=== PATIENT | female | born 1955 | race Caucasian/White ===

== ENCOUNTER → 2024-08-23 | Outpatient (CLI) | payer MEDICARE, MEDICAID, SELFPAY ==
[2024-08-23 09:43] LABS: Alanine Aminotransferase 9 U/L (10-49); Albumin, Serum 4.6 gm/dL (3.4-4.8); Albumin/Globulin Ratio 1.7 (1.2-2.2); Alkaline Phosphatase 114 U/L (46-116); Anion Gap 5 (7-16); Aspartate Amino Transferase < 10 U/L (0-34); BUN/Creatinine Ratio 15 Ratio (12-20); Bilirubin,Total 0.3 mg/dL (0.3-1.2); Blood Urea Nitrogen 12 mg/dL (9-23); Calcium 9.7 mg/dL (8.3-10.6); Calcium (Corrected) 9.7 mg/dL (8.5-10.1); Carbon Dioxide 32.6 mMol/L (20.0-31.0); Chloride 100 mMol/L (98-107); Creatinine (Component) 0.8 mg/dL (0.6-1.3); Globulin 2.7 gm/dL (2.3-3.5); Glucose 100 mg/dL (74-106); Osmolality,Calculated 275 (275-295); Phosphorous 2.8 mg/dL (2.4-5.1); Potassium 4.3 mMol/L (3.4-5.1); Sodium 138 mMol/L (136-145); Thyroid Stimulating Hormone 0.08 uIU/mL (0.55-4.78); Total Protein 7.3 gm/dL (5.7-8.2); eGFR > 60 See Note
[2024-09-08 09:10] LABS: Direct LDL* 38 mg/dL (<100); T3,Total* 102 ng/dL (76-181)
== END | disposition home or self-care (01) ==
LOC: COPL 08:13
PROVIDERS: PCP Internal Medicine; Referring Provider Internal Medicine; Visit Provider Internal Medicine
DX: E03.9 Hypothyroidism, unspecified (principal); E87.1 Hypo-osmolality and hyponatremia
CPT/HCPCS: 36415; 80053; 83721; 84100; 84443; 84480

== ENCOUNTER 2025-05-11 11:30 | Inpatient (IN) | payer MEDICARE, MEDICAID, SELFPAY ==
[2025-05-11] VITALS (79 sets, daily range): BP systolic 71–164; BP diastolic 37–94; PULSE 88–129; RESP 12–35; TEMP 36.1–37.2; O2SAT 52–100; BMI 17.6
--- NOTE | 2025-05-11 11:44 | XR_ITS ---
Examination: CTA carotids with intravenous contrast CTA brain, head with intravenous contrast. 2-D sagittal, coronal reconstructions. 3-D reconstructions. Exam date and time: May 11, 2025 12:11 PM INDICATIONS: Stroke alert, found down unconscious today CTDI: vol (mGy) 23.3 DLP: (mGycm) 417 Technique: Multiple CTA axial brain, head carotid images post intravenous contrast injection 75 cc, [id number]. 2-D sagittal, coronal reconstructions. 3-D reconstructions, 3-D post processing including vascular maximum intensity projection images. Low dose protocols were performed. One or more of the following dose reduction techniques were used; automated exposure control, adjustment of the mA and/or KV according to patient size, use of iterative reconstruction technique. Findings: No significant common carotid carotid bifurcation or internal carotid artery stenoses Mildly dominant right vertebral artery in the neck with no critical stenoses. Basilar artery posterior cerebral branches fill with no occlusions Petrous juxtasellar portions internal carotid arteries intact No large vessel occlusions involving middle cerebral or anterior cerebral arteries IMPRESSION: No significant neck arterial stenoses No cerebral large vessel arterial occlusions or thrombus
--- NOTE | 2025-05-11 11:44 | XR_ITS ---
Examination: CT brain head without contrast. 2-D sagittal coronal reconstructions Date and time of exam:May 11, 2025 1157 hours, comparison April 19 2 views INDICATIONS: Stroke alert, onset focal neurologic deficit today, patient found down unconscious CTDI: vol (mGy):49.2 DLP: (mGycm):1029 Technique: Multiple CT axial sections of the brain have been obtained, 5 mm slice thickness. Contrast has not been administered. 2-D sagittal, coronal reconstructions have been obtained Low dose protocols were performed. One or more of the following dose reduction techniques were used; automated exposure control, adjustment of the mA and/or KV according to patient size, use of iterative reconstruction technique. Findings: No significant ventricular enlargement. 3 mm old appearing infarct left brainstem Intra-axial or extra-axial hemorrhage density is not seen. No mass effect or midline shift Basal cisterns are not remarkable. Fourth ventricle is midline. Cranial vault intact. Impression: Negative for acute hemorrhage, mass effect or midline shift
--- NOTE | 2025-05-11 11:44 | EKG_ITS ---
[facility] Test Date: 2025-05-11 Pat Name: DOMINIC FORTE Department: Room: - Gender: Female Nurse Care Manager: : [id number] Requested By: Marita Catherine Order Number: [id number] Reading MD: Marita Catherine Measurements Intervals [place] Rate: 93 P: 64 OH: 179 QRS: -14 QRSD: 104 T: 78 QT: 366 QTc: 457 Interpretive Statements SINUS RHYTHM NONSPECIFIC ST & T-WAVE ABNORMALITY No previous ECG available for comparison /store/S0/[id number]/[id number].pdf
--- NOTE | 2025-05-11 11:44 | XR_ITS ---
Examination: AP chest single view Technique one AP portable semiupright chest single view Date and time: May 11, 2025 1319 hours INDICATIONS: Stroke alert, focal neurologic deficit today. FINDINGS: Mild prominence of ventricle No aspiration pneumonia. Old left-sided rib fractures IMPRESSION: Negative for aspiration pneumonia
--- NOTE | 2025-05-11 11:52 | PD.EDFALL ---
ED Fall Injury RME/HPI General Chief Complaint: Fall Stated Complaint: LOW BP Time Seen by Provider: 05/11/25 11:41 Arrival date/time: 05/11/25 11:30 RME / HPI RME / HPI Narrative: 69-year-old female patient with significant history of hypertension, bipolar disorder, COPD, was brought in by EMS for evaluation regarding strokelike symptoms. Apparently patient went to the bathroom last night, around 9 PM, and fell and tried to go back to her bed crawling according to the family. This morning around 10:00 in the morning, she called her mom and patient verbalized that she probably had a stroke, her daughter went to the house, and patient was noted to be confused and unable to ambulate. Called EMS. Patient is not taking any blood thinner. On my initial evaluation patient is having slurring with speech, GCS 14, with weakness to the right side of the body. Patient sustained laceration to the forehead no active bleeding noted will coaptated. Patient lives alone. Related Data Home Medications ?Medication ?Instructions ?Recorded ?Confirmed carvedilol 3.125 mg tablet (Coreg) 3.125 mg PO BID #0 tabs 09/03/16 04/30/22 albuterol sulfate 90 mcg/actuation 2 puff inhalation QID PRN 07/10/18 04/30/22 aerosol inhaler (Ventolin HFA) Shortness Of Breath Or Wheezing aripiprazole 30 mg tablet (Abilify) 30 mg PO QDAY 07/10/18 04/30/22 levothyroxine 50 mcg tablet 75 mcg PO QDAY 07/10/18 04/30/22 (Synthroid) venlafaxine 150 mg 300 mg PO QDAY 07/10/18 04/30/22 capsule,extended release 24 hr (Effexor XR) diazepam 10 mg tablet (Valium) 10 mg PO BID 03/26/19 04/30/22 Held on 04/30/22. Instructions: Resume on 05/01/22. HOLD TODAY'S DOSE. MAY RESUME TOMORROW 05/01/22 lisinopril 20 mg tablet 10 mg PO HS #0 tabs 03/26/19 04/30/22 cholecalciferol (vitamin D3) 125 50,000 unit PO QDAY 08/25/19 04/30/22 mcg (5,000 unit) tablet (Vitamin D3) ferrous sulfate 325 mg (65 mg 325 mg PO QDAY 08/25/19 04/30/22 iron) tablet omeprazole 40 mg capsule,delayed 40 mg PO QDAY 08/25/19 04/30/22 release risperidone 3 mg tablet 3 mg QDAY 08/25/19 04/30/22 gemfibrozil 600 mg tablet 1 tab PO BID 04/30/22 04/30/22 Previous Rx's ?Medication ?Instructions ?Recorded sucralfate 1 gram tablet (Carafate) 1 g PO BID #180 tabs 04/30/22 Allergies Allergy/AdvReac Type Severity Reaction Status Date / Time adhesive tape Allergy Severe SURGICAL Verified 04/30/22 09:58 TAPE /BLISTERS Sulfa (Sulfonamide Allergy Severe SWEELING / Verified 04/30/22 09:58 Antibiotics) CLOSE THROAT / RASH clindamycin Allergy Unknown Anaphylaxis Verified 04/30/22 09:58 Penicillins Allergy Unknown Anaphylaxis Verified 04/30/22 09:58 Review of Systems Review of Systems Narrative Review of Systems: Review of system reviewed and within normal limits except mentioned in HPI ED Exam Narrative Physical exam: VITAL SIGNS: Reviewed. GENERAL APPEARANCE: Alert and good eye contact, follows commands, no acute distress, expressive aphasia, GCS 14 HEAD AND FACE: 5 cm nongaping laceration to the forehead no active bleeding ENT: PERRL, pink conjunctivitis, eyelid no trauma, Mucous membrane moist. NECK: Supple, nontender, no nuchal rigidity. CHEST: No tenderness, no crepitus, no paradoxical movement, no retractions. LUNGS: Clear, well ventilated, symmetric, no rales, no wheezing, no ronchi, no stridor, good breath sounds bilaterally. HEART: Regular rate, regular rhythm, no murmur, no gallops. ABDOMEN: Soft, positive bowel sounds, nondistended, no guarding, nontender, no rebound, no masses, RECTAL: Deferred. GENITAL: Deferred. NEUROLOGICAL: Gross motor function intact sensory function intact, Appropriate for age. MUSCULOSKELETAL: low back nontender, full range of motion. EXTREMITIES:+ Right upper extremity drifting, nontender, full range of motion. SKIN: Color pink, dry, no rash, no lacerations, no abrasions, no contusions. LYMPHATICS: Deferred. Course Quality Measures none Orders Category Date Time Status Bedside Blood Glucose NOW Care 05/11/25 11:44 Active COVID-19 Screening Questionnaire NOW Care 05/11/25 14:11 Active Blow Down Operator NOW Care 05/11/25 11:44 Active Continuous Pulse Oximetry NOW Care 05/11/25 11:44 Completed Decision to Admit X1 Care 05/11/25 14:10 Completed EKG (ED ONLY) *Do not use* NOW Care 05/11/25 11:44 Completed Head of Bed Elevation NOW Care 05/11/25 14:57 Active In and Out Catheter NEEDED Care 05/11/25 11:44 Active Insert IV NOW Care 05/11/25 11:44 Active MRI Screening NOW Care 05/11/25 14:59 Active NIH Stroke Scale now Care 05/11/25 11:44 Active NPO NOW Care 05/11/25 11:44 Active Nurse Swallow Screen x1 Care 05/11/25 11:44 Active Consult to Gastroenterology Stat Cons 05/11/25 14:57 Ordered Consult to Neurology / Tele-Neurology Routine Cons 05/11/25 11:44 Active Consult to Neurology / Tele-Neurology Stat Cons 05/11/25 15:37 Active Referral Physical Therapy Routine Cons 05/11/25 15:00 Active Referral Speech Therapy Routine Cons 05/11/25 15:[address] angio stroke protocol Stat Exams 05/11/25 11:[address] chest abdomen pelvis wo Stat Exams 05/11/25 14:[address] stroke protocol Stat Exams 05/11/25 11:44 Completed CXR [XR chest 1V] Stat Exams 05/11/25 14:55 Completed EKG (ED Only) Stat Exams 05/11/25 11:44 Draft MR stroke protocol brain wo con with MRA head and neck Exams 05/11/25 Ordered Stat XR chest 1V portable Stat Exams 05/11/25 11:44 Completed XR pelvis 1-2V Stat Exams 05/11/25 12:21 Completed CBC Stat Lab 05/11/25 11:50 Completed CBC Stat Lab 05/11/25 15:29 Completed Comprehensive Metabolic Panel Stat Lab 05/11/25 11:50 Completed Creatine Kinase Stat Lab 05/11/25 11:50 Completed Drug Screen,Urine Stat Lab 05/11/25 12:57 Completed HCG Titer if Positive Stat Lab 05/11/25 11:50 Completed Lactate (Lactic Acid) Stat Lab 05/11/25 15:29 Results Magnesium Stat Lab 05/11/25 11:50 Completed Partial Thromboplastin Time Stat Lab 05/11/25 11:50 Completed Prothrombin Time with INR Stat Lab 05/11/25 11:50 Completed Troponin I Q8H Lab 05/11/25 17:00 Ordered Troponin I Q8H Lab 05/12/25 01:00 Ordered Troponin I Stat Lab 05/11/25 11:50 Completed Type and Screen Stat Lab 05/11/25 15:29 Results Urinalysis, C/S if Indicated Stat Lab 05/11/25 12:57 Completed Aspirin [Ecotrin] Med 05/11/25 12:12 Discontinued 81 mg PO X1 ONE Cefepime Inj [Maxipime Inj] 1 gm Med 05/11/25 15:36 Active SODIUM CHLORIDE 0.9% (Popper) [Ns 0.9% (P)] 50 ml IV QDAY Labetalol IV [Trandate IV] Med 05/11/25 11:44 Active 10 mg IVP Q15M PRN Norepinephrine/NS 16mg/250ml [Levophed in NS 16mg/250ml Med 05/11/25 12:57 Active ] 16 mg in 250 ml IV 0.05 mcg/kg/min Ondansetron Inj [Zofran Inj] Med 05/11/25 11:44 Active 4 mg IVP Q4HR PRN Ringers Lactated 1000 ml [Lactated Ringers] 1,000 ml Med 05/11/25 14:59 Active IV 100 mls/hr Sodium Chloride 0.9% 1000 ml [Ns] 1,000 ml Med 05/11/25 12:22 Discontinued IV 999 mls/hr Sodium Chloride 0.9% 1000 ml [Ns] 1,000 ml Med 05/11/25 12:22 Discontinued IV 999 mls/hr TET,DIP/PERT AC (Adult)-Tdap [Boostrix Adult (Tdap) Med 05/11/25 12:12 Discontinued Vacc] 0.5 ml IMI .ONCE ONE Vancomycin Pharmacy to Dose Med 05/11/25 15:00 Active 1 each IV QDAY PRN Vancomycin/Ns 1 gm Ivpb 200 ml Med 05/11/25 15:15 Active IV X1 cefTRIAXone/D5w 1gm IV premix [Rocephin/D5w 1gm IV Med 05/11/25 13:08 Discontinued premix] 1 gm in 50 ml IV X1 Oxygen Delivery NOW RT 05/11/25 11:44 Active Vital Signs Vital signs: Vital Signs Temperature 98.9 F 05/11/25 11:35 Pulse Rate 108 H 05/11/25 11:35 Respiratory Rate 18 05/11/25 11:35 Blood Pressure 86/55 L 05/11/25 11:35 Pulse Oximetry (%) 89 L 05/11/25 11:35 Oxygen Delivery Method Oxy Mask 05/11/25 11:35 Fall MDM Narrative MDM Narrative:: 69-year-old female patient with significant history of hypertension, bipolar disorder, COPD, was brought in by EMS for evaluation regarding strokelike symptoms. Apparently patient went to the bathroom last night, around 9 PM, and fell and tried to go back to her bed crawling according to the family. This morning around 10:00 in the morning, she called her mom and patient verbalized that she probably had a stroke, her daughter went to the house, and patient was noted to be confused and unable to ambulate. Called EMS. Patient is not taking any blood thinner. On my initial evaluation patient is having slurring with speech, GCS 14, with weakness to the right side of the body. Patient sustained laceration to the forehead no active bleeding noted will coaptated. Patient lives alone. Stroke alert was initiated at 11:50 AM I spoke with teleneurologist, who recommends aspirin p.o. x 1. CT scan of the head and CT angiogram of the head and neck all came back unremarkable EKG showed sinus rhythm, ventricular to 72 bpm, no ST segment elevation depression noted. Sepsis alert was initiated at 3:30 PM for leukocytosis tachycardia. And hypotension Levophed was started for persistent hypotension. Patient will be admitted to ICU While in the ED the, patient vomited coffee-ground vomitus. I consulted Dr. Vasquez. Patient was also given IV Protonix. Patient received total of 3 L IV fluids, and ceftriaxone IV Patient data External records reviewed:: None Clinical information provided by:: none Social determinants that could affect healthcare access:: none Patient has the following chronic illnesses:: Hypertension How is presenting disease/condition affected by chronic disease/condition?: exacerbated by Evaluation data The following diagnostics were reviewed and interpreted by me:: lab results, radiology exam(s) and EKG tracing(s) Lab and/or radiology exams considered but not ordered:: None Interpretation Summary: See results MDM Medications / Prescriptions Medications or Prescriptions considered but not ordered:: None Medication administrations:: Medication Administration History Acetaminophen (Acetaminophen 325 Mg Tablet) 650 mg PO Q6HR PRN PRN Reason: FEVER >101 Stop: 06/10/25 15:39 Acetaminophen (Acetaminophen 325 Mg Tablet) 650 mg PO Q6HR PRN PRN Reason: HEADACHE Stop: 06/10/25 15:44 Atorvastatin Calcium (Atorvastatin Calcium 20 Mg Tablet) 80 mg PO HS DUSTIN Stop: 06/10/25 20:59 Heparin Sodium (Porcine) (Heparin Sod Inj 5000 Unit/Ml Vial) 5,000 unit SC Q12HR DUSTIN Stop: 05/25/25 20:59 Norepinephrine Bitartrate (Levophed In Ns 16mg/250ml) 16 mg in 250 mls @ 2.126 mls/hr IV .Q24H PRN; Protocol PRN Reason: PER protocol Stop: 06/10/25 12:56 Last Admin: 05/11/25 15:55 Dose: 0.05 mcg/kg/min, 2.126 mls/hr Documented By: OLI Vancomycin/Sodium Chloride (Vancomycin/Ns 1 Gm Ivpb) 200 mls @ 120 mls/hr IV X1 ONE Stop: 05/11/25 16:54 Last Admin: 05/11/25 15:35 Dose: 120 mls/hr Documented By: OLI Lactated Ringer's (Lactated Ringers) 1,000 mls @ 100 mls/hr IV .Q10H DUSTIN Stop: 06/10/25 14:58 Last Admin: 05/11/25 15:35 Dose: 100 mls/hr Documented By: OLI Cefepime HCl 1 gm/ Sodium (Chloride) 50 mls @ 100 mls/hr IV QDAY DUSTIN; Protocol Stop: 05/18/25 15:35 Last Admin: 05/11/25 15:55 Dose: 100 mls/hr Documented By: OLI Labetalol HCl (Labetalol Inj 5 Mg/Ml Vial 20 Ml) 10 mg IVP Q15M PRN PRN Reason: HYPER Ondansetron HCl (Ondansetron Inj 2 Mg/Ml Inj 2 Ml) 4 mg IVP Q4HR PRN PRN Reason: NAUSEA OR VOMITING Stop: 06/10/25 11:43 Last Admin: 05/11/25 14:16 Dose: 4 mg Documented By: OLI Pharmacy Consult (Vancomycin Pharmacy To Dose 1 Each Each) 1 each IV QDAY PRN PRN Reason: CONSULT Stop: 06/10/25 14:59 Discontinued Medications Aspirin (Aspirin Ec 81 Mg Tabec) 81 mg PO X1 ONE Stop: 05/11/25 12:13 Last Admin: 05/11/25 12:31 Dose: 81 mg Documented By: OLI Diphtheria/Tetanus/Acell Pertussis (Diphth,Pertuss(Acell),Tet Vac 0.5 Ml Syr- Adult) 0.5 ml IMi .ONCE ONE Stop: 05/11/25 12:13 Last Admin: 05/11/25 12:31 Dose: 0.5 ml Documented By: OLI Sodium Chloride (Ns) 1,000 mls @ 999 mls/hr IV .Q1H1M ONE Stop: 05/11/25 13:22 Last Infusion: 05/11/25 14:25 Dose: Infused Documented By: Admin: 05/11/25 12:27 Dose: 999 mls/hr Documented By: Infusion: 05/11/25 12:27 Dose: Infused Documented By: Admin: 05/11/25 12:25 Dose: 999 mls/hr Documented By: OLI Sodium Chloride (Ns) 1,000 mls @ 999 mls/hr IV .Q1H1M ONE Stop: 05/11/25 13:22 Last Infusion: 05/11/25 14:25 Dose: Infused Documented By: Admin: 05/11/25 12:33 Dose: 999 mls/hr Documented By: OLI Ceftriaxone Sodium/Dextrose (Rocephin/D5w 1gm Iv Premix) 1 gm in 50 mls @ 100 mls/hr IV X1 ONE Stop: 05/11/25 13:37 Last Infusion: 05/11/25 14:24 Dose: Infused Documented By: Admin: 05/11/25 13:31 Dose: 100 mls/hr Documented By: OLI See MDM Consultations Consultation(s) initiated? (list below): Yes Consultation #1 (Physician, Specialty, Details): Dr. Vasquez, GI specialist on-call thank you Dr. Vasquez Consultation #2 (Physician, Specialty, Details): Teleneurologist, discussed the case, who recommends aspirin and admit for stroke workup Diagnosis Fall Differential Diagnosis: syncope and other (Rhabdomyolysis, sepsis, stroke, upper GI bleed) Most likely diagnosis given after review of the tests above:: Upper GI bleed, rhabdomyolysis, sepsis, strokelike symptoms Admission Indicated Admission indicated?: indicated Admission Request Was there a request for admission?: Yes Admission Attestation Admission request attestation: Discussed case with [Dr. Don] from Hospitalist service regarding admission. Discussed patients ED course, exam findings, labs, and radiology results. The Hospitalist [agrees,] to accept the patient for admission. Disposition Plan Disposition Plan: Admit Critical Care Time Critical Care Time Critical Care Time: Yes Total Critical Care Time (min.): 45 Attestation: Critical Care Time The very real possibility of a deterioration of this patient's condition required the highest level of my preparedness for sudden, emergent intervention for the following systems: Cardiac and Metabolic. I provided critical care services, which included medication orders, frequent re-evaluations of the patient's condition and response to treatment, ordering and reviewing test results, and discussing the case with various consultants including: nursing staff, hospitalist, and more. The critical care time associated with the care of this patient was 45 minutes. Discharge Plan Plan Patient Disposition: Admit Acute Care w/in Hospital Discharge Disposition comment: Critical Problem List Clinical Impression: Sepsis, Stroke-like symptom, Acute upper GI bleed
[2025-05-11 12:01] LABS: Basophils # (Auto) 0.2 Thou/mm3 (0.0-0.2); Basophils % (Auto) 1 % (0-2.5); Eosinophils # (Auto) 0.0 Thou/mm3 (0.0-0.5); Eosinophils % (Auto) 0 % (0-10); Hematocrit 44.7 % (36.0-46.0); Hemoglobin 16.5 g/dL (12.0-16.0); Immature Granulocytes Auto 0.30 Thou/mm3 (0.00-0.00); Lymphocytes # (Auto) 1.7 Thou/mm3 (1.0-4.8); Lymphocytes % (Auto) 6 % (10-50); Mean Corpuscular HGB Conc 36.9 g/dl (31.0-37.0); Mean Corpuscular Hemoglobin 32.4 pg (25.0-35.0); Mean Corpuscular Volume 88 fL (80-100); Monocytes # (Auto) 1.1 Thou/mm3 (0.0-0.8); Monocytes % (Auto) 4 % (0-12); Neutrophils # (Auto) 24.9 Thou/mm3 (1.8-7.7); Neutrophils % (Auto) 89 % (37-80); Nucleated Red Blood Cell # 0.00 Thou/mm3 (0.00-0.00); Nucleated Red Blood Cell % 0 /100 WBC (0); Platelet Count 393 Thou/mm3 (140-440); RDW Standard Deviation 43.5 fL (36.4-46.3); Red Blood Count 5.09 Miln/mm3 (4.00-5.20); White Blood Count 28.1 Thou/mm3 (3.6-11.0)
[2025-05-11 12:19] LABS: INR 1.1 (0.9-1.3); Partial Thromboplastin Time 27.5 Seconds (22.0-36.0); Prothrombin Time 12.2 Seconds (9.0-12.2)
--- NOTE | 2025-05-11 12:21 | XR_ITS ---
Examination: AP pelvis single view TECHNIQUE: AP portable supine pelvis single view Date and time: May 11, 2025 1325 hours INDICATIONS: Patient fell 2 days ago with injury to the pelvis, pelvic pain. FINDINGS: Severe osteopenia No definite hip or pelvic fracture IMPRESSION: No definite hip or pelvic fracture. Given the severe osteopenia recommend 1-2 day follow-up AP film of the pelvis as clinically warranted.
[2025-05-11] MEDS: SODIUM CHLORIDE 0.9% 1000 ML 1,000 ML 999 ML IV ×4 (12:25→16:56)
[2025-05-11 12:28] LABS: HCG Titer if Positive Negative
[2025-05-11] MEDS: DIPHTH,PERTUSS(ACELL),TET VAC 0.5 ML SYR- ADULT IMi (12:31)
[2025-05-11] MEDS: ASPIRIN EC 81 MG TABEC PO (12:31)
[2025-05-11 12:37] LABS: Alanine Aminotransferase 144 U/L (10-49); Albumin, Serum 4.5 gm/dL (3.4-4.8); Albumin/Globulin Ratio 1.4 (1.2-2.2); Alkaline Phosphatase 105 U/L (46-116); Anion Gap 16 (7-16); Aspartate Amino Transferase 141 U/L (0-34); BUN/Creatinine Ratio 8 Ratio (12-20); Bilirubin,Total 0.3 mg/dL (0.3-1.2); Blood Urea Nitrogen 25 mg/dL (9-23); Calcium 10.2 mg/dL (8.3-10.6); Calcium (Corrected) 10.2 mg/dL (8.5-10.1); Carbon Dioxide 26.3 mMol/L (20.0-31.0); Chloride 80 mMol/L (98-107); Creatinine (Component) 3.0 mg/dL (0.6-1.3); Globulin 3.3 gm/dL (2.3-3.5); Glucose 176 mg/dL (74-106); Magnesium 1.7 mg/dL (1.6-2.6); Osmolality,Calculated 254 (275-295); Potassium 5.4 mMol/L (3.4-5.1); Sodium 122 mMol/L (136-145); Total Protein 7.8 gm/dL (5.7-8.2); eGFR 16 See Note
[2025-05-11 12:39] LABS: Troponin I 1.011 ng/mL (0.0-0.045)
--- NOTE | 2025-05-11 12:44 | PD.TNEURO ---
Tele Neuro Consultation Consultation Date 05/11/25 Most Recent Vital Signs Last Vital Signs Temp 98.9 F 05/11/25 11:35 Pulse 108 H 05/11/25 11:44 Resp 18 05/11/25 11:35 BP 86/55 L 05/11/25 11:35 Pulse Ox 89 L 05/11/25 11:44 O2 Del Method Oxy Mask 05/11/25 11:35 O2 Flow Rate 2 05/11/25 11:44 Laboratory-Coagulation Panel PT 12.2 Seconds (9.0-12.2) 05/11/25 11:50 INR 1.1 (0.9-1.3) 05/11/25 11:50 APTT 27.5 Seconds (22.0-36.0) 05/11/25 11:50 Consultation Narrative [facility] Tele[facility] Patient Name:???Doris Adame Date of :???1955 Identification Number:??? Date of Service:???05/11/2025 11:45:25 Diagnosis:?I63.00 - Cerebrovascular accident (CVA) due to thrombosis of precerebral artery (HCCC) Impression: ?69 year old woman with history of hypothyroidism, hypertension, hyperlipidemia who presents for an evaluation following a fall. On exam she has marked right sided deficits, no antigravity movement of right leg, drift of right arm, sensory changes and dysarthria. Concern for a left hemispheric stroke. She is very hypotensive cannot rule out watershed infarcts. Will need IVF and permissive hypertension. She is outside therapeutic window for IV thrombolytic, recommend admission for full stroke workup: MRI brain imaging, antiplatelet therapy, statin, 2d echo, telemetry monitoring, PT/OT/speech eval and follow up with inpatient neurology. Our recommendations are outlined below. Recommendations: ? Stroke/Telemetry Floor ? Neuro Checks (Q4) ? Bedside Swallow Eval ? DVT Prophylaxis ? IV Fluids, Normal Saline ? Head of Bed 30 Degrees ? Euglycemia and Avoid Hyperthermia (PRN Acetaminophen) ? Initiate or continue Aspirin 81 MG daily ? Antihypertensives PRN if Blood pressure is greater than 220/120 or there is a concern for End organ damage/contraindications for permissive HTN. If blood pressure is greater than 220/120 give labetalol PO or IV or Vasotec IV with a goal of 15% reduction in BP during the first 24 hours. ?MRI brain imaging ?IVF and permissive hypertension ?2d echo ?telemetry monitoring ?aspirin 81mg, CT if unable to swallow ?NPO until swallow eval performed ?PT/OT/speech eval ?Lipitor 80mg ?check fasting lipid panel and HGA1C ?fu with neurology Sign Out: ? Discussed with Emergency Department Provider Advanced Imaging: CTA Head and Neck Completed. LVO:No Patient is not a candidate for COLETTE Metrics: Last Known Well: 05/10/2025 21:23:00 Dispatch Time: 05/11/2025 11:45:25 Arrival Time: 05/11/2025 11:35:00 Initial Response Time: 05/11/2025 11:48:51Symptoms: confusion, weakness. Initial patient interaction: 05/11/2025 12:01:00 NIHSS Assessment Completed: 05/11/2025 12:07:55Patient is not a candidate for Thrombolytic. Thrombolytic Medical Decision: 05/11/2025 12:07:59Patient was not deemed candidate for Thrombolytic because of following reasons: LKW outside 4.[address] Head: I personally reviewed all the CT images that were available to me and it showed: no acute hemorrhage Primary Provider Notified of Diagnostic Impression and Management Plan on: 05/11/2025 12:09:58 History of Present Illness:Patient is a 69 year old Female. Patient was brought by EMS for symptoms of confusion, weakness. 69 year old woman with history of hypothyroidism, hypertension, hyperlipidemia who presents for an evaluation following a fall. She was well until approximately 9pm yesterday and sustained a fall with head injury. Unclear if had LOC or why she fell. Patient unable to elaborate. She spoke to the daughter was fine yesterday and this morning when she woke up she told her daughter she was having a stroke. She appeared confused, unable to walk and is normally independent. Daughter stated she was on blood thinners but was unable to locate it in the house. Past Medical History: ?Hypertension ?Hyperlipidemia ?There is no history of Diabetes Mellitus Medications: Anticoagulant use:??Unknown Antiplatelet use:?Unknown Reviewed EMR for current medications Allergies:? Reviewed Social History: Smoking: No Alcohol Use: No Drug Use: No Family History: There is no family history of premature cerebrovascular disease pertinent to this consultation ROS : 14 Points Review of Systems was performed and was negative except mentioned in HPI. Past Surgical History: There Is No Surgical History Contributory To Today?s Visit Examination: BP(86/55),?Pulse(85), 1A: Level of Consciousness - Alert; keenly responsive?+ 0 1B: Ask Month and Age - Both Questions Right?+ 0 1C: Blink Eyes & Squeeze Hands - Performs Both Tasks?+ 0 2: Test Horizontal Extraocular Movements - Normal?+ 0 3: Test Visual Castro - No Visual Loss?+ 0 4: Test Facial Palsy (Use Grimace if Obtunded) - Normal symmetry?+ 0 5A: Test Left Arm Motor Drift - No Drift for 10 Seconds?+ 0 5B: Test Right Arm Motor Drift - Drift, but doesn't hit bed?+ 1 6A: Test Left Leg Motor Drift - Some Effort Against [place]?+ 2 6B: Test Right Leg Motor Drift - No Effort Against [place]?+ 3 7: Test Limb Ataxia (FNF/Heel-Coley) - No Ataxia?+ 0 8: Test Sensation - Mild-Moderate Loss: Less Sharp/More Dull?+ 1 9: Test Language/Aphasia - Normal; No aphasia?+ 0 10: Test Dysarthria - Severe Dysarthria: Unintelligble Slurring or Out of Proportion to Aphasia?+ 2 11: Test Extinction/Inattention - No abnormality?+ 0 NIHSS Score:?9 NIHSS Free Text :?ecchymosis across her face ?diminished sensation on the right Pre-Morbid Modified Annie Scale: 0 Points = No symptoms at all Spoke with :?hortencia burr This consult was conducted in real time using interactive audio and video technology. Patient was informed of the technology being used for this visit and agreed to proceed. Patient located in hospital and provider located at home/office setting. Patient is being evaluated for possible acute neurologic impairment and high probability of imminent or life-threatening deterioration. I spent total of 45 minutes providing care to this patient, including time for face to face visit via telemedicine, review of medical records, imaging studies and discussion of findings with providers, the patient and/or family. Dr Azalia Wolf [facility] For Inpatient follow-up with [facility] physician please call [facility] at . As we are not an outpatient service for any post hospital discharge needs please contact the hospital for assistance. If you have any questions for the [facility] physicians or need to reconsult for clinical or diagnostic changes please contact us via [facility] at . Signature :Maksim Wolf
[2025-05-11 12:58] LABS: Collection Type, Urine Catheter
[2025-05-11 13:15] LABS: Bilirubin,Urine Negative (Negative); Blood,Urine Negative (Negative); Clarity,Urine Clear (Clear/Hazy); Color,Urine Lt-Yellow (Lt Yel-Yel); Culture Indicated,Urine Not Indicated; Glucose, Urine Negative (Negative); Ketones,Urine Negative (Negative); Leukocyte Esterase,Urine Negative (Negative); Nitrite,Urine Negative (Negative); PH,Urine 6.5 (5.0-7.0); Protein,Urine Negative (Neg - Trace); RBC,Urine < 1 /hpf (0-3); Specific Gravity,Urine 1.007 (1.001-1.035); Squamous Epithelial Cell,Urine < 1 /hpf (0-5); Urobilinogen,Urine Negative mg/dL (0.0-1.0); WBC,Urine < 1 /hpf (0-5)
[2025-05-11 13:18] LABS: Creatine Kinase 2125 U/L (34-171)
[2025-05-11 13:29] LABS: Amphetamine/Methamp Scrn,U Negative (Negative); Barbiturate Screen,Urine Negative (Negative); Benzodiazepines Screen,Urine Positive (Negative); Benzoylecgonine Screen, Ur Negative (Negative); Fentanyl Screen,Urine Negative (Negative); Opiate Screen,Urine Negative (Negative); THC Screen,Urine Negative (Negative)
[2025-05-11] MEDS: cefTRIAXone/D5w 1gm IV premix 1 GM/50 ML BAG IV (13:31)
[2025-05-11] MEDS: ONDANSETRON INJ 2 MG/ML INJ 2 ML 4 MG IVP (14:16)
--- NOTE | 2025-05-11 14:55 | XR_ITS ---
Examination: AP chest single view Technique one AP portable semiupright chest single view Date and time: May 11, 2025, 1529 hours, comparison 05/11/2025 INDICATIONS: Choking coughing today. FINDINGS: Mild opacity left base Blunting of left lateral costophrenic angle. Mild prominence left ventricle Prominent osteopenia IMPRESSION: Suspicious for mild left base aspiration pneumonia
--- NOTE | 2025-05-11 14:56 | XR_ITS ---
Examination: CT chest, without intravenous contrast. CT abdomen, without intravenous contrast. CT pelvis, without intravenous contrast. 2-D sagittal and coronal reconstructions. 3-D reconstructions. Date and time of exam:May 11, 2025, 1514 hrs. Indications: Sepsis alert, unknown source of infection today, fever CTDI vol (mgy) 7.48 DLP (MGycm)555. Technique: Multiple CT images, 3.0 mm slice thickness, obtained chest, abdomen, pelvis, with the high-resolution 64 slice scanner.. Sagittal and coronal 2-D reconstructions are obtained. 3-D reconstructions Low dose protocols were performed. One or more of the following dose reduction techniques were used; automated exposure control, adjustment of the mA and/or KV according to patient size, use of iterative reconstruction technique. Findings: Mild aneurysmal dilatation thoracic aorta AP dimension 4.0 cm No pulmonary artery enlargement. No paratracheal tracheobronchial or bronchopulmonary adenopathy Abnormal fluid distended esophagus Minimal 2 mm pericardial effusion. No pneumonia or pulmonary edema or pleural disease Liver is mildly irregular contour, no focal liver or splenic lesions Absent gallbladder Spleen not enlarged Lower wall of the esophagus is thickened axial image 119 Small pancreatic calcification. Moderate renal parenchymal scar formation. Perinephric stranding. No hydronephrosis or ureteral calculi Aorta normal size The entire colon shows wall thickening and mild inflammatory change especially the rectosigmoid Absent uterus Contracted urinary bladder There is an air-fluid structure which is anterior to the bladder, axial image 307, which may be part of the urinary bladder Moderate osteopenia Impression: Mild aneurysmal dilatation thoracic aorta. No pneumonia, pulmonary edema or pleural disease Abnormal fluid distention of the esophagus with thickening of the lower wall of the esophagus, differential would include reflux esophagitis, lower esophageal tumor, recommend endoscopy follow-up Primary hepatocellular disease. Perinephric stranding, consider urinary tract infection. Moderately severe diffuse nonspecific colitis entire colon, differential would include ulcerative colitis, Crohn's disease This patient should return at this time for repeat bladder images with a distended urinary bladder to exclude abscess at the anterior margin of the urinary bladder, also recommend pelvic sonography follow-up
[2025-05-11 15:34] LABS: Lactate (Lactic Acid) 3.2 mMol/L (0.4-2.0)
[2025-05-11] MEDS: RINGERS LACTATED 1000 ML 1,000 ML 100 ML IV ×2 (15:35→20:46)
[2025-05-11] MEDS: VANCOMYCIN/NS 1 GM IVPB 200 ML IV (15:35)
[2025-05-11 15:39] LABS: Basophils # (Auto) 0.1 Thou/mm3 (0.0-0.2); Basophils % (Auto) 0 % (0-2.5); Eosinophils # (Auto) 0.2 Thou/mm3 (0.0-0.5); Eosinophils % (Auto) 1 % (0-10); Hematocrit 39.6 % (36.0-46.0); Hemoglobin 14.4 g/dL (12.0-16.0); Immature Granulocytes Auto 0.12 Thou/mm3 (0.00-0.00); Lymphocytes # (Auto) 1.0 Thou/mm3 (1.0-4.8); Lymphocytes % (Auto) 5 % (10-50); Mean Corpuscular HGB Conc 36.4 g/dl (31.0-37.0); Mean Corpuscular Hemoglobin 31.8 pg (25.0-35.0); Mean Corpuscular Volume 87 fL (80-100); Monocytes # (Auto) 1.1 Thou/mm3 (0.0-0.8); Monocytes % (Auto) 6 % (0-12); Neutrophils # (Auto) 15.9 Thou/mm3 (1.8-7.7); Neutrophils % (Auto) 87 % (37-80); Nucleated Red Blood Cell # 0.00 Thou/mm3 (0.00-0.00); Nucleated Red Blood Cell % 0 /100 WBC (0); Platelet Count 92 Thou/mm3 (140-440); RDW Standard Deviation 43.2 fL (36.4-46.3); Red Blood Count 4.53 Miln/mm3 (4.00-5.20); White Blood Count 18.3 Thou/mm3 (3.6-11.0)
--- NOTE | 2025-05-11 15:42 | ESHP_ITS ---
<Statement entered by Ana Paula De Leon MD - 05/12/25 07:32> Patient is a 69-year-old woman with history of dyspepsia and GERD, hypothyroidism, restless leg syndrome, hyperlipidemia, hypertension, bipolar, COPD not on home oxygen who presented to the ED after ground-level fall. Per patient's daughter, patient was seen with a 5 cm laceration to her forehead as well as found soiled with her feces and urine. Feces looked black in color with no delroy red blood. Patient also noted to have active hematemesis in the ER x 2 when evaluating her. In addition, patient noted to have a slurred speech, which is not uncommon to patient. Patient however was able to understand all questions and follow most commands. Patient is alert and oriented x 3. In the ER, patient was given about 2.5 L bolus, however her blood pressure started dropping and as a result consulted ICU for further vasopressor support. Will also consult GI for further management of her possible GI bleed. Of note, teleneuro saw patient, recommended patient to be on aspirin for stroke prophylaxis, and received first dose this afternoon however will hold for now to rule out GI bleed and will place patient on SCDs for DVT prophylaxis. I discussed with and supervised the graphics intern physician who took care of this patient. I personally saw and examined the patient and discussed the assessment and plan with the entire medicine team, including my attending Dr. Forman, I agree with most of the assessment and plan as documented below Ana Paula De Leon M.D. PGY-3 Disclaimer: Despite multiple revisions, due to the dictation software being used, the document bellow may not be free of grammatical errors including phonetic/typographic errors. However, this does not deter from our commitment to providing health care in the patient's best interest in mind. Documentation for date of: 05/11/25 HPI History of Present Illness Chief complaint: c/f stroke and c/f GI bleed History of present illness: Ms. Adame is a 69-year-old woman with history of dyspepsia and GERD followed by Dr. Vasquez hypothyroidism restless leg hyperlipidemia hypertension bipolar and COPD not on home oxygen. She presents today because she fell at around 10 PM last night with head strike and she was unable to stand up her daughter came to see her this morning around 9 AM who found her soiled with vomit and stool soiling the patient. Daughter notes that the stool was dark in color no bright red blood. Emesis noted to be coffee ground. Daughter states her mother is more difficult to understand given slurred speech. She reported increased confusion and inability to ambulate due to right sided weakness. ROS she endorses subjective fevers, shortness of breath, headache, R sided weakness, nausea, emesis, diarrhea, melena she denies chills Surgical hx tonsillectomy, cholecystectomy, section, hysterectomy, bilateral knee replacement Patient lives alone. She endorses smoking ~5 cigarettes/day ED course Patient presented to the ED around 11:30 AM this morning she was tachycardic to 108 afebrile respiratory rate 18, blood pressure 86/55, satting 89 on oxy mask, BP remained soft despite fluid boluses. She became febrile Dx * Labs significant for white count of 28 hemoglobin of 16.5 platelet 92 coag studies within normal limits, Na 122, potassium 5.4 chloride 80 creatinine 3.0 (baseline 0.8), eGFR 16 lactic acid 3.2 elevated LFTs 140s, Cr Kinase 2125 t roponin elevated 1.011, UA bland, Utox positive for benzos, Hcg negative, type and screen pending * chest x-ray with no evidence of aspiration, CT head Negative for acute hemorrhage, mass effect or midline shift, CTA head and neck: No significant neck arterial stenoses No cerebral large vessel arterial occlusions or thrombus Tx * 3L NS per sepsis protocol * 1L LR * ASA 81 * CTX 1 gm IV * Vanc renally dosed * Cefepime 1gm medicine team saw patient, while in the ED, consulted ICU for upgrade. pt will be admitted to ICU for septic shock of unknown source, GI bleed and stroke rule out Review of Systems Review of Systems Narrative Review of Systems: as per hpi Past Medical History Surgical History OTHER SURGICAL HX: as per hpi Exam Vital Signs Temp Pulse Resp BP Pulse Ox O2 Del Method O2 Flow Rate 98.3 F 111 H 23 H 91/72 100 Nasal Cannula 2 05/11/25 14:38 05/11/25 15:02 05/11/25 15:02 05/11/25 14:55 05/11/25 14:40 05/11/25 14:38 05/11/25 11:44 Narrative Exam GENERAL: general discomfort, AAO x3, sitting upright laying in bed HEENT: forhead with 5cm crescent shaped laceration with crusted blood, no active bleeding. small laceration of her R cheek 2 cm, Mucous membranes dry. PERRL. NECK: Supple, midline anterior neck with red circular ?bruise (chronic per daughter) CARDIOVASCULAR: RRR. Normal S1/S2, No m/r/g. No pitting edema of bilateral LEs. RESPIRATORY: prolonged expiratory phase and wheezing. GASTROINTESTINAL: Abdomen soft, mildly tender to deep palpation of RUQ, Bowel sounds present, no rebound or guarding, negative murphys sign : zaman cath in place MUSCULOSKELETAL:? No cyanosis or edema, no visible joint swelling, BL feet are cold to touch, calfs are warmer to touch , NEUROLOGICAL: CN II-XII grossly intact. No focal deficits. Sensation intact, symmetric. grp strength 4/5, able to move LE antigravity, PSYCHIATRIC: Awake and alert, not agitated, normal mood and affect. SKIN: No obvious rashes, no jaundice, normal turgor BL knees with surgical incisions well healed. Results: Labs 05/12/25 08:18 05/12/25 04:39 Labs: Short CBC 05/11/25 Range/Units 11:50 WBC 28.1 H (3.6-11.0) Thou/mm3 Hgb 16.5 H (12.0-16.0) g/dL Hct 44.7 (36.0-46.0) % Plt Count 393 (140-440) Thou/mm3 BMP 05/11/25 11:50 Sodium 122 L Potassium 5.4 H Chloride 80 L Carbon Dioxide 26.3 BUN 25 H Creatinine 3.0 H Glucose 176 H Calcium 10.2 Cardiac Enzymes 05/11/25 Range/Units 11:50 Total Creatine Kinase 2125 H (34-171) U/L Troponin I 1.011 H* (0.0-0.045) ng/mL Liver Function 05/11/25 Range/Units 11:50 Total Bilirubin 0.3 (0.3-1.2) mg/dL AST 141 H (0-34) U/L ALT 144 H (10-49) U/L Alkaline Phosphatase 105 (46-116) U/L Albumin 4.5 (3.4-4.8) gm/dL Urine 05/11/25 Range/Units 12:57 Urine Color Lt-Yellow (Lt Yel-Yel) Urine Clarity Clear (Clear/Hazy) Urine pH 6.5 (5.0-7.0) Ur Specific Ch[place] 1.007 (1.001-1.035) Urine Protein Negative (Neg - Trace) Urine Glucose (UA) Negative (Negative) Quality Measures Quality Measures VTE prophylaxis and sepsis Current suspected stage: septic shock (LA >4 and/or hypotension) Sepsis reassessment completed at (date): 05/11/25 Sepsis reassessment completed at (time): 16:51 Possible source: GI tract/intra- abdominal Blood cultures ordered: yes Antibiotic ordered: Yes Advance care planning discussed with:: patient and child Medications Home Medications and Allergies Home Medications ?Medication ?Instructions ?Recorded ?Confirmed ?Type carvedilol 3.125 mg tablet (Coreg) 3.125 mg PO BID #0 tabs 09/03/16 04/30/22 History albuterol sulfate 90 mcg/actuation 2 puff inhalation Q ID PRN 07/10/18 04/30/22 History aerosol inhaler (Ventolin HFA) Shortness Of Breath Or Wheezing aripiprazole 30 mg tablet (Abilify) 30 mg PO QDAY 11/2204/30/22 History levothyroxine 50 mcg tablet 75 mcg PO QDAY 07/10/18 History (Synthroid) venlafaxine 150 mg 300 mg PO QDAY 07/10/1804/08 History capsule,extended release 24 hr (Effexor XR) diazepam 10 mg tablet (Valium) 10 mg PO BID 03/26/19 0 04/30/22 History Held on 04/30/22. Instructions: Resume on 05/01/22. HOLD TODAY'S DOSE. MAY RESUME TOMORROW 05/01/22 lisinopril 20 mg tablet 10 mg PO HS #0 tabs 03/26/19 04/30/22 History cholecalciferol (vitamin D3) 125 50,000 unit PO QDAY 1 10/26/18 04/30/22 History mcg (5,000 unit) tablet (Vitamin D3) ferrous sulfate 325 mg (65 mg 325 mg PO QDAY 08/25/19 04/30/22 History iron) tablet omeprazole 40 mg capsule,delayed 40 mg PO QDAY 9 04/30/22 History release risperidone 3 mg tablet 3 mg QDAY 08/25/19 04/30/22 History gemfibrozil 600 mg tablet 1 tab PO BID 04/30/22 History Allergies Allergy/AdvReac Type Severity Reaction Status Date / Time adhesive tape Allergy Severe SURGICAL Verified 04/30/22 09:58 TAPE /BLISTERS Sulfa (Sulfonamide Allergy Severe SWEELING / Verified 04/30/22 09:58 Antibiotics) CLOSE THROAT / RASH clindamycin Allergy Unknown Anaphylaxis Verified 04/30/22 09:58 Penicillins Allergy Unknown Anaphylaxis Verified 04/30/22 09:58 Visit Medications Acetaminophen (Acetaminophen 325 Mg Tablet) 650 mg PO Q6HR PRN PRN Reason: FEVER >101 Stop: 06/10/25 15:39 Heparin Sodium (Porcine) (Heparin Sod Inj 5000 Unit/Ml Vial) 5,000 unit SC Q12HR DUSTIN Stop: 05/25/25 20:59 Norepinephrine Bitartrate (Levophed In Ns 16mg/250ml) 16 mg in 250 mls @ 2.126 mls/hr IV .Q24H PRN; Protocol PRN Reason: PER protocol Stop: 06/10/25 12:56 Vancomycin/Sodium Chloride (Vancomycin/Ns 1 Gm Ivpb) 200 mls @ 120 mls/hr IV X1 ONE Stop: 05/11/25 16:54 Last Admin: 05/11/25 15:35 Dose: 120 mls/hr Lactated Ringer's (Lactated Ringers) 1,000 mls @ 100 mls/hr IV .Q10H DUSTIN Stop: 06/10/25 14:58 Last Admin: 05/11/25 15:35 Dose: 100 mls/hr Cefepime HCl 2 gm/ Sodium (Chloride) 50 mls @ 100 mls/hr IV Q8HR DUSTIN Stop: 05/18/25 15:35 Labetalol HCl (Labetalol Inj 5 Mg/Ml Vial 20 Ml) 10 mg IVP Q15M PRN PRN Reason: HYPER Ondansetron HCl (Ondansetron Inj 2 Mg/Ml Inj 2 Ml) 4 mg IVP Q4HR PRN PRN Reason: NAUSEA OR VOMITING Stop: 06/10/25 11:43 Last Admin: 05/11/25 14:16 Dose: 4 mg Pharmacy Consult (Vancomycin Pharmacy To Dose 1 Each Each) 1 each IV QDAY PRN PRN Reason: CONSULT Stop: 06/10/25 14:59 Discontinued Medications Aspirin (Aspirin Ec 81 Mg Tabec) 81 mg PO X1 ONE Stop: 05/11/25 12:13 Last Admin: 05/11/25 12:31 Dose: 81 mg Diphtheria/Tetanus/Acell Pertussis (Diphth,Pertuss(Acell),Tet Vac 0.5 Ml Syr- Adult) 0.5 ml IMi .ONCE ONE Stop: 05/11/25 12:13 Last Admin: 05/11/25 12:31 Dose: 0.5 ml Sodium Chloride (Ns) 1,000 mls @ 999 mls/hr IV .Q1H1M ONE Stop: 05/11/25 13:22 Last Infusion: 05/11/25 14:25 Dose: Infused Sodium Chloride (Ns) 1,000 mls @ 999 mls/hr IV .Q1H1M ONE Stop: 05/11/25 13:22 Last Infusion: 05/11/25 14:25 Dose: Infused Ceftriaxone Sodium/Dextrose (Rocephin/D5w 1gm Iv Premix) 1 gm in 50 mls @ 100 mls/hr IV X1 ONE Stop: 05/11/25 13:37 Last Infusion: 05/11/25 14:24 Dose: Infused Assessment & Plan Plan Ms. Adame is a 69-year-old woman with history of dyspepsia and GERD followed by Dr. Vasquez hypothyroidism restless leg hyperlipidemia hypertension bipolar and COPD not on home oxygen admitted to ICU for management of undifferentiated septic shock and c/f gi bleed, and stroke r/o Septic shock undifferentiated with end organ damage MARÍA ELENA 2/2 sepsis Transaminitis 2/2 sepsis troponinemia 2/2 sepsis WBC 28, tachypnic to 26 on 2L, tachycardic to 108, Lactic acid 3.2, CK elevated on exam she has mild RUQ tenderness, no rebound or guarding Dx CXR with no evidence of aspiration CT chest AP, pending Bcx pending trend lfts, troponin, renal function, and lactate Plan - IVF per sepsis resusitation - given vanc, cefepime, and ctx - ICU to manage Upper GI bleed vs Lower GI bleed (Hgb 16--> 14 after 3L fluid bolus) pt with melena and coffee ground emesis. has hx of dyspepsia and gerd who previously followed with Dr. Vasquez - hold anticoage iso suspected bleed - GI consulted, appreciate recs - CBC daily - transfuse if symptomatic or hgb <7 Acute Ischemic Stroke- rule out Patient was not deemed a candidate for tPA because last known well was greater than 4.5 hours NIHSS score of 9 Dx * NCHCT negative * CTA head neck negative * Brain MRI wo contrast pending * Echo pending * A1c pending * TSH pending * Lipid panel wnl * Every 2 hours neuro checks * Telemetry neurology consulted recommends; admission * In-house neurologist consulted: Dr. De Leon, appreciate recs * Consult physical therapy * Consult speech Tx * ASA 81 mg (holding in setting of gi bleed) * Atorvastatin 80 mg at bedtime * APAP 650 mg every 6hrs as needed * labetalol 10 mg every as needed for SBP greater than 220 * Keep euglycemic * Head a bed 30 degrees * Permissive hypertension in the first 48 hours continue to hold home antihypertensives acute hypoxic respiratory failure COPD (not on home O2) uses inhalers at home on 2L NC in the ED -consider duonebs hyperchloremic, hypochloremic metabolic acidosis Lactic Acid 3.2 - trend lactic - give fluids Electrolyte abnormaliteis hyperkalemia hyponatremia (On admission Na 122) hypochloridemia hypercalcemia - received 4 L IVF Thrombocytopenia GERD Dyspepsia follows with Dr. Vasquez Dispo: upgrade to icu Diet: npo in setting of stroke r/o, NG tube Bowel Reg: as indicated VTE ppx: SCD, holding heparin in setting of suspected GI bleed GI ppx: protonix qd Code status: FULL Plan discussed with Dr. Adkins, Dr De Leon, and Dr. Dasia Soto MD PGY1 Attending Provider Attestation/Addendum I have examined the patient, reviewed labs and imaging findings, discussed the case with the resident(s), and reviewed entered orders. I agree with the plan of care as outlined in this note, with these additional summaries/recommendations: After examination of the patient and review of the clinical data, I feel that this patient needs admission to the hospital for further treatment and evaluation. Patient is a 69-year-old female with a medical history of primary hypertension, bipolar disorder, COPD, dyslipidemia, iron deficiency anemia, GERD, and hypothyroidism who presents to [facility] emergency department on 05/11/2025 for confusion and strokelike symptoms. Patient seen at bedside. She will be admitted for CVA rule out. CT head negative for acute hemorrhage, mass effect or midline shift. CTA did not reveal LVO or dissection. Patient was seen by teleneurology. Deemed not a tPA candidate as she was outside of therapeutic window. Order MRI brain, echocardiogram with bubble, speech therapy referral, and physical therapy consultation. Start aspirin 81 mg daily with Lipitor 80 mg daily. Allow permissive hypertension. Vascular risk factor screening with lipid panel, A1c, and TSH. Consult in-house neurology, recommendations appreciated. Patient noted to have hematemesis in the emergency room. Continue IV fluids. Avoid chemical anticoagulation. Consult gastroenterology, recommendations appreciated. Patient also noted to be hypoxic although no evidence of pneumonia on imaging. Pending COVID test. Patient does have COPD although not no wheezing noted at this time. Hyponatremia present likely secondary to poor oral intake/extrarenal losses. Patient is volume down/hypovolemic and continue IV fluids. Avoid overcorrection. While examining patient at bedside her mean arterial pressure dropped to 60-62 despite fluid resuscitation. Case discussed with ICU team and patient will be upgraded to the intensive care unit for pressor support. Please see residents note for additional details and management. Dr. Dasia MD
--- NOTE | 2025-05-11 15:46 | ECHO_ITS ---
Transthoracic Echo Report Ht (in): 62 Wt (lb): 188 Exam Location: Echo Lab Status: Inpatient Lead Printer: Zenaida Read Indications: Procedure Performed: BP: 131 / 64 HR: 86 MEASUREMENTS (Male / Female) Normal Values 2D ECHO LV Diastolic Diameter PLAX 5.2 cm 4.2 - 5.9 / 3.9 - 5.3 cm LV Systolic Diameter PLAX 3.2 cm IVS Diastolic Thickness 0.7 cm 0.6 - 1.0 / 0.6 - 0.9 cm LVPW Diastolic Thickness 1.3 cm 0.6 - 1.0 / 0.6 - 0.9 cm LV Relative Wall Thickness 0.4 LVOT Diameter 1.9 cm Ascending Aorta Diameter 3.6 cm DOPPLER AV Peak Velocity 172.0 cm/s AV Peak Gradient 11.8 mmHg AV Mean Gradient 5.0 mmHg AV Velocity Time Integral 33.8 cm LVOT Peak Velocity 127.0 cm/s LVOT Peak Gradient 6.5 mmHg LVOT Velocity Time Integral 27.6 cm LVOT Cardiac Index 3417.1 cm?/min?m? AV Area Cont Eq vti 2.3 cm? AV Area Cont Eq pk 2.1 cm? MV Area PHT 2.6 cm? Mitral E Point Velocity 78.6 cm/s Mitral A Point Velocity 116.0 cm/s Mitral E to A Ratio 0.7 LV E' Lateral Velocity 8.2 cm/s Mitral E to LV E' Lateral Ratio 9.6 LV E' Septal Velocity 7.2 cm/s Mitral E to LV E' Septal Ratio 10.9 TR Peak Velocity 223.0 cm/s TR Peak Gradient 19.9 mmHg PV Peak Velocity 106.0 cm/s PV Peak Gradient 4.5 mmHg FINDINGS Left Ventricle Normal left ventricular size, wall thickness, systolic function with no obvious regional wall motion abnormalities. Abnormal left ventricular diastolic filling pattern due to E/A reversal. The ejection fraction is visually estimated at 60%. Right Ventricle The right ventricle is normal in size and systolic function. The estimated right ventricular systolic pressure,23mmHg. Left Atrium The left atrium is normal by two-dimensional, color flow and Doppler imaging with no structural abnormalities, no thrombus formation present. Right Atrium The right atrium is normal by two-dimensional imaging, color flow and Doppler imaging with no structural abnormalities, no thrombus formation present. RAP 3 Atrial Septum The interatrial septum appears normal with no evidence of a shunt. Aorta The aorta is normal by two-dimensional, color flow and Doppler interrogation. Mitral Valve The mitral valve is normal by two-dimensional, color flow and Doppler interrogation.mild mitral annular calcification. Trace mitral regurgitation. Aortic Valve The aortic valve is trileaflet and normal by two-dimensional, color flow and Doppler interrogation. Trace to mild aortic valve regurgitation. Tricuspid Valve The tricuspid valve is normal by two-dimensional, color flow and Doppler interrogation. There is mild tricuspid valve regurgitation. Pulmonic Valve The pulmonic valve is not well visualized. There is no significant pulmonic valve regurgitation. Vessels The pulmonary artery appears normal. The inferior vena cava pulmonary and hepatic veins appear normal. Pericardium The pericardium is normal by two-dimensional imaging. There is no significant pericardial effusion. CONCLUSIONS Indication: Stroke. Normal left ventricular size and function. Estimated ejection fraction is 55 to 60%. Mild LVH grade I diastolic dysfunction. Normal Right ventricular size and function. Normal RVSP Mild aortic valve sclerosis without stenosis. Mild MAC and trace MR Mild TR. no pericardial effusion No bubble study done. Consider [place] if high index of clinical suspicion Leonel Clayton (Electronically Signed) Final Date: 17 May 2025 03:46
[2025-05-11] MEDS: Norepinephrine/NS 16mg/250ml 16 MG/250 ML BAG 2.126 MG IV (15:55)
[2025-05-11] MEDS: CEFEPIME INJ 1 GM in SODIUM CHLORIDE 0.9% (Popper) 50 ML IV (15:55)
--- NOTE | 2025-05-11 16:11 | PD.RESCONSUL ---
HPI Data of Consult Primary Care Provider: Physician No Primary/Family Consult Narrative History of present illness: HPI is limited at this time as patient is currently intubated Doris Adame is a 69-year-old F with a PMH of GERD, hypertension, hyperlipidemia, bipolar I disorder, and COPD who comes in for an evaluation weakness and mechanical fall. Patient is poor historian at this time, however patient's daughter had said that patient had a fall as she lives alone at home. She also had an episode of 1 dark stool. She denies any history of alcohol use. While in the ED, stroke alert was initially called, however patient then had an episode of coffee-ground emesis about 800 cc in which patient began to deteriorate from a hemodynamic standpoint. Upon review of patient's medicines, it was found that patient does take NSAID. Patient's care had then resolved around shock and GI was consulted. ICU had been consulted for patient who then intubated the patient for worsening respiratory status and acidosis in addition to multiple line placements. cc:: cc: Review of Systems Review of Systems Narrative Review of Systems: 12 point ROS limited as this time as patient is intubated Exam Vital Signs Temp Pulse Resp BP Pulse Ox O2 Del Method O2 Flow Rate 98.5 F 111 H 35 H 85/62 L 89 L Nasal Cannula 2 05/11/25 15:00 05/11/25 15:55 05/11/25 15:05 05/11/25 16:05 05/11/25 16:05 05/11/25 15:00 05/11/25 11:44 Narrative Exam General: Intubated, obese female HEENT: Frontal scab from previous fall, no active blood draining from wound, conjunctiva clear, EOMI, PERRLA, Cardiovascular: S1, S2, radial pulses +2 and bilat, RRR Pulmonary: Intubated, Mechanical breath sounds GI: No tenderness to light or deep palpitation, no guarding, rigidity, rebound tenderness or distension Extremities: No presence of trace or pitting edema in lower extremities bilaterally, dorsalis pedis pulses +2 bilaterally Neuro: Unable to assess as pt is intubated Results Labs 05/12/25 19:04 05/12/25 22:32 Labs: Short CBC 05/11/25 05/11/25 Range/Units 11:50 15:29 WBC 28.1 H 18.3 H D (3.6-11.0) Thou/mm3 Hgb 16.5 H 14.4 D (12.0-16.0) g/dL Hct 44.7 39.6 (36.0-46.0) % Plt Count 393 92 L D (140-440) Thou/mm3 BMP 05/11/25 11:50 Sodium 122 L Potassium 5.4 H Chloride 80 L Carbon Dioxide 26.3 BUN 25 H Creatinine 3.0 H Glucose 176 H Calcium 10.2 Cardiac Enzymes 05/11/25 Range/Units 11:50 Total Creatine Kinase 2125 H (34-171) U/L Troponin I 1.011 H* (0.0-0.045) ng/mL Liver Function 05/11/25 Range/Units 11:50 Total Bilirubin 0.3 (0.3-1.2) mg/dL AST 141 H (0-34) U/L ALT 144 H (10-49) U/L Alkaline Phosphatase 105 (46-116) U/L Albumin 4.5 (3.4-4.8) gm/dL Urine 05/11/25 Range/Units 12:57 Urine Color Lt-Yellow (Lt Yel-Yel) Urine Clarity Clear (Clear/Hazy) Urine pH 6.5 (5.0-7.0) Ur Specific [place] 1.007 (1.001-1.035) Urine Protein Negative (Neg - Trace) Urine Glucose (UA) Negative (Negative) Quality Measures Quality Measures none Advance care planning discussed with:: patient Medications Home Medications and Allergies Home Medications ?Medication ?Instructions ?Recorded ?Confirmed ?Type carvedilol 3.125 mg tablet (Coreg) 3.125 mg PO BID #0 tabs 09/03/16 04/30/22 History albuterol sulfate 90 mcg/actuation 2 puff inhalation QID PRN 07/10/18 04/30/22 History aerosol inhaler (Ventolin HFA) Shortness Of Breath Or Wheezing aripiprazole 30 mg tablet (Abilify) 30 mg PO QDAY 07/10/18 04/30/22 History levothyroxine 50 mcg tablet 75 mcg PO QDAY 07/10/18 04/30/22 History (Synthroid) venlafaxine 150 mg 300 mg PO QDAY 07/10/18 04/30/22 History capsule,extended release 24 hr (Effexor XR) diazepam 10 mg tablet (Valium) 10 mg PO BID 03/26/19 04/30/22 History Held on 04/30/22. Instructions: Resume on 05/01/22. HOLD TODAY'S DOSE. MAY RESUME TOMORROW 05/01/22 lisinopril 20 mg tablet 10 mg PO HS #0 tabs 03/26/19 04/30/22 History cholecalciferol (vitamin D3) 125 50,000 unit PO QDAY 08/25/19 04/30/22 History mcg (5,000 unit) tablet (Vitamin D3) ferrous sulfate 325 mg (65 mg 325 mg PO QDAY 08/25/19 04/30/22 History iron) tablet omeprazole 40 mg capsule,delayed 40 mg PO QDAY 08/25/19 04/30/22 History release risperidone 3 mg tablet 3 mg QDAY 08/25/19 04/30/22 History gemfibrozil 600 mg tablet 1 tab PO BID 04/30/22 04/30/22 History Allergies Allergy/AdvReac Type Severity Reaction Status Date / Time adhesive tape Allergy Severe SURGICAL Verified 04/30/22 09:58 TAPE /BLISTERS Sulfa (Sulfonamide Allergy Severe SWEELING / Verified 04/30/22 09:58 Antibiotics) CLOSE THROAT / RASH clindamycin Allergy Unknown Anaphylaxis Verified 04/30/22 09:58 Penicillins Allergy Unknown Anaphylaxis Verified 04/30/22 09:58 Visit Medications Acetaminophen (Acetaminophen 325 Mg Tablet) 650 mg PO Q6HR PRN PRN Reason: FEVER >101 Stop: 06/10/25 15:39 Acetaminophen (Acetaminophen 325 Mg Tablet) 650 mg PO Q6HR PRN PRN Reason: HEADACHE Stop: 06/10/25 15:44 Atorvastatin Calcium (Atorvastatin Calcium 20 Mg Tablet) 80 mg PO HS DUSTIN Stop: 06/10/25 20:59 Heparin Sodium (Porcine) (Heparin Sod Inj 5000 Unit/Ml Vial) 5,000 unit SC Q12HR DUSTIN Stop: 05/25/25 20:59 Norepinephrine Bitartrate (Levophed In Ns 16mg/250ml) 16 mg in 250 mls @ 2.126 mls/hr IV .Q24H PRN; Protocol PRN Reason: PER protocol Stop: 06/10/25 12:56 Last Admin: 05/11/25 15:55 Dose: 0.05 mcg/kg/min, 2.126 mls/hr Vancomycin/Sodium Chloride (Vancomycin/Ns 1 Gm Ivpb) 200 mls @ 120 mls/hr IV X1 ONE Stop: 05/11/25 16:54 Last Admin: 05/11/25 15:35 Dose: 120 mls/hr Lactated Ringer's (Lactated Ringers) 1,000 mls @ 100 mls/hr IV .Q10H DUSTIN Stop: 06/10/25 14:58 Last Admin: 05/11/25 15:35 Dose: 100 mls/hr Cefepime HCl 1 gm/ Sodium (Chloride) 50 mls @ 100 mls/hr IV QDAY DUSTIN; Protocol Stop: 05/18/25 15:35 Last Admin: 05/11/25 15:55 Dose: 100 mls/hr Labetalol HCl (Labetalol Inj 5 Mg/Ml Vial 20 Ml) 10 mg IVP Q15M PRN PRN Reason: HYPER Ondansetron HCl (Ondansetron Inj 2 Mg/Ml Inj 2 Ml) 4 mg IVP Q4HR PRN PRN Reason: NAUSEA OR VOMITING Stop: 06/10/25 11:43 Last Admin: 05/11/25 14:16 Dose: 4 mg Pharmacy Consult (Vancomycin Pharmacy To Dose 1 Each Each) 1 each IV QDAY PRN PRN Reason: CONSULT Stop: 06/10/25 14:59 Discontinued Medications Aspirin (Aspirin Ec 81 Mg Tabec) 81 mg PO X1 ONE Stop: 05/11/25 12:13 Last Admin: 05/11/25 12:31 Dose: 81 mg Diphtheria/Tetanus/Acell Pertussis (Diphth,Pertuss(Acell),Tet Vac 0.5 Ml Syr- Adult) 0.5 ml IMi .ONCE ONE Stop: 05/11/25 12:13 Last Admin: 05/11/25 12:31 Dose: 0.5 ml Sodium Chloride (Ns) 1,000 mls @ 999 mls/hr IV .Q1H1M ONE Stop: 05/11/25 13:22 Last Infusion: 05/11/25 14:25 Dose: Infused Sodium Chloride (Ns) 1,000 mls @ 999 mls/hr IV .Q1H1M ONE Stop: 05/11/25 13:22 Last Infusion: 05/11/25 14:25 Dose: Infused Ceftriaxone Sodium/Dextrose (Rocephin/D5w 1gm Iv Premix) 1 gm in 50 mls @ 100 mls/hr IV X1 ONE Stop: 05/11/25 13:37 Last Infusion: 05/11/25 14:24 Dose: Infused Assessment & Plan Plan Assessment Doris Adame is a 69-year-old F with a PMH of GERD, hypertension, hyperlipidemia, bipolar I disorder, and COPD who is currently admitted for shock and GI bleed. #Acute CVA rule out At this time, patient's symptoms likely related to shock Head CT was negative Head neck CTA negative as well We will further assess and workup patient once patient's GI bleed and shock improves Plan: ? Pending clinical improvement ? Cardiac stratification #Hypovolemic shock #NSTEMI #Hypertension #Acute hypoxic hypercapnic respiratory failure 2/2 pneumonia #COPD #Respiratory acidosis #History of smoking #Acute blood loss anemia #Transaminitis #MARÍA ELENA vs. ATN, prerenal vs. renal #Hyperkalemia #Hypoosmolar hyponatremia #Hypochloremia #Thrombocytopenia #Leukocytosis #Hypothyroidism #Left-base pneumonia #Rhabdomyolysis Above handled by primary team Patient seen and care discussed with my attending physician, Dr. Haley Serna, PGY-2 Attending Provider Attestation/Addendum I personally have seen and examined the patient at the bedside and I agreed with the resident's findings, assessment and plan of care. Impression: strokelike symptoms Sudden onset of hypovolemic shock following GI bleeding Pneumonia Thrombocytopenia Plan/recommendations follow-up with MRI brain when stable Continue to evaluate GI bleeding because and administer blood transfusion as she requires
[2025-05-11 16:16] LABS: Cardiac Risk Estimate 3.5 RATIO (3.7-5.6); Cholesterol 139 mg/dL (132-200); HDL Cholesterol 40 mg/dL (40-60); LDL Cholesterol,Calculated 73 mg/dL (0-130); Triglycerides 130 mg/dL (30-150)
[2025-05-11] MEDS: RINGERS LACTATED 1000 ML 1,000 ML 999 ML IV (16:22)
--- NOTE | 2025-05-11 16:30 | XR_ITS ---
Examination: AP chest single view Technique: AP portable supine chest single view Date and time: May 11, 2025, 1902 hrs., Comparison 05/11/2025 1529 hrs. Indications: Hypoxic respiratory failure, postintubation, post C2 placement Findings: Partial visualization of the right internal jugular line with the tip in the very proximal position Mild enlargement left ventricle Pneumonia at the left base. Endotracheal tube tip approximately 21 mm above nasir. Orogastric tube is in the stomach satisfactory position Impression: Proximal positioning right internal jugular line Endotracheal tube 21 mm above nasir. Orogastric tube in satisfactory position. Significant left base pneumonia
--- NOTE | 2025-05-11 16:46 | ESCONSULT_ITS ---
HPI Data of Consult Requesting Physician: German Forman MD Admitting Provider: German Forman MD Attending Provider: Michael Vasquez MD Primary Care Provider: Physician No Primary/Family Consult Narrative Reason for consult: Coffee ground emesis, concern for upper vs lower GI bleed History of present illness: 69-year-old female with history of HTN, COPD, bipolar disorder, presenting with stroke-like symptoms and head strike after fall, now with recurrent coffee- ground emesis and concern for GI bleed. Patient presented after fall at home last night (9 PM) with head strike and difficulty ambulating. This morning called daughter, stating she ?probably had a stroke.? ED noted expressive aphasia, slurred speech, GCS 14, and right-sided weakness; stroke alert initiated. CT head negative for acute bleed. On arrival, patient had coffee ground emesis on face, mouth, and chest. Since ED arrival, she has had two additional episodes of coffee-ground emesis. Daughter reports prior diagnosis of gastric ulcers in the past but no prior hospitalizations for GI bleed. Patient denies anticoagulant or NSAID/aspirin use. Denies dysphagia, odynophagia, or weight loss. Reports minimal abdominal pain, some distension. No history of varices, cirrhosis, or liver disease. No alcohol use; positive smoking history. Patient previously underwent colonoscopy (04/2022) showing diverticulosis, hemorrhoids, and melanosis coli. EGD (04/2022) revealed GERD with esophagitis, bile gastritis, and acute gastritis; pathology was negative for H. pylori, intestinal metaplasia, microscopic colitis, or dysplasia. Pertinent Past Medical History: * Hypertension * COPD * Bipolar disorder * No known anticoagulation use Pertinent Medications: Pending full reconciliation. Pertinent Surgical/Procedural History: * Colonoscopy & EGD in 2021 as above. cc:: cc: German Forman MD Exam Vital Signs Temp Pulse Resp BP Pulse Ox O2 Del Method O2 Flow Rate 98.5 F 111 H 35 H 85/62 L 89 L Nasal Cannula 2 05/11/25 15:00 05/11/25 15:55 05/11/25 15:05 05/11/25 16:05 05/11/25 16:05 05/11/25 15:00 05/11/25 11:44 Narrative Exam General: Alert, expressive aphasia, follows commands, no acute distress euro: Right upper extremity weakness/drift Head: Forehead laceration, no active bleeding Lungs/Heart: Clear, regular rate and rhythm Abdomen: Soft, mildly distended, nontender, bowel sounds present Rectal: Deferred Skin: No stigmata of chronic liver disease observed Results Labs 05/11/25 15:29 05/11/25 11:50 Labs: Short CBC 05/11/25 05/11/25 Range/Units 11:50 15:29 WBC 28.1 H 18.3 H D (3.6-11.0) Thou/mm3 Hgb 16.5 H 14.4 D (12.0-16.0) g/dL Hct 44.7 39.6 (36.0-46.0) % Plt Count 393 92 L D (140-440) Thou/mm3 BMP 05/11/25 11:50 Sodium 122 L Potassium 5.4 H Chloride 80 L Carbon Dioxide 26.3 BUN 25 H Creatinine 3.0 H Glucose 176 H Calcium 10.2 Cardiac Enzymes 05/11/25 Range/Units 11:50 Total Creatine Kinase 2125 H (34-171) U/L Troponin I 1.011 H* (0.0-0.045) ng/mL Liver Function 05/11/25 Range/Units 11:50 Total Bilirubin 0.3 (0.3-1.2) mg/dL AST 141 H (0-34) U/L ALT 144 H (10-49) U/L Alkaline Phosphatase 105 (46-116) U/L Albumin 4.5 (3.4-4.8) gm/dL Urine 05/11/25 Range/Units 12:57 Urine Color Lt-Yellow (Lt Yel-Yel) Urine Clarity Clear (Clear/Hazy) Urine pH 6.5 (5.0-7.0) Ur Specific [place] 1.007 (1.001-1.035) Urine Protein Negative (Neg - Trace) Urine Glucose (UA) Negative (Negative) Quality Measures Quality Measures VTE prophylaxis and sepsis Current suspected stage: sepsis Possible source: other Blood cultures ordered: completed in ED Antibiotic ordered: Yes Advance care planning discussed with:: patient and child Medications Home Medications and Allergies Home Medications ?Medication ?Instructions ?Recorded ?Confirmed ?Type carvedilol 3.125 mg tablet (Coreg) 3.125 mg PO BID #0 tabs 09/03/16 04/30/22 History albuterol sulfate 90 mcg/actuation 2 puff inhalation Q ID PRN 07/10/18 04/30/22 History aerosol inhaler (Ventolin HFA) Shortness Of Breath Or Wheezing aripiprazole 30 mg tablet (Abilify) 30 mg PO QDAY 11/2204/30/22 History levothyroxine 50 mcg tablet 75 mcg PO QDAY 07/10/18 History (Synthroid) venlafaxine 150 mg 300 mg PO QDAY 07/10/1804/08 History capsule,extended release 24 hr (Effexor XR) diazepam 10 mg tablet (Valium) 10 mg PO BID 03/26/19 0 04/30/22 History Held on 04/30/22. Instructions: Resume on 05/01/22. HOLD TODAY'S DOSE. MAY RESUME TOMORROW 05/01/22 lisinopril 20 mg tablet 10 mg PO HS #0 tabs 03/26/19 04/30/22 History cholecalciferol (vitamin D3) 125 50,000 unit PO QDAY 1 10/26/18 04/30/22 History mcg (5,000 unit) tablet (Vitamin D3) ferrous sulfate 325 mg (65 mg 325 mg PO QDAY 08/25/19 04/30/22 History iron) tablet omeprazole 40 mg capsule,delayed 40 mg PO QDAY 9 04/30/22 History release risperidone 3 mg tablet 3 mg QDAY 08/25/19 04/30/22 History gemfibrozil 600 mg tablet 1 tab PO BID 04/30/22 History Allergies Allergy/AdvReac Type Severity Reaction Status Date / Time adhesive tape Allergy Severe SURGICAL Verified 04/30/22 09:58 TAPE /BLISTERS Sulfa (Sulfonamide Allergy Severe SWEELING / Verified 04/30/22 09:58 Antibiotics) CLOSE THROAT / RASH clindamycin Allergy Unknown Anaphylaxis Verified 04/30/22 09:58 Penicillins Allergy Unknown Anaphylaxis Verified 04/30/22 09:58 Visit Medications Acetaminophen (Acetaminophen 325 Mg Tablet) 650 mg PO Q6HR PRN PRN Reason: FEVER >101 Stop: 06/10/25 15:39 Acetaminophen (Acetaminophen 325 Mg Tablet) 650 mg PO Q6HR PRN PRN Reason: HEADACHE Stop: 06/10/25 15:44 Atorvastatin Calcium (Atorvastatin Calcium 20 Mg Tablet) 80 mg PO HS DUSTIN Stop: 06/10/25 20:59 Heparin Sodium (Porcine) (Heparin Sod Inj 5000 Unit/Ml Vial) 5,000 unit SC Q12HR DUSTIN Stop: 05/25/25 20:59 Norepinephrine Bitartrate (Levophed In Ns 16mg/250ml) 16 mg in 250 mls @ 2.126 mls/hr IV .Q24H PRN; Protocol PRN Reason: PER protocol Stop: 06/10/25 12:56 Last Admin: 05/11/25 15:55 Dose: 0.05 mcg/kg/min, 2.126 mls/hr Vancomycin/Sodium Chloride (Vancomycin/Ns 1 Gm Ivpb) 200 mls @ 120 mls/hr IV X1 ONE Stop: 05/11/25 16:54 Last Admin: 05/11/25 15:35 Dose: 120 mls/hr Lactated Ringer's (Lactated Ringers) 1,000 mls @ 100 mls/hr IV .Q10H DUSTIN Stop: 06/10/25 14:58 Last Admin: 05/11/25 15:35 Dose: 100 mls/hr Cefepime HCl 1 gm/ Sodium (Chloride) 50 mls @ 100 mls/hr IV QDAY DUSTIN; Protocol Stop: 05/18/25 15:35 Last Admin: 05/11/25 15:55 Dose: 100 mls/hr Labetalol HCl (Labetalol Inj 5 Mg/Ml Vial 20 Ml) 10 mg IVP Q15M PRN PRN Reason: HYPER Ondansetron HCl (Ondansetron Inj 2 Mg/Ml Inj 2 Ml) 4 mg IVP Q4HR PRN PRN Reason: NAUSEA OR VOMITING Stop: 06/10/25 11:43 Last Admin: 05/11/25 14:16 Dose: 4 mg Pharmacy Consult (Vancomycin Pharmacy To Dose 1 Each Each) 1 each IV QDAY PRN PRN Reason: CONSULT Stop: 06/10/25 14:59 Discontinued Medications Aspirin (Aspirin Ec 81 Mg Tabec) 81 mg PO X1 ONE Stop: 05/11/25 12:13 Last Admin: 05/11/25 12:31 Dose: 81 mg Diphtheria/Tetanus/Acell Pertussis (Diphth,Pertuss(Acell),Tet Vac 0.5 Ml Syr- Adult) 0.5 ml IMi .ONCE ONE Stop: 05/11/25 12:13 Last Admin: 05/11/25 12:31 Dose: 0.5 ml Sodium Chloride (Ns) 1,000 mls @ 999 mls/hr IV .Q1H1M ONE Stop: 05/11/25 13:22 Last Infusion: 05/11/25 14:25 Dose: Infused Sodium Chloride (Ns) 1,000 mls @ 999 mls/hr IV .Q1H1M ONE Stop: 05/11/25 13:22 Last Infusion: 05/11/25 14:25 Dose: Infused Ceftriaxone Sodium/Dextrose (Rocephin/D5w 1gm Iv Premix) 1 gm in 50 mls @ 100 mls/hr IV X1 ONE Stop: 05/11/25 13:37 Last Infusion: 05/11/25 14:24 Dose: Infused Assessment & Plan Plan Doris Adame, 69-year-old female with history of HTN, COPD, bipolar disorder, presenting with stroke-like symptoms and head strike after fall, now with recurrent coffee-ground emesis and concern for GI bleed. #Upper GI bleed Recurrent coffee-ground emesis (3+ episodes), history of ulcers?, prior EGD with esophagitis/gastritis. Most likely upper source. Plan: * Stabilize patient today, then consider EGD tomorrow if stable * IV pantoprazole infusion * NPO * Type & screen, monitor Hb/Hct trend * Monitor hemodynamics closely; transfuse if Hb <7 (or <8 if cardiac ischemia suspected) * Avoid NSAIDs/anticoagulants Other problems: #Stroke-like presentation #Hyponatremia / MARÍA ELENA #Leukocytosis / sepsis alert #Transaminitis / rhabdomyolysis / troponin elevation ----- Plan discussed with attending physician Dr. Pedro Moreno MD PGY-1 Internal Medicine Attending Provider Attestation/Addendum Patient evaluated along with the resident physician Dr. Moreno laboratory data reviewed Imaging studies reviewed patient was seen in the bed 3 in the emergency room Multiple medical issues including hematemesis Patient is being stabilized by the network operations specialist Patient has been tentatively put on schedule for fiberoptic esophagogastroduodenoscopy with possible therapeutic intervention under intravenous moderate sedation IV Protonix Serial CBC Blood transfusion as necessary
[2025-05-11 17:23] LABS: Base Excess -4 (-3-3); HCO3 24 mEq/L (20-26); Inspired O2, VO2 Liters 15 L/min; O2 Saturation 99 % (91-98); PCO2 56 mmHg (32.0-48.0); PO2 136 mmHg (83-108); pH, Arterial 7.24 (7.35-7.45)
[2025-05-11 17:24] LABS: Allen Test Performed/OK; Puncture Site Right Radial
[2025-05-11] MEDS: ALBUTEROL/IPRATROPIUM (Duoneb) RT SOL 3 ML NEBU INH (17:25)
[2025-05-11] MEDS: PANTOPRAZOLE/NS 80MG IV PREMIX 80 MG/100 ML BAG 10 MG IV (17:37)
[2025-05-11] MEDS: LIDOCAINE 5% 1 PATCH TOP (17:41)
[2025-05-11 17:58] LABS: OBG Card Expiration Date 12/12/26; OBG Card Lot # 201521; OBG Developer Expiration Date 06/06/26; OBG Developer Lot # 75027G; OBG Performed By BOTED; OBG QC OK? Yes
[2025-05-11 17:58] LABS: Troponin I 1.316 ng/mL (0.0-0.045)
--- NOTE | 2025-05-11 17:59 | ESCONSULT_ITS ---
<Statement entered by Harrison Lemon MD - 05/11/25 21:56> I supervised PGY 1 resident, Dr. Fernandez with management of patient. I agree with the documentation with the exceptions listed below. Doris Adame is a 69-year-old F with a PMH of GERD, hypertension, hyperlipidemia, bipolar I disorder, and COPD who was BIBA for evaluation of stroke-like symptoms. Patient's daughter also reported that she found her mother covered in dark-colored stools and patient also had 1 episode of coffee- ground emesis in the ED. ED course: BP 86/55, pulse 108, RR 18, SpO2 89% on 2L via oxy mask, temp 98.9. Labs showed WBC 28.1, Hb 16.5, PLT 393, NA 122, K5.4, CL 80, BUN 25, CR 3, OSM 254, lactic acid 3.2, AST 141, ALT 144, CK2 95, troponin 1.011. ABG showed pH 7.24, pCO2 56, PaO2 126. Head CTA head and neck CTA were negative for any acute hemorrhage, mass effect or midline shift. No significant signs of arterial stenosis in 20. Chest abdomen pelvis CT showed mild aneurysmal dilation of thoracic aorta 4 cm, minimal pericardial effusion, chronic lower esophagus, perinephric Stranding and severe diffuse nonspecific colitis of the entire colon. Chest x-ray showed left base consolidation. 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 Thrombocytopenia MSK Likely rib fracture Patient is currently on volume control mechanical ventilation. Acute hypercarbic respiratory failure. Patient received 4L normal saline IVF bolus and 1L lactated Ringer's IVF bolus. Norepinephrine was also noted as well as cefepime to cover for possible aspiration pneumonia. Pantoprazole infusion was started for upper GI bleed and blood glucide. Type and cross. 2 units PRBC and 1 unit platelets were ordered and started by. Subsequently patient became tachypneic and developed respiratory distress along with a respiratory acidosis on ABG. Decision was made to intubate patient, etomidate 14 mg and rocuronium 45 mg were given for rapid sequence intubation. Right femoral central line was placed for venous access along with right internal jugular pulmonary shift in anticipation of rapid transfusion. With regards to patient's shock, currently 5L IVF bolus was transfused and Levophed infusion titrate as necessary. Etiology likely hypovolemic secondary to acute blood loss anemia from likely upper GI bleed. Patient has history of GERD and diclofenac use, high risk of gastric ulcers. For patient's likely acute GI bleed, GI bleed, Dr. Vasquez discontinued 20. He recommended to stabilize the patient and possible endoscopy within the next 24 hours. NG tube was placed to decompress the stomach, approximately 1 L coffee- ground liquid was suctioned. Pantoprazole and octreotide infusion ongoing. 2 units PRBC and 1 unit platelets were ordered to have on hold. CT brain and CTA were negative for any acute hemorrhage, mass effect and no signs of significant left arterial stenosis. Neurology was consulted for stroke rule out. On exam patient is A&O x 3 but extremely lethargic. The patient was NSTEMI, etiology is likely type II in setting of hypovolemic shock. Will discontinue trending troponin. Lactic acidosis was also uncertain Antibiotics now resolved with LA downtrending from 3.6-1.6. Acute kidney injury was likely multifactorial secondary to rhabdomyolysis as well as hypovolemic bulimic shock. Patient's CK was initially elevated at 2200. Prerenal injury from hypovolemia along with possible ATN from rhabdomyolysis contributing to. MARÍA ELENA. Plan of care discussed with Attending Dr. Ranjana Lemon MD PGY 2 Disclaimer: This note was dictated by speech recognition. Minor errors in enterostomal nurse may be present due to voice recognition software. HPI Data of Consult Requesting Physician: German Forman MD Admitting Provider: German Forman MD Attending Provider: German Forman MD Primary Care Provider: Physician No Primary/Family Consult Narrative History of present illness: Doris Adame is a 69-year-old F with a PMH of GERD, reported peptic ulcers, hypertension, hyperlipidemia, COPD not on home oxygen, recent head strike after fall, bipolar I disorder, and hypothyroidism who was BIBA for evaluation of stroke-like symptoms. Per chart review, patient apparently fell sometime last night around 9 PM before trying to crawl back to bed according to family. Patient (who lives alone) eventually called her daughter for help sometime on the morning of 05/11/25 and daughter went to the house to find the patient confused and unable to ambulate. At that time, daughter noted that patient seemed to be soiled with vomit and dark stool without delroy, red blood. EMS was called at this point and patient presented to the ED with slurring of speech, right-sided weakness, and a GCS of 14. She was also noted to have sustained a laceration to the forehead scabbed over with dry blood and no active bleeding. In the ED, vitals showed: BP 86/55 HR 108 RR 18 Temp 98.9 SpO2 89% on Oxygen Mask ED Course: CBC showed WBC 28.1, hemoglobin 16.5, and platelet count drop to 92 from 393. Coagulation panel was WNL. ABG showed acidotic pH 7.24, pCO2 56, pO2 136, and HCO3 24. CMP showed sodium 122, potassium 5.4, chloride 80, carbon dioxide 26.3, anion gap 16, BUN 25, creatinine 3.0, eGFR 16, glucose 176, calculated osmolality 254, lactic acid 3.2, corrected calcium 10.2, AST 141, ALT 144, total CK 2125, and troponin I 1.011 (later elevated to 1.316). UA was WNL. Gastric occult blood was positive. UDS was positive for benzodiazepines (patient takes prescribed diazepam at home) but otherwise negative. Imaging: Chest x-ray was negative for aspiration pneumonia Repeat chest x-ray post intubation showed the endotracheal tube situated 21 mm above the nasir, proximal positioning of the right internal jugular line, satisfactory positioning of the orogastric tube, and significant left base pneumonia Head CT was negative for acute hemorrhage, mass effect, or midline shift Head/neck CTA showed no significant neck arterial stenoses or cerebral large vessel arterial occlusions or thrombus Pelvis x-ray showed severe osteopenia but no definite hip or pelvic fracture EKG showed normal sinus rhythm with nonspecific ST and T wave abnormality and QTc 457 Chest x-ray was suspicious for mild left base aspiration pneumonia CT CAP showed: 1. Mild aneurysmal dilatation of the thoracic aorta 2. No pneumonia, pulmonary edema, or pleural disease 3. Abnormal fluid distention of the esophagus with thickening of the lower wall of the esophagus (differential would include reflux esophagitis, lower esophageal tumor, recommend endoscopy follow-up) 4. Primary hepatocellular disease 5. Perinephric stranding (consider urinary tract infection) 6. Moderately severe diffuse nonspecific colitis of the entire colon, (differential would include ulcerative colitis and Crohn's disease) In the ED, patient began having hypotension and tachycardia in the setting of leukocytosis and eventually was started on Levophed. She was also noted to have 2 episodes of coffee-ground vomitus for which GI (Dr. Vasquez) was consulted and patient was given IV Protonix along with 3 L IV fluids and IV ceftriaxone. Of note, per GI, patient previously underwent colonoscopy (04/2022) showing diverticulosis, hemorrhoids, and melanosis coli. EGD (04/2022) revealed GERD with esophagitis, bile gastritis, and acute gastritis; pathology was negative for H. pylori, intestinal metaplasia, microscopic colitis, or dysplasia. Due to her rapidly deteriorating clinical picture (persistent hypotension, hypoxemia and respiratory acidosis despite oxygen supplementation, altered mentation, severe electrolyte derangements, concern for acute infarcts in the setting of recent head trauma and blood loss, etc.) the decision was made to place a right femoral central line and right IJ sheath for peripheral venous access and predicted need for rapid volume resuscitation, respectively. Additionally, patient was intubated for her acute respiratory failure to protect her airway and provide ventilatory support and admitted to the ICU for further management. cc:: cc: German Forman MD Review of Systems Review of Systems ROS Unobtainable: unobtainable due to mental status and due to endotracheal tube Exam Vital Signs Temp Pulse Resp BP Pulse Ox O2 Del Method O2 Flow Rate 98.5 F 105 H 28 H 96/79 100 Nasal Cannula 15 05/11/25 15:00 05/11/25 17:48 05/11/25 17:48 05/11/25 17:40 05/11/25 17:48 05/11/25 15:00 05/11/25 17:48 Narrative Exam Physical Exam: General: Acute distress. Increasingly somnolent. Difficult to assess A&O's due to dysarthria. Head: Large red laceration across forehead and anterior scalp with dried blood and no active bleeding. Eye: Normal conjunctiva, PERRL. Throat: Oral mucosa dry. Cardiovascular: Tachycardic rate. Normal rhythm, no murmur. Cold extremities with weak dorsalis pedis and posterior tibial pulses. Respiratory: Tachypneic. Labored breathing with use of accessory respiratory muscles. Diffuse rhonchi and crackles bilaterally. Gastrointestinal: Distended. Generalized tenderness to palpation of all quadrants. Bowel sounds appreciated. Psychiatric: Altered, unable to adequately assess due to difficulty understanding patient. Seems to understand commands and will comply. Neuro: Mental status: Increasingly somnolent. Difficult to assess A&O's due to dysarthria. Seems to understand commands and will comply. Speech/Language: Language comprehension intact but pronounced dysarthria noted. Memory: Cannot assess. Cranial Nerves: II: No visual deficits and visual devi full to confrontation. Pupils 3-5 mm size BL round. III, IV, : EOMI, no nystagmus, no ptosis, no APD, smooth pursuit without saccadic intrusion, conjugate horizontal gaze intact. V: Gross sensation intact in V1, V2 and V3 distribution to crude touch. Jaw strength normal. VII: No facial asymmetry, able to smile symmetrically and BL good eye closure. VIII: Hearing intact in both ears per finger rubbing. IX, X: Symmetrical palate elevation, uvula in midline. IX, XII: Midline tongue protrusion. No fasciculations or atrophy noted. Sensory examination Crude touch in bilateral upper and lower extremity grossly intact. Results Labs 05/12/25 15:38 05/12/25 15:38 Labs: Short CBC 05/11/25 05/11/25 Range/Units 11:50 15:29 WBC 28.1 H 18.3 H D (3.6-11.0) Thou/mm3 Hgb 16.5 H 14.4 D (12.0-16.0) g/dL Hct 44.7 39.6 (36.0-46.0) % Plt Count 393 92 L D (140-440) Thou/mm3 BMP 05/11/25 11:50 Sodium 122 L Potassium 5.4 H Chloride 80 L Carbon Dioxide 26.3 BUN 25 H Creatinine 3.0 H Glucose 176 H Calcium 10.2 Cardiac Enzymes 05/11/25 05/11/25 Range/Units 11:50 17:19 Total Creatine Kinase 2125 H (34-171) U/L Troponin I 1.011 H* 1.316 H* D (0.0-0.045) ng/mL Liver Function 05/11/25 Range/Units 11:50 Total Bilirubin 0.3 (0.3-1.2) mg/dL AST 141 H (0-34) U/L ALT 144 H (10-49) U/L Alkaline Phosphatase 105 (46-116) U/L Albumin 4.5 (3.4-4.8) gm/dL Urine 05/11/25 Range/Units 12:57 Urine Color Lt-Yellow (Lt Yel-Yel) Urine Clarity Clear (Clear/Hazy) Urine pH 6.5 (5.0-7.0) Ur Specific [place] 1.007 (1.001-1.035) Urine Protein Negative (Neg - Trace) Urine Glucose (UA) Negative (Negative) ABG Interpretation ABG results: 05/11/25 17:19 ABG pH 7.24 L ABG pCO2 56 H ABG pO2 136 H ABG HCO3 24 ABG O2 Saturation 99 H ABG Base Excess -4 L Quality Measures Quality Measures VTE prophylaxis and sepsis Current suspected stage: sepsis Possible source: other Blood cultures ordered: completed in ED Antibiotic ordered: Yes Advance care planning discussed with:: patient Medications Home Medications and Allergies Home Medications ?Medication ?Instructions ?Recorded ?Confirmed ?Type carvedilol 3.125 mg tablet (Coreg) 3.125 mg PO BID #0 tabs 09/03/16 04/30/22 History albuterol sulfate 90 mcg/actuation 2 puff inhalation Q ID PRN 07/10/18 04/30/22 History aerosol inhaler (Ventolin HFA) Shortness Of Breath Or Wheezing aripiprazole 30 mg tablet (Abilify) 30 mg PO QDAY 11/2204/30/22 History levothyroxine 50 mcg tablet 75 mcg PO QDAY 07/10/18 History (Synthroid) venlafaxine 150 mg 300 mg PO QDAY 07/10/1804/08 History capsule,extended release 24 hr (Effexor XR) diazepam 10 mg tablet (Valium) 10 mg PO BID 03/26/19 0 04/30/22 History Held on 04/30/22. Instructions: Resume on 05/01/22. HOLD TODAY'S DOSE. MAY RESUME TOMORROW 05/01/22 lisinopril 20 mg tablet 10 mg PO HS #0 tabs 03/26/19 04/30/22 History cholecalciferol (vitamin D3) 125 50,000 unit PO QDAY 1 10/26/18 04/30/22 History mcg (5,000 unit) tablet (Vitamin D3) ferrous sulfate 325 mg (65 mg 325 mg PO QDAY 08/25/19 04/30/22 History iron) tablet omeprazole 40 mg capsule,delayed 40 mg PO QDAY 9 04/30/22 History release risperidone 3 mg tablet 3 mg QDAY 08/25/19 04/30/22 History gemfibrozil 600 mg tablet 1 tab PO BID 04/30/22 History Allergies Allergy/AdvReac Type Severity Reaction Status Date / Time adhesive tape Allergy Severe SURGICAL Verified 04/30/22 09:58 TAPE /BLISTERS Sulfa (Sulfonamide Allergy Severe SWEELING / Verified 04/30/22 09:58 Antibiotics) CLOSE THROAT / RASH clindamycin Allergy Unknown Anaphylaxis Verified 04/30/22 09:58 Penicillins Allergy Unknown Anaphylaxis Verified 04/30/22 09:58 Visit Medications Acetaminophen (Acetaminophen 325 Mg Tablet) 650 mg PO Q6HR PRN PRN Reason: FEVER >101 Stop: 06/10/25 15:39 Acetaminophen (Acetaminophen 325 Mg Tablet) 650 mg PO Q6HR PRN PRN Reason: HEADACHE Stop: 06/10/25 15:44 Albuterol/Ipratropium (Albuterol/Ipratropium (Duoneb) Rt Ninoska 3 Ml Nebu) 3 ml INH Q2HR PRN PRN Reason: SHORTNESS OF BREATH OR WHEEZE Stop: 06/10/25 17:13 Last Admin: 05/11/25 17:25 Dose: 3 ml Atorvastatin Calcium (Atorvastatin Calcium 20 Mg Tablet) 80 mg PO HS DUSTIN Stop: 06/10/25 20:59 Norepinephrine Bitartrate (Levophed In Ns 16mg/250ml) 16 mg in 250 mls @ 2.126 mls/hr IV .Q24H PRN; Protocol PRN Reason: PER protocol Stop: 06/10/25 12:56 Last Titration: 05/11/25 16:00 Dose: 0.07 mcg/kg/min, 2.977 mls/hr Lactated Ringer's (Lactated Ringers) 1,000 mls @ 100 mls/hr IV .Q10H [facility] Stop: 06/10/25 14:58 Last Admin: 05/11/25 15:35 Dose: 100 mls/hr Cefepime HCl 1 gm/ Sodium (Chloride) 50 mls @ 100 mls/hr IV QDAY DUSTIN; Protocol Stop: 05/18/25 15:35 Last Admin: 05/11/25 15:55 Dose: 100 mls/hr Pantoprazole Sodium (Protonix/Ns 80mg Iv Premix) 80 mg in 100 mls @ 10 mls/hr IV Q10H [facility] Stop: 05/14/25 15:16 Last Admin: 05/11/25 17:37 Dose: 10 mls/hr Labetalol HCl (Labetalol Inj 5 Mg/Ml Vial 20 Ml) 10 mg IVP Q15M PRN PRN Reason: HYPER Ondansetron HCl (Ondansetron Inj 2 Mg/Ml Inj 2 Ml) 4 mg IVP Q4HR PRN PRN Reason: NAUSEA OR VOMITING Stop: 06/10/25 11:43 Last Admin: 05/11/25 14:16 Dose: 4 mg Pharmacy Consult (Vancomycin Pharmacy To Dose 1 Each Each) 1 each IV QDAY PRN PRN Reason: CONSULT Stop: 06/10/25 14:59 Discontinued Medications Aspirin (Aspirin Ec 81 Mg Tabec) 81 mg PO X1 ONE Stop: 05/11/25 12:13 Last Admin: 05/11/25 12:31 Dose: 81 mg Diphtheria/Tetanus/Acell Pertussis (Diphth,Pertuss(Acell),Tet Vac 0.5 Ml Syr- Adult) 0.5 ml IMi .ONCE ONE Stop: 05/11/25 12:13 Last Admin: 05/11/25 12:31 Dose: 0.5 ml Heparin Sodium (Porcine) (Heparin Sod Inj 5000 Unit/Ml Vial) 5,000 unit SC Q12HR [facility] Stop: 05/25/25 20:59 Sodium Chloride (Ns) 1,000 mls @ 999 mls/hr IV .Q1H1M ONE Stop: 05/11/25 13:22 Last Infusion: 05/11/25 14:25 Dose: Infused Sodium Chloride (Ns) 1,000 mls @ 999 mls/hr IV .Q1H1M ONE Stop: 05/11/25 13:22 Last Infusion: 05/11/25 14:25 Dose: Infused Ceftriaxone Sodium/Dextrose (Rocephin/D5w 1gm Iv Premix) 1 gm in 50 mls @ 100 mls/hr IV X1 ONE Stop: 05/11/25 13:37 Last Infusion: 05/11/25 14:24 Dose: Infused Vancomycin/Sodium Chloride (Vancomycin/Ns 1 Gm Ivpb) 200 mls @ 120 mls/hr IV X1 ONE Stop: 05/11/25 16:54 Last Infusion: 05/11/25 17:45 Dose: Infused Sodium Chloride (Ns) 1,000 mls @ 999 mls/hr IV .Q1H1M ONE Stop: 05/11/25 17:56 Last Admin: 05/11/25 16:56 Dose: 999 mls/hr Lactated Ringer's (Lactated Ringers) 1,000 mls @ 999 mls/hr IV .Q1H1M ONE Stop: 05/11/25 17:39 Lidocaine (Lidocaine 5% 1 Patch) 1 patch TOP X1 ONE Stop: 05/11/25 17:12 Last Admin: 05/11/25 17:41 Dose: 1 patch Assessment & Plan Plan Doris Adame is a 69-year-old F with a PMH of GERD, reported peptic ulcers, hypertension, hyperlipidemia, COPD not on home oxygen, recent head strike after fall, bipolar I disorder, and hypothyroidism who was BIBA for evaluation of stroke-like symptoms. In the ED, patient began having hypotension and tachycardia in the setting of leukocytosis and eventually was started on Levophed. She was also noted to have 2 episodes of coffee-ground vomitus for which GI (Dr. Vasquez) was consulted and patient was given IV Protonix along with 3 L IV fluids and IV ceftriaxone. Of note, per GI, patient previously underwent colonoscopy (04/2022) showing diverticulosis, hemorrhoids, and melanosis coli. EGD (04/2022) revealed GERD with esophagitis, bile gastritis, and acute gastritis; pathology was negative for H. pylori, intestinal metaplasia, microscopic colitis, or dysplasia. Due to her rapidly deteriorating clinical picture (persistent hypotension, hypoxemia and respiratory acidosis despite oxygen supplementation, altered mentation, severe electrolyte derangements, concern for acute infarcts in the setting of recent head trauma and blood loss, etc.) the decision was made to place a right femoral central line and right IJ sheath for peripheral venous access and predicted need for rapid volume resuscitation, respectively. Additionally, patient was intubated for her acute respiratory failure to protect her airway and provide ventilatory support and admitted to the ICU for further management. NEURO #Stroke r/o Per teleneurology consult, patient initially presented with marked right-sided deficits, no antigravity movement of right leg, drift of right arm, sensory changes, and dysarthria There is concern for left hemispheric stroke and, due to her persistent and pronounced hypotension, watershed infarcts cannot be ruled out Patient is outside therapeutic window for IV thrombolytics (last known well time exceeds 4.5+ hours) DDx: hypotension syncope 2/2 hemorrhagic shock, fall-related head trauma initially 2/2 adverse medication effect or vasovagal/orthostatic syncope Dx: -Head CT was negative for acute hemorrhage, mass effect, or midline shift -Head/neck CTA showed no significant neck arterial stenoses or cerebral large vessel arterial occlusions or thrombus Rx: -Brain MRI to r/o ischemic stroke -Avoiding anticoagulation due to concern for hemorrhagic shock 2/2 suspected acute upper GI bleed -Permissive hypertension (correct blood pressure only if greater than 220/120 or if there is a concern for end organ damage, use IV/PO labetalol or IV hydralazine w/ goal of 15% reduction in BP during the first 24 hours) -IV fluids -Neuro checks (q4HR) -Bedside swallow evaluation and aspiration precautions -Head of bed elevation: 30 degrees RRx: -Follow up on brain MRI to r/o ischemic stroke -Monitor blood pressure and signs of new focal neurologic deficits #History of bipolar I disorder Will restart patient's home medication regimen once she is stabilized CARDIO #Hypovolemic shock Most likely 2/2 GI bleed In ED, patient received 5 L of fluids, which did not help to improve BP, started on Levophed and vasopressin MAP goal>65 -Titrate Levophed to maintain a MAP>65 -Titrate vasopressors as tolerated -Fluid resuscitation (already received 4 L NS and 1 L LR) #NSTEMI Troponin elevated at 1.316 on admission DDx: likely type II NSTEMI from demand ischemia in the setting of hypovolemic shock Dx: -EKG unremarkable Rx: -Trend troponins RRx: -Monitor signs and symptoms #Hypertension Patient is currently in shock Rx: -Holding antihypertensive medications in the setting -Wean off vasopressors as tolerated RRx: -Monitor blood pressure PULM #Acute hypoxic hypercapnic respiratory failure 2/2 pneumonia #COPD #Respiratory acidosis #History of smoking Dx: -Chest x-ray was suspicious for mild left base aspiration pneumonia -Repeat chest x-ray post intubation showed the endotracheal tube situated 21 mm above the nasir, proximal positioning of the right internal jugular line, satisfactory positioning of the orogastric tube, and significant left base pneumonia Rx: -Intubated, ventilator support -Duonebs prn -Continue antibiotics -De-escalate based on cultures RRx: -Monitor ABG and oxygenation status GI #Acute blood loss anemia Of note, per GI, patient previously underwent colonoscopy (04/2022) showing diverticulosis, hemorrhoids, and melanosis coli. EGD (04/2022) revealed GERD with esophagitis, bile gastritis, and acute gastritis; pathology was negative for H. pylori, intestinal metaplasia, microscopic colitis, or dysplasia Hgb has been dropping (16.5 -> 14.4 -> 12.8 @ 11:50, 15:29, 20:26 respectively on 05/11) DDx: PUD, esophageal variceal bleeding, upper GI bleed vs. GI bleed Dx: -No current endoscopic studies yet Rx: -Transfuse pRBCs if Hgb<7 -GI consulted, awaiting recommendations -IV Protonix -Continue octreotide -Plan for endoscopy when patient is stabilized RRx: -Repeat H&H (follow up every 4 hours) #Transaminitis CT CAP showed primary hepatocellular disease Continue to monitor NEPHRO #MARÍA ELENA vs. ATN, prerenal vs. renal #Hyperkalemia Likely 2/2 both hypovolemia and rhabdomyolysis Patient received fluid resuscitation (5 L) Plan: -Monitor CPK -Monitor urine output -Follow up with renal panel daily -Avoid nephrotoxins #Hypoosmolar hyponatremia #Hypochloremia DDx: venlafaxine, medication effect (or other antipsychotic), delroy loss from excessive vomiting -Fluid resuscitation Dx: -CMP showed sodium 122, potassium 5.4, chloride 80, carbon dioxide 26.3, anion gap 16, BUN 25, creatinine 3.0, eGFR 16, glucose 176, calculated osmolality 254, lactic acid 3.2, corrected calcium 10.2, AST 141, ALT 144, total CK 2125, and troponin I 1.011 (later elevated to 1.316). Rx: -Hold antipsychotic medications (especially venlafaxine which is known for SIADH) RRx: -Monitor electrolytes and symptoms URO No active problems HEME #Thrombocytopenia -Monitor -Transfuse platelets #Leukocytosis DDx: hemoconcentration vs. reactive vs. infection Dx: -WBC 28.1 Rx: -Continue antibiotics for possible infection ENDO #Hypothyroidism Will order TSH when patient is stabilized ID #Left-base pneumonia Dx: -Chest x-ray was suspicious for mild left base aspiration pneumonia -Repeat chest x-ray post intubation showed the endotracheal tube situated 21 mm above the nasir, proximal positioning of the right internal jugular line, satisfactory positioning of the orogastric tube, and significant left base pneumonia -WBC 28.1 Rx: -IV cefepime -IV ceftriaxone -IV vancomycin MSK #Rhabdomyolysis Likely 2/2 trauma and recent immobilization s/p recent fall -Fluid resuscitation Disposition: requiring intubation and pressors DVT prophylaxis: none (bleeding risk) GI prophylaxis: IV Protonix Diet: NPO Reese: Present Lines: Peripheral IV, Central IV Antibiotics: Vancomycin + Ceftriaxone + Cefepime CODE STATUS: FULL Patient plan of care was discussed with the attending reed maker, Dr. Chilel. Giovanni Fernandez, PGY-1 Attending Provider Attestation/Addendum Patient seen and examined with above resident, Giovanni Fernandez DO. I agree with the findings, assessment, and plan of care as document except for any differences below. Patient with large volume coffee-ground emesis and status post NG tube placement had 1 L removed by low intermittent wall suction. Patient decompressed though I had significant tachycardia and abdominal distention. Aggressive volume resuscitation after central access obtained. Large bore central IV in case of need for massive transfusion also placed in the right IJ appropriately. Patient however with worsening respiratory status due to underlying inability to tolerate lactic acidosis adequately given her advanced lung disease. Patient urgently intubated once hemodynamics stabilized. Patient placed on mechanical ventilation with need for adjustments made appropriately. Despite large volume resuscitation hemoglobin did slowly decline. Urine output started to improve as well despite probable ATN. Patient also with some component of rhabdomyolysis as she was found down for prolonged period of time of unknown duration. Patient's daughter was at bedside and updated throughout course of ED intervention. Patient to be admitted to ICU for close monitoring and care when available there. Patient remains on low-dose vasopressor support. Continue maintain MAP greater than 65. GI was also consulted within the emergency department and we did start octreotide and PPI at the direction. Patient with history of NSAID use. Possible peptic ulcer disease is most likely culprit. She does not have any history of significant liver disease. Patient with altered mentation upon arrival in the ED though this was likely a reflection of metabolic encephalopathy secondary to shock. Difficult to discern any focal deficits due to the patient's inability participate appropriately teleneurology was involved in CT/CTA was done without evidence of significant embolic or infarction. No evidence of bleeding. Patient with about significant coagulation abnormalities otherwise though platelets are on the low side. Will plan for EGD tomorrow once the patient is more stable. Will await renal function before determining need for nephrology consultation and possible hemodialysis. Total critical care time: I personally spent 50 minutes for review of physiologic parameters, directing plan of care throughout the day, coordination of care with other subspecialties, and extensive counseling patient's family. This is exclusive of time spent teaching of staff or performing any separate billable procedures. Patient remains at significant risk for further morbidity and mortality warranting close monitoring and care only available in the ICU. Critical care services for hypovolemic/hemorrhagic shock, upper GI bleed secondary to peptic ulcer disease, acute hypoxic respiratory failure with hypercapnia, acute renal failure secondary to ATN, acute blood loss anemia, thrombocytopenia.
--- NOTE | 2025-05-11 18:09 | ESOP_ITS ---
PROCEDURES: Procedure Date / Time 05/11/25 1720 Procedure Narrative Procedure Narrative: Attending Attestation: Patient tolerated procedure well with no immediate complications. Unable to lay the patient flat due to ongoing large-volume coffee-ground emesis. Minimal blood loss. No follow-up imaging required. Central Line Placement Right Femoral: Indication(s): shock and poor, or inadequate peripheral venous access Informed consent obtained: procedure done urgently Time out done, and the following verified: correct patient, side and site, procedure, patient position and implants and/or equipment Patient placed on monitor/pulse ox: Yes Hand Hygiene: scrub, soap & water and alcohol-based hand rub Max Sterile Barrier Techniques used: cap, mask, sterile gown, sterile gloves and sterile full body drape Central line prep: Povidone-Iodine 1% Local anesthesia used: lidocaine 1% Amount of anesthesia used (mL): 5 Ultrasound used for placement: No Sterile Technique if Ultrasound used, including sterile gel: n/a Central line lumen inserted: triple Post procedure: sutured in place, good blood return, all ports aspirated, flushed, capped and sterile dressing applied Patient tolerated procedure: well and no complications EBL(ml): 3 Complications: none Procedure comment: Procedure performed under supervision of Dr. Chilel. Arian Moeller MD, PGY 3. Disclaimer: This note was dictated by speech recognition. Minor errors in economic analysis director may be present due to voice recognition software.
--- NOTE | 2025-05-11 18:18 | PC.NURSE ---
ICU team at bedside to intubate pt
[2025-05-11] MEDS: ROCURONIUM INJ 10 MG/ML VIAL 10 ML 45 MG IV (18:23)
[2025-05-11] MEDS: ETOMIDATE INJ 2 MG/ML VIAL 10 ML 14 MG IV (18:23)
--- NOTE | 2025-05-11 18:30 | PD.RESPROC ---
PROCEDURES: Procedure Date / Time 05/11/252028 Procedure Narrative Procedure Narrative: Attending Attestation: I was present for entire procedure. Patient tolerated procedure well. Hematoma around vessel with initial attempts. Required 3 attempts before successful placement. Patient without excessive bleeding externally. Catheter in adequate position based on follow-up chest x-ray with no postprocedural pneumothorax. Central Line Placement Right IJ: Procedure comment: PROCEDURE: Right IJ large bore sheath INDICATION: Rapid volume resuscitation PROCEDURE INDUSTRIAL WORKERS : Dr Lemon ATTENDING PHYSICIAN : Dr Chilel CONSENT : Informed consent was obtained from family, with discussion regarding the procedure, or treatment. I explained the following to the designee: a. Nature of the procedure or treatment and who will perform the procedure or treatment b. Necessity for procedure and the possible benefits. c. Risks and complications (most common and serious) d. Alternative treatments and the risks, benefits and side effects of each (including no treatment). e. Likelihood of the patient achieving his/her goals without this procedure and surgery treatment f. Problems that might occur during the recuperation g. Conflicts of interest, if any PROCEDURE SUMMARY: The Central Line Venous Catheter Insertion Practices form was completed. Starting with the first handwash prior to starting sterile technique. A time out was performed . My hands were washed immediately prior to the procedure. I wore a surgical cap, mask with protective eyewear, full gown and sterile gloves throughout the procedure. The patient was placed in Trendelenburg position. RIGHT chest region was prepped using chlorhexidine scrub and draped in sterile fashion using a full drape and sterile probe cover and sterile gel employed. The medial and lateral heads of the sternocliedomastoid muscle were identified as was the carotid pulse. The Right Internal Jugular vein was identified using the ultrasound. Anesthesia was achieved over the vein using 1% lidocaine. Using real-time out of plane guidance, the introducer needle was inserted into the Right Internal Jugular Vein by ultrasound. A small incision was made at the skin surface with a scalpel and the introducer needle was exchanged for a pulmonary sheath with dilator. The catheter was left in place and introducer removed. A sterile sobraview shield was placed over the catheter at the insertion site. The patient tolerated the procedure without any hemodynamic compromise. At time of procedure completion, all ports aspirated and flushed properly. Estimated blood loss is ~ 10 ml. Post-procedure chest x-ray confirmed appropriate placement Under the supervision of my attending Dr Ranjana Lemon MD (PGY2)
[2025-05-11 18:32] LABS: Occult Blood, Gastric Positive (Negative)
[2025-05-11 18:32] LABS: Reflex Lactate? Y
[2025-05-11] MEDS: fentaNYL 2,500 MCG/250 ML BAG 2,500 MCG/250 ML BAG IV (18:46)
--- NOTE | 2025-05-11 18:50 | PD.INTPROC ---
PROCEDURES: Procedure Date / Time 05/11/25 8610 Procedure Narrative Procedure Narrative: Attending Attestation: I was present for entire procedure. No immediate complications. Airway occluded with significant mucus and vomit. Single attempt with RSI. Patient tolerat well with hemodynamics and both saturation of 86%. Follow-up chest x-ray showed tube at thoracic inlet, tube was advanced appropriately to be adequate position on follow-up imaging. Intubation Indication(s): acute Resp Failure Informed consent obtained: procedure done urgently Time out done, and the following verified: correct patient, side and site, procedure, patient position and implants and/or equipment Sedative: etomidate Mg given: 14 Paralytic: rocuronium Mg given: 45 Laryngoscope: fiber optic video scope Assist device used: fiber optic device ET tube size: 7 ET tube uncuffed: No Tube secured depth (cm): 24 Tube secured location: teeth Tube placement confirmation: visualized tube passing through cords, equal breath sounds bilaterally, no breath sounds over epigastrium and confirmation by capnometry Patient tolerated procedure: well Intubation complications: none
[2025-05-11 19:30] LABS: Lactic Acid, 3 HR 1.3 mMol/L (0.4-2.0)
[2025-05-11 19:56] LABS: Alanine Aminotransferase 135 U/L (10-49); Albumin, Serum 3.3 gm/dL (3.4-4.8); Albumin/Globulin Ratio 1.6 (1.2-2.2); Alkaline Phosphatase 79 U/L (46-116); Anion Gap 12 (7-16); Aspartate Amino Transferase 150 U/L (0-34); BUN/Creatinine Ratio 10 Ratio (12-20); Bilirubin,Total 0.3 mg/dL (0.3-1.2); Blood Urea Nitrogen 25 mg/dL (9-23); Calcium 8.1 mg/dL (8.3-10.6); Calcium (Corrected) 8.7 mg/dL (8.5-10.1); Carbon Dioxide 24.6 mMol/L (20.0-31.0); Chloride 93 mMol/L (98-107); Creatinine (Component) 2.4 mg/dL (0.6-1.3); Estimated Creatinine Clearance 15.6 mL/min (>60); Globulin 2.1 gm/dL (2.3-3.5); Glucose 145 mg/dL (74-106); Osmolality,Calculated 268 (275-295); Potassium 3.8 mMol/L (3.4-5.1); Sodium 130 mMol/L (136-145); Total Protein 5.4 gm/dL (5.7-8.2); eGFR 21 See Note
[2025-05-11 20:37] LABS: Base Excess -6 (-3-3); HCO3 24 mEq/L (20-26); Inspired Oxygen, FIO2 21 %; O2 Saturation 75 % (91-98); PCO2 64 mmHg (32.0-48.0)
[2025-05-11 20:39] LABS: Allen Test Performed/OK; PO2 51 mmHg (83-108); Puncture Site Right Radial; pH, Arterial 7.18 (7.35-7.45)
[2025-05-11 21:01] LABS: Basophils # (Auto) 0.1 Thou/mm3 (0.0-0.2); Basophils % (Auto) 0 % (0-2.5); Eosinophils # (Auto) 0.0 Thou/mm3 (0.0-0.5); Eosinophils % (Auto) 0 % (0-10); Hematocrit 35.2 % (36.0-46.0); Hemoglobin 12.8 g/dL (12.0-16.0); Immature Granulocytes Auto 0.09 Thou/mm3 (0.00-0.00); Lymphocytes # (Auto) 1.0 Thou/mm3 (1.0-4.8); Lymphocytes % (Auto) 5 % (10-50); Mean Corpuscular HGB Conc 36.4 g/dl (31.0-37.0); Mean Corpuscular Hemoglobin 32.0 pg (25.0-35.0); Mean Corpuscular Volume 88 fL (80-100); Monocytes # (Auto) 0.8 Thou/mm3 (0.0-0.8); Monocytes % (Auto) 4 % (0-12); Neutrophils # (Auto) 17.3 Thou/mm3 (1.8-7.7); Neutrophils % (Auto) 90 % (37-80); Nucleated Red Blood Cell # 0.00 Thou/mm3 (0.00-0.00); Nucleated Red Blood Cell % 0 /100 WBC (0); Platelet Count 276 Thou/mm3 (140-440); RDW Standard Deviation 44.7 fL (36.4-46.3); Red Blood Count 4.00 Miln/mm3 (4.00-5.20); White Blood Count 19.3 Thou/mm3 (3.6-11.0)
[2025-05-11] MEDS: VASOPRESSIN IN NS IVPB 20 UNIT/100 ML BAG 9 UNIT IV (21:30)
[2025-05-11] MEDS: OCTREOTIDE ACET INJ 1,000 MCG in SODIUM CHLORIDE 0.9% 100 ML 5.1 MCG IV (21:43)
[2025-05-11] MEDS: MIDAZOLAM INJ 1 MG/ML VIAL 2 ML 2 MG IVP (22:36)
[2025-05-11 22:46] LABS: Base Excess -4 (-3-3); HCO3 26 mEq/L (20-26); Inspired Oxygen, FIO2 21 %; O2 Saturation 43 % (91-98); PCO2 71 mmHg (32.0-48.0)
[2025-05-11 22:52] LABS: Allen Test Performed/OK; Puncture Site Right Radial
[2025-05-11 22:54] LABS: PO2 30 mmHg (83-108); pH, Arterial 7.18 (7.35-7.45)
[2025-05-11 23:10] LABS: Alanine Aminotransferase 137 U/L (10-49); Albumin, Serum 3.3 gm/dL (3.4-4.8); Albumin/Globulin Ratio 1.4 (1.2-2.2); Alkaline Phosphatase 77 U/L (46-116); Anion Gap 14 (7-16); Aspartate Amino Transferase 137 U/L (0-34); BUN/Creatinine Ratio 10 Ratio (12-20); Bilirubin,Total 0.3 mg/dL (0.3-1.2); Blood Urea Nitrogen 26 mg/dL (9-23); Calcium 8.0 mg/dL (8.3-10.6); Calcium (Corrected) 8.6 mg/dL (8.5-10.1); Carbon Dioxide 25.4 mMol/L (20.0-31.0); Chloride 90 mMol/L (98-107); Creatinine (Component) 2.5 mg/dL (0.6-1.3); Estimated Creatinine Clearance 15.0 mL/min (>60); Free T4 (Free Thyroxine) 0.74 ng/dL (0.89-1.76); Globulin 2.3 gm/dL (2.3-3.5); Glucose 154 mg/dL (74-106); Osmolality,Calculated 266 (275-295); Potassium 4.2 mMol/L (3.4-5.1); Sodium 129 mMol/L (136-145); Total Protein 5.6 gm/dL (5.7-8.2); eGFR 20 See Note
[2025-05-11 23:11] LABS: INR 1.2 (0.9-1.3); Partial Thromboplastin Time 31.3 Seconds (22.0-36.0); Prothrombin Time 12.7 Seconds (9.0-12.2)
[2025-05-11 23:15] LABS: Troponin I 1.414 ng/mL (0.0-0.045)
[2025-05-11 23:35] LABS: Base Excess -2 (-3-3); HCO3 25 mEq/L (20-26); Inspired Oxygen, FIO2 100 %; O2 Saturation 93 % (91-98); PCO2 49 mmHg (32.0-48.0); PO2 70 mmHg (83-108); pH, Arterial 7.30 (7.35-7.45)
[2025-05-11 23:36] LABS: Allen Test Performed/OK; Puncture Site Right Radial
[2025-05-12] VITALS (122 sets, daily range): BP systolic 61–190; BP diastolic 39–109; PULSE 62–104; RESP 16–24; TEMP 36–37.2; O2SAT 89–96; BMI 30.9
[2025-05-12 00:11] LABS: Hematocrit 34.4 % (36.0-46.0); Hemoglobin 12.2 g/dL (12.0-16.0)
--- NOTE | 2025-05-12 00:53 | PC.NURSE ---
SPOKE WITH LONNIE, DAUGHTER VIA PHONE. UPDATE GIVEN ON PLAN OF CARE. DAUGHTER AWARE TO BRING HOME MED LIST. STATES SHE WILL BRING LIST IN THE MORNING IF POSSIBLE.
[2025-05-12] MEDS: SODIUM CHLORIDE 0.45 % 1,000 ML 60 ML IV ×2 (02:01→17:41)
[2025-05-12] MEDS: PANTOPRAZOLE/NS 80MG IV PREMIX 80 MG/100 ML BAG 10 MG IV ×3 (02:02→22:07)
[2025-05-12] MEDS: MIDAZOLAM INJ 1 MG/ML VIAL 2 ML 2 MG IVP (02:12)
[2025-05-12] MEDS: RINGERS LACTATED 1000 ML 250 ML 999 ML IV (02:52)
[2025-05-12 04:57] LABS: Base Excess -1 (-3-3); HCO3 25 mEq/L (20-26); Inspired Oxygen, FIO2 21 %; O2 Saturation 91 % (91-98); PCO2 50 mmHg (32.0-48.0); PO2 64 mmHg (83-108); pH, Arterial 7.31 (7.35-7.45)
[2025-05-12 04:58] LABS: Allen Test Performed/OK; Puncture Site Right Radial
[2025-05-12 05:04] LABS: Basophils # (Auto) 0.0 Thou/mm3 (0.0-0.2); Basophils % (Auto) 0 % (0-2.5); Eosinophils # (Auto) 0.1 Thou/mm3 (0.0-0.5); Eosinophils % (Auto) 1 % (0-10); Hematocrit 31.8 % (36.0-46.0); Hemoglobin 11.4 g/dL (12.0-16.0); Immature Granulocytes Auto 0.06 Thou/mm3 (0.00-0.00); Lymphocytes # (Auto) 0.6 Thou/mm3 (1.0-4.8); Lymphocytes % (Auto) 14 % (10-50); Mean Corpuscular HGB Conc 35.8 g/dl (31.0-37.0); Mean Corpuscular Hemoglobin 32.4 pg (25.0-35.0); Mean Corpuscular Volume 90 fL (80-100); Monocytes # (Auto) 0.5 Thou/mm3 (0.0-0.8); Monocytes % (Auto) 12 % (0-12); Neutrophils # (Auto) 3.1 Thou/mm3 (1.8-7.7); Neutrophils % (Auto) 72 % (37-80); Nucleated Red Blood Cell # 0.00 Thou/mm3 (0.00-0.00); Nucleated Red Blood Cell % 0 /100 WBC (0); Platelet Count 207 Thou/mm3 (140-440); RDW Standard Deviation 46.4 fL (36.4-46.3); Red Blood Count 3.52 Miln/mm3 (4.00-5.20); White Blood Count 4.4 Thou/mm3 (3.6-11.0)
[2025-05-12 05:24] LABS: Glucose Estimated Average 123 mg/dL (80-131); Hemoglobin A1C 5.9 % Hgb (4.8-6.0)
[2025-05-12 05:26] LABS: Alanine Aminotransferase 129 U/L (10-49); Albumin, Serum 3.0 gm/dL (3.4-4.8); Albumin/Globulin Ratio 1.5 (1.2-2.2); Alkaline Phosphatase 70 U/L (46-116); Anion Gap 12 (7-16); Aspartate Amino Transferase 109 U/L (0-34); BUN/Creatinine Ratio 10 Ratio (12-20); Bilirubin,Total 0.2 mg/dL (0.3-1.2); Blood Urea Nitrogen 22 mg/dL (9-23); Calcium 7.7 mg/dL (8.3-10.6); Calcium (Corrected) 8.5 mg/dL (8.5-10.1); Carbon Dioxide 25.1 mMol/L (20.0-31.0); Chloride 94 mMol/L (98-107); Creatine Kinase 1109 U/L (34-171); Creatinine (Component) 2.2 mg/dL (0.6-1.3); Estimated Creatinine Clearance 23.7 mL/min (>60); Globulin 2.0 gm/dL (2.3-3.5); Glucose 163 mg/dL (74-106); Magnesium 1.3 mg/dL (1.6-2.6); Osmolality,Calculated 269 (275-295); Phosphorous 3.9 mg/dL (2.4-5.1); Potassium 3.8 mMol/L (3.4-5.1); Sodium 131 mMol/L (136-145); Total Protein 5.0 gm/dL (5.7-8.2); eGFR 24 See Note
[2025-05-12 05:28] LABS: Troponin I 0.799 ng/mL (0.0-0.045)
[2025-05-12] MEDS: VASOPRESSIN IN NS IVPB 20 UNIT/100 ML BAG 9 UNIT IV ×2 (06:05→17:31)
[2025-05-12] MEDS: RINGERS LACTATED 1000 ML 1,000 ML 999 ML IV (06:30)
--- NOTE | 2025-05-12 06:37 | XR_ITS ---
Examination: Duplex scan of the upper extremity, unilateral left Date and time of exam: May 12, 2025 0845 hours INDICATIONS: Onset left arm swelling beginning today Technique: Duplex scan of the extremity veins using B-mode/grayscale imaging and Doppler spectral analysis and color flow Attention is directed to internal echogenicity, compression and augmentation involving these veins, color flow assessment, spectral analysis Findings: Major deep venous structures in the extremity demonstrate normal course and caliber. There is no evidence of deep vein thrombosis. Normal color flow and spectral analysis Impression: Negative for DVT..
[2025-05-12] MEDS: Magnesium Sulfate 2 GM Ivpb 2 GM/50 ML BAG IV ×2 (06:57→12:05)
[2025-05-12 07:05] LABS: Vancomycin,Random 10.7 mcg/mL
[2025-05-12] MEDS: fentaNYL 2,500 MCG/250 ML BAG 2,500 MCG/250 ML BAG 27.5 MCG IV ×2 (07:30→17:25)
[2025-05-12 08:25] LABS: Lactate (Lactic Acid) 1.8 mMol/L (0.4-2.0)
[2025-05-12] MEDS: CEFEPIME INJ 2 GM in SODIUM CHLORIDE 0.9% (Popper) 50 ML IV (08:36)
[2025-05-12] MEDS: Magnesium Sulfate 4 GM Ivpb 4 GM/50 ML BAG IV (08:38)
[2025-05-12 08:39] LABS: Hematocrit 32.4 % (36.0-46.0); Hemoglobin 11.6 g/dL (12.0-16.0)
--- NOTE | 2025-05-12 08:52 | PC.PT ---
Cancel PT evaluation secondary patient is on mechanical ventilator.
[2025-05-12 10:19] LABS: Thyroid Stimulating Hormone 4.27 uIU/mL (0.55-4.78)
--- NOTE | 2025-05-12 10:28 | ESPR_ITS ---
<Statement entered by Harrison Lemon MD - 05/12/25 13:24> I supervised PGY 1 resident, Dr. Fernandez with management of patient. I agree with the documentation with the exceptions listed below. Doris Adame is a 69-year-old F with a PMH of GERD, hypertension, hyperlipidemia, bipolar I disorder, and COPD who was BIBA for evaluation of stroke-like symptoms. Patient's daughter also reported that she found her mother covered in dark-colored stools and patient also had 1 episode of coffee- ground emesis in the ED. 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 patient remains intubated and mechanically ventilated on ACMV on fentanyl infusion with a RASS of -2. Scheduled DuoNebs every 4 hourly today and will continue cefepime for likely aspiration pneumonia. ABG this a.m. showed pH 7.31 and pCO2 50. No attempt for SAT or SBT today as patient peak pressures are still high. With regards to patient's hypovolemic shock, she was adequately fluid resuscitated with 6L IV fluids in the past 24 hours and also receiving 1 unit PRBC as well. MAPs will still less than 65 even with adequate fluid resuscitation and norepinephrine and vasopressin continue to be titrated. For patient's likely upper GI bleed, she is currently on pantoprazole and octreotide infusion as per GI recommendations. Also GI, Dr. Vasquez will take patient for EGD today to identify possible source of bleeding. Patient's hyponatremia of 122 yesterday was overcorrected to 131 today. Will start 0.45% normal saline at 60 cc/h to prevent further overcorrection. Goal sodium of 132 by tomorrow. Plan of care discussed with Attending Dr. Ranjana Lemon MD PGY 2 Disclaimer: This note was dictated by speech recognition. Minor errors in payment processor may be present due to voice recognition software. Documentation for date of: 05/12/25 Subjective Subjective Interval history: Doris Adame is a 69-year-old F with a PMH of GERD, reported peptic ulcers, hypertension, hyperlipidemia, COPD not on home oxygen, recent head strike after fall, bipolar I disorder, and hypothyroidism who was BIBA for evaluation of stroke-like symptoms. Per chart review, patient apparently fell sometime last night around 9 PM before trying to crawl back to bed according to family. Patient (who lives alone) eventually called her daughter for help sometime on the morning of 05/11/25 and daughter went to the house to find the patient confused and unable to ambulate. At that time, daughter noted that patient seemed to be soiled with vomit and dark stool without delroy, red blood. EMS was called at this point and patient presented to the ED with slurring of speech, right-sided weakness, and a GCS of 14. She was also noted to have sustained a laceration to the forehead scabbed over with dry blood and no active bleeding. In the ED, vitals showed: BP 86/55 HR 108 RR 18 Temp 98.9 SpO2 89% on Oxygen Mask ED Course: CBC showed WBC 28.1, hemoglobin 16.5, and platelet count drop to 92 from 393. Coagulation panel was WNL. ABG showed acidotic pH 7.24, pCO2 56, pO2 136, and HCO3 24. CMP showed sodium 122, potassium 5.4, chloride 80, carbon dioxide 26.3, anion gap 16, BUN 25, creatinine 3.0, eGFR 16, glucose 176, calculated osmolality 254, lactic acid 3.2, corrected calcium 10.2, AST 141, ALT 144, total CK 2125, and troponin I 1.011 (later elevated to 1.316). UA was WNL. Gastric occult blood was positive. UDS was positive for benzodiazepines (patient takes prescribed diazepam at home) but otherwise negative. Imaging: Chest x-ray was negative for aspiration pneumonia Repeat chest x-ray post intubation showed the endotracheal tube situated 21 mm above the nasir, proximal positioning of the right internal jugular line, satisfactory positioning of the orogastric tube, and significant left base pneumonia Head CT was negative for acute hemorrhage, mass effect, or midline shift Head/neck CTA showed no significant neck arterial stenoses or cerebral large vessel arterial occlusions or thrombus Pelvis x-ray showed severe osteopenia but no definite hip or pelvic fracture EKG showed normal sinus rhythm with nonspecific ST and T wave abnormality and QTc 457 Chest x-ray was suspicious for mild left base aspiration pneumonia CT CAP showed: 1. Mild aneurysmal dilatation of the thoracic aorta 2. No pneumonia, pulmonary edema, or pleural disease 3. Abnormal fluid distention of the esophagus with thickening of the lower wall of the esophagus (differential would include reflux esophagitis, lower esophageal tumor, recommend endoscopy follow-up) 4. Primary hepatocellular disease 5. Perinephric stranding (consider urinary tract infection) 6. Moderately severe diffuse nonspecific colitis of the entire colon, (differential would include ulcerative colitis and Crohn's disease) In the ED, patient began having hypotension and tachycardia in the setting of leukocytosis and eventually was started on Levophed. She was also noted to have 2 episodes of coffee-ground vomitus for which GI (Dr. Vasquez) was consulted and patient was given IV Protonix along with 3 L IV fluids and IV ceftriaxone. Of note, per GI, patient previously underwent colonoscopy (04/2022) showing diverticulosis, hemorrhoids, and melanosis coli. EGD (04/2022) revealed GERD with esophagitis, bile gastritis, and acute gastritis; pathology was negative for H. pylori, intestinal metaplasia, microscopic colitis, or dysplasia. Due to her rapidly deteriorating clinical picture (persistent hypotension, hypoxemia and respiratory acidosis despite oxygen supplementation, altered mentation, severe electrolyte derangements, concern for acute infarcts in the setting of recent head trauma and blood loss, etc.) the decision was made to place a right femoral central line and right IJ sheath for peripheral venous access and predicted need for rapid volume resuscitation, respectively. Additionally, patient was intubated for her acute respiratory failure to protect her airway and provide ventilatory support and admitted to the ICU for further management. Interval History 05/12/25: No overnight events. Patient was examined at bedside; she remains intubated and mechanically ventilated on ACMV on fentanyl infusion with a RASS of -2. Patient's ABG this morning remains concerning with pH 7.31 and pCO2 50. Duonebs has been switched from as needed to scheduled q4HR and patient will continue IV cefepime 2 gm qD (started 05/12/25 @ 9:00). Additionally, due to peak pressures remaining high, Spontaneous Awakening Trials and Spontaneous Breathing Trials are deferred for the time being. Currently, the etiology behind patient's continued soft BPs with MAP<65 despite 6 L IV fluid resuscitation, pressor support via Levophed and vasopressin, and 1 U pRBC transfusion, is now thought to be less likely due to hemorrhagic shock and more likely due to some picture or combination of distributive shock vs. cardiogenic shock. Procalcitonin and echo have been ordered to further elucidate the nature of patient's current refractory hypotension. For patient's likely upper GI bleed, endoscopy was done today which only showed lots of coffee-ground material in the proximal body of the stomach and was unable to reveal a site of active bleeding. Biopsies (2 pieces) were taken from antrum cardia distal esophagus and proximal esophagus for further histological evaluation. No esophageal varices seen. Per GI recommendations, we will start trickle feeding the patient via the NG tube and continue her pantoprazole and octreotide infusions. Patient's hyponatremia of 122 yesterday was overcorrected to 131 today (goal range had been Na 126-128 by around 24 hours). Will start 0.45% normal saline at 60 cc/hr to prevent further overcorrection with a goal of Na 132 by tomorrow. Exam Vital Signs Temp Pulse Resp BP Pulse Ox O2 Del Method O2 Flow Rate 96.9 F 72 22 H 116/71 95 Mechanical Ventilation 15 05/12/25 08:22 05/12/25 10:14 05/12/25 08:22 05/12/25 10:14 05/12/25 10:14 05/12/25 08:15 05/11/25 17:48 FiO2 70 05/12/25 10:14 Narrative Exam General: Intubated and sedated. RASS (-2). Head: Large red laceration across forehead and anterior scalp with dried blood and no active bleeding. Eye: Closed. Previously observed to have normal conjunctiva, PERRL. Throat: Oral mucosa dry. Cardiovascular: Tachycardic rate. Normal rhythm, no murmur. Cold extremities with weak dorsalis pedis and posterior tibial pulses. Respiratory: Tachypneic. Labored breathing with use of accessory respiratory muscles. Diffuse rhonchi and crackles bilaterally. Gastrointestinal: Distended. Bowel sounds appreciated. Psychiatric: Cannot assess. Objective Labs 05/14/25 05:13 05/14/25 05:13 Labs: Laboratory Results - last 24 hr 09/12/3005/11/25 05/11/25 11:50 12:57 15:29 WBC 28.1 H 18.3 H D RBC 5.09 4.53 Hgb 16.5 H 14.4 D Hct 44.7 39.6 MCV 88 87 MCH 32.4 31.8 MCHC 36.9 36.4 RDW Std Deviation 43.5 43.2 Plt Count 393 92 L D Neut % (Auto) 89 H 87 H Lymph % (Auto) 6 L 5 L [place] % (Auto) 4 6 Eos % (Auto) 0 1 Baso % (Auto) 1 0 Neut # (Auto) 24.9 H 15.9 H Lymph # (Auto) 1.7 1.0 [place] # (Auto) 1.1 H 1.1 H Eos # (Auto) 0.0 0.2 Baso # (Auto) 0.2 0.1 Immature Gran # (Auto) 0.30 H 0.12 H Absolute Nucleated RBC 0.00 0.00 Immature Gran % 1 H 1 H Nucleated RBC % 0 0 PT 12.2 INR 1.1 APTT 27.5 Puncture Site ABG pH ABG pCO2 ABG pO2 ABG HCO3 ABG O2 Saturation ABG Base Excess Oxygen Liter Flow FiO2 Sodium 122 L Potassium 5.4 H Chloride 80 L Carbon Dioxide 26.3 Anion Gap 16 BUN 25 H Creatinine 3.0 H Estim Creat Clear Calc Not Performed. eGFR 16 L BUN/Creatinine Ratio 8 L Glucose [address] Glu mg/dL Hemoglobin A1c Calculated Osmolality 254 L Lactic Acid 3.2 H Calcium 10.2 Corrected Calcium 10.2 H Phosphorus Magnesium 1.7 Total Bilirubin 0.3 AST 141 H ALT 144 H Alkaline Phosphatase 105 Total Creatine Kinase 2125 H Troponin I 1.011 H* Total Protein 7.8 Albumin 4.5 Globulin 3.3 Albumin/Globulin Ratio 1.4 Triglycerides 130 Cholesterol 139 LDL Cholesterol, Calc 73 HDL Cholesterol 40 Cholesterol/HDL Ratio 3.5 L TSH Free T4 Ur Collection Type Catheter Urine Color Lt-Yellow Urine Clarity Clear Urine pH 6.5 Ur Specific [place] 1.007 Urine Protein Negative Urine Glucose (UA) Negative Urine Ketones Negative Urine Blood Negative Urine Nitrite Negative Urine Bilirubin Negative Urine Urobilinogen (Auto) Negative Ur Leukocyte Esterase Negative Urine RBC < 1 Urine WBC < 1 Ur Squamous Epith Cells < 1 Urine Bacteria None Ur Culture Indicated? Not Indicated Gastric Occult Blood Random Vancomycin Urine Opiates Screen Negative Urine Fentanyl Screen Negative Ur Barbiturates Screen Negative U Amphetamin/Meth Scrn Negative U Benzodiazepines Scrn Positive A U Cocaine Metab Screen Negative U Marijuana (THC) Screen Negative HCG (Qual) Negative Blood Type B Positive Antibody Screen NEGATIVE Crossmatch See Detail Blood Bank Wristband ID Yes Blood Bank Comment PLATP Ready 05/11/25 05/11/25 05/11/25 17:00 17:19 19:13 WBC RBC Hgb Hct MCV MCH MCHC RDW Std Deviation Plt Count Neut % (Auto) Lymph % (Auto) [place] % (Auto) Eos % (Auto) Baso % (Auto) Neut # (Auto) Lymph # (Auto) [place] # (Auto) Eos # (Auto) Baso # (Auto) Immature Gran # (Auto) Absolute Nucleated RBC Immature Gran % Nucleated RBC % PT INR APTT Puncture Site Right Radial ABG pH 7.24 L ABG pCO2 56 H ABG pO2 136 H ABG HCO3 24 ABG O2 Saturation 99 H ABG Base Excess -4 L Oxygen Liter Flow 15 FiO2 Sodium 130 L Potassium 3.8 D Chloride 93 L Carbon Dioxide 24.6 Anion Gap 12 BUN 25 H Creatinine 2.4 H D Estim Creat Clear Calc 15.6 L eGFR 21 L BUN/Creatinine Ratio 10 L Glucose [address] Glu mg/dL Hemoglobin A1c Calculated Osmolality 268 L Lactic Acid 1.3 Calcium 8.1 L D Corrected Calcium 8.7 D Phosphorus Magnesium Total Bilirubin 0.3 AST 150 H ALT 135 H Alkaline Phosphatase 79 D Total Creatine Kinase Troponin I 1.316 H* D Total Protein 5.4 L Albumin 3.3 L D Globulin 2.1 L Albumin/Globulin Ratio 1.6 Triglycerides Cholesterol LDL Cholesterol, Calc HDL Cholesterol Cholesterol/HDL Ratio TSH Free T4 Ur Collection Type Urine Color Urine Clarity Urine pH Ur Specific [place] Urine Protein Urine Glucose (UA) Urine Ketones Urine Blood Urine Nitrite Urine Bilirubin Urine Urobilinogen (Auto) Ur Leukocyte Esterase Urine RBC Urine WBC Ur Squamous Epith Cells Urine Bacteria Ur Culture Indicated? Gastric Occult Blood Positive A Random Vancomycin Urine Opiates Screen Urine Fentanyl Screen Ur Barbiturates Screen U Amphetamin/Meth Scrn U Benzodiazepines Scrn U Cocaine Metab Screen U Marijuana (THC) Screen HCG (Qual) Blood Type Antibody Screen Crossmatch Blood Bank Wristband ID Blood Bank Comment 09/04/25 09/04/25 09/04/25 20:26 20:27 21:45 WBC 19.3 H RBC 4.00 Hgb 12.8 Hct 35.2 L MCV 88 MCH 32.0 MCHC 36.4 RDW Std Deviation 44.7 Plt Count 276 D Neut % (Auto) 90 H Lymph % (Auto) 5 L [place] % (Auto) 4 Eos % (Auto) 0 Baso % (Auto) 0 Neut # (Auto) 17.3 H Lymph # (Auto) 1.0 [place] # (Auto) 0.8 Eos # (Auto) 0.0 Baso # (Auto) 0.1 Immature Gran # (Auto) 0.09 H Absolute Nucleated RBC 0.00 Immature Gran % 1 H Nucleated RBC % 0 PT 12.7 H INR 1.2 APTT 31.3 Puncture Site Right Radial ABG pH 7.18 L* ABG pCO2 64 H ABG pO2 51 L* D ABG HCO3 24 ABG O2 Saturation 75 L ABG Base Excess -6 L Oxygen Liter Flow FiO2 21 Sodium 129 L Potassium 4.2 Chloride 90 L Carbon Dioxide 25.4 Anion Gap 14 BUN 26 H Creatinine 2.5 H Estim Creat Clear Calc 15.0 L eGFR 20 L BUN/Creatinine Ratio 10 L Glucose [address] Glu mg/dL Hemoglobin A1c Calculated Osmolality 266 L Lactic Acid Calcium 8.0 L Corrected Calcium 8.6 Phosphorus Magnesium Total Bilirubin 0.3 AST 137 H ALT 137 H Alkaline Phosphatase 77 Total Creatine Kinase Troponin I 1.414 H* Total Protein 5.6 L Albumin 3.3 L Globulin 2.3 Albumin/Globulin Ratio 1.4 Triglycerides Cholesterol LDL Cholesterol, Calc HDL Cholesterol Cholesterol/HDL Ratio TSH Free T4 0.74 L Ur Collection Type Urine Color Urine Clarity Urine pH Ur Specific [place] Urine Protein Urine Glucose (UA) Urine Ketones Urine Blood Urine Nitrite Urine Bilirubin Urine Urobilinogen (Auto) Ur Leukocyte Esterase Urine RBC Urine WBC Ur Squamous Epith Cells Urine Bacteria Ur Culture Indicated? Gastric Occult Blood Random Vancomycin Urine Opiates Screen Urine Fentanyl Screen Ur Barbiturates Screen U Amphetamin/Meth Scrn U Benzodiazepines Scrn U Cocaine Metab Screen U Marijuana (THC) Screen HCG (Qual) Blood Type Antibody Screen Crossmatch Blood Bank Wristband ID Blood Bank Comment 05/11/25 05/11/25 05/11/25 22:35 22:56 23:34 WBC RBC Hgb 12.2 Hct 34.4 L MCV MCH MCHC RDW Std Deviation Plt Count Neut % (Auto) Lymph % (Auto) [place] % (Auto) Eos % (Auto) Baso % (Auto) Neut # (Auto) Lymph # (Auto) [place] # (Auto) Eos # (Auto) Baso # (Auto) Immature Gran # (Auto) Absolute Nucleated RBC Immature Gran % Nucleated RBC % PT INR APTT Puncture Site Right Radial Right Radial ABG pH 7.18 L* 7.30 L D ABG pCO2 71 H* 49 H D ABG pO2 30 L* D 70 L D ABG HCO3 26 25 ABG O2 Saturation 43 L 93 ABG Base Excess -4 L -2 Oxygen Liter Flow FiO2 21 100 Sodium Potassium Chloride Carbon Dioxide Anion Gap BUN Creatinine Estim Creat Clear Calc eGFR BUN/Creatinine Ratio Glucose Estimated Ave Glu mg/dL Hemoglobin A1c Calculated Osmolality Lactic Acid Calcium Corrected Calcium Phosphorus Magnesium Total Bilirubin AST ALT Alkaline Phosphatase Total Creatine Kinase Troponin I Total Protein Albumin Globulin Albumin/Globulin Ratio Triglycerides Cholesterol LDL Cholesterol, Calc HDL Cholesterol Cholesterol/HDL Ratio TSH Free T4 Ur Collection Type Urine Color Urine Clarity Urine pH Ur Specific [place] Urine Protein Urine Glucose (UA) Urine Ketones Urine Blood Urine Nitrite Urine Bilirubin Urine Urobilinogen (Auto) Ur Leukocyte Esterase Urine RBC Urine WBC Ur Squamous Epith Cells Urine Bacteria Ur Culture Indicated? Gastric Occult Blood Random Vancomycin Urine Opiates Screen Urine Fentanyl Screen Ur Barbiturates Screen U Amphetamin/Meth Scrn U Benzodiazepines Scrn U Cocaine Metab Screen U Marijuana (THC) Screen HCG (Qual) Blood Type Antibody Screen Crossmatch Blood Bank Wristband ID Blood Bank Comment 05/12/25 05/12/25 05/12/25 04:39 04:50 08:18 WBC 4.4 D RBC 3.52 L Hgb 11.4 L 11.6 L Hct 31.8 L 32.4 L MCV 90 MCH 32.4 MCHC 35.8 RDW Std Deviation 46.4 H Plt Count 207 D Neut % (Auto) 72 Lymph % (Auto) 14 [place] % (Auto) 12 Eos % (Auto) 1 Baso % (Auto) 0 Neut # (Auto) 3.1 Lymph # (Auto) 0.6 L [place] # (Auto) 0.5 Eos # (Auto) 0.1 Baso # (Auto) 0.0 Immature Gran # (Auto) 0.06 H Absolute Nucleated RBC 0.00 Immature Gran % 1 H Nucleated RBC % 0 PT INR APTT Puncture Site Right Radial ABG pH 7.31 L ABG pCO2 50 H ABG pO2 64 L ABG HCO3 25 ABG O2 Saturation 91 ABG Base Excess -1 Oxygen Liter Flow FiO2 21 Sodium 131 L Potassium 3.8 Chloride 94 L Carbon Dioxide 25.1 Anion Gap 12 BUN 22 Creatinine 2.2 H Estim Creat Clear Calc 23.7 L eGFR 24 L BUN/Creatinine Ratio 10 L Glucose [address] Glu mg/dL 123 Hemoglobin A1c 5.9 Calculated Osmolality 269 L Lactic Acid 1.8 Calcium 7.7 L Corrected Calcium 8.5 Phosphorus 3.9 Magnesium 1.3 L Total Bilirubin 0.2 L AST 109 H ALT 129 H Alkaline Phosphatase 70 Total Creatine Kinase 1109 H D Troponin I 0.799 H* D Total Protein 5.0 L Albumin 3.0 L Globulin 2.0 L Albumin/Globulin Ratio 1.5 Triglycerides Cholesterol LDL Cholesterol, Calc HDL Cholesterol Cholesterol/HDL Ratio TSH 4.27 Free T4 Ur Collection Type Urine Color Urine Clarity Urine pH Ur Specific [place] Urine Protein Urine Glucose (UA) Urine Ketones Urine Blood Urine Nitrite Urine Bilirubin Urine Urobilinogen (Auto) Ur Leukocyte Esterase Urine RBC Urine WBC Ur Squamous Epith Cells Urine Bacteria Ur Culture Indicated? Gastric Occult Blood Random Vancomycin 10.7 Urine Opiates Screen Urine Fentanyl Screen Ur Barbiturates Screen U Amphetamin/Meth Scrn U Benzodiazepines Scrn U Cocaine Metab Screen U Marijuana (THC) Screen HCG (Qual) Blood Type Antibody Screen Crossmatch Blood Bank Wristband ID Blood Bank Comment ABG Interpretation ABG results: 05/11/25 05/11/25 05/11/25 17:19 20:27 22:35 ABG pH 7.24 L 7.18 L* 7.18 L* ABG pCO2 56 H 64 H 71 H* ABG pO2 136 H 51 L* D 30 L* D ABG HCO3 24 24 26 ABG O2 Saturation 99 H 75 L 43 L ABG Base Excess -4 L -6 L -4 L 05/11/25 05/12/25 22:56 04:50 ABG pH 7.30 L D 7.31 L ABG pCO2 49 H D 50 H ABG pO2 70 L D 64 L ABG HCO3 25 25 ABG O2 Saturation 93 91 ABG Base Excess -2 -1 Quality Measures Quality Measures none Advance care planning discussed with:: patient Assessment & Plan Assessment Current Active Medications: Generic Name Dose Route Start Last Admin Trade Name Freq PRN Reason Stop Dose Admin Acetaminophen 650 mg 05/11/25 15:40 Acetaminophen 325 Mg Tablet PO 06/10/25 15:39 Q6HR PRN FEVER >101 Acetaminophen 650 mg 05/11/25 15:45 Acetaminophen 325 Mg Tablet PO 06/10/25 15:44 Q6HR PRN HEADACHE Albuterol/Ipratropium 3 ml 05/11/25 17:14 05/11/25 17:25 Albuterol/Ipratropium (Duoneb) Rt [place] 3 Ml Nebu INH 06/10/25 17:13 3 ml Q2HR PRN Administration SHORTNESS OF BREATH OR WHEEZE Atorvastatin Calcium 80 mg 05/11/25 21:00 05/11/25 20:50 Atorvastatin Calcium 20 Mg Tablet PO 06/10/25 20:59 Not Given HS DUSTIN Norepinephrine Bitartrate 16 mg in 250 mls @ 2.126 mls/hr 05/11/25 12:57 05/12/25 07:05 Levophed In Ns 16mg/250ml IV 06/10/25 12:56 0.17 mcg/kg/min .Q24H PRN 7.229 mls/hr PER protocol Titration Protocol 0.05 MCG/KG/MIN Pantoprazole Sodium 80 mg in 100 mls @ 10 mls/hr 05/11/25 17:17 05/12/25 02:02 Protonix/Ns 80mg Iv Premix IV 05/14/25 15:16 10 mls/hr Q10H DUSTIN Administration Fentanyl Citrate 2,500 mcg in 250 mls @ 2.5 mls/hr 05/11/25 18:12 05/12/25 07:30 Sublimaze Inj 2,500 Mcg/250 Ml Bag IV 05/16/25 18:11 275 mcg/hr .Q24H PRN 27.5 mls/hr PER PROTOCOL Administration Protocol 25 MCG/HR Vasopressin/Sodium Chloride 20 unit in 100 mls @ 9 mls/hr 05/11/25 21:12 05/12/25 06:05 Vasostrict/Ns Ivpb IV 06/10/25 21:11 0.03 unit/min .Q11H7M PRN 9 mls/hr PER PROTOCOL Administration Protocol 0.03 UNIT/MIN Octreotide Acetate 1,000 mcg/ 102 mls @ 5.1 mls/hr 05/11/25 21:30 05/11/25 21:43 Sodium Chloride IV 05/16/25 21:30 50 mcg/hr .Q20H DUSTIN 5.1 mls/hr Protocol Administration 50 MCG/HR Sodium Chloride 1,000 mls @ 60 mls/hr 05/12/25 01:45 05/12/25 06:33 Ns 0.45% IV 06/11/25 01:44 0 mls/hr .[id number] DUSTIN Infusion Vancomycin/Sodium Chloride 200 mls @ 120 mls/hr 05/12/25 10:00 Vancomycin/Ns 1 Gm Ivpb IV 05/12/25 11:39 X1 ONE Cefepime HCl 2 gm/ Sodium 50 mls @ 100 mls/hr 05/12/25 09:00 05/12/25 08:36 Chloride IV 05/19/25 08:59 100 mls/hr QDAY DUSTIN Administration Magnesium Sulfate 4 gm in 50 mls @ 12.5 mls/hr 05/12/25 08:00 05/12/25 08:38 Magnesium Sulfate Ivpb IV 05/12/25 11:59 12.5 mls/hr X1 ONE Administration Magnesium Sulfate 2 gm in 50 mls @ 25 mls/hr 05/12/25 12:00 Magnesium Sulfate Ivpb IV 05/12/25 13:59 X1 ONE Protocol Ondansetron HCl 4 mg 05/11/25 11:44 05/11/25 14:16 Ondansetron Inj 2 Mg/Ml Inj 2 Ml IVP 06/10/25 11:43 4 mg Q4HR PRN Administration NAUSEA OR VOMITING Pharmacy Consult 1 each 05/11/25 15:00 Vancomycin Pharmacy To Dose 1 Each Each IV 06/10/25 14:59 QDAY PRN CONSULT Plan Doris Adame is a 69-year-old F with a PMH of GERD, reported peptic ulcers, hypertension, hyperlipidemia, COPD not on home oxygen, recent head strike after fall, bipolar I disorder, and hypothyroidism who was BIBA for evaluation of stroke-like symptoms. In the ED, patient began having hypotension and tachycardia in the setting of leukocytosis and eventually was started on Levophed. She was also noted to have 2 episodes of coffee-ground vomitus for which GI (Dr. Vasquez) was consulted and patient was given IV Protonix along with 3 L IV fluids and IV ceftriaxone. Due to her rapidly deteriorating clinical picture (persistent hypotension, hypoxemia and respiratory acidosis despite oxygen supplementation, altered mentation, severe electrolyte derangements, concern for acute infarcts in the setting of recent head trauma and blood loss, etc.) the decision was made to place a right femoral central line and right IJ sheath for peripheral venous access and predicted need for rapid volume resuscitation, respectively. Additionally, patient was intubated for her acute respiratory failure to protect her airway and provide ventilatory support and admitted to the ICU for further management. Today, she remains intubated and mechanically ventilated on ACMV on fentanyl infusion with a RASS of -2. Patient's ABG this morning remains concerning with pH 7.31 and pCO2 50. Duonebs has been switched from as needed to scheduled q4HR and patient will continue IV cefepime 2 gm qD (started 05/12/25 @ 9:00). Additionally, due to peak pressures remaining high, Spontaneous Awakening Trials and Spontaneous Breathing Trials are deferred for the time being. Currently, the etiology behind patient's continued soft BPs with MAP<65 despite 6 L IV fluid resuscitation, pressor support via Levophed and vasopressin, and 1 U pRBC transfusion, is now thought to be less likely due to hemorrhagic shock and more likely due to some picture or combination of distributive shock vs. cardiogenic shock. Procalcitonin and echo have been ordered to further elucidate the nature of patient's current refractory hypotension. For patient's likely upper GI bleed, endoscopy was done today which only showed lots of coffee-ground material in the proximal body of the stomach and was unable to reveal a site of active bleeding. Biopsies (2 pieces) were taken from antrum cardia distal esophagus and proximal esophagus for further histological evaluation. No esophageal varices seen. Per GI recommendations, we will start trickle feeding the patient via the NG tube and continue her pantoprazole and octreotide infusions. Patient's hyponatremia of 122 yesterday was overcorrected to 131 today (goal range had been Na 126-128 by around 24 hours). Will start 0.45% normal saline at 60 cc/hr to prevent further overcorrection with a goal of Na 132 by tomorrow. NEURO #Stroke r/o Per teleneurology consult, patient initially presented with marked right-sided deficits, no antigravity movement of right leg, drift of right arm, sensory changes, and dysarthria There is concern for left hemispheric stroke and, due to her persistent and pronounced hypotension, watershed infarcts cannot be ruled out Patient is outside therapeutic window for IV thrombolytics (last known well time exceeds 4.5+ hours) However, on this typewriter aligner's 05/11 physical exam, she did not seem to be displaying any persistent focal neurological deficits except for dysarthria DDx: hypotension syncope 2/2 hemorrhagic shock, fall-related head trauma initially 2/2 adverse medication effect or vasovagal/orthostatic syncope Dx: -Head CT was negative for acute hemorrhage, mass effect, or midline shift -Head/neck CTA showed no significant neck arterial stenoses or cerebral large vessel arterial occlusions or thrombus -05/12 Venous doppler ultrasound was negative for DVT Rx: -Brain MRI to r/o ischemic stroke -Avoiding anticoagulation due to concern for hemorrhagic shock 2/2 suspected acute upper GI bleed -Permissive hypertension (correct blood pressure only if greater than 220/120 or if there is a concern for end organ damage, use IV/PO labetalol or IV hydralazine w/ goal of 15% reduction in BP during the first 24 hours) -IV fluids -Neuro checks (q4HR) -Bedside swallow evaluation and aspiration precautions -Head of bed elevation: 30 degrees RRx: -Follow up on brain MRI to r/o ischemic stroke -Monitor blood pressure and signs of new focal neurologic deficits #History of bipolar I disorder Will restart patient's home medication regimen once she is stabilized CARDIO #Undifferentiated shock Initially, patient's persistent hypotension in the setting of coffee-ground emesis, melena with (+) FOBT, excessive vomiting, recent head strike with dried blood, decreasing Hgb, and labs suggestive of hemoconcentration was suspected to be 2/2 intravascular depletion 2/2 acute GI bleed However, patient has been resuscitated with a total of 6 L IV fluids, given 1 U pRBCs, and started on Levophed and vasopressin but still remains hypotensive, making hypovolemic shock unlikely to be the main contributor to patient's current soft BPs -Procalcitonin to assess for distributive shock 2/2 sepsis or bacteremia -Echo to assess for cardiogenic shock -Titrate Levophed to maintain a MAP>65 -Titrate vasopressors as tolerated -Fluid resuscitation (has received 6 L IV so far) #NSTEMI Troponin elevated at 1.316 on admission DDx: likely type II NSTEMI from demand ischemia in the setting of hypovolemic shock Dx: -EKG unremarkable Rx: -Trend troponins RRx: -Monitor signs and symptoms #History of primary hypertension Patient is currently in shock Rx: -Holding antihypertensive medications in the setting -Wean off vasopressors as tolerated RRx: -Monitor blood pressure PULM #Acute hypoxic hypercapnic respiratory failure likely 2/2 pneumonia #COPD #Respiratory acidosis #History of smoking Dx: -Chest x-ray was suspicious for mild left base aspiration pneumonia -Repeat chest x-ray post intubation showed the endotracheal tube situated 21 mm above the nasir, proximal positioning of the right internal jugular line, satisfactory positioning of the orogastric tube, and significant left base pneumonia -05/11 repeat ABG remains concerning with pH 7.31 and pCO2 50 Rx: -Intubated, ventilator support with fentanyl infusion -Duonebs q4HR -Continue IV cefepime 2 gm qD (started 05/12/25 @ 9:00) -De-escalate based on cultures -Continuously assess for the utility of Spontaneous Awakening Trials and Spontaneous Breathing Trials to decrease negative effects of continued sedation and ventilation in accordance with patient's current condition (currently not favorable) RRx: -Monitor ABG and oxygenation status GI #Acute blood loss anemia Of note, per GI, patient previously underwent colonoscopy (04/2022) showing diverticulosis, hemorrhoids, and melanosis coli. EGD (04/2022) revealed GERD with esophagitis, bile gastritis, and acute gastritis; pathology was negative for H. pylori, intestinal metaplasia, microscopic colitis, or dysplasia Hgb has been dropping steadily despite pRBC transfusion DDx: PUD, esophageal variceal bleeding, upper GI bleed vs. GI bleed Dx: -05/12 upper endoscopy revealed lots of coffee-ground material in the proximal body of the stomach but did not show any active sites of bleeding or esophageal varices Rx: -Per GI recommendations, we will start trickle feeding the patient via the NG tube -Transfuse pRBCs if Hgb<7 -Continue IV Protonix 80 mg q10HR (started on 05/11 @ 17:17) -Continue IV octreotide 50 mcg/hr (started on 05/11 @ 21:30) -Follow up on possible lower endoscopy by GI RRx: -Repeat H&H (follow up every 4 hours) #Transaminitis CT CAP showed primary hepatocellular disease Continue to monitor NEPHRO #MARÍA ELENA vs. ATN, prerenal vs. renal (improving) #Hyperkalemia Likely 2/2 both hypovolemia and rhabdomyolysis Patient received fluid resuscitation (6 L) Creatinine has been improving (2.2 today from 3.0 on admission) Plan: -Monitor CPK -Monitor urine output -Follow up with renal panel daily -Avoid nephrotoxins #Hypoosmolar hyponatremia #Hypochloremia Patient's hyponatremia of 122 yesterday was overcorrected to 131 today DDx: venlafaxine, medication effect (or other antipsychotic), delroy loss from excessive vomiting -Fluid resuscitation Dx: -CMP showed sodium 122, potassium 5.4, chloride 80, carbon dioxide 26.3, anion gap 16, BUN 25, creatinine 3.0, eGFR 16, glucose 176, calculated osmolality 254, lactic acid 3.2, corrected calcium 10.2, AST 141, ALT 144, total CK 2125, and troponin I 1.011 (later elevated to 1.316). Rx: -Start 0.45% NS @ 60 cc/hr to prevent overcorrection (goal sodium of 132 by tomorrow) -Hold antipsychotic medications (especially venlafaxine which is known for SIADH) RRx: -Monitor electrolytes and symptoms URO No active problems HEME #Thrombocytopenia -Monitor -Transfuse platelets #Leukocytosis DDx: hemoconcentration vs. reactive vs. infection Dx: -WBC 28.1 Rx: -Continue antibiotics for possible infection ENDO #Hypothyroidism Will order TSH when patient is stabilized ID #Left-base pneumonia Dx: -Chest x-ray was suspicious for mild left base aspiration pneumonia -Repeat chest x-ray post intubation showed the endotracheal tube situated 21 mm above the nasir, proximal positioning of the right internal jugular line, satisfactory positioning of the orogastric tube, and significant left base pneumonia -WBC 28.1 Rx: -Continue IV cefepime 2 gm qD (started 05/12/25 @ 9:00) MSK #Rhabdomyolysis (resolving) Likely 2/2 trauma and recent immobilization s/p recent fall CK is downtrending Rx: -Fluid resuscitation Disposition: requiring intubation and pressors DVT prophylaxis: none (bleeding risk) GI prophylaxis: IV Protonix Diet: NPO Reese: Present Lines: Peripheral IV, Central IV Antibiotics: Cefepime CODE STATUS: FULL Patient plan of care was discussed with the attending cooling pipe inspector, Dr. Chilel. Giovanni Fernandez, PGY-1 Attending Provider Attestation/Addendum Patient seen and examined with above resident, Giovanni Fernandez DO. I agree with the findings, assessment, and plan of care as document except for any differences below. Patient continues to show significant improvement with reduction in vasopressor requirements and return of renal function gradually. High urine output with significant component of hypovolemia likely potentiating renal dysfunction due to underperfusion. Volume resuscitation ongoing with blood products as needed to hold hemoglobin remains at her baseline now after appropriate resuscitation suggesting slow bleed. EGD to be done this afternoon. Patient will remain on antibiotics which are appropriate for left lower lobe pneumonia as well as potential urinary source with perinephric stranding on CT. Will de-escalate antibiotics as appropriate based on culture data. Patient will be weaned from mechanical likely tomorrow but in the interim we will maintain on higher PEEP for adequate recruitment. Her wheezing has significantly improved and there may have been irritation of the airways secondary to blood. Patient without any significant output from NG tube suggesting adequate control and based on findings we will determine need for continued octreotide and PPI based on GI recommendations. Continue to hold patient's home psych medications which can be resumed after successful weaning. There is concern also for stroke but MRI will need to wait until the patient is stable. Imaging will likely not change outcome as secondary prevention will need to be cleared by gastroenterology as GI bleeding would be a contraindication to use of antiplatelet therapy. Current rhabdomyolysis also makes initiation of statin not ideal at this point. Patient's daughter updated at bedside on plan of care. Total critical care time: I personally spent 45 minutes for review of physiologic parameters, directing plan of care throughout today, coordination of care with other subspecialties, and counseling patient's family at bedside. This is exclusive of time spent teaching of staff and performance of billable procedures. Patient remains at significant risk for further morbidity and mortality warranting close monitoring and care only available in the ICU. Critical care services required for septic/hypovolemic shock, acute blood loss anemia, upper GI bleed, acute hypoxic respiratory failure, and acute renal failure.
--- NOTE | 2025-05-12 11:54 | PCS.ST ---
Pt is intubated at this time. CX swallow evaluation ordered. Please re-order when appropriate.
--- NOTE | 2025-05-12 12:00 | ESPR_ITS ---
Documentation for date of: 05/12/25 Subjective Subjective Interval history: Patient examined at bedside today. Patient is currently on 2 pressors and mechanical ventilation at this time. Currently on Protonix and octreotide drip. GI on consult for evaluation of bleed. 2000 cc for urine output. Hemoglobin at 11.6, platelets 207. Exam Vital Signs Temp Pulse Resp BP Pulse Ox O2 Del Method O2 Flow Rate 96.8 F 73 22 H 102/64 92 L Mechanical Ventilation 15 05/12/25 08:30 05/12/25 11:30 05/12/25 08:22 05/12/25 11:30 05/12/25 11:30 05/12/25 08:15 05/11/25 17:48 FiO2 70 05/12/25 10:14 Narrative Exam General: Intubated, obese female HEENT: Frontal scab from previous fall, no active blood draining from wound, conjunctiva clear, EOMI, PERRLA, Cardiovascular: S1, S2, radial pulses +2 and bilat, RRR Pulmonary: Intubated, Mechanical breath sounds GI: No tenderness to light or deep palpitation, no guarding, rigidity, rebound tenderness or distension Extremities: No presence of trace or pitting edema in lower extremities bilaterally, dorsalis pedis pulses +2 bilaterally Neuro: Unable to assess as pt is intubated Objective Labs 05/14/25 05:13 05/14/25 05:13 Labs: Laboratory Results - last 24 hr 05/11/25 05/11/25 05/11/25 11:50 12:57 15:29 WBC 28.1 H 18.3 H D RBC 5.09 4.53 Hgb 16.5 H 14.4 D Hct 44.7 39.6 MCV 88 87 MCH 32.4 31.8 MCHC 36.9 36.4 RDW Std Deviation 43.5 43.2 Plt Count 393 92 L D Neut % (Auto) 89 H 87 H Lymph % (Auto) 6 L 5 L [place] % (Auto) 4 6 Eos % (Auto) 0 1 Baso % (Auto) 1 0 Neut # (Auto) 24.9 H 15.9 H Lymph # (Auto) 1.7 1.0 [place] # (Auto) 1.1 H 1.1 H Eos # (Auto) 0.0 0.2 Baso # (Auto) 0.2 0.1 Immature Gran # (Auto) 0.30 H 0.12 H Absolute Nucleated RBC 0.00 0.00 Immature Gran % 1 H 1 H Nucleated RBC % 0 0 PT 12.2 INR 1.1 APTT 27.5 Puncture Site ABG pH ABG pCO2 ABG pO2 ABG HCO3 ABG O2 Saturation ABG Base Excess Oxygen Liter Flow FiO2 Sodium 122 L Potassium 5.4 H Chloride 80 L Carbon Dioxide 26.3 Anion Gap 16 BUN 25 H Creatinine 3.0 H Estim Creat Clear Calc Not Performed. eGFR 16 L BUN/Creatinine Ratio 8 L Glucose [address] Glu mg/dL Hemoglobin A1c Calculated Osmolality 254 L Lactic Acid 3.2 H Calcium 10.2 Corrected Calcium 10.2 H Phosphorus Magnesium 1.7 Total Bilirubin 0.3 AST 141 H ALT 144 H Alkaline Phosphatase 105 Total Creatine Kinase 2125 H Troponin I 1.011 H* Total Protein 7.8 Albumin 4.5 Globulin 3.3 Albumin/Globulin Ratio 1.4 Triglycerides 130 Cholesterol 139 LDL Cholesterol, Calc 73 HDL Cholesterol 40 Cholesterol/HDL Ratio 3.5 L TSH Free T4 Ur Collection Type Catheter Urine Color Lt-Yellow Urine Clarity Clear Urine pH 6.5 Ur Specific [place] 1.007 Urine Protein Negative Urine Glucose (UA) Negative Urine Ketones Negative Urine Blood Negative Urine Nitrite Negative Urine Bilirubin Negative Urine Urobilinogen (Auto) Negative Ur Leukocyte Esterase Negative Urine RBC < 1 Urine WBC < 1 Ur Squamous Epith Cells < 1 Urine Bacteria None Ur Culture Indicated? Not Indicated Gastric Occult Blood Random Vancomycin Urine Opiates Screen Negative Urine Fentanyl Screen Negative Ur Barbiturates Screen Negative U Amphetamin/Meth Scrn Negative U Benzodiazepines Scrn Positive A U Cocaine Metab Screen Negative U Marijuana (THC) Screen Negative HCG (Qual) Negative Blood Type B Positive Antibody Screen NEGATIVE Crossmatch See Detail Blood Bank Wristband ID Yes Blood Bank Comment PLATP Ready 05/11/25 05/11/25 05/11/25 17:00 17:19 19:13 WBC RBC Hgb Hct MCV MCH MCHC RDW Std Deviation Plt Count Neut % (Auto) Lymph % (Auto) [place] % (Auto) Eos % (Auto) Baso % (Auto) Neut # (Auto) Lymph # (Auto) [place] # (Auto) Eos # (Auto) Baso # (Auto) Immature Gran # (Auto) Absolute Nucleated RBC Immature Gran % Nucleated RBC % PT INR APTT Puncture Site Right Radial ABG pH 7.24 L ABG pCO2 56 H ABG pO2 136 H ABG HCO3 24 ABG O2 Saturation 99 H ABG Base Excess -4 L Oxygen Liter Flow 15 FiO2 Sodium 130 L Potassium 3.8 D Chloride 93 L Carbon Dioxide 24.6 Anion Gap 12 BUN 25 H Creatinine 2.4 H D Estim Creat Clear Calc 15.6 L eGFR 21 L BUN/Creatinine Ratio 10 L Glucose [address] Glu mg/dL Hemoglobin A1c Calculated Osmolality 268 L Lactic Acid 1.3 Calcium 8.1 L D Corrected Calcium 8.7 D Phosphorus Magnesium Total Bilirubin 0.3 AST 150 H ALT 135 H Alkaline Phosphatase 79 D Total Creatine Kinase Troponin I 1.316 H* D Total Protein 5.4 L Albumin 3.3 L D Globulin 2.1 L Albumin/Globulin Ratio 1.6 Triglycerides Cholesterol LDL Cholesterol, Calc HDL Cholesterol Cholesterol/HDL Ratio TSH Free T4 Ur Collection Type Urine Color Urine Clarity Urine pH Ur Specific [place] Urine Protein Urine Glucose (UA) Urine Ketones Urine Blood Urine Nitrite Urine Bilirubin Urine Urobilinogen (Auto) Ur Leukocyte Esterase Urine RBC Urine WBC Ur Squamous Epith Cells Urine Bacteria Ur Culture Indicated? Gastric Occult Blood Positive A Random Vancomycin Urine Opiates Screen Urine Fentanyl Screen Ur Barbiturates Screen U Amphetamin/Meth Scrn U Benzodiazepines Scrn U Cocaine Metab Screen U Marijuana (THC) Screen HCG (Qual) Blood Type Antibody Screen Crossmatch Blood Bank Wristband ID Blood Bank Comment 05/11/25 05/11/25 05/11/25 20:26 20:27 21:45 WBC 19.3 H RBC 4.00 Hgb 12.8 Hct 35.2 L MCV 88 MCH 32.0 MCHC 36.4 RDW Std Deviation 44.7 Plt Count 276 D Neut % (Auto) 90 H Lymph % (Auto) 5 L [place] % (Auto) 4 Eos % (Auto) 0 Baso % (Auto) 0 Neut # (Auto) 17.3 H Lymph # (Auto) 1.0 [place] # (Auto) 0.8 Eos # (Auto) 0.0 Baso # (Auto) 0.1 Immature Gran # (Auto) 0.09 H Absolute Nucleated RBC 0.00 Immature Gran % 1 H Nucleated RBC % 0 PT 12.7 H INR 1.2 APTT 31.3 Puncture Site Right Radial ABG pH 7.18 L* ABG pCO2 64 H ABG pO2 51 L* D ABG HCO3 24 ABG O2 Saturation 75 L ABG Base Excess -6 L Oxygen Liter Flow FiO2 21 Sodium 129 L Potassium 4.2 Chloride 90 L Carbon Dioxide 25.4 Anion Gap 14 BUN 26 H Creatinine 2.5 H Estim Creat Clear Calc 15.0 L eGFR 20 L BUN/Creatinine Ratio 10 L Glucose [address] Glu mg/dL Hemoglobin A1c Calculated Osmolality 266 L Lactic Acid Calcium 8.0 L Corrected Calcium 8.6 Phosphorus Magnesium Total Bilirubin 0.3 AST 137 H ALT 137 H Alkaline Phosphatase 77 Total Creatine Kinase Troponin I 1.414 H* Total Protein 5.6 L Albumin 3.3 L Globulin 2.3 Albumin/Globulin Ratio 1.4 Triglycerides Cholesterol LDL Cholesterol, Calc HDL Cholesterol Cholesterol/HDL Ratio TSH Free T4 0.74 L Ur Collection Type Urine Color Urine Clarity Urine pH Ur Specific [place] Urine Protein Urine Glucose (UA) Urine Ketones Urine Blood Urine Nitrite Urine Bilirubin Urine Urobilinogen (Auto) Ur Leukocyte Esterase Urine RBC Urine WBC Ur Squamous Epith Cells Urine Bacteria Ur Culture Indicated? Gastric Occult Blood Random Vancomycin Urine Opiates Screen Urine Fentanyl Screen Ur Barbiturates Screen U Amphetamin/Meth Scrn U Benzodiazepines Scrn U Cocaine Metab Screen U Marijuana (THC) Screen HCG (Qual) Blood Type Antibody Screen Crossmatch Blood Bank Wristband ID Blood Bank Comment 05/11/25 05/11/25 05/11/25 22:35 22:56 23:34 WBC RBC Hgb 12.2 Hct 34.4 L MCV MCH MCHC RDW Std Deviation Plt Count Neut % (Auto) Lymph % (Auto) [place] % (Auto) Eos % (Auto) Baso % (Auto) Neut # (Auto) Lymph # (Auto) [place] # (Auto) Eos # (Auto) Baso # (Auto) Immature Gran # (Auto) Absolute Nucleated RBC Immature Gran % Nucleated RBC % PT INR APTT Puncture Site Right Radial Right Radial ABG pH 7.18 L* 7.30 L D ABG pCO2 71 H* 49 H D ABG pO2 30 L* D 70 L D ABG HCO3 26 25 ABG O2 Saturation 43 L 93 ABG Base Excess -4 L -2 Oxygen Liter Flow FiO2 21 100 Sodium Potassium Chloride Carbon Dioxide Anion Gap BUN Creatinine Estim Creat Clear Calc eGFR BUN/Creatinine Ratio Glucose Estimated Ave Glu mg/dL Hemoglobin A1c Calculated Osmolality Lactic Acid Calcium Corrected Calcium Phosphorus Magnesium Total Bilirubin AST ALT Alkaline Phosphatase Total Creatine Kinase Troponin I Total Protein Albumin Globulin Albumin/Globulin Ratio Triglycerides Cholesterol LDL Cholesterol, Calc HDL Cholesterol Cholesterol/HDL Ratio TSH Free T4 Ur Collection Type Urine Color Urine Clarity Urine pH Ur Specific [place] Urine Protein Urine Glucose (UA) Urine Ketones Urine Blood Urine Nitrite Urine Bilirubin Urine Urobilinogen (Auto) Ur Leukocyte Esterase Urine RBC Urine WBC Ur Squamous Epith Cells Urine Bacteria Ur Culture Indicated? Gastric Occult Blood Random Vancomycin Urine Opiates Screen Urine Fentanyl Screen Ur Barbiturates Screen U Amphetamin/Meth Scrn U Benzodiazepines Scrn U Cocaine Metab Screen U Marijuana (THC) Screen HCG (Qual) Blood Type Antibody Screen Crossmatch Blood Bank Wristband ID Blood Bank Comment 05/12/25 05/12/25 05/12/25 04:39 04:50 08:18 WBC 4.4 D RBC 3.52 L Hgb 11.4 L 11.6 L Hct 31.8 L 32.4 L MCV 90 MCH 32.4 MCHC 35.8 RDW Std Deviation 46.4 H Plt Count 207 D Neut % (Auto) 72 Lymph % (Auto) 14 [place] % (Auto) 12 Eos % (Auto) 1 Baso % (Auto) 0 Neut # (Auto) 3.1 Lymph # (Auto) 0.6 L [place] # (Auto) 0.5 Eos # (Auto) 0.1 Baso # (Auto) 0.0 Immature Gran # (Auto) 0.06 H Absolute Nucleated RBC 0.00 Immature Gran % 1 H Nucleated RBC % 0 PT INR APTT Puncture Site Right Radial ABG pH 7.31 L ABG pCO2 50 H ABG pO2 64 L ABG HCO3 25 ABG O2 Saturation 91 ABG Base Excess -1 Oxygen Liter Flow FiO2 21 Sodium 131 L Potassium 3.8 Chloride 94 L Carbon Dioxide 25.1 Anion Gap 12 BUN 22 Creatinine 2.2 H Estim Creat Clear Calc 23.7 L eGFR 24 L BUN/Creatinine Ratio 10 L Glucose [address] Glu mg/dL 123 Hemoglobin A1c 5.9 Calculated Osmolality 269 L Lactic Acid 1.8 Calcium 7.7 L Corrected Calcium 8.5 Phosphorus 3.9 Magnesium 1.3 L Total Bilirubin 0.2 L AST 109 H ALT 129 H Alkaline Phosphatase 70 Total Creatine Kinase 1109 H D Troponin I 0.799 H* D Total Protein 5.0 L Albumin 3.0 L Globulin 2.0 L Albumin/Globulin Ratio 1.5 Triglycerides Cholesterol LDL Cholesterol, Calc HDL Cholesterol Cholesterol/HDL Ratio TSH 4.27 Free T4 Ur Collection Type Urine Color Urine Clarity Urine pH Ur Specific [place] Urine Protein Urine Glucose (UA) Urine Ketones Urine Blood Urine Nitrite Urine Bilirubin Urine Urobilinogen (Auto) Ur Leukocyte Esterase Urine RBC Urine WBC Ur Squamous Epith Cells Urine Bacteria Ur Culture Indicated? Gastric Occult Blood Random Vancomycin 10.7 Urine Opiates Screen Urine Fentanyl Screen Ur Barbiturates Screen U Amphetamin/Meth Scrn U Benzodiazepines Scrn U Cocaine Metab Screen U Marijuana (THC) Screen HCG (Qual) Blood Type Antibody Screen Crossmatch Blood Bank Wristband ID Blood Bank Comment ABG Interpretation ABG results: 05/11/25 05/11/25 05/11/25 17:19 20:27 22:35 ABG pH 7.24 L 7.18 L* 7.18 L* ABG pCO2 56 H 64 H 71 H* ABG pO2 136 H 51 L* D 30 L* D ABG HCO3 24 24 26 ABG O2 Saturation 99 H 75 L 43 L ABG Base Excess -4 L -6 L -4 L 05/11/25 05/12/25 22:56 04:50 ABG pH 7.30 L D 7.31 L ABG pCO2 49 H D 50 H ABG pO2 70 L D 64 L ABG HCO3 25 25 ABG O2 Saturation 93 91 ABG Base Excess -2 -1 Quality Measures Quality Measures none Advance care planning discussed with:: patient Assessment & Plan Assessment Current Active Medications: Generic Name Dose Route Start Last Admin Trade Name Freq PRN Reason Stop Dose Admin Acetaminophen 650 mg 05/11/25 15:40 Acetaminophen 325 Mg Tablet PO 06/10/25 15:39 Q6HR PRN FEVER >101 Acetaminophen 650 mg 05/11/25 15:45 Acetaminophen 325 Mg Tablet PO 06/10/25 15:44 Q6HR PRN HEADACHE Albuterol/Ipratropium 3 ml 05/12/25 15:00 Albuterol/Ipratropium (Duoneb) Rt Ninos[place] 3 Ml Nebu INH 06/11/25 14:59 Q4HRRT DUSTIN Atorvastatin Calcium 80 mg 05/11/25 21:00 05/11/25 20:50 Atorvastatin Calcium 20 Mg Tablet PO 06/10/25 20:59 Not Given HS DUSTIN Norepinephrine Bitartrate 16 mg in 250 mls @ 2.126 mls/hr 05/11/25 12:57 05/12/25 07:05 Levophed In Ns 16mg/250ml IV 06/10/25 12:56 0.17 mcg/kg/min .Q24H PRN 7.229 mls/hr PER protocol Titration Protocol 0.05 MCG/KG/MIN Pantoprazole Sodium 80 mg in 100 mls @ 10 mls/hr 05/11/25 17:17 05/12/25 11:00 Protonix/Ns 80mg Iv Premix IV 05/14/25 15:16 10 mls/hr Q10H DUSTIN Infusion Fentanyl Citrate 2,500 mcg in 250 mls @ 2.5 mls/hr 05/11/25 18:12 05/12/25 11:00 Sublimaze Inj 2,500 Mcg/250 Ml Bag IV 05/16/25 18:11 275 mcg/hr .Q24H PRN 27.5 mls/hr PER PROTOCOL Titration Protocol 25 MCG/HR Vasopressin/Sodium Chloride 20 unit in 100 mls @ 9 mls/hr 05/11/25 21:12 05/12/25 11:00 Vasostrict/Ns Ivpb IV 06/10/25 21:11 0.03 unit/min .Q11H7M PRN 9 mls/hr PER PROTOCOL Titration Protocol 0.03 UNIT/MIN Octreotide Acetate 1,000 mcg/ 102 mls @ 5.1 mls/hr 05/11/25 21:30 05/12/25 11:33 Sodium Chloride IV 05/16/25 21:30 50 mcg/hr .Q20H DUSTIN 5.1 mls/hr Protocol Infusion 50 MCG/HR Sodium Chloride 1,000 mls @ 60 mls/hr 05/12/25 01:45 05/12/25 11:00 Ns 0.45% IV 06/11/25 01:44 60 mls/hr .[id number] DUSTIN Infusion Cefepime HCl 2 gm/ Sodium 50 mls @ 100 mls/hr 05/12/25 09:00 05/12/25 08:36 Chloride IV 05/19/25 08:59 100 mls/hr QDAY DUSTIN Administration Magnesium Sulfate 2 gm in 50 mls @ 25 mls/hr 05/12/25 12:00 Magnesium Sulfate Ivpb IV 05/12/25 13:59 X1 ONE Protocol Ondansetron HCl 4 mg 05/11/25 11:44 05/11/25 14:16 Ondansetron Inj 2 Mg/Ml Inj 2 Ml IVP 06/10/25 11:43 4 mg Q4HR PRN Administration NAUSEA OR VOMITING Pharmacy Consult 1 each 05/11/25 15:00 Vancomycin Pharmacy To Dose 1 Each Each IV 06/10/25 14:59 QDAY PRN CONSULT Plan Assessment Doris Adame is a 69-year-old F with a PMH of GERD, hypertension, hyperlipidemia, bipolar I disorder, and COPD who is currently admitted for shock and GI bleed. #Acute CVA rule out At this time, patient's symptoms likely related to shock Head CT was negative Head neck CTA negative as well We will further assess and workup patient once patient's GI bleed and shock improves Plan: ? Pending clinical improvement ? Cardiac stratification ? Holding all antiplatelet agents at this time #Hypovolemic shock #NSTEMI #Hypertension #Acute hypoxic hypercapnic respiratory failure 2/2 pneumonia #COPD #Respiratory acidosis #History of smoking #Acute blood loss anemia #Transaminitis #MARÍA ELENA vs. ATN, prerenal vs. renal #Hyperkalemia #Hypoosmolar hyponatremia #Hypochloremia #Thrombocytopenia #Leukocytosis #Hypothyroidism #Left-base pneumonia #Rhabdomyolysis Above handled by primary team Patient seen and care discussed with my attending physician, Dr. Haley Serna, PGY-2 Attending Provider Attestation/Addendum I personally have seen and examined the patient at the bedside and I agreed with resident's findings, assessment and plan of care. IMP: Acute CVA rule out Her presenting symptoms are most likely related to shock from global hypoperfusion. Continue with current intense mgt to stabilize her pressure and respiratory status will hold off on antiplatelet agent for now and consider workup when she is stabilized. Neurology will continue to follow the patient along with the ICU team.
[2025-05-12 12:21] LABS: Hematocrit 32.9 % (36.0-46.0); Hemoglobin 11.8 g/dL (12.0-16.0)
[2025-05-12 12:43] LABS: Procalcitonin 16.14 ng/ml (0.0-0.49); Sodium 131 mMol/L (136-145)
[2025-05-12] MEDS: VANCOMYCIN/NS 1 GM IVPB 200 ML IV (14:12)
[2025-05-12] MEDS: ALBUTEROL/IPRATROPIUM (Duoneb) RT SOL 3 ML NEBU INH ×3 (14:25→22:44)
--- NOTE | 2025-05-12 15:09 | PC.DIETICIAN ---
Nutrition prescription If EN is indicated, consider: Vital 1.2 at 20 ml/hr via NG tube by pump. Advance 10 ml every 8 hrs to goal rate of 50 ml/hr x 24 hrs. If no IV fluids, water flushes of 25 ml/hr (or per MD).
[2025-05-12 15:53] LABS: Hematocrit 31.8 % (36.0-46.0); Hemoglobin 11.3 g/dL (12.0-16.0)
[2025-05-12 15:59] LABS: Sodium 130 mMol/L (136-145)
--- NOTE | 2025-05-12 16:14 | PC.SS ---
MANAGER BACKGROUND conducted phone contact with the patient?s daughter, Crys Do to conduct initial assessment. ?Patient currently admitted to ICU and is intubated/sedated.? Patient resides at home alone.? Patient does not utilize DME to assist with ambulation.? Patient utilizes a walker to assist with ambulation.? Patient does not utilize oxygen at home.? Patient is able to complete ADL?s independently. ?Patient possesses ability to drive vehicle for appointments and to complete errands.? Patient?s medical surrogate decision maker is daughter, Crys Do.? Daughter reports being POA medical on behalf of the patient.? MANAGER BACKGROUND requested that daughter bring POA in order to obtain copy for chart placement.? Patient?s PCP is Dr. Arzate. Patient does not possess specialty providers.? Patient possesses a psychiatrist.? Daughter could not recall name of psychiatrist.? printing services coordinator will discuss discharge needs at an appropriate future time.? No further intervention required at this time, social service manager will be available to address any further concerns.? Next of Kin: Crys Do D/C Plan: Pending
[2025-05-12] MEDS: OCTREOTIDE ACET INJ 1,000 MCG in SODIUM CHLORIDE 0.9% 100 ML 5.1 MCG IV (17:32)
[2025-05-12 19:18] LABS: Hematocrit 30.7 % (36.0-46.0); Hemoglobin 10.7 g/dL (12.0-16.0)
[2025-05-12 19:35] LABS: Sodium 133 mMol/L (136-145)
[2025-05-12] MEDS: ATORVASTATIN CALCIUM 20 MG TABLET 80 MG PO (21:33)
[2025-05-12 22:50] LABS: Sodium 131 mMol/L (136-145)
[2025-05-13] VITALS (92 sets, daily range): BP systolic 73–128; BP diastolic 34–77; PULSE 62–98; RESP 6–25; TEMP 36.1–37.2; O2SAT 87–99; BMI 31.1
[2025-05-13] MEDS: ALBUTEROL/IPRATROPIUM (Duoneb) RT SOL 3 ML NEBU INH ×4 (02:13→18:53)
[2025-05-13] MEDS: fentaNYL 2,500 MCG/250 ML BAG 2,500 MCG/250 ML BAG 22.5 MCG IV (03:36)
[2025-05-13] MEDS: VASOPRESSIN IN NS IVPB 20 UNIT/100 ML BAG 9 UNIT IV (03:38)
[2025-05-13 05:53] LABS: Basophils # (Auto) 0.0 Thou/mm3 (0.0-0.2); Basophils % (Auto) 1 % (0-2.5); Eosinophils # (Auto) 0.1 Thou/mm3 (0.0-0.5); Eosinophils % (Auto) 3 % (0-10); Hematocrit 29.7 % (36.0-46.0); Hemoglobin 10.4 g/dL (12.0-16.0); Immature Granulocytes Auto 0.06 Thou/mm3 (0.00-0.00); Lymphocytes # (Auto) 0.5 Thou/mm3 (1.0-4.8); Lymphocytes % (Auto) 14 % (10-50); Mean Corpuscular HGB Conc 35.0 g/dl (31.0-37.0); Mean Corpuscular Hemoglobin 31.8 pg (25.0-35.0); Mean Corpuscular Volume 91 fL (80-100); Monocytes # (Auto) 0.4 Thou/mm3 (0.0-0.8); Monocytes % (Auto) 10 % (0-12); Neutrophils # (Auto) 2.6 Thou/mm3 (1.8-7.7); Neutrophils % (Auto) 70 % (37-80); Nucleated Red Blood Cell # 0.00 Thou/mm3 (0.00-0.00); Nucleated Red Blood Cell % 0 /100 WBC (0); Platelet Count 191 Thou/mm3 (140-440); RDW Standard Deviation 47.1 fL (36.4-46.3); Red Blood Count 3.27 Miln/mm3 (4.00-5.20); White Blood Count 3.7 Thou/mm3 (3.6-11.0)
[2025-05-13 06:03] LABS: Base Excess 1 (-3-3); HCO3 27 mEq/L (20-26); Inspired Oxygen, FIO2 21 %; O2 Saturation 97 % (91-98); PCO2 48 mmHg (32.0-48.0); PO2 81 mmHg (83-108); pH, Arterial 7.35 (7.35-7.45)
[2025-05-13 06:04] LABS: Allen Test Performed/OK; Puncture Site Right Radial
[2025-05-13 06:16] LABS: Alanine Aminotransferase 113 U/L (10-49); Albumin, Serum 3.0 gm/dL (3.4-4.8); Albumin/Globulin Ratio 1.4 (1.2-2.2); Alkaline Phosphatase 66 U/L (46-116); Anion Gap 10 (7-16); Aspartate Amino Transferase 68 U/L (0-34); BUN/Creatinine Ratio 12 Ratio (12-20); Bilirubin,Total 0.3 mg/dL (0.3-1.2); Blood Urea Nitrogen 16 mg/dL (9-23); Calcium 7.4 mg/dL (8.3-10.6); Calcium (Corrected) 8.2 mg/dL (8.5-10.1); Carbon Dioxide 25.8 mMol/L (20.0-31.0); Chloride 96 mMol/L (98-107); Creatinine (Component) 1.3 mg/dL (0.6-1.3); Estimated Creatinine Clearance 39.2 mL/min (>60); Globulin 2.1 gm/dL (2.3-3.5); Glucose 152 mg/dL (74-106); Magnesium 2.5 mg/dL (1.6-2.6); Osmolality,Calculated 268 (275-295); Phosphorous 2.9 mg/dL (2.4-5.1); Potassium 3.3 mMol/L (3.4-5.1); Sodium 132 mMol/L (136-145); Total Protein 5.1 gm/dL (5.7-8.2); Vancomycin,Random 12.0 mcg/mL; eGFR 44 See Note
--- NOTE | 2025-05-13 08:17 | XR_ITS ---
Examination: AP chest single view Technique: AP portable supine chest single view Date and time: May 13, 2025, 0924 hrs., Comparison 05/11/2025 Indications: Hypoxic respiratory failure, clinical diagnosis aspiration Findings: Endotracheal tube tip poorly visualized Bibasilar pneumonia. Moderate enlargement cardiac contour. The internal jugular line is unchanged in position. Orogastric tube in the stomach. Impression: Bibasilar pneumonia Moderate enlargement left ventricle
[2025-05-13] MEDS: POTASSIUM CHL 20 mEq IVPB 100 ML 100 MEQ IV ×2 (08:38→09:28)
[2025-05-13] MEDS: PANTOPRAZOLE/NS 80MG IV PREMIX 80 MG/100 ML BAG 10 MG IV (08:39)
[2025-05-13] MEDS: CEFEPIME INJ 2 GM in SODIUM CHLORIDE 0.9% (Popper) 50 ML IV (08:41)
[2025-05-13] MEDS: RINGERS LACTATED 1000 ML 1,000 ML 999 ML IV (09:31)
[2025-05-13] MEDS: VANCOMYCIN/NS 1 GM IVPB 200 ML IV (09:36)
[2025-05-13] MEDS: SODIUM CHLORIDE 0.45 % 1,000 ML 60 ML IV (09:41)
--- NOTE | 2025-05-13 15:21 | ESPR_ITS ---
Documentation for date of: 05/13/25 Subjective Subjective Interval history: Doris Adame is a 69-year-old F with a PMH of GERD, reported peptic ulcers, hypertension, hyperlipidemia, COPD not on home oxygen, recent head strike after fall, bipolar I disorder, and hypothyroidism who was BIBA for evaluation of stroke-like symptoms. Per chart review, patient apparently fell sometime last night around 9 PM before trying to crawl back to bed according to family. Patient (who lives alone) eventually called her daughter for help sometime on the morning of 05/11/25 and daughter went to the house to find the patient confused and unable to ambulate. At that time, daughter noted that patient seemed to be soiled with vomit and dark stool without delroy, red blood. EMS was called at this point and patient presented to the ED with slurring of speech, right-sided weakness, and a GCS of 14. She was also noted to have sustained a laceration to the forehead scabbed over with dry blood and no active bleeding. In the ED, vitals showed: BP 86/55 HR 108 RR 18 Temp 98.9 SpO2 89% on Oxygen Mask ED Course: CBC showed WBC 28.1, hemoglobin 16.5, and platelet count drop to 92 from 393. Coagulation panel was WNL. ABG showed acidotic pH 7.24, pCO2 56, pO2 136, and HCO3 24. CMP showed sodium 122, potassium 5.4, chloride 80, carbon dioxide 26.3, anion gap 16, BUN 25, creatinine 3.0, eGFR 16, glucose 176, calculated osmolality 254, lactic acid 3.2, corrected calcium 10.2, AST 141, ALT 144, total CK 2125, and troponin I 1.011 (later elevated to 1.316). UA was WNL. Gastric occult blood was positive. UDS was positive for benzodiazepines (patient takes prescribed diazepam at home) but otherwise negative. Imaging: Chest x-ray was negative for aspiration pneumonia Repeat chest x-ray post intubation showed the endotracheal tube situated 21 mm above the nasir, proximal positioning of the right internal jugular line, satisfactory positioning of the orogastric tube, and significant left base pneumonia Head CT was negative for acute hemorrhage, mass effect, or midline shift Head/neck CTA showed no significant neck arterial stenoses or cerebral large vessel arterial occlusions or thrombus Pelvis x-ray showed severe osteopenia but no definite hip or pelvic fracture EKG showed normal sinus rhythm with nonspecific ST and T wave abnormality and QTc 457 Chest x-ray was suspicious for mild left base aspiration pneumonia CT CAP showed: 1. Mild aneurysmal dilatation of the thoracic aorta 2. No pneumonia, pulmonary edema, or pleural disease 3. Abnormal fluid distention of the esophagus with thickening of the lower wall of the esophagus (differential would include reflux esophagitis, lower esophageal tumor, recommend endoscopy follow-up) 4. Primary hepatocellular disease 5. Perinephric stranding (consider urinary tract infection) 6. Moderately severe diffuse nonspecific colitis of the entire colon, (differential would include ulcerative colitis and Crohn's disease) In the ED, patient began having hypotension and tachycardia in the setting of leukocytosis and eventually was started on Levophed. She was also noted to have 2 episodes of coffee-ground vomitus for which GI (Dr. Vasquez) was consulted and patient was given IV Protonix along with 3 L IV fluids and IV ceftriaxone. Of note, per GI, patient previously underwent colonoscopy (04/2022) showing diverticulosis, hemorrhoids, and melanosis coli. EGD (04/2022) revealed GERD with esophagitis, bile gastritis, and acute gastritis; pathology was negative for H. pylori, intestinal metaplasia, microscopic colitis, or dysplasia. Due to her rapidly deteriorating clinical picture (persistent hypotension, hypoxemia and respiratory acidosis despite oxygen supplementation, altered mentation, severe electrolyte derangements, concern for acute infarcts in the setting of recent head trauma and blood loss, etc.) the decision was made to place a right femoral central line and right IJ sheath for peripheral venous access and predicted need for rapid volume resuscitation, respectively. Additionally, patient was intubated for her acute respiratory failure to protect her airway and provide ventilatory support and admitted to the ICU for further management. Interval History 05/12/25: No overnight events. Patient was examined at bedside; she remains intubated and mechanically ventilated on ACMV on fentanyl infusion with a RASS of -2. Patient's ABG this morning remains concerning with pH 7.31 and pCO2 50. Duonebs has been switched from as needed to scheduled q4HR and patient will continue IV cefepime 2 gm qD (started 05/12/25 @ 9:00). Additionally, due to peak pressures remaining high, Spontaneous Awakening Trials and Spontaneous Breathing Trials are deferred for the time being. Currently, the etiology behind patient's continued soft BPs with MAP<65 despite 6 L IV fluid resuscitation, pressor support via Levophed and vasopressin, and 1 U pRBC transfusion, is now thought to be less likely due to hemorrhagic shock and more likely due to some picture or combination of distributive shock vs. cardiogenic shock. Procalcitonin and echo have been ordered to further elucidate the nature of patient's current refractory hypotension. For patient's likely upper GI bleed, endoscopy was done today which only showed lots of coffee-ground material in the proximal body of the stomach and was unable to reveal a site of active bleeding. Biopsies (2 pieces) were taken from antrum cardia distal esophagus and proximal esophagus for further histological evaluation. No esophageal varices seen. Per GI recommendations, we will start trickle feeding the patient via the NG tube and continue her pantoprazole and octreotide infusions. Patient's hyponatremia of 122 yesterday was overcorrected to 131 today (goal range had been Na 126-128 by around 24 hours). Will start 0.45% normal saline at 60 cc/hr to prevent further overcorrection with a goal of Na 132 by tomorrow. 05/13/25: No overnight events. Patient was examined at bedside; she has been extubated and appears clinically improved with ABG this morning showing pH 7.35, pCO2 48, pO2 81, and HCO3 27. Current plan is to continue hi-flow and pressors (will wean as appropriate) and see if she will tolerate oral feeding tomorrow. Additionally, octreotide was stopped due to lack of esophageal varices seen on endoscopy yesterday and patient will be restarted on her home medications for bipolar I disorder (Abilify and Risperdal). Exam Vital Signs Temp Pulse Resp BP Pulse Ox O2 Del Method O2 Flow Rate 97.7 F 89 17 104/52 L 92 L Mechanical Ventilation 22 05/13/25 08:00 05/13/25 14:15 05/13/25 14:15 05/13/25 11:30 05/13/25 14:15 05/13/25 08:00 05/13/25 14:15 FiO2 50 05/13/25 14:15 Narrative Exam General: No longer intubated. Head: Large red laceration across forehead and anterior scalp with dried blood and no active bleeding. Now bandaged. Eye: EOMI, normal conjunctiva, PERRL. Cardiovascular: Slightly tachycardic rate. Normal rhythm, no murmur. Cold extremities with weak dorsalis pedis and posterior tibial pulses. Respiratory: Labored breathing. Diffuse rhonchi and crackles bilaterally. Gastrointestinal: Distended. Bowel sounds appreciated. Psychiatric: Appropriate, cooperative affect. Objective Labs 05/14/25 05:13 05/14/25 05:13 Labs: Laboratory Results - last 24 hr 05/11/25 05/12/25 05/12/25 15:29 15:38 19:04 WBC RBC Hgb 11.3 L 10.7 L Hct 31.8 L 30.7 L MCV MCH MCHC RDW Std Deviation Plt Count Neut % (Auto) Lymph % (Auto) [place] % (Auto) Eos % (Auto) Baso % (Auto) Neut # (Auto) Lymph # (Auto) [place] # (Auto) Eos # (Auto) Baso # (Auto) Immature Gran # (Auto) Absolute Nucleated RBC Immature Gran % Nucleated RBC % Puncture Site ABG pH ABG pCO2 ABG pO2 ABG HCO3 ABG O2 Saturation ABG Base Excess FiO2 Sodium 130 L 133 L Potassium Chloride Carbon Dioxide Anion Gap BUN Creatinine Estim Creat Clear Calc eGFR BUN/Creatinine Ratio Glucose Calculated Osmolality Calcium Corrected Calcium Phosphorus Magnesium Total Bilirubin AST ALT Alkaline Phosphatase Total Protein Albumin Globulin Albumin/Globulin Ratio Random Vancomycin Blood Bank Comment FFP Ready 05/12/25 05/13/25 05/13/25 22:32 04:58 05:55 WBC 3.7 RBC 3.27 L Hgb 10.4 L Hct 29.7 L MCV 91 MCH 31.8 MCHC 35.0 RDW Std Deviation 47.1 H Plt Count 191 Neut % (Auto) 70 Lymph % (Auto) 14 [place] % (Auto) 10 Eos % (Auto) 3 Baso % (Auto) 1 Neut # (Auto) 2.6 Lymph # (Auto) 0.5 L [place] # (Auto) 0.4 Eos # (Auto) 0.1 Baso # (Auto) 0.0 Immature Gran # (Auto) 0.06 H Absolute Nucleated RBC 0.00 Immature Gran % 2 H Nucleated RBC % 0 Puncture Site Right Radial ABG pH 7.35 ABG pCO2 48 ABG pO2 81 L ABG HCO3 27 H ABG O2 Saturation 97 ABG Base Excess 1 FiO2 21 Sodium 131 L 132 L Potassium 3.3 L D Chloride 96 L Carbon Dioxide 25.8 Anion Gap 10 BUN 16 Creatinine 1.3 D Estim Creat Clear Calc 39.2 L eGFR 44 L BUN/Creatinine Ratio 12 Glucose 152 H Calculated Osmolality 268 L Calcium 7.4 L Corrected Calcium 8.2 L Phosphorus 2.9 Magnesium 2.5 Total Bilirubin 0.3 AST 68 H ALT 113 H Alkaline Phosphatase 66 Total Protein 5.1 L Albumin 3.0 L Globulin 2.1 L Albumin/Globulin Ratio 1.4 Random Vancomycin 12.0 Blood Bank Comment ABG Interpretation ABG results: 05/11/25 05/11/25 05/11/25 17:19 20:27 22:35 ABG pH 7.24 L 7.18 L* 7.18 L* ABG pCO2 56 H 64 H 71 H* ABG pO2 136 H 51 L* D 30 L* D ABG HCO3 24 24 26 ABG O2 Saturation 99 H 75 L 43 L ABG Base Excess -4 L -6 L -4 L 05/11/25 05/12/25 05/13/25 22:56 04:50 05:55 ABG pH 7.30 L D 7.31 L 7.35 ABG pCO2 49 H D 50 H 48 ABG pO2 70 L D 64 L 81 L ABG HCO3 25 25 27 H ABG O2 Saturation 93 91 97 ABG Base Excess -2 -1 1 Quality Measures Quality Measures none Advance care planning discussed with:: patient Assessment & Plan Assessment Current Active Medications: Generic Name Dose Route Start Last Admin Trade Name Freq PRN Reason Stop Dose Admin Acetaminophen 650 mg 05/11/25 15:40 Acetaminophen 325 Mg Tablet PO 06/10/25 15:39 Q6HR PRN FEVER >101 Acetaminophen 650 mg 05/11/25 15:45 Acetaminophen 325 Mg Tablet PO 06/10/25 15:44 Q6HR PRN HEADACHE Albuterol/Ipratropium 3 ml 05/13/25 14:16 Albuterol/Ipratropium (Duoneb) Rt Ninoska 3 Ml Nebu INH 06/11/25 14:59 Q4HRRT PRN WHEEZING Aripiprazole 30 mg 05/13/25 13:00 05/13/25 13:03 Aripiprazole 5 Mg Tablet PO 06/12/25 12:59 30 mg QDAY DUSTIN Administration Atorvastatin Calcium 80 mg 05/11/25 21:00 05/12/25 21:33 Atorvastatin Calcium 20 Mg Tablet PO 06/10/25 20:59 80 mg HS DUSTIN Administration Norepinephrine Bitartrate 16 mg in 250 mls @ 2.126 mls/hr 05/11/25 12:57 05/13/25 11:58 Levophed In Ns 16mg/250ml IV 06/10/25 12:56 0.01 mcg/kg/min .Q24H PRN 0.425 mls/hr PER protocol Titration Protocol 0.05 MCG/KG/MIN Fentanyl Citrate 2,500 mcg in 250 mls @ 2.5 mls/hr 05/11/25 18:12 05/13/25 11:00 Sublimaze Inj 2,500 Mcg/250 Ml Bag IV 05/16/25 18:11 0 mcg/hr .Q24H PRN 0 mls/hr PER PROTOCOL Titration Protocol 25 MCG/HR Vasopressin/Sodium Chloride 20 unit in 100 mls @ 9 mls/hr 05/11/25 21:12 05/13/25 03:38 Vasostrict/Ns Ivpb IV 06/10/25 21:11 0.03 unit/min .Q11H7M PRN 9 mls/hr PER PROTOCOL Administration Protocol 0.03 UNIT/MIN Sodium Chloride 1,000 mls @ 60 mls/hr 05/12/25 01:45 05/13/25 09:41 Ns 0.45% IV 06/11/25 01:44 60 mls/hr .[id number] DUSTIN Administration Cefepime HCl 2 gm/ Sodium 50 mls @ 100 mls/hr 05/12/25 09:00 05/13/25 09:41 Chloride IV 05/19/25 08:59 Infused QDAY DUSTIN Infusion Ondansetron HCl 4 mg 05/11/25 11:44 05/11/25 14:16 Ondansetron Inj 2 Mg/Ml Inj 2 Ml IVP 06/10/25 11:43 4 mg Q4HR PRN Administration NAUSEA OR VOMITING Pantoprazole Sodium 40 mg 05/13/25 21:00 Pantoprazole Inj 40 Mg Vial IVP 06/12/25 20:59 BID DUSTIN Risperidone 3 mg 05/13/25 21:00 Risperidone 1 Mg Tablet PO 06/12/25 20:59 HS DUSTIN Negar Adame is a 69-year-old F with a PMH of GERD, reported peptic ulcers, hypertension, hyperlipidemia, COPD not on home oxygen, recent head strike after fall, bipolar I disorder, and hypothyroidism who was BIBA for evaluation of stroke-like symptoms. In the ED, patient began having hypotension and tachycardia in the setting of leukocytosis and eventually was started on Levophed. She was also noted to have 2 episodes of coffee-ground vomitus for which GI (Dr. Vasquez) was consulted and patient was given IV Protonix along with 3 L IV fluids and IV ceftriaxone. Due to her rapidly deteriorating clinical picture (persistent hypotension, hypoxemia and respiratory acidosis despite oxygen supplementation, altered mentation, severe electrolyte derangements, concern for acute infarcts in the setting of recent head trauma and blood loss, etc.) the decision was made to place a right femoral central line and right IJ sheath for peripheral venous access and predicted need for rapid volume resuscitation, respectively. Additionally, patient was intubated for her acute respiratory failure to protect her airway and provide ventilatory support and admitted to the ICU for further management. No overnight events. Patient was examined at bedside; she has been extubated and appears clinically improved with ABG this morning showing pH 7.35, pCO2 48, pO2 81, and HCO3 27. Current plan is to continue hi-flow and pressors (will wean as appropriate) and see if she will tolerate oral feeding tomorrow. Additionally, octreotide was stopped due to lack of esophageal varices seen on endoscopy yesterday and patient will be restarted on her home medications for bipolar I disorder (Abilify and Risperdal). 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 physical exam, she did not seem to be displaying any persistent focal neurological deficits except for dysarthria Currently, there is relatively low suspicion for a true acute infarct DDx: hypotension syncope 2/2 hemorrhagic shock, fall-related head trauma initially 2/2 adverse medication effect or vasovagal/orthostatic syncope Dx: -Head CT was negative for acute hemorrhage, mass effect, or midline shift -Head/neck CTA showed no significant neck arterial stenoses or cerebral large vessel arterial occlusions or thrombus -05/12 Venous doppler ultrasound was negative for DVT Rx: -Brain MRI to r/o ischemic stroke -Avoiding anticoagulation due to concern for hemorrhagic shock 2/2 suspected acute upper GI bleed -Permissive hypertension (correct blood pressure only if greater than 220/120 or if there is a concern for end organ damage, use IV/PO labetalol or IV hydralazine w/ goal of 15% reduction in BP during the first 24 hours) -IV fluids -Neuro checks (q4HR) -Bedside swallow evaluation and aspiration precautions -Head of bed elevation: 30 degrees RRx: -Follow up on brain MRI to r/o ischemic stroke -Monitor blood pressure and signs of new focal neurologic deficits #History of bipolar I disorder Reported by daughter and chart review Well-controlled per daughter Rx: -Restarted patient's PO Abilify 30 mg qD (started on 05/13/25 @ 13:00) -Restarted patient's PO Risperdal 3 mg HS (started on 05/13/25 21:00) CARDIO #Undifferentiated shock Initially, patient's persistent hypotension in the setting of coffee-ground emesis, melena with (+) FOBT, excessive vomiting, recent head strike with dried blood, decreasing Hgb, and labs suggestive of hemoconcentration was suspected to be 2/2 intravascular depletion 2/2 acute GI bleed However, patient was resuscitated with a total of 6 L IV fluids, given 1 U pRBCs, and started on Levophed and vasopressin but still remains hypotensive, making hypovolemic shock unlikely to be the main contributor to patient's current soft BPs Currently believe that patient's continued hypotension is due to ongoing inflammatory and vasodilatory processes 2/2 septic shock response to patient's pneumonia Dx: -05/12 procalcitonin elevated at 16.14 -Echocardiogram pending Rx: -Follow up on echo to assess for features of cardiogenic shock -Titrate Levophed to maintain a MAP>65 -Titrate vasopressors as tolerated -Fluid resuscitation (has received 6 L IV so far) -Continue treating patient's pneumonia with IV cefepime 2 gm qD (started 05/12/25 @ 9:00) #NSTEMI Troponin elevated at 1.316 on admission, downtrended to 0.799 by 4:00 on 05/12 DDx: likely type II NSTEMI from demand ischemia in the setting of hypovolemic shock Dx: -EKG unremarkable #History of primary hypertension Patient is currently in shock Rx: -Holding antihypertensive medications in the setting -Wean off vasopressors as tolerated RRx: -Monitor blood pressure PULM #Acute hypoxic hypercapnic respiratory failure likely 2/2 pneumonia #COPD #Respiratory acidosis #History of smoking Patient initially presented with acute hypoxic hypercapnic respiratory failure Currently suspect the above was 2/2 pneumonia in the setting of impaired lung function from COPD and chronic history of smoking DDx: COPD exacerbation (less likely due to lack of sputum change) Dx: -Chest x-ray was suspicious for mild left base aspiration pneumonia -Repeat chest x-ray post intubation showed the endotracheal tube situated 21 mm above the nasir, proximal positioning of the right internal jugular line, satisfactory positioning of the orogastric tube, and significant left base pneumonia -05/11 MRSA screen (-) -05/13 CXR today shows bibasilar pneumonia and moderate enlargement of the left ventricle Rx: -Extubated today due to no longer requiring intubation or ventilatory support -Duonebs q4HR -Continue IV cefepime 2 gm qD (started 05/12/25 @ 9:00) RRx: -Monitor ABG and oxygenation status GI #Acute blood loss anemia Of note, per GI, patient previously underwent colonoscopy (04/2022) showing diverticulosis, hemorrhoids, and melanosis coli. EGD (04/2022) revealed GERD with esophagitis, bile gastritis, and acute gastritis; pathology was negative for H. pylori, intestinal metaplasia, microscopic colitis, or dysplasia Hgb has been dropping steadily despite pRBC transfusion (now stable as of 05/12) Currently believe blood loss that had occurred is from an episode of bleeding after the patient fell which has since resolved DDx: PUD, upper GI bleed vs. GI bleed Dx: -05/12 upper endoscopy revealed lots of coffee-ground material in the proximal body of the stomach but did not show any active sites of bleeding or esophageal varices Rx: -Plan to see if patient tolerates oral feeding beginning tomorrow -Transfuse pRBCs if Hgb<7 -Continue IV Protonix 80 mg q10HR (started on 05/11 @ 17:17) -Discontinued IV octreotide 50 mcg/hr (started on 05/11 @ 21:30) due to lack of esophageal varices seen on endoscopy RRx: -Repeat H&H (follow up every 4 hours) #Transaminitis CT CAP showed primary hepatocellular disease AST dropped to 68 from 109 yesterday, ALT dropped to 129 from 113 Rx: -Continue to monitor LFTs NEPHRO #MARÍA ELENA vs. ATN, prerenal vs. renal (improving) #Hyperkalemia Likely 2/2 both hypovolemia and rhabdomyolysis Patient received fluid resuscitation (6 L) Creatinine has been improving (1.3 today from 3.0 on admission) Rx: -Monitor urine output, replacing fluid volume as appropriate -Follow up with renal panel daily -Avoid nephrotoxins #Hypoosmolar hyponatremia (resolving) #Hypochloremia (resolving) Patient's hyponatremia of 122 yesterday was overcorrected to 131 on 05/12 Today, sodium was 132, which was the goal sodium DDx: venlafaxine, medication effect (or other antipsychotic), delroy loss from excessive vomiting Dx: -CMP showed sodium 122, potassium 5.4, chloride 80, carbon dioxide 26.3, anion gap 16, BUN 25, creatinine 3.0, eGFR 16, glucose 176, calculated osmolality 254, lactic acid 3.2, corrected calcium 10.2, AST 141, ALT 144, total CK 2125, and troponin I 1.011 (later elevated to 1.316). Rx: -Correct sodium as appropriate RRx: -Monitor electrolytes and symptoms URO No active problems HEME #Thrombocytopenia (resolved) -Monitor -Transfuse platelets when appropriate #Leukocytosis (resolved) Patient originally presented w/ WBC 28.1 without fever Today (05/13), WBC is 3.7 DDx: hemoconcentration vs. reactive vs. infection Dx: -05/11 admission WBC 28.1 Rx: -Continue antibiotics for possible infection ENDO #Hypothyroidism (currently controlled) 05/12 TSH 4.27 (WNL) ID #Left-base pneumonia Dx: -Chest x-ray was suspicious for mild left base aspiration pneumonia -Repeat chest x-ray post intubation showed the endotracheal tube situated 21 mm above the nasir, proximal positioning of the right internal jugular line, satisfactory positioning of the orogastric tube, and significant left base pneumonia -WBC 28.1 Rx: -Continue IV cefepime 2 gm qD (started 05/12/25 @ 9:00) MSK #Rhabdomyolysis (resolved) Likely 2/2 trauma and recent immobilization s/p recent fall CK downtrended Rx: -Fluid resuscitation Disposition: requiring pressors, will see if patient tolerates oral feed tomorrow DVT prophylaxis: none (bleeding risk) GI prophylaxis: IV Protonix Diet: NPO Reese: Present Lines: Peripheral IV, Central IV Antibiotics: Cefepime CODE STATUS: FULL Patient plan of care was discussed with the attending director business development, Dr. Chilel. Giovanni Fernandez, PGY-1 Attending Provider Attestation/Addendum Patient seen and examined with above resident, Giovanni Fernandez DO. I agree with the findings, assessment, and plan of care as document except for any differences below. Patient continues to show significant improvement with ability to wean vasopressors support. Mentation improving with sedation holiday successfully showing patient following commands with no focal deficit grossly. Patient underwent spontaneous breathing trial and with aggressive weaning of PEEP able to extubate to high flow nasal cannula. Patient can be placed on BiPAP overnight in case she does have decline in function. Would maintain n.p.o. until able to evaluate formally by speech/swallow. Patient did receive her home Abilify and risperidone as available overnight in case she requires this. Patient still has not had MRI with per concern for upper GI bleed, this would not filter changer in the immediate phase. This still needs to be done prior to the patient's discharge to determine role of antiplatelet therapy for secondary prevention. Patient will need to be on statin should there be a confirmed infarct. Patient and her family updated at bedside on plan of care. Will continue on empiric antibiotics with discontinuation of vancomycin at this point with negative MRSA testing. Patient's renal function continues to improve and will try to maintain net even as she will have likely component of diuresis secondary to removal of positive pressure ventilation as well as renal recovery and a possible polyuric phase of ATN. Total critical care time: I personally spent 50 minutes for review of physiologic parameters, directing plan of care throughout the day, cable television access coordinator and counseling patient and her family extensively at bedside. This is exclusive of time spent teaching of staff performing separate billable procedures. Patient continues with significant risk for further morbidity and mortality warranting close monitoring and care only available in the ICU. Critical care services required for acute metabolic encephalopathy, acute hypoxic on chronic hypercapnic respiratory failure, COPD without acute exacerbation, acute renal failure, left lower lobe pneumonia.
--- NOTE | 2025-05-13 18:23 | PD.IMPROG ---
Documentation for date of: 05/13/25 Subjective Subjective Interval history: Patient evaluated you upper endoscopy showed distal esophageal erosions lots of coffee-ground material in the body of the stomach Exam Vital Signs Temp Pulse Resp BP Pulse Ox O2 Del Method O2 Flow Rate 99.0 F 95 17 89/56 L 94 L High Flow Nasal Cannula 22 05/13/25 16:00 05/13/25 18:00 05/13/25 18:00 05/13/25 18:00 05/13/25 18:00 05/13/25 16:00 05/13/25 16:00 FiO2 50 05/13/25 16:00 Objective Labs 05/13/25 04:58 05/13/25 04:58 Labs: Laboratory Results - last 24 hr 05/11/25 05/12/25 05/12/25 15:29 19:04 22:32 WBC RBC Hgb 10.7 L Hct 30.7 L MCV MCH MCHC RDW Std Deviation Plt Count Neut % (Auto) Lymph % (Auto) [place] % (Auto) Eos % (Auto) Baso % (Auto) Neut # (Auto) Lymph # (Auto) [place] # (Auto) Eos # (Auto) Baso # (Auto) Immature Gran # (Auto) Absolute Nucleated RBC Immature Gran % Nucleated RBC % Puncture Site ABG pH ABG pCO2 ABG pO2 ABG HCO3 ABG O2 Saturation ABG Base Excess FiO2 Sodium 133 L 131 L Potassium Chloride Carbon Dioxide Anion Gap BUN Creatinine Estim Creat Clear Calc eGFR BUN/Creatinine Ratio Glucose Calculated Osmolality Calcium Corrected Calcium Phosphorus Magnesium Total Bilirubin AST ALT Alkaline Phosphatase Total Protein Albumin Globulin Albumin/Globulin Ratio Random Vancomycin Blood Bank Comment FFP Ready 05/13/25 05/13/25 04:58 05:55 WBC 3.7 RBC 3.27 L Hgb 10.4 L Hct 29.7 L MCV 91 MCH 31.8 MCHC 35.0 RDW Std Deviation 47.1 H Plt Count 191 Neut % (Auto) 70 Lymph % (Auto) 14 [place] % (Auto) 10 Eos % (Auto) 3 Baso % (Auto) 1 Neut # (Auto) 2.6 Lymph # (Auto) 0.5 L [place] # (Auto) 0.4 Eos # (Auto) 0.1 Baso # (Auto) 0.0 Immature Gran # (Auto) 0.06 H Absolute Nucleated RBC 0.00 Immature Gran % 2 H Nucleated RBC % 0 Puncture Site Right Radial ABG pH 7.35 ABG pCO2 48 ABG pO2 81 L ABG HCO3 27 H ABG O2 Saturation 97 ABG Base Excess 1 FiO2 21 Sodium 132 L Potassium 3.3 L D Chloride 96 L Carbon Dioxide 25.8 Anion Gap 10 BUN 16 Creatinine 1.3 D Estim Creat Clear Calc 39.2 L eGFR 44 L BUN/Creatinine Ratio 12 Glucose 152 H Calculated Osmolality 268 L Calcium 7.4 L Corrected Calcium 8.2 L Phosphorus 2.9 Magnesium 2.5 Total Bilirubin 0.3 AST 68 H ALT 113 H Alkaline Phosphatase 66 Total Protein 5.1 L Albumin 3.0 L Globulin 2.1 L Albumin/Globulin Ratio 1.4 Random Vancomycin 12.0 Blood Bank Comment Impressions Impression: Distal esophageal erosions lots of coffee, tear in the body of the stomach aspirated Nonbleeding ulcer seen in the body of the stomach continue to monitor CBC Present ABG Interpretation ABG results: 05/11/25 05/11/25 05/11/25 17:19 20:27 22:35 ABG pH 7.24 L 7.18 L* 7.18 L* ABG pCO2 56 H 64 H 71 H* ABG pO2 136 H 51 L* D 30 L* D ABG HCO3 24 24 26 ABG O2 Saturation 99 H 75 L 43 L ABG Base Excess -4 L -6 L -4 L 05/11/25 05/12/25 05/13/25 22:56 04:50 05:55 ABG pH 7.30 L D 7.31 L 7.35 ABG pCO2 49 H D 50 H 48 ABG pO2 70 L D 64 L 81 L ABG HCO3 25 25 27 H ABG O2 Saturation 93 91 97 ABG Base Excess -2 -1 1 Assessment & Plan Time Spent With Patient Time: Total time spent is greater than 50% in coordination of care (as documented) at patient's floor/unit and/or counseling patient:
[2025-05-13 20:20] LABS: Base Excess 1 (-3-3); HCO3 29 mEq/L (20-26); Inspired Oxygen, FIO2 21 %; O2 Saturation 92 % (91-98); PCO2 68 mmHg (32.0-48.0); PO2 69 mmHg (83-108); pH, Arterial 7.24 (7.35-7.45)
[2025-05-13 20:21] LABS: Allen Test Performed/OK; Puncture Site Right Radial
--- NOTE | 2025-05-13 22:43 | PC.RT ---
pt placed on bipap per dr jordon [email or web address] from abg results.
[2025-05-13 22:53] LABS: Base Excess 2 (-3-3); HCO3 29 mEq/L (20-26); Inspired Oxygen, FIO2 21 %; O2 Saturation 90 % (91-98); PCO2 60 mmHg (32.0-48.0); pH, Arterial 7.30 (7.35-7.45)
[2025-05-13 22:55] LABS: Allen Test Performed/OK; Puncture Site Right Radial
[2025-05-13 22:56] LABS: PO2 59 mmHg (83-108)
--- NOTE | 2025-05-13 23:50 | ESPR_ITS ---
Documentation for date of: 05/13/25 Subjective Subjective Interval history: Patient was seen in ICU today at the bedside, when RT's were trying to place BiPAP on her for hypercarbia leading to somnolence. Exam - Neurology Vital Signs Temp Pulse Resp BP Pulse Ox O2 Del Method O2 Flow Rate 97.2 F 89 21 H 100/61 91 L BiPAP 22 05/13/25 20:00 05/13/25 23:00 05/13/25 23:00 05/13/25 23:00 05/13/25 23:00 05/13/25 23:00 05/13/25 20:00 FiO2 30 05/13/25 22:00 Narrative Exam GENERAL APPEARANCE: Well hydrated, well-nourished in mild respiratory distress. HEENT: Normocephalic, atraumatic, extraocular movements intact. Pupils: Equal reacting to light NECK: Supple, no JVD or bruits. CARDIOVASULAR: Heart: S1, S2 heard, regular without S3-S4 or murmur no rubs or gallops. LUNGS/CHEST: Clear to auscultation bilaterally. No rails, rhonchi, or wheezing. Normal inspection. ABDOMEN: Soft, nontender, with normal bowel sounds. No pulsatile masses. No rebound, rigidity, or guarding. Normal inspection and palpation. EXTREMITIES: Normal inspection and palpation. No edema, clubbing or cyanosis. SKIN: Warm and dry without rashes. Normal inspection. MUSCULOSKELETAL: No cervical, thoracic, lumbar or midline bony tenderness. Normal inspection. NEURO: Lethargic, but arousable. Brainstem function: Intact, no focal motor or sensory deficit noted. Rest of the exam: Limited, no signs of meningeal irritation noted. PSYCHIATRIC: Limited Objective Labs 05/14/25 05:13 05/14/25 05:13 Labs: Laboratory Results - last 24 hr 05/11/25 05/13/25 05/13/25 15:29 04:58 05:55 WBC 3.7 RBC 3.27 L Hgb 10.4 L Hct 29.7 L MCV 91 MCH 31.8 MCHC 35.0 RDW Std Deviation 47.1 H Plt Count 191 Neut % (Auto) 70 Lymph % (Auto) 14 [place] % (Auto) 10 Eos % (Auto) 3 Baso % (Auto) 1 Neut # (Auto) 2.6 Lymph # (Auto) 0.5 L [place] # (Auto) 0.4 Eos # (Auto) 0.1 Baso # (Auto) 0.0 Immature Gran # (Auto) 0.06 H Absolute Nucleated RBC 0.00 Immature Gran % 2 H Nucleated RBC % 0 Puncture Site Right Radial ABG pH 7.35 ABG pCO2 48 ABG pO2 81 L ABG HCO3 27 H ABG O2 Saturation 97 ABG Base Excess 1 FiO2 21 Sodium 132 L Potassium 3.3 L D Chloride 96 L Carbon Dioxide 25.8 Anion Gap 10 BUN 16 Creatinine 1.3 D Estim Creat Clear Calc 39.2 L eGFR 44 L BUN/Creatinine Ratio 12 Glucose 152 H Calculated Osmolality 268 L Calcium 7.4 L Corrected Calcium 8.2 L Phosphorus 2.9 Magnesium 2.5 Total Bilirubin 0.3 AST 68 H ALT 113 H Alkaline Phosphatase 66 Total Protein 5.1 L Albumin 3.0 L Globulin 2.1 L Albumin/Globulin Ratio 1.4 Random Vancomycin 12.0 Blood Bank Comment FFP Ready 05/13/25 05/13/25 20:13 22:43 WBC RBC Hgb Hct MCV MCH MCHC RDW Std Deviation Plt Count Neut % (Auto) Lymph % (Auto) [place] % (Auto) Eos % (Auto) Baso % (Auto) Neut # (Auto) Lymph # (Auto) [place] # (Auto) Eos # (Auto) Baso # (Auto) Immature Gran # (Auto) Absolute Nucleated RBC Immature Gran % Nucleated RBC % Puncture Site Right Radial Right Radial ABG pH 7.24 L D 7.30 L ABG pCO2 68 H D 60 H ABG pO2 69 L 59 L* ABG HCO3 29 H 29 H ABG O2 Saturation 92 90 L ABG Base Excess 1 2 FiO2 21 21 Sodium Potassium Chloride Carbon Dioxide Anion Gap BUN Creatinine Estim Creat Clear Calc eGFR BUN/Creatinine Ratio Glucose Calculated Osmolality Calcium Corrected Calcium Phosphorus Magnesium Total Bilirubin AST ALT Alkaline Phosphatase Total Protein Albumin Globulin Albumin/Globulin Ratio Random Vancomycin Blood Bank Comment ABG Interpretation ABG results: 05/11/25 05/11/25 05/11/25 17:19 20:27 22:35 ABG pH 7.24 L 7.18 L* 7.18 L* ABG pCO2 56 H 64 H 71 H* ABG pO2 136 H 51 L* D 30 L* D ABG HCO3 24 24 26 ABG O2 Saturation 99 H 75 L 43 L ABG Base Excess -4 L -6 L -4 L 05/11/25 05/12/25 05/13/25 22:56 04:50 05:55 ABG pH 7.30 L D 7.31 L 7.35 ABG pCO2 49 H D 50 H 48 ABG pO2 70 L D 64 L 81 L ABG HCO3 25 25 27 H ABG O2 Saturation 93 91 97 ABG Base Excess -2 -1 1 05/13/25 05/13/25 20:13 22:43 ABG pH 7.24 L D 7.30 L ABG pCO2 68 H D 60 H ABG pO2 69 L 59 L* ABG HCO3 29 H 29 H ABG O2 Saturation 92 90 L ABG Base Excess 1 2 Assessment & Plan Additional Assessment & Plan Additional Plan: Doris Adame is a 69-year-old F with a PMH of GERD, hypertension, hyperlipidemia, bipolar I disorder, and COPD who is currently admitted for shock and GI bleed. #Acute CVA rule out patient's presentation most likely related to shock from global hypoperfusion Head CT and CTA negative We will consider workup including MRI brain if needed once patient is stabilized off pressors and off ventilator. Plan: ? continue to Hold all antiplatelet agents for now. #Hypovolemic shock #Acute hypoxic hypercapnic respiratory failure 2/2 pneumonia #COPD #Transaminitis #Left-base pneumonia Above handled by ICU team
[2025-05-14] VITALS (26 sets, daily range): BP systolic 89–131; BP diastolic 51–86; PULSE 76–103; RESP 12–34; TEMP 36.2–37.1; O2SAT 87–99; BMI 30.9
[2025-05-14] MEDS: RINGERS LACTATED 500 ML 500 ML 250 ML IV (00:35)
[2025-05-14] MEDS: ALBUTEROL/IPRATROPIUM (Duoneb) RT SOL 3 ML NEBU INH ×4 (00:50→18:49)
[2025-05-14] MEDS: SODIUM CHLORIDE 0.45 % 1,000 ML 60 ML IV (02:01)
[2025-05-14 04:06] LABS: Base Excess 3 (-3-3); HCO3 30 mEq/L (20-26); Inspired Oxygen, FIO2 35 %; O2 Saturation 93 % (91-98); PCO2 57 mmHg (32.0-48.0); PO2 64 mmHg (83-108); pH, Arterial 7.34 (7.35-7.45)
[2025-05-14 04:07] LABS: Allen Test Performed/OK; Puncture Site Right Radial
[2025-05-14 06:11] LABS: Basophils # (Auto) 0.0 Thou/mm3 (0.0-0.2); Basophils % (Auto) 1 % (0-2.5); Eosinophils # (Auto) 0.1 Thou/mm3 (0.0-0.5); Eosinophils % (Auto) 2 % (0-10); Hematocrit 29.5 % (36.0-46.0); Hemoglobin 9.8 g/dL (12.0-16.0); Immature Granulocytes Auto 0.14 Thou/mm3 (0.00-0.00); Lymphocytes # (Auto) 0.6 Thou/mm3 (1.0-4.8); Lymphocytes % (Auto) 11 % (10-50); Mean Corpuscular HGB Conc 33.2 g/dl (31.0-37.0); Mean Corpuscular Hemoglobin 31.4 pg (25.0-35.0); Mean Corpuscular Volume 95 fL (80-100); Monocytes # (Auto) 0.6 Thou/mm3 (0.0-0.8); Monocytes % (Auto) 11 % (0-12); Neutrophils # (Auto) 4.2 Thou/mm3 (1.8-7.7); Neutrophils % (Auto) 73 % (37-80); Nucleated Red Blood Cell # 0.00 Thou/mm3 (0.00-0.00); Nucleated Red Blood Cell % 0 /100 WBC (0); Platelet Count 162 Thou/mm3 (140-440); RDW Standard Deviation 51.1 fL (36.4-46.3); Red Blood Count 3.12 Miln/mm3 (4.00-5.20); White Blood Count 5.7 Thou/mm3 (3.6-11.0)
[2025-05-14 06:41] LABS: Alanine Aminotransferase 72 U/L (10-49); Albumin, Serum 3.1 gm/dL (3.4-4.8); Albumin/Globulin Ratio 1.3 (1.2-2.2); Alkaline Phosphatase 72 U/L (46-116); Anion Gap 10 (7-16); Aspartate Amino Transferase 30 U/L (0-34); BUN/Creatinine Ratio 10 Ratio (12-20); Bilirubin,Total 0.2 mg/dL (0.3-1.2); Blood Urea Nitrogen 9 mg/dL (9-23); Calcium 7.3 mg/dL (8.3-10.6); Calcium (Corrected) 8.0 mg/dL (8.5-10.1); Carbon Dioxide 28.7 mMol/L (20.0-31.0); Chloride 98 mMol/L (98-107); Creatinine (Component) 0.9 mg/dL (0.6-1.3); Estimated Creatinine Clearance 56.7 mL/min (>60); Globulin 2.3 gm/dL (2.3-3.5); Glucose 95 mg/dL (74-106); Magnesium 1.8 mg/dL (1.6-2.6); Osmolality,Calculated 272 (275-295); Phosphorous 1.3 mg/dL (2.4-5.1); Potassium 3.5 mMol/L (3.4-5.1); Sodium 137 mMol/L (136-145); Total Protein 5.4 gm/dL (5.7-8.2); eGFR > 60 See Note
--- NOTE | 2025-05-14 07:46 | ESPR_ITS ---
Documentation for date of: 05/14/25 Subjective Subjective Interval history: Doris Adame is a 69-year-old F with a PMH of GERD, reported peptic ulcers, hypertension, hyperlipidemia, COPD not on home oxygen, recent head strike after fall, bipolar I disorder, and hypothyroidism who was BIBA for evaluation of stroke-like symptoms. Per chart review, patient apparently fell sometime last night around 9 PM before trying to crawl back to bed according to family. Patient (who lives alone) eventually called her daughter for help sometime on the morning of 05/11/25 and daughter went to the house to find the patient confused and unable to ambulate. At that time, daughter noted that patient seemed to be soiled with vomit and dark stool without delroy, red blood. EMS was called at this point and patient presented to the ED with slurring of speech, right-sided weakness, and a GCS of 14. She was also noted to have sustained a laceration to the forehead scabbed over with dry blood and no active bleeding. In the ED, vitals showed: BP 86/55 HR 108 RR 18 Temp 98.9 SpO2 89% on Oxygen Mask ED Course: CBC showed WBC 28.1, hemoglobin 16.5, and platelet count drop to 92 from 393. Coagulation panel was WNL. ABG showed acidotic pH 7.24, pCO2 56, pO2 136, and HCO3 24. CMP showed sodium 122, potassium 5.4, chloride 80, carbon dioxide 26.3, anion gap 16, BUN 25, creatinine 3.0, eGFR 16, glucose 176, calculated osmolality 254, lactic acid 3.2, corrected calcium 10.2, AST 141, ALT 144, total CK 2125, and troponin I 1.011 (later elevated to 1.316). UA was WNL. Gastric occult blood was positive. UDS was positive for benzodiazepines (patient takes prescribed diazepam at home) but otherwise negative. Imaging: Chest x-ray was negative for aspiration pneumonia Repeat chest x-ray post intubation showed the endotracheal tube situated 21 mm above the nasir, proximal positioning of the right internal jugular line, satisfactory positioning of the orogastric tube, and significant left base pneumonia Head CT was negative for acute hemorrhage, mass effect, or midline shift Head/neck CTA showed no significant neck arterial stenoses or cerebral large vessel arterial occlusions or thrombus Pelvis x-ray showed severe osteopenia but no definite hip or pelvic fracture EKG showed normal sinus rhythm with nonspecific ST and T wave abnormality and QTc 457 Chest x-ray was suspicious for mild left base aspiration pneumonia CT CAP showed: 1. Mild aneurysmal dilatation of the thoracic aorta 2. No pneumonia, pulmonary edema, or pleural disease 3. Abnormal fluid distention of the esophagus with thickening of the lower wall of the esophagus (differential would include reflux esophagitis, lower esophageal tumor, recommend endoscopy follow-up) 4. Primary hepatocellular disease 5. Perinephric stranding (consider urinary tract infection) 6. Moderately severe diffuse nonspecific colitis of the entire colon, (differential would include ulcerative colitis and Crohn's disease) In the ED, patient began having hypotension and tachycardia in the setting of leukocytosis and eventually was started on Levophed. She was also noted to have 2 episodes of coffee-ground vomitus for which GI (Dr. Vasquez) was consulted and patient was given IV Protonix along with 3 L IV fluids and IV ceftriaxone. Of note, per GI, patient previously underwent colonoscopy (04/2022) showing diverticulosis, hemorrhoids, and melanosis coli. EGD (04/2022) revealed GERD with esophagitis, bile gastritis, and acute gastritis; pathology was negative for H. pylori, intestinal metaplasia, microscopic colitis, or dysplasia. Due to her rapidly deteriorating clinical picture (persistent hypotension, hypoxemia and respiratory acidosis despite oxygen supplementation, altered mentation, severe electrolyte derangements, concern for acute infarcts in the setting of recent head trauma and blood loss, etc.) the decision was made to place a right femoral central line and right IJ sheath for peripheral venous access and predicted need for rapid volume resuscitation, respectively. Additionally, patient was intubated for her acute respiratory failure to protect her airway and provide ventilatory support and admitted to the ICU for further management. Interval History 05/12/25: No overnight events. Patient was examined at bedside; she remains intubated and mechanically ventilated on ACMV on fentanyl infusion with a RASS of -2. Patient's ABG this morning remains concerning with pH 7.31 and pCO2 50. Duonebs has been switched from as needed to scheduled q4HR and patient will continue IV cefepime 2 gm qD (started 05/12/25 @ 9:00). Additionally, due to peak pressures remaining high, Spontaneous Awakening Trials and Spontaneous Breathing Trials are deferred for the time being. Currently, the etiology behind patient's continued soft BPs with MAP<65 despite 6 L IV fluid resuscitation, pressor support via Levophed and vasopressin, and 1 U pRBC transfusion, is now thought to be less likely due to hemorrhagic shock and more likely due to some picture or combination of distributive shock vs. cardiogenic shock. Procalcitonin and echo have been ordered to further elucidate the nature of patient's current refractory hypotension. For patient's likely upper GI bleed, endoscopy was done today which only showed lots of coffee-ground material in the proximal body of the stomach and was unable to reveal a site of active bleeding. Biopsies (2 pieces) were taken from antrum cardia distal esophagus and proximal esophagus for further histological evaluation. No esophageal varices seen. Per GI recommendations, we will start trickle feeding the patient via the NG tube and continue her pantoprazole and octreotide infusions. Patient's hyponatremia of 122 yesterday was overcorrected to 131 today (goal range had been Na 126-128 by around 24 hours). Will start 0.45% normal saline at 60 cc/hr to prevent further overcorrection with a goal of Na 132 by tomorrow. 05/13/25: No overnight events. Patient was examined at bedside; she has been extubated and appears clinically improved with ABG this morning showing pH 7.35, pCO2 48, pO2 81, and HCO3 27. Current plan is to continue hi-flow and pressors (will wean as appropriate) and see if she will tolerate oral feeding tomorrow. Additionally, octreotide was stopped due to lack of esophageal varices seen on endoscopy yesterday and patient will be restarted on her home medications for bipolar I disorder (Abilify and Risperdal). 05/14/25: Overnight patient was placed on BiPAP. Input 1826, output 2400, balance -500 cc. This a.m. patient's examined at the bedside, she denies any shortness of breath, chest pain/pressure, dizziness and is alert and oriented x 3. Labs showed Hb stable at 9.8, NA 137, K3.5, corrected Ca 8, phosphorus 1.3. ABG pH 7.34, pCO2 57. Blood cultures negative x 48 hours. Given K-Phos 45 mmol IV x 1, calcium carbonate, 2 g magnesium sulfate IV, 1L lactated Ringer's IVF bolus. PT, speech eval and chest physiotherapy were ordered. As outpatient recommend patient undergoes biopsy of pleural mass. Exam Vital Signs Temp Pulse Resp BP Pulse Ox O2 Del Method O2 Flow Rate 97.6 F 79 25 H 91/52 L 99 BiPAP 4 05/14/25 04:00 05/14/25 06:53 05/14/25 06:53 05/14/25 06:00 05/14/25 06:53 05/14/25 04:00 05/14/25 06:53 FiO2 35 05/14/25 06:53 Narrative Exam Constitutional Alert, oriented x 3 and comfortable. Elderly female HEENT Vision grossly intact. Patent nares. Trachea midline Respiratory Chest normal on inspection and scattered wheeze on auscultation throughout all lung devi,Decreased air entry at bases. RIJ catheter noted. Exit site clean Cardiovascular S1 and S2 audible, RRR. No murmurs carotid bruit. No gross JVD. Abdominal Soft, obese and non tender to palpation in all quadrants. Healed, midline lower abdominal surgical scar noted. Right femoral central line noted, exit site clean. BS + Genitourinary No bladder tenderness, no flank pain. Normal to palpation Musculoskeletal Extremities tone within normal limits. No LE edema. Neurological CN II - XII grossly intact. Extremity motor and sensation grossly intact. Mild dysarthria. Power 4/5 in bilateral upper limbs and 3/5 in bilateral lower limbs Skin Approximately 5 cm forehead laceration, healed. 5 x 5 ecchymosis on anterior neck Psychiatric Patient has good affect, is cooperative Objective Labs 05/14/25 05:13 05/14/25 05:13 Labs: Laboratory Results - last 24 hr 05/13/25 05/13/25 05/14/25 20:13 22:43 03:54 WBC RBC Hgb Hct MCV MCH MCHC RDW Std Deviation Plt Count Neut % (Auto) Lymph % (Auto) Whiteside % (Auto) Eos % (Auto) Baso % (Auto) Neut # (Auto) Lymph # (Auto) Whiteside # (Auto) Eos # (Auto) Baso # (Auto) Immature Gran # (Auto) Absolute Nucleated RBC Immature Gran % Nucleated RBC % Puncture Site Right Radial Right Radial Right Radial ABG pH 7.24 L D 7.30 L 7.34 L ABG pCO2 68 H D 60 H 57 H ABG pO2 69 L 59 L* 64 L ABG HCO3 29 H 29 H 30 H ABG O2 Saturation 92 90 L 93 ABG Base Excess 1 2 3 FiO2 21 21 35 Sodium Potassium Chloride Carbon Dioxide Anion Gap BUN Creatinine Estim Creat Clear Calc eGFR BUN/Creatinine Ratio Glucose Calculated Osmolality Calcium Corrected Calcium Phosphorus Magnesium Total Bilirubin AST ALT Alkaline Phosphatase Total Protein Albumin Globulin Albumin/Globulin Ratio 05/14/25 05:13 WBC 5.7 D RBC 3.12 L Hgb 9.8 L Hct 29.5 L MCV 95 MCH 31.4 MCHC 33.2 RDW Std Deviation 51.1 H Plt Count 162 Neut % (Auto) 73 Lymph % (Auto) 11 Whiteside % (Auto) 11 Eos % (Auto) 2 Baso % (Auto) 1 Neut # (Auto) 4.2 Lymph # (Auto) 0.6 L Whiteside # (Auto) 0.6 Eos # (Auto) 0.1 Baso # (Auto) 0.0 Immature Gran # (Auto) 0.14 H Absolute Nucleated RBC 0.00 Immature Gran % 3 H Nucleated RBC % 0 Puncture Site ABG pH ABG pCO2 ABG pO2 ABG HCO3 ABG O2 Saturation ABG Base Excess FiO2 Sodium 137 Potassium 3.5 Chloride 98 Carbon Dioxide 28.7 Anion Gap 10 BUN 9 Creatinine 0.9 Estim Creat Clear Calc 56.7 L eGFR > 60 BUN/Creatinine Ratio 10 L Glucose 95 D Calculated Osmolality 272 L Calcium 7.3 L Corrected Calcium 8.0 L Phosphorus 1.3 L Magnesium 1.8 Total Bilirubin 0.2 L AST 30 ALT 72 H Alkaline Phosphatase 72 Total Protein 5.4 L Albumin 3.1 L Globulin 2.3 Albumin/Globulin Ratio 1.3 ABG Interpretation ABG results: 05/11/25 05/11/25 05/11/25 17:19 20:27 22:35 ABG pH 7.24 L 7.18 L* 7.18 L* ABG pCO2 56 H 64 H 71 H* ABG pO2 136 H 51 L* D 30 L* D ABG HCO3 24 24 26 ABG O2 Saturation 99 H 75 L 43 L ABG Base Excess -4 L -6 L -4 L 05/11/25 05/12/25 05/13/25 22:56 04:50 05:55 ABG pH 7.30 L D 7.31 L 7.35 ABG pCO2 49 H D 50 H 48 ABG pO2 70 L D 64 L 81 L ABG HCO3 25 25 27 H ABG O2 Saturation 93 91 97 ABG Base Excess -2 -1 1 05/13/25 05/13/25 05/14/25 20:13 22:43 03:54 ABG pH 7.24 L D 7.30 L 7.34 L ABG pCO2 68 H D 60 H 57 H ABG pO2 69 L 59 L* 64 L ABG HCO3 29 H 29 H 30 H ABG O2 Saturation 92 90 L 93 ABG Base Excess 1 2 3 Quality Measures Quality Measures none Advance care planning discussed with:: patient and child Assessment & Plan Assessment Current Active Medications: Generic Name Dose Route Start Last Admin Trade Name Freq PRN Reason Stop Dose Admin Acetaminophen 650 mg 05/11/25 15:40 Acetaminophen 325 Mg Tablet PO 06/10/25 15:39 Q6HR PRN FEVER >101 Acetaminophen 650 mg 05/11/25 15:45 Acetaminophen 325 Mg Tablet PO 06/10/25 15:44 Q6HR PRN HEADACHE Albuterol/Ipratropium 3 ml 05/13/25 14:16 05/14/25 06:52 Albuterol/Ipratropium (Duoneb) Rt Ninoska 3 Ml Nebu INH 06/11/25 14:59 3 ml Q4HRRT PRN Administration WHEEZING Aripiprazole 30 mg 05/13/25 13:00 05/13/25 13:03 Aripiprazole 5 Mg Tablet PO 06/12/25 12:59 30 mg QDAY DUSTIN Administration Atorvastatin Calcium 80 mg 05/11/25 21:00 05/13/25 20:41 Atorvastatin Calcium 20 Mg Tablet PO 06/10/25 20:59 Not Given HS DUSTIN Calcium Carbonate 600 mg 05/14/25 09:00 Calcium Carbonate 600 Mg Tablet PO 06/13/25 08:59 QDAY DUSTIN Norepinephrine Bitartrate 16 mg in 250 mls @ 2.126 mls/hr 05/11/25 12:57 05/13/25 12:15 Levophed In Ns 16mg/250ml IV 06/10/25 12:56 0 mcg/kg/min .Q24H PRN 0 mls/hr PER protocol Titration Protocol 0.05 MCG/KG/MIN Fentanyl Citrate 2,500 mcg in 250 mls @ 2.5 mls/hr 05/11/25 18:12 05/13/25 11:00 Sublimaze Inj 2,500 Mcg/250 Ml Bag IV 05/16/25 18:11 0 mcg/hr .Q24H PRN 0 mls/hr PER PROTOCOL Titration Protocol 25 MCG/HR Vasopressin/Sodium Chloride 20 unit in 100 mls @ 9 mls/hr 05/11/25 21:12 05/13/25 15:00 Vasostrict/Ns Ivpb IV 06/10/25 21:11 0 unit/min .Q11H7M PRN 0 mls/hr PER PROTOCOL Titration Protocol 0.03 UNIT/MIN Sodium Chloride 1,000 mls @ 60 mls/hr 05/12/25 01:45 05/14/25 02:01 Ns 0.45% IV 06/11/25 01:44 60 mls/hr .[id number] DUSTIN Administration Cefepime HCl 2 gm/ Sodium 50 mls @ 100 mls/hr 05/12/25 09:00 05/13/25 09:41 Chloride IV 05/19/25 08:59 Infused QDAY DUSTIN Infusion Potassium Phosphate 15 mmol in 250 mls @ 62.5 mls/hr 05/14/25 07:41 Pot Phos 15 Mmol In Ns 250 Ml IV 05/14/25 15:40 Q4H DUSTIN Potassium Phosphate 15 mmol in 250 mls @ 62.5 mls/hr 05/14/25 07:41 Pot Phos 15 Mmol In Ns 250 Ml IV 05/14/25 11:40 X1 ONE Magnesium Sulfate 2 gm in 50 mls @ 25 mls/hr 05/14/25 07:41 Magnesium Sulfate Ivpb IV 05/14/25 09:40 X1 ONE Ondansetron HCl 4 mg 05/11/25 11:44 05/11/25 14:16 Ondansetron Inj 2 Mg/Ml Inj 2 Ml IVP 06/10/25 11:43 4 mg Q4HR PRN Administration NAUSEA OR VOMITING Pantoprazole Sodium 40 mg 05/13/25 21:00 05/13/25 20:20 Pantoprazole Inj 40 Mg Vial IVP 06/12/25 20:59 40 mg BID DUSTIN Administration Risperidone 3 mg 05/13/25 21:00 05/13/25 20:42 Risperidone 1 Mg Tablet PO 06/12/25 20:59 Not Given HS DUSTIN Plan Doris Adame is a 69-year-old F with a PMH of GERD, reported peptic ulcers, hypertension, hyperlipidemia, COPD not on home oxygen, recent head strike after fall, bipolar I disorder, and hypothyroidism who was BIBA for evaluation of stroke-like symptoms. In the ED, patient began having hypotension and tachycardia in the setting of leukocytosis and eventually was started on Levophed. She was also noted to have 2 episodes of coffee-ground vomitus for which GI (Dr. Vasquez) was consulted and patient was given IV Protonix along with 3 L IV fluids and IV ceftriaxone. Due to her rapidly deteriorating clinical picture (persistent hypotension, hypoxemia and respiratory acidosis despite oxygen supplementation, altered mentation, severe electrolyte derangements, concern for acute infarcts in the setting of recent head trauma and blood loss, etc.) the decision was made to place a right femoral central line and right IJ sheath for peripheral venous access and predicted need for rapid volume resuscitation, respectively. Additionally, patient was intubated for her acute respiratory failure to protect her airway and provide ventilatory support and admitted to the ICU for further management. No overnight events. Patient was examined at bedside; she has been extubated and appears clinically improved with ABG this morning showing pH 7.35, pCO2 48, pO2 81, and HCO3 27. Current plan is to continue hi-flow and pressors (will wean as appropriate) and see if she will tolerate oral feeding tomorrow. Additionally, octreotide was stopped due to lack of esophageal varices seen on endoscopy yesterday and patient will be restarted on her home medications for bipolar I disorder (Abilify and Risperdal). NEURO Stroke r/o Per teleneurology consult, patient initially presented with marked right-sided deficits, no antigravity movement of right leg, drift of right arm, sensory changes, and dysarthria There is concern for left hemispheric stroke and, due to her persistent and pronounced hypotension, watershed infarcts cannot be ruled out Patient is outside therapeutic window for IV thrombolytics (last known well time exceeds 4.5+ hours) However, on this 's 05/11 physical exam, she did not seem to be displaying any persistent focal neurological deficits except for dysarthria Today patient has some dysarthria s/p extubation. May be due to possible stroke or trauma to vocal cords. DDx: hypotension syncope 2/2 hemorrhagic shock, fall-related head trauma initially 2/2 adverse medication effect or vasovagal/orthostatic syncope Dx: -Head CT was negative for acute hemorrhage, mass effect, or midline shift -Head/neck CTA showed no significant neck arterial stenoses or cerebral large vessel arterial occlusions or thrombus -05/12 Venous doppler ultrasound was negative for DVT Rx: - Pending brain MRI to r/o ischemic stroke -Avoiding anticoagulation due to concern for hemorrhagic shock 2/2 suspected acute upper GI bleed -Permissive hypertension (correct blood pressure only if greater than 220/120 or if there is a concern for end organ damage, use IV/PO labetalol or IV hydralazine w/ goal of 15% reduction in BP during the first 24 hours) -IV fluids -Neuro checks (q4HR) -Bedside swallow evaluation and aspiration precautions -Head of bed elevation: 30 degrees RRx: -Follow up on brain MRI to r/o ischemic stroke -Monitor blood pressure and signs of new focal neurologic deficits History of bipolar I disorder Reported by daughter and chart review Well-controlled per daughter Rx: - Held aripiprazole and risperidone due to dysarthria. Will follow-up on MRI/MRA prior to resuming CARDIO #History of primary hypertension Dx: BP 92/54 Rx: -Holding antihypertensive medications in the setting of low blood pressure RRx: -Monitor blood pressure PULM Acute hypoxic hypercapnic respiratory failure likely 2/2 pneumonia?resolving COPD Chronic respiratory acidosis History of smoking Patient initially presented with acute hypoxic hypercapnic respiratory failure Currently suspect the above was 2/2 pneumonia in the setting of impaired lung function from COPD and chronic history of smoking DDx: Aspiration pneumonia Dx: -Chest x-ray was suspicious for mild left base aspiration pneumonia -05/11 MRSA screen (-) -05/13 CXR today shows bibasilar pneumonia and moderate enlargement of the left ventricle Rx: - Duonebs q6HR - Chest physiotherapy ? Guaifenesin 200 mg p.o. 4 times daily - BiPAP at night -Continue IV cefepime 2 gm qD (started 05/12/25 @ 9:00) ? Pleural mass on CT Dx: Pleural mass seen on CT chest abdomen pelvis Rx: Recommend outpatient biopsy GI Acute blood loss anemia?resolved Of note, per GI, patient previously underwent colonoscopy (04/2022) showing diverticulosis, hemorrhoids, and melanosis coli. EGD (04/2022) revealed GERD with esophagitis, bile gastritis, and acute gastritis; pathology was negative for H. pylori, intestinal metaplasia, microscopic colitis, or dysplasia Hgb has been dropping steadily despite pRBC transfusion (now stable as of 05/12) Currently believe blood loss that had occurred is from an episode of bleeding after the patient fell which has since resolved DDx: PUD, upper GI bleed vs. GI bleed Dx: -05/12 upper endoscopy revealed lots of coffee-ground material in the proximal body of the stomach but did not show any active sites of bleeding or esophageal varices Rx: -Transfuse pRBCs if Hgb<7 -Continue IV Protonix 80 mg q10HR (started on 05/11 @ 17:17) RENAL Hypophosphatemia Hypocalcemia Hypokalemia DDx: ?refeeding Dx: K3.5, Phos 1.3, corrected calcium 8. Rx: K-Phos 45 mmol IV x 1, magnesium sulfate 2 g IV x 1, 1L, calcium carbonate IVF bolus Ringer's lactate RRx: F/U renal panel at 1300 URO No active problems ICU Health maintenance: Dispo: Patient clinically stable for downgrade to telemetry Diet: NPO. Pending speech eval DVT ppx: SCDs GI ppx: Protonix 40mg IV BID IV lines: 2 pIV Central line: Yes [ RIJ and R femoral] Arterial line: No Reese: Yes Code status: FULL CODE Plan of care discussed with Attending Dr. Ranjana Lemon MD PGY 2 Disclaimer: This note was dictated by speech recognition. Minor errors in canal superintendent may be present due to voice recognition software. Attending Provider Attestation/Addendum Patient seen and examined with above resident, Harrison Lemon MD. I agree with the findings, assessment, and plan of care as documented separately differences below. Patient doing well postextubation though requiring BiPAP overnight which should be continued when she is transferred to the floor. Remains hemodynamically stable with no evidence of ongoing bleeding. Patient receiving additional fluids as she had brisk diuresis after extubation yesterday with ongoing renal recovery and normalization of creatinine. Replace electrolytes as needed. Will continue to hold home medications for now. Patient however also having right-sided upper extremity weakness though she has good audio/video engineer and right shoulder ability to shrug. Patient does have right-sided IJ catheter with possible hematoma that may be compressing versus true insult to the brain. MRI is pending and will likely be completed early this next week. Will await GI input for ability to restart antiplatelet therapy in the setting of her recent GI bleed if infarction is confirmed. Cervical imaging may be required if MRI comes back negative. Patient will start working with physical therapy promptly. We will remove central lines and Reese today to prevent any further associated infections. Patient will be transferred to medicine rees for ongoing management with appropriate antibiotic regimen to be continued and completed for 7 days. Continue to follow-up culture data to help narrow antibiotic spectrum if appropriate. Total critical care time: I personally spent 40 minutes for review of physiologic parameters, directing plan of care throughout the day, and counseling patient at bedside. This is exclusive of time spent teaching of staff performing any separate billable procedures. Patient remains at significant risk for further morbidity and mortality warranting close monitoring and care only available in the ICU. Critical care services required for pyelonephritis, left lower lobe pneumonia, acute on chronic hypoxic/hypercapnic respiratory failure, acute renal failure, acute metabolic encephalopathy, possible left cerebral infarct.
[2025-05-14] MEDS: RINGERS LACTATED 1000 ML 1,000 ML 999 ML IV (08:23)
[2025-05-14] MEDS: Magnesium Sulfate 2 GM Ivpb 2 GM/50 ML BAG IV (08:23)
[2025-05-14] MEDS: CEFEPIME INJ 2 GM in SODIUM CHLORIDE 0.9% (Popper) 50 ML IV (08:24)
[2025-05-14] MEDS: POT PHOS 15 mMol in NS 250 ML 15 MMOL/250 ML BAG 62.5 MMOL IV ×3 (08:24→18:43)
[2025-05-14] MEDS: guaiFENesin SYRUP 200 MG/10 ML UDC PO ×4 (09:24→20:16)
[2025-05-14] MEDS: THIAMINE INJ 100 MG/ML VIAL 2 ML 200 MG IVP (09:34)
[2025-05-14 10:06] LABS: Vancomycin,Trough 9.0 mcg/mL (5.0-10.0)
--- NOTE | 2025-05-14 10:29 | PC.SS ---
rounding note: Patient is in ICU. She was extubated yesterday. Patient is now on n.c. Nursing states patient failed speech eval yesterday. Patient is alert/oriented. Patient is pending a speech and PT eval. Daughter, Crys, remains the alt medical decision maker.
--- NOTE | 2025-05-14 12:04 | PCS.ST ---
CX speech and language evaluation at this time. see swallow evaluation for additional details.
[2025-05-14 14:53] LABS: Albumin, Serum 3.1 gm/dL (3.4-4.8); Anion Gap 10 (7-16); BUN/Creatinine Ratio 10 Ratio (12-20); Blood Urea Nitrogen 7 mg/dL (9-23); Calcium 7.7 mg/dL (8.3-10.6); Calcium (Corrected) 8.4 mg/dL (8.5-10.1); Carbon Dioxide 30.2 mMol/L (20.0-31.0); Chloride 101 mMol/L (98-107); Creatinine (Component) 0.7 mg/dL (0.6-1.3); Estimated Creatinine Clearance 72.9 mL/min (>60); Glucose 114 mg/dL (74-106); Osmolality,Calculated 280 (275-295); Phosphorous 1.8 mg/dL (2.4-5.1); Potassium 3.3 mMol/L (3.4-5.1); Sodium 141 mMol/L (136-145); eGFR > 60 See Note
--- NOTE | 2025-05-14 15:00 | ESPR_ITS ---
Documentation for date of: 05/14/25 Subjective Subjective Interval history: Ms. Adame is a 69-year-old woman with history of dyspepsia and GERD followed by Dr. Vasquez hypothyroidism restless leg hyperlipidemia hypertension bipolar and COPD not on home oxygen. She presents today because she fell at around 10 PM last night with head strike and she was unable to stand up her daughter came to see her this morning around 9 AM who found her soiled with vomit and stool soiling the patient. Daughter notes that the stool was dark in color no bright red blood. Emesis noted to be coffee ground. Daughter states her mother is more difficult to understand given slurred speech. She reported increased confusion and inability to ambulate due to right sided weakness. ED course Patient presented to the ED around 11:30 AM this morning she was tachycardic to 108 afebrile respiratory rate 18, blood pressure 86/55, satting 89 on oxy mask, BP remained soft despite fluid boluses. She became febrile Dx * Labs significant for white count of 28 hemoglobin of 16.5 platelet 92 coag studies within normal limits, Na 122, potassium 5.4 chloride 80 creatinine 3.0 (baseline 0.8), eGFR 16 lactic acid 3.2 elevated LFTs 140s, Cr Kinase 2125 t roponin elevated 1.011, UA bland, Utox positive for benzos, Hcg negative, type and screen pending * chest x-ray with no evidence of aspiration, CT head Negative for acute hemorrhage, mass effect or midline shift, CTA head and neck: No significant neck arterial stenoses No cerebral large vessel arterial occlusions or thrombus * CT CAP showed: 1. Mild aneurysmal dilatation of the thoracic aorta 2. No pneumonia, pulmonary edema, or pleural disease 3. Abnormal fluid distention of the esophagus with thickening of the lower wall of the esophagus (differential would include reflux esophagitis, lower esophageal tumor, recommend endoscopy follow-up) 4. Primary hepatocellular disease 5. Perinephric stranding (consider urinary tract infection) 6. Moderately severe diffuse nonspecific colitis of the entire colon, (differential would include ulcerative colitis and Crohn's disease) Tx * 3L NS per sepsis protocol * 1L LR * ASA 81 * CTX 1 gm IV * Vanc renally dosed * Cefepime 1gm 05/11/2025: medicine team saw patient, while in the ED, consulted ICU for upgrade. pt will be admitted to ICU for septic shock of unknown source, GI bleed and stroke rule out, in house neurology consulted, pt was intubated. GI, Dr Vasquez was consulted for c/f upper gi bleed given coffee ground emesis 05/12/2025:Pt in ICU: Given 1 unit PRBC. Patient continues to be intubated, Dr. Vasquez performed EGD and noted a few small nonbleeding erosions that were found at the gastroesophageal junction. Biopsies were taken from the antrum and cardia distal esophagus and proximal esophagus no bleeding site seen in the duodenal bulb no esophageal varices no actual bleeding site seen throughout examination of the upper GI tract what was seen was a lot of coffee-ground material no fresh blood. tear in the body of the stomach appreciated/ Visualized a few nonbleeding erosions at the gastroesophageal junction, octreotide drip was stopped 05/13/2025:pt in ICU: extubated. continued on hi-flow and pressors. weaned off sedation, pt failed swallow eval. on Bipap for hypercapnia. 05/14/2025: pt downgraded from the ICU. pt seen and examined while in the ICU. pt passed swallow eval today and was started on diet. she continues to have melena stool, colonoscopy not indicated at this time, as stomach ulcerations are the suspected source of bleeding. PENDING brain MR (she cont to have slurring and RUE deficits, holding home psych medications given concern for masking focal deficits. Electrolyte derrangement today, repleted as indicated, f/u PM renal panel. Blood cultures negative x 48 hours. Given K-Phos 45 mmol IV x 1, calcium carbonate, 2 g magnesium sulfate IV, 1L lactated Ringer's IVF bolus. continues on abx for aspiration pnuemonia, cefepime (05/12- ) Exam Vital Signs Temp Pulse Resp BP Pulse Ox O2 Del Method O2 Flow Rate 97.9 F 81 15 106/60 95 Nasal Cannula 3 05/14/25 12:05/14/25 14:05/14/25 14:05/14/25 14:05/14/25 14:05/14/25 12:00 05/14/25 12:27 FiO2 35 05/14/25 06:53 Narrative Exam GENERAL: general discomfort, AAO x3, sitting upright laying in bed HEENT: small bruise on R cheek,, Mucous membranes dry. PERRL. NECK: Supple, midline anterior neck with red circular ?bruise (chronic per daughter) CARDIOVASCULAR: RRR. Normal S1/S2, No m/r/g. No pitting edema of bilateral LEs. RESPIRATORY: coarse ronchi. and congested upper airway sounds, prolonged expiratory phase and wheezing. on NC GASTROINTESTINAL: Abdomen soft,slight distention, nontender to deep palpation , Bowel sounds present, no rebound or guarding, MUSCULOSKELETAL:? No cyanosis or edema, no visible joint swelling, BL feet are cold to touch, calfs are warmer to touch pedal pulses 2+ , scds in place NEUROLOGICAL:? flattening of R nasolabial fold. RUE weakness 3/5, LUE 4+/5 . Sensation intact, symmetric. poor home health care physician strength bilaterally., poor plantar flexion strength on RLU, gait not assessed PSYCHIATRIC: Awake and alert, not agitated, normal mood and affect. SKIN: No obvious rashes, no jaundice, normal turgor BL knees with surgical incisions well healed. Objective Labs 05/15/25 04:43 05/15/25 04:43 Labs: Laboratory Results - last 24 hr 05/13/25 05/13/25 05/14/25 20:13 22:43 03:54 WBC RBC Hgb Hct MCV MCH MCHC RDW Std Deviation Plt Count Neut % (Auto) Lymph % (Auto) [place] % (Auto) Eos % (Auto) Baso % (Auto) Neut # (Auto) Lymph # (Auto) [place] # (Auto) Eos # (Auto) Baso # (Auto) Immature Gran # (Auto) Absolute Nucleated RBC Immature Gran % Nucleated RBC % Puncture Site Right Radial Right Radial Right Radial ABG pH 7.24 L D 7.30 L 7.34 L ABG pCO2 68 H D 60 H 57 H ABG pO2 69 L 59 L* 64 L ABG HCO3 29 H 29 H 30 H ABG O2 Saturation 92 90 L 93 ABG Base Excess 1 2 3 FiO2 21 21 35 Sodium Potassium Chloride Carbon Dioxide Anion Gap BUN Creatinine Estim Creat Clear Calc eGFR BUN/Creatinine Ratio Glucose Calculated Osmolality Calcium Corrected Calcium Phosphorus Magnesium Total Bilirubin AST ALT Alkaline Phosphatase Total Protein Albumin Globulin Albumin/Globulin Ratio Vancomycin Trough 05/14/25 05/14/25 05/14/25 05:13 09:30 14:05 WBC 5.7 D RBC 3.12 L Hgb 9.8 L Hct 29.5 L MCV 95 MCH 31.4 MCHC 33.2 RDW Std Deviation 51.1 H Plt Count 162 Neut % (Auto) 73 Lymph % (Auto) 11 [place] % (Auto) 11 Eos % (Auto) 2 Baso % (Auto) 1 Neut # (Auto) 4.2 Lymph # (Auto) 0.6 L [place] # (Auto) 0.6 Eos # (Auto) 0.1 Baso # (Auto) 0.0 Immature Gran # (Auto) 0.14 H Absolute Nucleated RBC 0.00 Immature Gran % 3 H Nucleated RBC % 0 Puncture Site ABG pH ABG pCO2 ABG pO2 ABG HCO3 ABG O2 Saturation ABG Base Excess FiO2 Sodium 137 141 Potassium 3.5 3.3 L Chloride 98 101 Carbon Dioxide 28.7 30.2 Anion Gap 10 10 BUN 9 7 L Creatinine 0.9 0.7 Estim Creat Clear Calc 56.7 L 72.9 eGFR > 60 > 60 BUN/Creatinine Ratio 10 L 10 L Glucose 95 D 114 H Calculated Osmolality 272 L 280 Calcium 7.3 L 7.7 L Corrected Calcium 8.0 L 8.4 L Phosphorus 1.3 L 1.8 L Magnesium 1.8 Total Bilirubin 0.2 L AST 30 ALT 72 H Alkaline Phosphatase 72 Total Protein 5.4 L Albumin 3.1 L 3.1 L Globulin 2.3 Albumin/Globulin Ratio 1.3 Vancomycin Trough 9.0 ABG Interpretation ABG results: 05/11/25 05/11/25 05/11/25 17:19 20:27 22:35 ABG pH 7.24 L 7.18 L* 7.18 L* ABG pCO2 56 H 64 H 71 H* ABG pO2 136 H 51 L* D 30 L* D ABG HCO3 24 24 26 ABG O2 Saturation 99 H 75 L 43 L ABG Base Excess -4 L -6 L -4 L 05/11/25 05/12/25 05/13/25 22:56 04:50 05:55 ABG pH 7.30 L D 7.31 L 7.35 ABG pCO2 49 H D 50 H 48 ABG pO2 70 L D 64 L 81 L ABG HCO3 25 25 27 H ABG O2 Saturation 93 91 97 ABG Base Excess -2 -1 1 05/13/25 05/13/25 05/14/25 20:13 22:43 03:54 ABG pH 7.24 L D 7.30 L 7.34 L ABG pCO2 68 H D 60 H 57 H ABG pO2 69 L 59 L* 64 L ABG HCO3 29 H 29 H 30 H ABG O2 Saturation 92 90 L 93 ABG Base Excess 1 2 3 Quality Measures Quality Measures VTE prophylaxis Advance care planning discussed with:: patient Assessment & Plan Assessment Current Active Medications: Generic Name Dose Route Start Last Admin Trade Name Freq PRN Reason Stop Dose Admin Acetaminophen 650 mg 05/11/25 15:40 Acetaminophen 325 Mg Tablet PO 06/10/25 15:39 Q6HR PRN FEVER >101 Acetaminophen 650 mg 05/11/25 15:45 Acetaminophen 325 Mg Tablet PO 06/10/25 15:44 Q6HR PRN HEADACHE Albuterol/Ipratropium 3 ml 05/14/25 13:00 05/14/25 12:25 Albuterol/Ipratropium (Duoneb) Rt Ninoska 3 Ml Nebu INH 06/13/25 12:59 3 ml Q6HRRT DUSTIN Administration Aripiprazole 30 mg 05/13/25 13:00 05/14/25 09:23 Aripiprazole 5 Mg Tablet PO 06/12/25 12:59 Not Given On Hold: 05/14/25 09:19 QDAY DUSTIN Atorvastatin Calcium 80 mg 05/11/25 21:00 05/13/25 20:41 Atorvastatin Calcium 20 Mg Tablet PO 06/10/25 20:59 Not Given HS DUSTIN Calcium Carbonate 600 mg 05/14/25 09:00 05/14/25 09:37 Calcium Carbonate 600 Mg Tablet PO 06/13/25 08:59 Not Given QDAY DUSTIN Guaifenesin 200 mg 05/14/25 09:00 05/14/25 13:23 Guaifenesin Syrup 200 Mg/10 Ml Udc PO 06/13/25 08:59 200 mg QID DUSTIN Administration Protocol Cefepime HCl 2 gm/ Sodium 50 mls @ 100 mls/hr 05/12/25 09:00 05/14/25 08:24 Chloride IV 05/19/25 08:59 100 mls/hr QDAY DUSTIN Administration Potassium Phosphate 15 mmol in 250 mls @ 62.5 mls/hr 05/14/25 12:00 05/14/25 13:23 Pot Phos 15 Mmol In Ns 250 Ml IV 05/14/25 19:59 62.5 mls/hr Q4H DUSTIN Administration Ondansetron HCl 4 mg 05/11/25 11:44 05/11/25 14:16 Ondansetron Inj 2 Mg/Ml Inj 2 Ml IVP 06/10/25 11:43 4 mg Q4HR PRN Administration NAUSEA OR VOMITING Pantoprazole Sodium 40 mg 05/13/25 21:00 05/14/25 08:23 Pantoprazole Inj 40 Mg Vial IVP 06/12/25 20:59 40 mg BID DUSTIN Administration Risperidone 3 mg 05/13/25 21:00 05/13/25 20:42 Risperidone 1 Mg Tablet PO 06/12/25 20:59 Not Given On Hold: 05/14/25 09:18 HS DUSTIN Plan Doris Adame is a 69-year-old F with a PMH of GERD, reported peptic ulcers, hypertension, hyperlipidemia, COPD not on home oxygen, recent head strike after fall, bipolar I disorder, and hypothyroidism who was BIBA for evaluation of stroke-like symptoms, coffee ground emesis, and melena found to have ulcerations of the GE junction on EGD with Dr. Vasquez, downgraded to floors from ICU. cont on abx for aspiration pneumonia, pending brain MR (continued dysarthria and RUE weakness) Stroke r/o Per teleneurology consult, patient initially presented with marked right-sided deficits, no antigravity movement of right leg, drift of right arm, sensory changes, and dysarthria There is concern for left hemispheric stroke and, due to her persistent and pronounced hypotension, watershed infarcts cannot be ruled out Patient is outside therapeutic window for IV thrombolytics (last known well time exceeds 4.5+ hours) However, on this 's 05/11 physical exam, she did not seem to be displaying any persistent focal neurological deficits except for dysarthria Today patient has some dysarthria s/p extubation. May be due to possible stroke or trauma to vocal cords. DDx: hypotension syncope 2/2 hemorrhagic shock, fall-related head trauma initially 2/2 adverse medication effect or vasovagal/orthostatic syncope vs mechanical fall Dx: -Head CT was negative for acute hemorrhage, mass effect, or midline shift -Head/neck CTA showed no significant neck arterial stenoses or cerebral large vessel arterial occlusions or thrombus Rx: - Pending brain MRI to r/o ischemic stroke -Avoiding anticoagulation due to concern for hemorrhagic shock 2/2 suspected acute upper GI bleed -Permissive hypertension (correct blood pressure only if greater than 220/120 or if there is a concern for end organ damage, use IV/PO labetalol or IV hydralazine w/ goal of 15% reduction in BP during the first 24 hours) -IV fluids -Neuro checks (q4HR) -aspiration precautions -Head of bed elevation: 30 degrees Acute blood loss anemia?hgb stable Nonbleeding ulcers at GE junction Of note, per GI, patient previously underwent colonoscopy (04/2022) showing diverticulosis, hemorrhoids, and melanosis coli. EGD (04/2022) revealed GERD with esophagitis, bile gastritis, and acute gastritis; pathology was negative for H. pylori, intestinal metaplasia, microscopic colitis, or dysplasia Currently believe blood loss that had occurred is from an episode of bleeding after the patient fell which has since resolved DDx: PUD, upper GI bleed vs. lower GI bleed (favor upper GI bleed, no active bleed seen on egd), pt continues to have melena stools) Dx: -05/12 upper endoscopy revealed lots of coffee-ground material in the proximal body of the stomach but did not show any active sites of bleeding or esophageal varices -f/u egd biopsy results Rx: - d/c octreotide -avoid nsaids -avoid anticoagulation -Transfuse pRBCs if Hgb<7 -Continue Protonix 40mg IV BID Acute hypoxic hypercapnic respiratory failure likely 2/2 ?resolving Aspiration pneumonia COPD Chronic respiratory acidosis Patient initially presented with acute hypoxic hypercapnic respiratory failure, was intubated, now extubated, satting well. Currently suspect the above was 2/2 pneumonia in the setting of impaired lung function from COPD and chronic history of smoking DDx: Aspiration pneumonia vs CAP Dx: -Chest x-ray was suspicious for mild left base aspiration pneumonia -05/13 CXR today shows bibasilar pneumonia and moderate enlargement of the left ventricle Rx: - Duonebs q6HR - Chest physiotherapy ? Guaifenesin 200 mg p.o. 4 times daily - BiPAP at night - d/c IV cefepime 2 gm qD (started 05/12- 05/14) - start Ceftriaxone 2gm qd ( 05/14- ) Hypertension Dx: 106/60 Rx: -Holding antihypertensive medications in the setting of low blood pressure - allow permissive htn in setting of c/f stroke, pending mr head Electrolyte Derrangements Hypophosphatemia Hypocalcemia Hypokalemia DDx: ?refeeding daily cmp, mag, phos - replete as indicated - dietitian consulted appreciate recs Bipolar I disorder Reported by daughter and chart review Well-controlled per daughter Rx: - HOLDING aripiprazole and risperidone due to dysarthria. Will follow-up on MRI/MRA prior to resuming ? Pleural mass on CT Dx: Pleural mass seen on CT chest abdomen pelvis Rx: Recommend outpatient biopsy Chronic tobacco smoking reports smoking 5-7 cig - provide smoking cessation info upon discharge - consider nicotine patches if cravings increase Dispo:downgraded from icu to tele. pending brain mri, electrolyte derrangements being repleted. Diet: dysphagia 2 mech alteration DVT ppx: SCDs GI ppx: Protonix 40mg IV BID Code status: FULL CODE Plan discussed with Dr. Dasia Soto MD PGY1 Attending Provider Attestation/Addendum I have examined the patient, reviewed labs and imaging findings, discussed the case with the resident(s), and reviewed entered orders. I agree with the plan of care as outlined in this note. Dr. Dasia MD
[2025-05-14] MEDS: cefTRIAXone 2 GM in SODIUM CHLORIDE 0.9% (Popper) 50 ML IV (16:30)
--- NOTE | 2025-05-14 18:27 | PC.NURSE ---
call to pharmacy, please send 2nd bag of PotPhos
[2025-05-14] MEDS: ATORVASTATIN CALCIUM 20 MG TABLET 80 MG PO (20:16)
--- NOTE | 2025-05-14 20:28 | PD.IMPROG ---
Documentation for date of: 05/14/25 Subjective Subjective Interval history: Hemoglobin hematocrit 9.8 and 28.5 Moved from the ICU Upper endoscopy showed a lot of coffee-ground material in the body of the stomach with distal esophageal erosions Visibility remained poor third portion of the duodenum did not show Any bleeding but just presence of bile Exam Vital Signs Temp Pulse Resp BP Pulse Ox O2 Del Method O2 Flow Rate 97.3 F 94 22 H 128/77 96 Nasal Cannula 4 05/14/25 16:20 05/14/25 18:59 05/14/25 18:59 05/14/25 16:20 05/14/25 18:59 05/14/25 16:20 05/14/25 18:51 FiO2 35 05/14/25 06:53 Objective Labs 05/14/25 05:13 05/14/25 14:05 Labs: Laboratory Results - last 24 hr 05/11/25 05/13/25 05/14/25 15:29 22:43 03:54 WBC RBC Hgb Hct MCV MCH MCHC RDW Std Deviation Plt Count Neut % (Auto) Lymph % (Auto) [place] % (Auto) Eos % (Auto) Baso % (Auto) Neut # (Auto) Lymph # (Auto) [place] # (Auto) Eos # (Auto) Baso # (Auto) Immature Gran # (Auto) Absolute Nucleated RBC Immature Gran % Nucleated RBC % Puncture Site Right Radial Right Radial ABG pH 7.30 L 7.34 L ABG pCO2 60 H 57 H ABG pO2 59 L* 64 L ABG HCO3 29 H 30 H ABG O2 Saturation 90 L 93 ABG Base Excess 2 3 FiO2 21 35 Sodium Potassium Chloride Carbon Dioxide Anion Gap BUN Creatinine Estim Creat Clear Calc eGFR BUN/Creatinine Ratio Glucose Calculated Osmolality Calcium Corrected Calcium Phosphorus Magnesium Total Bilirubin AST ALT Alkaline Phosphatase Total Protein Albumin Globulin Albumin/Globulin Ratio Vancomycin Trough Crossmatch See Detail 05/14/25 05/14/25 05/14/25 05:13 09:30 14:05 WBC 5.7 D RBC 3.12 L Hgb 9.8 L Hct 29.5 L MCV 95 MCH 31.4 MCHC 33.2 RDW Std Deviation 51.1 H Plt Count 162 Neut % (Auto) 73 Lymph % (Auto) 11 [place] % (Auto) 11 Eos % (Auto) 2 Baso % (Auto) 1 Neut # (Auto) 4.2 Lymph # (Auto) 0.6 L [place] # (Auto) 0.6 Eos # (Auto) 0.1 Baso # (Auto) 0.0 Immature Gran # (Auto) 0.14 H Absolute Nucleated RBC 0.00 Immature Gran % 3 H Nucleated RBC % 0 Puncture Site ABG pH ABG pCO2 ABG pO2 ABG HCO3 ABG O2 Saturation ABG Base Excess FiO2 Sodium 137 141 Potassium 3.5 3.3 L Chloride 98 101 Carbon Dioxide 28.7 30.2 Anion Gap 10 10 BUN 9 7 L Creatinine 0.9 0.7 Estim Creat Clear Calc 56.7 L 72.9 eGFR > 60 > 60 BUN/Creatinine Ratio 10 L 10 L Glucose 95 D 114 H Calculated Osmolality 272 L 280 Calcium 7.3 L 7.7 L Corrected Calcium 8.0 L 8.4 L Phosphorus 1.3 L 1.8 L Magnesium 1.8 Total Bilirubin 0.2 L AST 30 ALT 72 H Alkaline Phosphatase 72 Total Protein 5.4 L Albumin 3.1 L 3.1 L Globulin 2.3 Albumin/Globulin Ratio 1.3 Vancomycin Trough 9.0 Crossmatch Impressions Impression: Upper GI bleed most likely from esophageal erosions and diffuse gastritis although visibility was very poor continue to monitor CBC ABG Interpretation ABG results: 05/11/25 05/11/25 05/11/25 17:19 20:27 22:35 ABG pH 7.24 L 7.18 L* 7.18 L* ABG pCO2 56 H 64 H 71 H* ABG pO2 136 H 51 L* D 30 L* D ABG HCO3 24 24 26 ABG O2 Saturation 99 H 75 L 43 L ABG Base Excess -4 L -6 L -4 L 05/11/25 05/12/25 05/13/25 22:56 04:50 05:55 ABG pH 7.30 L D 7.31 L 7.35 ABG pCO2 49 H D 50 H 48 ABG pO2 70 L D 64 L 81 L ABG HCO3 25 25 27 H ABG O2 Saturation 93 91 97 ABG Base Excess -2 -1 1 05/13/25 05/13/25 05/14/25 20:13 22:43 03:54 ABG pH 7.24 L D 7.30 L 7.34 L ABG pCO2 68 H D 60 H 57 H ABG pO2 69 L 59 L* 64 L ABG HCO3 29 H 29 H 30 H ABG O2 Saturation 92 90 L 93 ABG Base Excess 1 2 3 Assessment & Plan Time Spent With Patient Time: Total time spent is greater than 50% in coordination of care (as documented) at patient's floor/unit and/or counseling patient:
--- NOTE | 2025-05-14 23:25 | PD.NEUROPROG ---
Documentation for date of: 05/14/25 Subjective Subjective Interval history: Patient was seen in telemetry today at the bedside, no new symptoms reported. Exam - Neurology Vital Signs Temp Pulse Resp BP Pulse Ox O2 Del Method O2 Flow Rate 97.3 F 87 18 128/77 92 L Nasal Cannula 4 05/14/25 16:20 05/14/25 23:07 05/14/25 23:07 05/14/25 16:20 05/14/25 23:07 05/14/25 16:20 05/14/25 18:51 FiO2 35 05/14/25 23:07 Narrative Exam GENERAL APPEARANCE: Well hydrated, well-nourished in mild respiratory distress. HEENT: Normocephalic, atraumatic, extraocular movements intact. Pupils: Equal reacting to light NECK: Supple, no JVD or bruits. CARDIOVASULAR: Heart: S1, S2 heard, regular without S3-S4 or murmur no rubs or gallops. LUNGS/CHEST: bilateral rhonchi and wheezing noted. Normal inspection. ABDOMEN: Soft, nontender, with normal bowel sounds. No pulsatile masses. No rebound, rigidity, or guarding. Normal inspection and palpation. EXTREMITIES: Normal inspection and palpation. No edema, clubbing or cyanosis. SKIN: Warm and dry without rashes. Normal inspection. MUSCULOSKELETAL: No cervical, thoracic, lumbar or midline bony tenderness. Normal inspection. NEURO: alert, awake and oriented x3, no focal motor or sensory deficit noted. gait: not tested. no signs of meningeal irritation noted. PSYCHIATRIC: mood and affect: normal. Objective Labs 05/15/25 04:43 05/15/25 04:43 Labs: Laboratory Results - last 24 hr 05/11/25 05/14/25 05/14/25 15:29 03:54 05:13 WBC 5.7 D RBC 3.12 L Hgb 9.8 L Hct 29.5 L MCV 95 MCH 31.4 MCHC 33.2 RDW Std Deviation 51.1 H Plt Count 162 Neut % (Auto) 73 Lymph % (Auto) 11 [place] % (Auto) 11 Eos % (Auto) 2 Baso % (Auto) 1 Neut # (Auto) 4.2 Lymph # (Auto) 0.6 L [place] # (Auto) 0.6 Eos # (Auto) 0.1 Baso # (Auto) 0.0 Immature Gran # (Auto) 0.14 H Absolute Nucleated RBC 0.00 Immature Gran % 3 H Nucleated RBC % 0 Puncture Site Right Radial ABG pH 7.34 L ABG pCO2 57 H ABG pO2 64 L ABG HCO3 30 H ABG O2 Saturation 93 ABG Base Excess 3 FiO2 35 Sodium 137 Potassium 3.5 Chloride 98 Carbon Dioxide 28.7 Anion Gap 10 BUN 9 Creatinine 0.9 Estim Creat Clear Calc 56.7 L eGFR > 60 BUN/Creatinine Ratio 10 L Glucose 95 D Calculated Osmolality 272 L Calcium 7.3 L Corrected Calcium 8.0 L Phosphorus 1.3 L Magnesium 1.8 Total Bilirubin 0.2 L AST 30 ALT 72 H Alkaline Phosphatase 72 Total Protein 5.4 L Albumin 3.1 L Globulin 2.3 Albumin/Globulin Ratio 1.3 Vancomycin Trough Crossmatch See Detail 05/14/25 05/14/25 09:30 14:05 WBC RBC Hgb Hct MCV MCH MCHC RDW Std Deviation Plt Count Neut % (Auto) Lymph % (Auto) [place] % (Auto) Eos % (Auto) Baso % (Auto) Neut # (Auto) Lymph # (Auto) [place] # (Auto) Eos # (Auto) Baso # (Auto) Immature Gran # (Auto) Absolute Nucleated RBC Immature Gran % Nucleated RBC % Puncture Site ABG pH ABG pCO2 ABG pO2 ABG HCO3 ABG O2 Saturation ABG Base Excess FiO2 Sodium 141 Potassium 3.3 L Chloride 101 Carbon Dioxide 30.2 Anion Gap 10 BUN 7 L Creatinine 0.7 Estim Creat Clear Calc 72.9 eGFR > 60 BUN/Creatinine Ratio 10 L Glucose 114 H Calculated Osmolality 280 Calcium 7.7 L Corrected Calcium 8.4 L Phosphorus 1.8 L Magnesium Total Bilirubin AST ALT Alkaline Phosphatase Total Protein Albumin 3.1 L Globulin Albumin/Globulin Ratio Vancomycin Trough 9.0 Crossmatch ABG Interpretation ABG results: 05/11/25 05/11/25 05/11/25 17:19 20:27 22:35 ABG pH 7.24 L 7.18 L* 7.18 L* ABG pCO2 56 H 64 H 71 H* ABG pO2 136 H 51 L* D 30 L* D ABG HCO3 24 24 26 ABG O2 Saturation 99 H 75 L 43 L ABG Base Excess -4 L -6 L -4 L 05/11/25 05/12/25 05/13/25 22:56 04:50 05:55 ABG pH 7.30 L D 7.31 L 7.35 ABG pCO2 49 H D 50 H 48 ABG pO2 70 L D 64 L 81 L ABG HCO3 25 25 27 H ABG O2 Saturation 93 91 97 ABG Base Excess -2 -1 1 05/13/25 05/13/25 05/14/25 20:13 22:43 03:54 ABG pH 7.24 L D 7.30 L 7.34 L ABG pCO2 68 H D 60 H 57 H ABG pO2 69 L 59 L* 64 L ABG HCO3 29 H 29 H 30 H ABG O2 Saturation 92 90 L 93 ABG Base Excess 1 2 3 Assessment & Plan Additional Assessment & Plan Additional Plan: Doris Adame is a 69-year-old F with a PMH of GERD, hypertension, hyperlipidemia, bipolar I disorder, and COPD who is currently admitted for shock and GI bleed. #Acute CVA ruled out patient's presentation most likely related to shock from global hypoperfusion Head CT and CTA negative will hold off on MRI brain as no deficit on exam. Plan: ? continue to Hold all antiplatelet agents for now. #Hypovolemic shock: Resolved. #Acute hypoxic hypercapnic respiratory failure 2/2 pneumonia, resolving, extubated. #COPD #Transaminitis #Left-base pneumonia Above handled by primary team
[2025-05-15] VITALS (12 sets, daily range): BP systolic 115–150; BP diastolic 62–74; PULSE 74–95; RESP 17–27; TEMP 36.1–36.2; O2SAT 92–98; BMI 33.3
--- NOTE | 2025-05-15 | XR_ITS ---
Examinations: MRI Brain without intravenous contrast. MRA brain without intravenous contrast. MRA carotids without intravenous contrast 3-D vascular reconstructions Date and time of exam: May 15, 2025, 0842 hours Indications, altered mental status slurred speech confusion today Technique: Multiple axial and sagittal images of the brain have been obtained MRA brain carotid images without contrast obtained, including 3-D postprocessing, vascular maximum intensity projection images Findings: [place] is not enlarged. The optic chiasm and infundibular stalk are not remarkable. Prepontine and interpeduncular cisterns are not enlarged. No localized enlargement of the medulla or miguelangel. Fourth ventricle and cerebellar tonsils normal in position. Subacute hemorrhage is not seen. Fourth ventricle is midline. Mass in the cerebellopontine angle region is not evident. 7th and 8th nerve complexes exhibits symmetry. Globes are symmetrical with no retro-orbital mass. Increased white matter signal moderate Diffusion-weighted images demonstrate no focus of restricted diffusion Mass-effect upon the ventricular system is not identified. MRA carotid images degraded by patient motion. MRA brain images no large vessel occlusions Impression: Negative for acute hemorrhage mass effect or midline shift No acute infarct Moderate chronic microvascular white matter change
[2025-05-15] MEDS: ALBUTEROL/IPRATROPIUM (Duoneb) RT SOL 3 ML NEBU INH ×4 (00:37→18:56)
--- NOTE | 2025-05-15 02:20 | PC.NURSE ---
Called Dr. Wang to inform that patient c/o not able to void, bladder scan and showed +900, in and out x1 ordered, patient voided 600mls prior to in and out, bladder scanned and showed 747mls, in and out done and had 800mls output of urine.
[2025-05-15 05:37] LABS: Basophils # (Auto) 0.1 Thou/mm3 (0.0-0.2); Basophils % (Auto) 1 % (0-2.5); Eosinophils # (Auto) 0.2 Thou/mm3 (0.0-0.5); Eosinophils % (Auto) 2 % (0-10); Hematocrit 28.7 % (36.0-46.0); Hemoglobin 9.4 g/dL (12.0-16.0); Immature Granulocytes Auto 0.71 Thou/mm3 (0.00-0.00); Lymphocytes # (Auto) 0.9 Thou/mm3 (1.0-4.8); Lymphocytes % (Auto) 11 % (10-50); Mean Corpuscular HGB Conc 32.8 g/dl (31.0-37.0); Mean Corpuscular Hemoglobin 31.1 pg (25.0-35.0); Mean Corpuscular Volume 95 fL (80-100); Monocytes # (Auto) 0.7 Thou/mm3 (0.0-0.8); Monocytes % (Auto) 8 % (0-12); Neutrophils # (Auto) 5.5 Thou/mm3 (1.8-7.7); Neutrophils % (Auto) 69 % (37-80); Nucleated Red Blood Cell # 0.00 Thou/mm3 (0.00-0.00); Nucleated Red Blood Cell % 0 /100 WBC (0); Platelet Count 164 Thou/mm3 (140-440); RDW Standard Deviation 50.8 fL (36.4-46.3); Red Blood Count 3.02 Miln/mm3 (4.00-5.20); White Blood Count 8.0 Thou/mm3 (3.6-11.0)
[2025-05-15] MEDS: guaiFENesin SYRUP 200 MG/10 ML UDC PO ×4 (05:44→20:42)
[2025-05-15 06:14] LABS: Alanine Aminotransferase 46 U/L (10-49); Albumin, Serum 3.0 gm/dL (3.4-4.8); Albumin/Globulin Ratio 1.4 (1.2-2.2); Alkaline Phosphatase 76 U/L (46-116); Anion Gap 10 (7-16); Aspartate Amino Transferase 19 U/L (0-34); BUN/Creatinine Ratio 9 Ratio (12-20); Bilirubin,Total 0.3 mg/dL (0.3-1.2); Blood Urea Nitrogen 6 mg/dL (9-23); Calcium 7.4 mg/dL (8.3-10.6); Calcium (Corrected) 8.2 mg/dL (8.5-10.1); Carbon Dioxide 31.9 mMol/L (20.0-31.0); Chloride 101 mMol/L (98-107); Creatinine (Component) 0.7 mg/dL (0.6-1.3); Estimated Creatinine Clearance 72.9 mL/min (>60); Globulin 2.1 gm/dL (2.3-3.5); Glucose 101 mg/dL (74-106); Magnesium 1.6 mg/dL (1.6-2.6); Osmolality,Calculated 282 (275-295); Phosphorous 1.2 mg/dL (2.4-5.1); Potassium 3.3 mMol/L (3.4-5.1); Sodium 143 mMol/L (136-145); Total Protein 5.1 gm/dL (5.7-8.2); eGFR > 60 See Note
--- NOTE | 2025-05-15 08:18 | ESPR_ITS ---
Documentation for date of: 05/15/25 Subjective Subjective Interval history: Ms. Adame is a 69-year-old woman with history of dyspepsia and GERD followed by Dr. Vasquez hypothyroidism restless leg hyperlipidemia hypertension bipolar and COPD not on home oxygen. She presents today because she fell at around 10 PM last night with head strike and she was unable to stand up her daughter came to see her this morning around 9 AM who found her soiled with vomit and stool soiling the patient. Daughter notes that the stool was dark in color no bright red blood. Emesis noted to be coffee ground. Daughter states her mother is more difficult to understand given slurred speech. She reported increased confusion and inability to ambulate due to right sided weakness. 05/11/2025: medicine team saw patient, while in the ED, consulted ICU for upgrade. pt will be admitted to ICU for septic shock of unknown source, GI bleed and stroke rule out, in house neurology consulted, pt was intubated. GI, Dr Vasquez was consulted for c/f upper gi bleed given coffee ground emesis 05/12/2025:Pt in ICU: Given 1 unit PRBC. Patient continues to be intubated, Dr. Vasquez performed EGD and noted a few small nonbleeding erosions that were found at the gastroesophageal junction. Biopsies were taken from the antrum and cardia distal esophagus and proximal esophagus no bleeding site seen in the duodenal bulb no esophageal varices no actual bleeding site seen throughout examination of the upper GI tract what was seen was a lot of coffee-ground material no fresh blood. tear in the body of the stomach appreciated/ Visualized a few nonbleeding erosions at the gastroesophageal junction, octreotide drip was stopped 05/13/2025:pt in ICU: extubated. continued on hi-flow and pressors. weaned off sedation, pt failed swallow eval. on Bipap for hypercapnia. 05/14/2025: pt downgraded from the ICU. pt seen and examined while in the ICU. pt passed swallow eval today and was started on diet. she continues to have melena stool, colonoscopy not indicated at this time, as stomach ulcerations are the suspected source of bleeding. PENDING brain MR (she cont to have slurring and RUE deficits, holding home psych medications given concern for masking focal deficits. Electrolyte derrangement today, repleted as indicated, f/u PM renal panel. Blood cultures negative x 48 hours. Given K-Phos 45 mmol IV x 1, calcium carbonate, 2 g magnesium sulfate IV, 1L lactated Ringer's IVF bolus. continues on abx for aspiration pnuemonia, cefepime (05/12- ) 05/15/2025: Patient seen and examined at bedside she is on bipap. MRI stroke was taken no evidence of stroke. Bilateral upper extremities 5 out of 5 strength lower extremities 5 out of 5 strength. After MRI patient was noted to have increased work of breathing placed on BiPAP. Restarted home psych medications given patient reported increased anxiety. Repleted electrolyte derangements of Phos, potassium, and magnesium. Referral for physical therapy, evaluated today. Hemoglobin 9.4. hypokalcemia and hypophosphatemia persists. holding anticoag given c/f upper gi bleed Exam Vital Signs Temp Pulse Resp BP Pulse Ox O2 Del Method O2 Flow Rate 97.0 F 93 21 H 131/64 H 97 Room Air 4 05/15/25 04:00 05/15/25 06:29 05/15/25 06:29 05/15/25 04:00 05/15/25 06:29 05/15/25 04:00 05/14/25 20:00 FiO2 50 05/15/25 06:29 Narrative Exam GENERAL: general discomfort, AAO x3, sitting upright laying in bed with bipap mask on HEENT: small bruise on R cheek,, Mucous membranes dry. PERRL. NECK: Supple, midline anterior neck with red circular ?bruise (chronic per daughter) CARDIOVASCULAR: RRR. Normal S1/S2, No m/r/g. No pitting edema of bilateral LEs. RESPIRATORY: coarse ronchi. and congested upper airway sounds, prolonged expiratory phase and wheezing. on bipap GASTROINTESTINAL: Abdomen soft,slight distention, nontender to deep palpation , Bowel sounds present, no rebound or guarding, MUSCULOSKELETAL:? No cyanosis or edema, no visible joint swelling, BL feet are cold to touch, calfs are warmer to touch pedal pulses 2+ , scds in place NEUROLOGICAL:unable to assess nasolabial fold 2/2 bipap mask. RUE 4+/5, LUE 4+/5 . Sensation intact, symmetric. 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 SKIN: No obvious rashes, no jaundice, normal turgor BL knees with surgical incisions well healed. Objective Labs 05/15/25 04:43 05/15/25 11:47 Labs: Laboratory Results - last 24 hr 05/11/25 05/14/25 05/14/25 15:29 09:30 14:05 WBC RBC Hgb Hct MCV MCH MCHC RDW Std Deviation Plt Count Neut % (Auto) Lymph % (Auto) [place] % (Auto) Eos % (Auto) Baso % (Auto) Neut # (Auto) Lymph # (Auto) [place] # (Auto) Eos # (Auto) Baso # (Auto) Immature Gran # (Auto) Absolute Nucleated RBC Immature Gran % Nucleated RBC % Sodium 141 Potassium 3.3 L Chloride 101 Carbon Dioxide 30.2 Anion Gap 10 BUN 7 L Creatinine 0.7 Estim Creat Clear Calc 72.9 eGFR > 60 BUN/Creatinine Ratio 10 L Glucose 114 H Calculated Osmolality 280 Calcium 7.7 L Corrected Calcium 8.4 L Phosphorus 1.8 L Magnesium Total Bilirubin AST ALT Alkaline Phosphatase Total Protein Albumin 3.1 L Globulin Albumin/Globulin Ratio Vancomycin Trough 9.0 Crossmatch See Detail 05/15/25 04:43 WBC 8.0 D RBC 3.02 L Hgb 9.4 L Hct 28.7 L MCV 95 MCH 31.1 MCHC 32.8 RDW Std Deviation 50.8 H Plt Count 164 Neut % (Auto) 69 Lymph % (Auto) 11 [place] % (Auto) 8 Eos % (Auto) 2 Baso % (Auto) 1 Neut # (Auto) 5.5 Lymph # (Auto) 0.9 L [place] # (Auto) 0.7 Eos # (Auto) 0.2 Baso # (Auto) 0.1 Immature Gran # (Auto) 0.71 H Absolute Nucleated RBC 0.00 Immature Gran % 9 H Nucleated RBC % 0 Sodium 143 Potassium 3.3 L Chloride 101 Carbon Dioxide 31.9 H Anion Gap 10 BUN 6 L Creatinine 0.7 Estim Creat Clear Calc 72.9 eGFR > 60 BUN/Creatinine Ratio 9 L Glucose 101 Calculated Osmolality 282 Calcium 7.4 L Corrected Calcium 8.2 L Phosphorus 1.2 L Magnesium 1.6 Total Bilirubin 0.3 AST 19 ALT 46 Alkaline Phosphatase 76 Total Protein 5.1 L Albumin 3.0 L Globulin 2.1 L Albumin/Globulin Ratio 1.4 Vancomycin Trough Crossmatch ABG Interpretation ABG results: 05/11/25 05/11/25 05/11/25 17:19 20:27 22:35 ABG pH 7.24 L 7.18 L* 7.18 L* ABG pCO2 56 H 64 H 71 H* ABG pO2 136 H 51 L* D 30 L* D ABG HCO3 24 24 26 ABG O2 Saturation 99 H 75 L 43 L ABG Base Excess -4 L -6 L -4 L 05/11/25 05/12/25 05/13/25 22:56 04:50 05:55 ABG pH 7.30 L D 7.31 L 7.35 ABG pCO2 49 H D 50 H 48 ABG pO2 70 L D 64 L 81 L ABG HCO3 25 25 27 H ABG O2 Saturation 93 91 97 ABG Base Excess -2 -1 1 05/13/25 05/13/25 05/14/25 20:13 22:43 03:54 ABG pH 7.24 L D 7.30 L 7.34 L ABG pCO2 68 H D 60 H 57 H ABG pO2 69 L 59 L* 64 L ABG HCO3 29 H 29 H 30 H ABG O2 Saturation 92 90 L 93 ABG Base Excess 1 2 3 Quality Measures Quality Measures VTE prophylaxis Advance care planning discussed with:: patient Assessment & Plan Assessment Current Active Medications: Generic Name Dose Route Start Last Admin Trade Name Freq PRN Reason Stop Dose Admin Acetaminophen 650 mg 05/11/25 15:40 Acetaminophen 325 Mg Tablet PO 06/10/25 15:39 Q6HR PRN FEVER >101 Acetaminophen 650 mg 05/11/25 15:45 Acetaminophen 325 Mg Tablet PO 06/10/25 15:44 Q6HR PRN HEADACHE Albuterol/Ipratropium 3 ml 05/14/25 13:00 05/15/25 06:29 Albuterol/Ipratropium (Duoneb) Rt Ninoska 3 Ml Nebu INH 06/13/25 12:59 3 ml Q6HRRT DUSTIN Administration Aripiprazole 30 mg 05/13/25 13:00 05/14/25 09:23 Aripiprazole 5 Mg Tablet PO 06/12/25 12:59 Not Given On Hold: 05/14/25 09:19 QDAY DUSTIN Atorvastatin Calcium 80 mg 05/11/25 21:00 05/14/25 20:16 Atorvastatin Calcium 20 Mg Tablet PO 06/10/25 20:59 80 mg HS DSUTIN Administration Calcium Carbonate 600 mg 05/14/25 09:00 05/14/25 09:37 Calcium Carbonate 600 Mg Tablet PO 06/13/25 08:59 Not Given QDAY DUSTIN Guaifenesin 200 mg 05/14/25 09:00 05/15/25 05:44 Guaifenesin Syrup 200 Mg/10 Ml Udc PO 06/13/25 08:59 200 mg QID DUSTIN Administration Protocol Cefepime HCl 2 gm/ Sodium 50 mls @ 100 mls/hr 05/12/25 09:00 05/14/25 08:24 Chloride IV 05/19/25 08:59 100 mls/hr On Hold: 05/14/25 15:59 QDAY DUSTIN Administration Ceftriaxone Sodium 2 gm/ 50 mls @ 100 mls/hr 05/14/25 16:00 05/14/25 16:30 Sodium Chloride IV 05/21/25 15:59 100 mls/hr QDAY DUSTIN Administration Magnesium Sulfate 4 gm in 50 mls @ 12.5 mls/hr 05/15/25 08:00 Magnesium Sulfate Ivpb IV 05/15/25 11:59 X1 ONE Ondansetron HCl 4 mg 05/11/25 11:44 05/11/25 14:16 Ondansetron Inj 2 Mg/Ml Inj 2 Ml IVP 06/10/25 11:43 4 mg Q4HR PRN Administration NAUSEA OR VOMITING Pantoprazole Sodium 40 mg 05/13/25 21:00 05/14/25 20:17 Pantoprazole Inj 40 Mg Vial IVP 06/12/25 20:59 40 mg BID DUSTIN Administration Risperidone 3 mg 05/13/25 21:00 05/13/25 20:42 Risperidone 1 Mg Tablet PO 06/12/25 20:59 Not Given On Hold: 05/14/25 09:18 HS DUSTIN Plan Doris Adame is a 69-year-old F with a PMH of GERD, reported peptic ulcers, hypertension, hyperlipidemia, COPD not on home oxygen, recent head strike after fall, bipolar I disorder, and hypothyroidism who was BIBA for evaluation of stroke-like symptoms, coffee ground emesis, and melena found to have ulcerations of the GE junction on EGD with Dr. Vasquez, downgraded to floors from ICU. cont on abx for aspiration pneumonia, brain mri ruled out stoke suspect TIA. improvement in RUE weakness suspect TIA Per teleneurology consult, patient initially presented with marked right-sided deficits, no antigravity movement of right leg, drift of right arm, sensory changes, and dysarthria There is concern for left hemispheric stroke and, due to her persistent and pronounced hypotension, watershed infarcts cannot be ruled out Patient is outside therapeutic window for IV thrombolytics (last known well time exceeds 4.5+ hours) However, on this 's 05/11 physical exam, she did not seem to be displaying any persistent focal neurological deficits except for dysarthria Today patient has some dysarthria s/p extubation. May be due to possible stroke or trauma to vocal cords. DDx: hypotension syncope 2/2 hemorrhagic shock, fall-related head trauma initially 2/2 adverse medication effect or vasovagal/orthostatic syncope vs mechanical fall Dx: -Head CT was negative for acute hemorrhage, mass effect, or midline shift -Head/neck CTA showed no significant neck arterial stenoses or cerebral large vessel arterial occlusions or thrombus -MRI brain negative stroke - right sided deficits have resolved. Rx: -Avoiding anticoagulation due to concern for hemorrhagic shock 2/2 suspected acute upper GI bleed -Inhouse neuro consulted, appreciate recs Acute blood loss anemia?hgb stable 9.4 Nonbleeding ulcers at GE junction Of note, per GI, patient previously underwent colonoscopy (04/2022) showing diverticulosis, hemorrhoids, and melanosis coli. EGD (04/2022) revealed GERD with esophagitis, bile gastritis, and acute gastritis; pathology was negative for H. pylori, intestinal metaplasia, microscopic colitis, or dysplasia Currently believe blood loss that had occurred is from an episode of bleeding after the patient fell which has since resolved DDx: PUD, upper GI bleed vs. lower GI bleed (favor upper GI bleed, no active bleed seen on egd), pt continues to have melena stools) Dx: -05/12 upper endoscopy revealed lots of coffee-ground material in the proximal body of the stomach but did not show any active sites of bleeding or esophageal varices -f/u egd biopsy results Rx: -avoid nsaids -avoid anticoagulation -Transfuse pRBCs if Hgb<7 -Continue Protonix 40mg IV BID Acute hypoxic hypercapnic respiratory failure likely 2/2 ?resolving Aspiration pneumonia COPD Chronic respiratory acidosis Patient initially presented with acute hypoxic hypercapnic respiratory failure, was intubated, now extubated, satting well. Currently suspect the above was 2/2 pneumonia in the setting of impaired lung function from COPD and chronic history of smoking DDx: Aspiration pneumonia vs CAP Dx: -Chest x-ray was suspicious for mild left base aspiration pneumonia -05/13 CXR today shows bibasilar pneumonia and moderate enlargement of the left ventricle Rx: - Duonebs q6HR - Chest physiotherapy ? Guaifenesin 200 mg p.o. 4 times daily - BiPAP PRN - d/c IV cefepime 2 gm qD (started 05/12- 05/14) - Ceftriaxone 2gm qd ( 05/14- ) pt has penecillin allergy on day 4 of abx (rec 5-7 days, will transition to oral abx moxifloxacin 400mg PO BID) Electrolyte Derrangements Hypophosphatemia Hypocalcemia Hypokalemia - improving DDx: ?refeeding daily cmp, mag, phos - replete as indicated - dietitian consulted appreciate recs - calcium carbonate BID, given 1 gm Calcium gluconate today - neutraphos, (dont give at the same time of calcium carbonate) - f/u 1999 renal panel Hypertension Dx: 106/60 Rx: -Holding antihypertensive medications in the setting of low blood pressure Bipolar I disorder anxiety Reported by daughter and chart review Well-controlled per daughter Rx: - restart aripiprazole and risperidone - restart home diazapam 5mg qhs ? Pleural mass on CT Dx: Pleural mass seen on CT chest abdomen pelvis Rx: Recommend outpatient biopsy Chronic tobacco smoking reports smoking 5-7 cig - provide smoking cessation info upon discharge - consider nicotine patches if cravings increase Dispo:stroke ruled out, suspect tia, ongoing repletion of electrolytes given derrangements. Diet: dysphagia 2 mech alteration DVT ppx: SCDs GI ppx: Protonix 40mg IV BID Code status: FULL CODE Plan discussed with Dr. Dasia Soto MD PGY1 Attending Provider Attestation/Addendum I have examined the patient, reviewed labs and imaging findings, discussed the case with the resident(s), and reviewed entered orders. I agree with the plan of care as outlined in this note, with these additional summaries/recommendations: Patient seen at bedside. No acute overnight events. Discussed with patient that brain MRI/MRI is negative for acute infract. Possible patient had TIA and we will follow-up with neurology. Nonetheless patient is still not a candidate for anticoagulation given her GI bleed and unstable hemoglobin. Patient showed understanding. She endorsed shortness of breath and had dyspnea upon returning from MRI and was placed back on BiPAP. Patient diagnosed with acute hypoxic and hypercapnic respiratory failure secondary to aspiration pneumonia and COPD exacerbation. Continue breathing treatments and antibiotics, overall improving. BiPAP as needed. Patient also diagnosed with acute blood loss anemia secondary to GI bleed. Patient is status post EGD which revealed coffee-ground material in the proximal body of the stomach. Continue Protonix and hold chemical anticoagulation. Hemoglobin is downtrending daily and will continue to monitor closely. Continue to replace electrolytes as needed. Patient's home antipsychotics were resumed today and we will monitor how she tolerates. Pleural mass seen on CT and will need to follow-up outpatient. Order physical therapy evaluation for discharge planning. Patient updated on the plan and in agreement. All questions answered to satisfaction. Please see residents note for additional details and management. Dr. Dasia MD
[2025-05-15] MEDS: CALCIUM CARBONATE 600 MG TABLET PO (10:00)
[2025-05-15] MEDS: cefTRIAXone 2 GM in SODIUM CHLORIDE 0.9% (Popper) 50 ML IV (10:00)
[2025-05-15] MEDS: Magnesium Sulfate 4 GM Ivpb 4 GM/50 ML BAG IV (10:01)
[2025-05-15] MEDS: NAPH,KPH MBDB 1 PACKET (1.5 GM) 2 PACKET PO ×2 (10:01→16:39)
[2025-05-15 12:57] LABS: Albumin, Serum 3.0 gm/dL (3.4-4.8); Anion Gap 9 (7-16); BUN/Creatinine Ratio 12 Ratio (12-20); Blood Urea Nitrogen 7 mg/dL (9-23); Calcium 7.1 mg/dL (8.3-10.6); Calcium (Corrected) 7.9 mg/dL (8.5-10.1); Carbon Dioxide 32.4 mMol/L (20.0-31.0); Chloride 101 mMol/L (98-107); Creatinine (Component) 0.6 mg/dL (0.6-1.3); Estimated Creatinine Clearance 88.4 mL/min (>60); Glucose 105 mg/dL (74-106); Osmolality,Calculated 281 (275-295); Phosphorous 1.1 mg/dL (2.4-5.1); Potassium 3.7 mMol/L (3.4-5.1); Sodium 142 mMol/L (136-145); eGFR > 60 See Note
--- NOTE | 2025-05-15 15:59 | PC.PT ---
Attempt to initiate PT evaluation this morning ~1030. Patient was on Bipap. This PT were able to get patient's PLOF and assess MMT on BUE/BLE. This PT came back this afternoon at 1530 but patient is still on Bipap and is sleeping. Will try again tomorrow.
[2025-05-15] MEDS: CALCIUM GLUC/NS 1000MG IVPB 1,000 MG/50 ML BAG 50 MG IV (16:39)
--- NOTE | 2025-05-15 17:13 | PD.RESPRO ---
Documentation for date of: 05/15/25 Subjective Subjective Interval history: 05/15/2025: Patient was seen and examined at the bedside. Patient was seen on BiPAP. Patient appears to have clear speech and had no focal neurological deficit. MRI brain showed moderate microvascular changes with no acute infarct. Patient was informed regarding MRI report. Currently patient is following with GI bleed workup due to continued melena. Hemoglobin at 9.4. Patient was short of breath therefore was placed on BiPAP per RT recs. Patient is stable from neurology standpoint.Follow up with GI bleed w/up and continue aripiprazole and risperidone for bipolar disorder. Exam Vital Signs Temp Pulse Resp BP Pulse Ox O2 Del Method O2 Flow Rate 97.1 F 85 24 H 143/74 H 92 L BiPAP 6 05/15/25 16:00 05/15/25 16:00 05/15/25 16:00 05/15/25 16:00 05/15/25 16:00 05/15/25 16:00 05/15/25 16:00 FiO2 50 05/15/25 16:00 Narrative Exam GENERAL APPEARANCE: AxOx4, generally well-appearing female seen on BIPAP HEENT: NC, AT. MMM. EOMI, clear conjunctiva, oropharynx clear. NECK: Supple without lymphadenopathy. No stiffness or restricted ROM. HEART: Normal rate and regular rhythm, normal S1/S2, no m/r/g LUNGS: CTAB, moving air well. No crackles or wheezes are heard. ABDOMEN: Soft, nontender, nondistended with good bowel sounds heard. BACK: No CVAT, no obvious deformity. EXTREMITIES: Without cyanosis, clubbing or edema. NEUROLOGICAL: Grossly nonfocal. Alert and oriented, moving all 4 extremities. CN not formally tested but appear grossly intact. Observed to ambulate with normal gait. Skin: Warm and dry without any rash. Psych: approrpiate mood and affect Objective Labs 05/16/25 05:30 05/16/25 05:30 Labs: Laboratory Results - last 24 hr 05/15/25 05/15/25 04:43 11:47 WBC 8.0 D RBC 3.02 L Hgb 9.4 L Hct 28.7 L MCV 95 MCH 31.1 MCHC 32.8 RDW Std Deviation 50.8 H Plt Count 164 Neut % (Auto) 69 Lymph % (Auto) 11 [place] % (Auto) 8 Eos % (Auto) 2 Baso % (Auto) 1 Neut # (Auto) 5.5 Lymph # (Auto) 0.9 L [place] # (Auto) 0.7 Eos # (Auto) 0.2 Baso # (Auto) 0.1 Immature Gran # (Auto) 0.71 H Absolute Nucleated RBC 0.00 Immature Gran % 9 H Nucleated RBC % 0 Sodium 143 142 Potassium 3.3 L 3.7 Chloride 101 101 Carbon Dioxide 31.9 H 32.4 H Anion Gap 10 9 BUN 6 L 7 L Creatinine 0.7 0.6 Estim Creat Clear Calc 72.9 88.4 eGFR > 60 > 60 BUN/Creatinine Ratio 9 L 12 Glucose 101 105 Calculated Osmolality 282 281 Calcium 7.4 L 7.1 L Corrected Calcium 8.2 L 7.9 L Phosphorus 1.2 L 1.1 L Magnesium 1.6 Total Bilirubin 0.3 AST 19 ALT 46 Alkaline Phosphatase 76 Total Protein 5.1 L Albumin 3.0 L 3.0 L Globulin 2.1 L Albumin/Globulin Ratio 1.4 ABG Interpretation ABG results: 05/11/25 05/11/25 05/11/25 17:19 20:27 22:35 ABG pH 7.24 L 7.18 L* 7.18 L* ABG pCO2 56 H 64 H 71 H* ABG pO2 136 H 51 L* D 30 L* D ABG HCO3 24 24 26 ABG O2 Saturation 99 H 75 L 43 L ABG Base Excess -4 L -6 L -4 L 05/11/25 05/12/25 05/13/25 22:56 04:50 05:55 ABG pH 7.30 L D 7.31 L 7.35 ABG pCO2 49 H D 50 H 48 ABG pO2 70 L D 64 L 81 L ABG HCO3 25 25 27 H ABG O2 Saturation 93 91 97 ABG Base Excess -2 -1 1 05/13/25 05/13/25 05/14/25 20:13 22:43 03:54 ABG pH 7.24 L D 7.30 L 7.34 L ABG pCO2 68 H D 60 H 57 H ABG pO2 69 L 59 L* 64 L ABG HCO3 29 H 29 H 30 H ABG O2 Saturation 92 90 L 93 ABG Base Excess 1 2 3 Quality Measures Quality Measures VTE prophylaxis (scds) Advance care planning discussed with:: other Assessment & Plan Assessment Current Active Medications: Generic Name Dose Route Start Last Admin Trade Name Freq PRN Reason Stop Dose Admin Acetaminophen 650 mg 05/11/25 15:40 Acetaminophen 325 Mg Tablet PO 06/10/25 15:39 Q6HR PRN FEVER >101 Acetaminophen 650 mg 05/11/25 15:45 Acetaminophen 325 Mg Tablet PO 06/10/25 15:44 Q6HR PRN HEADACHE Albuterol/Ipratropium 3 ml 05/14/25 13:00 05/15/25 12:40 Albuterol/Ipratropium (Duoneb) Rt Ninoska 3 Ml Nebu INH 06/13/25 12:59 3 ml Q6HRRT DUSTIN Administration Aripiprazole 30 mg 05/13/25 13:00 05/14/25 09:23 Aripiprazole 5 Mg Tablet PO 06/12/25 12:59 Not Given QDAY DUSTIN Atorvastatin Calcium 80 mg 05/11/25 21:00 05/14/25 20:16 Atorvastatin Calcium 20 Mg Tablet PO 06/10/25 20:59 80 mg HS DUSTIN Administration Calcium Carbonate 600 mg 05/16/25 09:00 Calcium Carbonate 600 Mg Tablet PO 06/15/25 08:59 BID DUSTIN Diazepam 5 mg 05/15/25 21:00 Diazepam 5 Mg Tablet PO 05/20/25 20:59 HS DUSTIN Guaifenesin 200 mg 05/14/25 09:00 05/15/25 16:39 Guaifenesin Syrup 200 Mg/10 Ml Udc PO 06/13/25 08:59 200 mg QID DUSTIN Administration Protocol Cefepime HCl 2 gm/ Sodium 50 mls @ 100 mls/hr 05/12/25 09:00 05/14/25 08:24 Chloride IV 05/19/25 08:59 100 mls/hr On Hold: 05/14/25 15:59 QDAY DUSTIN Administration Ceftriaxone Sodium 2 gm/ 50 mls @ 100 mls/hr 05/14/25 16:00 05/15/25 10:00 Sodium Chloride IV 05/21/25 15:59 100 mls/hr QDAY DUSTIN Administration Ondansetron HCl 4 mg 05/11/25 11:44 05/11/25 14:16 Ondansetron Inj 2 Mg/Ml Inj 2 Ml IVP 06/10/25 11:43 4 mg Q4HR PRN Administration NAUSEA OR VOMITING Pantoprazole Sodium 40 mg 05/13/25 21:00 05/15/25 10:00 Pantoprazole Inj 40 Mg Vial IVP 06/12/25 20:59 40 mg BID DUSTIN Administration Risperidone 3 mg 05/13/25 21:00 05/13/25 20:42 Risperidone 1 Mg Tablet PO 06/12/25 20:59 Not Given HS DUSTIN Plan This patient is a 69-year-old female with past medical history of GERD, hypertension, hyperlipidemia, bipolar 1 disorder and COPD was admitted to ICU for shock and GI bleed. Stroke has been ruled out. #Acute CVA, ruled out Patient was found to have slurring and right upper extremity deficit. Patient's presentationpossibly related to shock from global hypoperfusion. Head CT and head and neck CTA was negative MRI brain showed no acute infarct. Only moderate chronic microvascular changes were seen. Plan: Continue atorvastatin 80 mg at bedtime Continue to hold off antiplatelets due to concern for hemorrhagic shock secondary to GI bleed BiPAP as needed Aspiration precautions Follow-up with GI bleed workup #Bipolar 1 disorder -History of bipolar disorder per patient's daughter and chart review Plan: Continue aripiprazole and risperidone #Hypovolemic shock #Acute blood loss anemia #Nonbleeding ulcer at GE junction #Acute hypoxic hypercapnic respiratory failure due to pneumonia #History of COPD #Transaminitis #Aspiration pneumonia #Hypertension #electrolyte derangements #Hypophosphatemia #Hypocalcemia #Hypokalemia #Pleural mass on CT #Chronic tobacco smoking Management as per primary care team. Plan of care discussed with neurologist, Dr Haley Dumont MD, PGY 3 Attending Provider Attestation/Addendum I did the virtual review of the chart and I agreed with resident's findings, assessment and plan of care. Imp: AMS: resolved stroke like symptoms: resolved, MRI brain: resulted negative for acute infarction BPD: continue effexor with abilify and Risperdone.
--- NOTE | 2025-05-15 17:31 | XR_ITS ---
Examination: Abdomen AP single view Technique: AP portable supine abdomen, single view Exam date and time: May 15 thousand 25, 181 hrs. Indications: Abdominal distention today. Findings: Moderate to severe colonic ileus. Air is present in the rectum No significantly distended small bowel loops No free air Pneumonia at the left lung base. Moderate enlargement left ventricle. Impression: Moderate to severe colonic ileus No obstruction Significant pneumonia left lung base
[2025-05-15] MEDS: DIAZEPAM 5 MG TABLET PO (18:11)
[2025-05-15] MEDS: ATORVASTATIN CALCIUM 20 MG TABLET 80 MG PO (20:43)
[2025-05-15] MEDS: LACTULOSE SYRUP 20 GM/30 ML UDC 30 GM PO (20:43)
[2025-05-15 20:54] LABS: Albumin, Serum 3.2 gm/dL (3.4-4.8); Anion Gap 10 (7-16); BUN/Creatinine Ratio 10 Ratio (12-20); Blood Urea Nitrogen 6 mg/dL (9-23); Calcium 7.6 mg/dL (8.3-10.6); Calcium (Corrected) 8.2 mg/dL (8.5-10.1); Carbon Dioxide 28.6 mMol/L (20.0-31.0); Chloride 100 mMol/L (98-107); Creatinine (Component) 0.6 mg/dL (0.6-1.3); Estimated Creatinine Clearance 88.4 mL/min (>60); Glucose 86 mg/dL (74-106); Osmolality,Calculated 274 (275-295); Phosphorous 1.0 mg/dL (2.4-5.1); Potassium 5.1 mMol/L (3.4-5.1); Sodium 139 mMol/L (136-145); eGFR > 60 See Note
--- NOTE | 2025-05-15 21:52 | PD.IMPROG ---
Documentation for date of: 05/15/25 Subjective Subjective Interval history: Hemoglobin hematocrit 9.4 and 28.7 relatively stable Upper endoscopy has shown coffee-ground material throughout the body of the stomach with distal esophageal erosions not much in the duodenal bulb and descending duodenum Exam Vital Signs Temp Pulse Resp BP Pulse Ox O2 Del Method O2 Flow Rate 97.0 F 86 23 H 150/73 H 93 L Nasal Cannula 6 05/15/25 20:00 05/15/25 20:00 05/15/25 20:00 05/15/25 20:00 05/15/25 20:00 05/15/25 20:00 05/15/25 20:00 FiO2 50 05/15/25 16:00 Objective Labs 05/15/25 04:43 05/15/25 19:58 Labs: Laboratory Results - last 24 hr 05/15/25 05/15/25 05/15/25 04:43 11:47 19:58 WBC 8.0 D RBC 3.02 L Hgb 9.4 L Hct 28.7 L MCV 95 MCH 31.1 MCHC 32.8 RDW Std Deviation 50.8 H Plt Count 164 Neut % (Auto) 69 Lymph % (Auto) 11 [place] % (Auto) 8 Eos % (Auto) 2 Baso % (Auto) 1 Neut # (Auto) 5.5 Lymph # (Auto) 0.9 L [place] # (Auto) 0.7 Eos # (Auto) 0.2 Baso # (Auto) 0.1 Immature Gran # (Auto) 0.71 H Absolute Nucleated RBC 0.00 Immature Gran % 9 H Nucleated RBC % 0 Sodium 143 142 139 Potassium 3.3 L 3.7 5.1 D Chloride 101 101 100 Carbon Dioxide 31.9 H 32.4 H 28.6 Anion Gap 10 9 10 BUN 6 L 7 L 6 L Creatinine 0.7 0.6 0.6 Estim Creat Clear Calc 72.9 88.4 88.4 eGFR > 60 > 60 > 60 BUN/Creatinine Ratio 9 L 12 10 L Glucose 101 105 86 Calculated Osmolality 282 281 274 L Calcium 7.4 L 7.1 L 7.6 L Corrected Calcium 8.2 L 7.9 L 8.2 L Phosphorus 1.2 L 1.1 L 1.0 L Magnesium 1.6 Total Bilirubin 0.3 AST 19 ALT 46 Alkaline Phosphatase 76 Total Protein 5.1 L Albumin 3.0 L 3.0 L 3.2 L Globulin 2.1 L Albumin/Globulin Ratio 1.4 Impressions Impression: Distal esophageal erosions Gastritis Hemoglobin medic relatively stable If there is a precipitous drop of the hemoglobin may repeat upper endoscopy other than that I do not plan on doing any further invasive GI workup ABG Interpretation ABG results: 05/11/25 05/11/25 05/11/25 17:19 20:27 22:35 ABG pH 7.24 L 7.18 L* 7.18 L* ABG pCO2 56 H 64 H 71 H* ABG pO2 136 H 51 L* D 30 L* D ABG HCO3 24 24 26 ABG O2 Saturation 99 H 75 L 43 L ABG Base Excess -4 L -6 L -4 L 05/11/25 05/12/25 05/13/25 22:56 04:50 05:55 ABG pH 7.30 L D 7.31 L 7.35 ABG pCO2 49 H D 50 H 48 ABG pO2 70 L D 64 L 81 L ABG HCO3 25 25 27 H ABG O2 Saturation 93 91 97 ABG Base Excess -2 -1 1 05/13/25 05/13/25 05/14/25 20:13 22:43 03:54 ABG pH 7.24 L D 7.30 L 7.34 L ABG pCO2 68 H D 60 H 57 H ABG pO2 69 L 59 L* 64 L ABG HCO3 29 H 29 H 30 H ABG O2 Saturation 92 90 L 93 ABG Base Excess 1 2 3 Assessment & Plan Time Spent With Patient Time: Total time spent is greater than 50% in coordination of care (as documented) at patient's floor/unit and/or counseling patient:
[2025-05-16] VITALS (12 sets, daily range): BP systolic 133–161; BP diastolic 63–99; PULSE 73–956; RESP 17–33; TEMP 36.1–36.7; O2SAT 90–100; BMI 33.5
--- NOTE | 2025-05-16 05:10 | XR_ITS ---
Examination: AP chest single view Technique: AP portable upright chest single view Date and time: May 16, 2025, 0520 hrs., Comparison 05/13/2025 Indications: Chest pain today. Findings: Moderate heart failure. Moderate enlargement cardiac contour. Prominent vascular congestion with perihilar basilar edema and moderate bilateral pleural effusions. Prominent osteopenia. Impression: Moderate heart failure
--- NOTE | 2025-05-16 05:10 | EKG_ITS ---
[facility] Test Date: 2025-05-16 Pat Name: DOMINIC FORTE [facility] Gender: Female [employer]: SHIV : 1955 Requested By: Evelin Sneed Order Number: [id number] Reading MD: Evelin Sneed Measurements Intervals [place] Rate: 83 P: 45 [place]: 174 QRS: -7 QRSD: 95 T: 67 QT: 344 QTc: 404 Interpretive Statements SINUS RHYTHM LOW QRS VOLTAGE IN PRECORDIAL LEADS MINIMAL ST DEPRESSION Compared to ECG 05/11/2025 13:07:18 Low QRS voltage now present ST (T wave) deviation now present T-wave abnormality no longer present /store/S0/[id number]/[id number].pdf
--- NOTE | 2025-05-16 05:13 | PD.RESEVENT ---
Documentation for date of: 05/16/25 Event Note Event Note: Around 5:05 RR was called for chest pain. She was on BiPAP and complained of chest discomfort from BiPAP but sustained after discontinuing BiPAP. On arrival, she was alert and oriented. No apparent distress. Vitals and glucose WNL. Satting 96% on 6L NC. On exam, she had reproducible chest pain on upper left. Remained hemodynamically stable. EKG was done showing sinus rhythm without acte chest pain. CXR, TROPONIN ordered. She reports improvement of chest pain. Case was discussed with attending physician, Dr. Marino. Tejinder Toscano, DO PGY II This document was transcribed using voice recognition technology. Minor inaccuracies may be present.
[2025-05-16] MEDS: guaiFENesin SYRUP 200 MG/10 ML UDC PO ×4 (05:37→20:03)
[2025-05-16] MEDS: ACETAMINOPHEN 325 MG TABLET 650 MG PO ×2 (05:37→20:05)
[2025-05-16 06:02] LABS: Basophils # (Auto) 0.1 Thou/mm3 (0.0-0.2); Basophils % (Auto) 1 % (0-2.5); Eosinophils # (Auto) 0.1 Thou/mm3 (0.0-0.5); Eosinophils % (Auto) 1 % (0-10); Hematocrit 31.0 % (36.0-46.0); Hemoglobin 10.6 g/dL (12.0-16.0); Immature Granulocytes Auto 1.02 Thou/mm3 (0.00-0.00); Lymphocytes # (Auto) 1.4 Thou/mm3 (1.0-4.8); Lymphocytes % (Auto) 16 % (10-50); Mean Corpuscular HGB Conc 34.2 g/dl (31.0-37.0); Mean Corpuscular Hemoglobin 32.4 pg (25.0-35.0); Mean Corpuscular Volume 95 fL (80-100); Monocytes # (Auto) 1.0 Thou/mm3 (0.0-0.8); Monocytes % (Auto) 11 % (0-12); Neutrophils # (Auto) 5.6 Thou/mm3 (1.8-7.7); Neutrophils % (Auto) 61 % (37-80); Nucleated Red Blood Cell # 0.02 Thou/mm3 (0.00-0.00); Nucleated Red Blood Cell % 0 /100 WBC (0); Platelet Count 183 Thou/mm3 (140-440); RDW Standard Deviation 50.9 fL (36.4-46.3); Red Blood Count 3.27 Miln/mm3 (4.00-5.20); White Blood Count 9.3 Thou/mm3 (3.6-11.0)
[2025-05-16 06:35] LABS: Alanine Aminotransferase 38 U/L (10-49); Albumin, Serum 3.4 gm/dL (3.4-4.8); Albumin/Globulin Ratio 1.4 (1.2-2.2); Alkaline Phosphatase 87 U/L (46-116); Anion Gap 11 (7-16); Aspartate Amino Transferase 12 U/L (0-34); BUN/Creatinine Ratio 12 Ratio (12-20); Bilirubin,Total 0.4 mg/dL (0.3-1.2); Blood Urea Nitrogen 7 mg/dL (9-23); Calcium 7.9 mg/dL (8.3-10.6); Calcium (Corrected) 8.4 mg/dL (8.5-10.1); Carbon Dioxide 29.2 mMol/L (20.0-31.0); Chloride 100 mMol/L (98-107); Creatinine (Component) 0.6 mg/dL (0.6-1.3); Estimated Creatinine Clearance 88.7 mL/min (>60); Globulin 2.4 gm/dL (2.3-3.5); Glucose 86 mg/dL (74-106); Magnesium 1.7 mg/dL (1.6-2.6); Osmolality,Calculated 276 (275-295); Phosphorous 1.7 mg/dL (2.4-5.1); Potassium 3.9 mMol/L (3.4-5.1); Sodium 140 mMol/L (136-145); Total Protein 5.8 gm/dL (5.7-8.2); eGFR > 60 See Note
[2025-05-16 06:41] LABS: Troponin I 0.097 ng/mL (0.0-0.045)
--- NOTE | 2025-05-16 06:47 | PC.NURSE ---
Pt reporting anxiety and requesting antianxiety med, Dr. Toscano was made aware, MD will put orders for pt since there is not PRNs meds for anxiety.
[2025-05-16] MEDS: ALBUTEROL/IPRATROPIUM (Duoneb) RT SOL 3 ML NEBU INH ×4 (07:09→18:33)
--- NOTE | 2025-05-16 08:36 | PC.SS ---
Addendum entered by Bren Johnson 05/16/25 09:08: SS follow up note; SS contacted patient's daughterCrys in regards to SNF choice. Crys informed SS she would like patient to discharge to [facility]. SS contacted [facility] and she informed SS they are able to accept patient. Patient is pending PT evaluation. Original Note: SS follow up note; SS contacted patient's daughterCrys in regards to discharge plan. Crys informed SS she would like for patient to discharge to SNF. SS submitted SNF inquiry through [employer]. SS will follow up with Crys to provide SNF choices.
[2025-05-16] MEDS: cefTRIAXone 2 GM in SODIUM CHLORIDE 0.9% (Popper) 50 ML IV (09:12)
[2025-05-16] MEDS: CALCIUM CARBONATE 600 MG TABLET PO ×2 (09:14→20:04)
[2025-05-16] MEDS: NAPH,KPH MBDB 1 PACKET (1.5 GM) PO ×2 (10:28→20:04)
[2025-05-16] MEDS: Magnesium Sulfate 2 GM Ivpb 2 GM/50 ML BAG IV (10:28)
--- NOTE | 2025-05-16 16:01 | PC.SS ---
SS follow up note; Pending Voiding trial. Patient will discharge to [facility] when medically cleared.
--- NOTE | 2025-05-16 16:36 | ESPR_ITS ---
Documentation for date of: 05/16/25 Subjective Subjective Interval history: Patient was seen and examined at the bedside. Overnight, patient had chest pain and rapid response was called. Chest pain appears to be resolving per assessment.Patient was seen off BiPAP. Hemoglobin stable at 10.6.Upper endoscopy showed coffee-ground material throughout the body of the stomach with distal esophagus erosions not much in the duodenal bulb and descending duodenum. Chemistry panel was unremarkable. Troponin I at 0.097. Patient will benefit from SNF for PT evaluation. No new management from neurology standpoint. Continue patient's aripiprazole and risperidone. Exam Vital Signs Temp Pulse Resp BP Pulse Ox O2 Del Method O2 Flow Rate 97.5 F 86 24 H 141/78 H 96 Nasal Cannula 1 05/16/25 12:00 05/16/25 16:00 05/16/25 13:00 05/16/25 12:00 05/16/25 13:00 05/16/25 12:00 05/16/25 13:00 FiO2 50 05/16/25 00:08 Narrative Exam GENERAL APPEARANCE: AxOx4, generally well-appearing female seen on room air HEENT: NC, AT. MMM. EOMI, clear conjunctiva, oropharynx clear. NECK: Supple without lymphadenopathy. No stiffness or restricted ROM. HEART: Normal rate and regular rhythm, normal S1/S2, no m/r/g LUNGS: CTAB, moving air well. No crackles or wheezes are heard. ABDOMEN: Soft, nontender, nondistended with good bowel sounds heard. BACK: No CVAT, no obvious deformity. EXTREMITIES: Without cyanosis, clubbing or edema. NEUROLOGICAL: Grossly nonfocal. Alert and oriented, moving all 4 extremities. CN not formally tested but appear grossly intact. Observed to ambulate with normal gait. Skin: Warm and dry without any rash. Psych: approrpiate mood and affect Objective Labs 05/16/25 05:30 05/16/25 05:30 Labs: Laboratory Results - last 24 hr 05/15/25 05/16/25 19:58 05:30 WBC 9.3 RBC 3.27 L Hgb 10.6 L Hct 31.0 L MCV 95 MCH 32.4 MCHC 34.2 RDW Std Deviation 50.9 H Plt Count 183 Neut % (Auto) 61 Lymph % (Auto) 16 [place] % (Auto) 11 Eos % (Auto) 1 Baso % (Auto) 1 Neut # (Auto) 5.6 Lymph # (Auto) 1.4 [place] # (Auto) 1.0 H Eos # (Auto) 0.1 Baso # (Auto) 0.1 Immature Gran # (Auto) 1.02 H Absolute Nucleated RBC 0.02 H Immature Gran % 11 H Nucleated RBC % 0 Sodium 139 140 Potassium 5.1 D 3.9 D Chloride 100 100 Carbon Dioxide 28.6 29.2 Anion Gap 10 11 BUN 6 L 7 L Creatinine 0.6 0.6 Estim Creat Clear Calc 88.4 88.7 eGFR > 60 > 60 BUN/Creatinine Ratio 10 L 12 Glucose 86 86 Calculated Osmolality 274 L 276 Calcium 7.6 L 7.9 L Corrected Calcium 8.2 L 8.4 L Phosphorus 1.0 L 1.7 L Magnesium 1.7 Total Bilirubin 0.4 AST 12 ALT 38 Alkaline Phosphatase 87 Troponin I 0.097 H* Total Protein 5.8 Albumin 3.2 L 3.4 Globulin 2.4 Albumin/Globulin Ratio 1.4 ABG Interpretation ABG results: 05/11/25 05/11/25 05/11/25 17:19 20:27 22:35 ABG pH 7.24 L 7.18 L* 7.18 L* ABG pCO2 56 H 64 H 71 H* ABG pO2 136 H 51 L* D 30 L* D ABG HCO3 24 24 26 ABG O2 Saturation 99 H 75 L 43 L ABG Base Excess -4 L -6 L -4 L 05/11/25 05/12/25 05/13/25 22:56 04:50 05:55 ABG pH 7.30 L D 7.31 L 7.35 ABG pCO2 49 H D 50 H 48 ABG pO2 70 L D 64 L 81 L ABG HCO3 25 25 27 H ABG O2 Saturation 93 91 97 ABG Base Excess -2 -1 1 05/13/25 05/13/25 05/14/25 20:13 22:43 03:54 ABG pH 7.24 L D 7.30 L 7.34 L ABG pCO2 68 H D 60 H 57 H ABG pO2 69 L 59 L* 64 L ABG HCO3 29 H 29 H 30 H ABG O2 Saturation 92 90 L 93 ABG Base Excess 1 2 3 Quality Measures Quality Measures VTE prophylaxis (scds) Advance care planning discussed with:: other Assessment & Plan Assessment Current Active Medications: Generic Name Dose Route Start Last Admin Trade Name Freq PRN Reason Stop Dose Admin Acetaminophen 650 mg 05/11/25 15:40 Acetaminophen 325 Mg Tablet PO 06/10/25 15:39 Q6HR PRN FEVER >101 Acetaminophen 650 mg 05/11/25 15:45 Acetaminophen 325 Mg Tablet PO 06/10/25 15:44 Q6HR PRN HEADACHE Protocol Albuterol/Ipratropium 3 ml 05/14/25 13:00 05/16/25 13:00 Albuterol/Ipratropium (Duoneb) Rt Ninoska 3 Ml Nebu INH 06/13/25 12:59 3 ml Q6HRRT DUSTIN Administration Aripiprazole 30 mg 05/13/25 13:00 05/16/25 09:14 Aripiprazole 5 Mg Tablet PO 06/12/25 12:59 30 mg QDAY DUSTIN Administration Atorvastatin Calcium 80 mg 05/11/25 21:00 05/15/25 20:43 Atorvastatin Calcium 20 Mg Tablet PO 06/10/25 20:59 80 mg HS DUSTIN Administration Calcium Carbonate 600 mg 05/16/25 09:00 05/16/25 09:14 Calcium Carbonate 600 Mg Tablet PO 06/15/25 08:59 600 mg BID DUSTIN Administration Diazepam 5 mg 05/15/25 17:35 05/15/25 18:11 Diazepam 5 Mg Tablet PO 05/20/25 17:34 5 mg HS DUSTIN Administration Guaifenesin 200 mg 05/14/25 09:00 05/16/25 12:49 Guaifenesin Syrup 200 Mg/10 Ml Udc PO 06/13/25 08:59 200 mg QID DUSTIN Administration Protocol Cefepime HCl 2 gm/ Sodium 50 mls @ 100 mls/hr 05/12/25 09:00 05/14/25 08:24 Chloride IV 05/19/25 08:59 100 mls/hr On Hold: 05/14/25 15:59 QDAY DUSTIN Administration Ceftriaxone Sodium 2 gm/ 50 mls @ 100 mls/hr 05/14/25 16:00 05/16/25 09:12 Sodium Chloride IV 05/21/25 15:59 100 mls/hr QDAY DUSTIN Administration Ondansetron HCl 4 mg 05/11/25 11:44 05/11/25 14:16 Ondansetron Inj 2 Mg/Ml Inj 2 Ml IVP 06/10/25 11:43 4 mg Q4HR PRN Administration NAUSEA OR VOMITING Pantoprazole Sodium 40 mg 05/13/25 21:00 05/16/25 09:14 Pantoprazole Inj 40 Mg Vial IVP 06/12/25 20:59 40 mg BID DUSTIN Administration Potassium Phos/Sodium Phos 1 packet 05/16/25 09:15 05/16/25 10:28 Naph,[facility] Mbdb 1 Packet (1.5 Gm) PO 06/15/25 09:14 1 packet BID DUSTIN Administration Risperidone 3 mg 05/15/25 17:35 05/15/25 18:11 Risperidone 1 Mg Tablet PO 06/14/25 17:34 3 mg HS DUSTIN Administration Plan This patient is a 69-year-old female with past medical history of GERD, hypertension, hyperlipidemia, bipolar 1 disorder and COPD was admitted to ICU for shock and GI bleed. Stroke has been ruled out. #Acute CVA, ruled out Patient was found to have slurring and right upper extremity deficit. Patient's presentationpossibly related to shock from global hypoperfusion. Head CT and head and neck CTA was negative MRI brain showed no acute infarct. Only moderate chronic microvascular changes were seen. Plan: Continue atorvastatin 80 mg at bedtime Continue to hold off antiplatelets due to concern for hemorrhagic shock secondary to GI bleed BiPAP as needed Aspiration precautions #Bipolar 1 disorder -History of bipolar disorder per patient's daughter and chart review Plan: Continue aripiprazole and risperidone #Hypovolemic shock #Acute blood loss anemia,resolved #Nonbleeding ulcer at GE junction #Acute hypoxic hypercapnic respiratory failure due to pneumonia #History of COPD #Transaminitis #Aspiration pneumonia #Hypertension #electrolyte derangements #Hypophosphatemia #Hypocalcemia #Hypokalemia #Pleural mass on CT #Chronic tobacco smoking Management as per primary care team. Plan of care discussed with neurologist, Dr Haley Dumont MD, PGY 3
--- NOTE | 2025-05-16 17:05 | PD.RESPRO ---
Documentation for date of: 05/16/25 Subjective Subjective Interval history: Patient examined at bedside, has no major complaints. Overnight there was rapid response around 5 AM due to chest pain. Upon arrival patient was on BiPAP and which was removed. She was saturating at 96% on 6 L nasal cannula. Workup for cardiac etiology of chest pain was negative. At bedside denied any recurring symptoms. Patient was about to work with physical therapy. Vitals are stable, hemoglobin up trended to 10.6, electrolytes repleted as needed. Remove Reese catheter and attempt voiding trial. Workup for stroke has been negative. Neurology was consulted who reccomend atorvastatin and aspirin for TIA. Will hold aspirin for now due to concern for GI bleed. Plan discharge next 24hs to SNF. Exam Vital Signs Temp Pulse Resp BP Pulse Ox O2 Del Method O2 Flow Rate 97.5 F 86 24 H 141/78 H 96 Nasal Cannula 1 05/16/25 12:00 05/16/25 16:00 05/16/25 13:00 05/16/25 12:00 05/16/25 13:00 05/16/25 12:00 05/16/25 13:00 FiO2 50 05/16/25 00:08 Narrative Exam GENERAL APPEARANCE: AxOx4, generally well-appearing female seen on room air HEENT: NC, AT. MMM. EOMI, clear conjunctiva, oropharynx clear. NECK: Supple without lymphadenopathy. No stiffness or restricted ROM. HEART: Normal rate and regular rhythm, normal S1/S2, no m/r/g LUNGS: CTAB, moving air well. No crackles or wheezes are heard. ABDOMEN: Soft, nontender, nondistended with good bowel sounds heard. BACK: No CVAT, no obvious deformity. EXTREMITIES: Without cyanosis, clubbing or edema. NEUROLOGICAL: Grossly nonfocal. Alert and oriented, moving all 4 extremities. CN not formally tested but appear grossly intact. Observed to ambulate with normal gait. Skin: Warm and dry without any rash. Psych: approrpiate mood and affect Objective Labs 05/17/25 05:12 05/17/25 05:12 Labs: Laboratory Results - last 24 hr 05/15/25 05/16/25 19:58 05:30 WBC 9.3 RBC 3.27 L Hgb 10.6 L Hct 31.0 L MCV 95 MCH 32.4 MCHC 34.2 RDW Std Deviation 50.9 H Plt Count 183 Neut % (Auto) 61 Lymph % (Auto) 16 [place] % (Auto) 11 Eos % (Auto) 1 Baso % (Auto) 1 Neut # (Auto) 5.6 Lymph # (Auto) 1.4 [place] # (Auto) 1.0 H Eos # (Auto) 0.1 Baso # (Auto) 0.1 Immature Gran # (Auto) 1.02 H Absolute Nucleated RBC 0.02 H Immature Gran % 11 H Nucleated RBC % 0 Sodium 139 140 Potassium 5.1 D 3.9 D Chloride 100 100 Carbon Dioxide 28.6 29.2 Anion Gap 10 11 BUN 6 L 7 L Creatinine 0.6 0.6 Estim Creat Clear Calc 88.4 88.7 eGFR > 60 > 60 BUN/Creatinine Ratio 10 L 12 Glucose 86 86 Calculated Osmolality 274 L 276 Calcium 7.6 L 7.9 L Corrected Calcium 8.2 L 8.4 L Phosphorus 1.0 L 1.7 L Magnesium 1.7 Total Bilirubin 0.4 AST 12 ALT 38 Alkaline Phosphatase 87 Troponin I 0.097 H* Total Protein 5.8 Albumin 3.2 L 3.4 Globulin 2.4 Albumin/Globulin Ratio 1.4 ABG Interpretation ABG results: 05/11/25 05/11/25 05/11/25 17:19 20:27 22:35 ABG pH 7.24 L 7.18 L* 7.18 L* ABG pCO2 56 H 64 H 71 H* ABG pO2 136 H 51 L* D 30 L* D ABG HCO3 24 24 26 ABG O2 Saturation 99 H 75 L 43 L ABG Base Excess -4 L -6 L -4 L 05/11/25 05/12/25 05/13/25 22:56 04:50 05:55 ABG pH 7.30 L D 7.31 L 7.35 ABG pCO2 49 H D 50 H 48 ABG pO2 70 L D 64 L 81 L ABG HCO3 25 25 27 H ABG O2 Saturation 93 91 97 ABG Base Excess -2 -1 1 05/13/25 05/13/25 05/14/25 20:13 22:43 03:54 ABG pH 7.24 L D 7.30 L 7.34 L ABG pCO2 68 H D 60 H 57 H ABG pO2 69 L 59 L* 64 L ABG HCO3 29 H 29 H 30 H ABG O2 Saturation 92 90 L 93 ABG Base Excess 1 2 3 Quality Measures Quality Measures VTE prophylaxis (scds) Advance care planning discussed with:: child Assessment & Plan Assessment Current Active Medications: Generic Name Dose Route Start Last Admin Trade Name Freq PRN Reason Stop Dose Admin Acetaminophen 650 mg 05/11/25 15:40 Acetaminophen 325 Mg Tablet PO 06/10/25 15:39 Q6HR PRN FEVER >101 Acetaminophen 650 mg 05/11/25 15:45 Acetaminophen 325 Mg Tablet PO 06/10/25 15:44 Q6HR PRN HEADACHE Protocol Albuterol/Ipratropium 3 ml 05/14/25 13:00 05/16/25 13:00 Albuterol/Ipratropium (Duoneb) Rt Ninoska 3 Ml Nebu INH 06/13/25 12:59 3 ml Q6HRRT DUSTIN Administration Aripiprazole 30 mg 05/13/25 13:00 05/16/25 09:14 Aripiprazole 5 Mg Tablet PO 06/12/25 12:59 30 mg QDAY DUSTIN Administration Atorvastatin Calcium 80 mg 05/11/25 21:00 05/15/25 20:43 Atorvastatin Calcium 20 Mg Tablet PO 06/10/25 20:59 80 mg HS DUSTIN Administration Calcium Carbonate 600 mg 05/16/25 09:00 05/16/25 09:14 Calcium Carbonate 600 Mg Tablet PO 06/15/25 08:59 600 mg BID DUSTIN Administration Diazepam 5 mg 05/15/25 17:35 05/15/25 18:11 Diazepam 5 Mg Tablet PO 05/20/25 17:34 5 mg HS DUSTIN Administration Guaifenesin 200 mg 05/14/25 09:00 05/16/25 12:49 Guaifenesin Syrup 200 Mg/10 Ml Udc PO 06/13/25 08:59 200 mg QID DUSTIN Administration Protocol Cefepime HCl 2 gm/ Sodium 50 mls @ 100 mls/hr 05/12/25 09:00 05/14/25 08:24 Chloride IV 05/19/25 08:59 100 mls/hr On Hold: 05/14/25 15:59 QDAY DUSTIN Administration Ceftriaxone Sodium 2 gm/ 50 mls @ 100 mls/hr 05/14/25 16:00 05/16/25 09:12 Sodium Chloride IV 05/21/25 15:59 100 mls/hr QDAY DUSTIN Administration Ondansetron HCl 4 mg 05/11/25 11:44 05/11/25 14:16 Ondansetron Inj 2 Mg/Ml Inj 2 Ml IVP 06/10/25 11:43 4 mg Q4HR PRN Administration NAUSEA OR VOMITING Pantoprazole Sodium 40 mg 05/13/25 21:00 05/16/25 09:14 Pantoprazole Inj 40 Mg Vial IVP 06/12/25 20:59 40 mg BID DUSTIN Administration Potassium Phos/Sodium Phos 1 packet 05/16/25 09:15 05/16/25 10:28 Naph,[facility] Mbdb 1 Packet (1.5 Gm) PO 06/15/25 09:14 1 packet BID DUSTIN Administration Risperidone 3 mg 05/15/25 17:35 05/15/25 18:11 Risperidone 1 Mg Tablet PO 06/14/25 17:34 3 mg HS DUSTIN Administration Plan Doris Adame is a 69-year-old F with a PMH of GERD, reported peptic ulcers, hypertension, hyperlipidemia, COPD not on home oxygen, recent head strike after fall, bipolar I disorder, and hypothyroidism who was BIBA for evaluation of stroke-like symptoms, coffee ground emesis, and melena found to have ulcerations of the GE junction on EGD with Dr. Vasquez, downgraded to floors from ICU. cont on abx for aspiration pneumonia, brain mri ruled out stoke suspect TIA. improvement in RUE weakness ?TIA Per teleneurology consult, patient initially presented with marked right-sided deficits, no antigravity movement of right leg, drift of right arm, sensory changes, and dysarthria There is concern for left hemispheric stroke and, due to her persistent and pronounced hypotension, watershed infarcts cannot be ruled out Patient is outside therapeutic window for IV thrombolytics (last known well time exceeds 4.5+ hours) However, on this 's 05/11 physical exam, she did not seem to be displaying any persistent focal neurological deficits except for dysarthria Today patient has some dysarthria s/p extubation. May be due to possible stroke or trauma to vocal cords. DDx: hypotension syncope 2/2 hemorrhagic shock, fall-related head trauma initially 2/2 adverse medication effect or vasovagal/orthostatic syncope vs mechanical fall Dx: -Head CT was negative for acute hemorrhage, mass effect, or midline shift -Head/neck CTA showed no significant neck arterial stenoses or cerebral large vessel arterial occlusions or thrombus -MRI brain negative stroke - right sided deficits have resolved. Rx: -Avoiding anticoagulation due to concern for hemorrhagic shock 2/2 suspected acute upper GI bleed -Inhouse neuro consulted, appreciate recs Acute blood loss anemia?hgb stable 9.4 Nonbleeding ulcers at GE junction Of note, per GI, patient previously underwent colonoscopy (04/2022) showing diverticulosis, hemorrhoids, and melanosis coli. EGD (04/2022) revealed GERD with esophagitis, bile gastritis, and acute gastritis; pathology was negative for H. pylori, intestinal metaplasia, microscopic colitis, or dysplasia Currently believe blood loss that had occurred is from an episode of bleeding after the patient fell which has since resolved DDx: PUD, upper GI bleed vs. lower GI bleed (favor upper GI bleed, no active bleed seen on egd), pt continues to have melena stools) Dx: -05/12 upper endoscopy revealed lots of coffee-ground material in the proximal body of the stomach but did not show any active sites of bleeding or esophageal varices -f/u egd biopsy results Rx: -avoid nsaids -avoid anticoagulation -Transfuse pRBCs if Hgb<7 -Continue Protonix 40mg IV BID Acute hypoxic hypercapnic respiratory failure likely 2/2 ?resolving Aspiration pneumonia COPD Chronic respiratory acidosis Patient initially presented with acute hypoxic hypercapnic respiratory failure, was intubated, now extubated, satting well. Currently suspect the above was 2/2 pneumonia in the setting of impaired lung function from COPD and chronic history of smoking DDx: Aspiration pneumonia vs CAP Dx: -Chest x-ray was suspicious for mild left base aspiration pneumonia -05/13 CXR today shows bibasilar pneumonia and moderate enlargement of the left ventricle Rx: - Duonebs q6HR - Chest physiotherapy ? Guaifenesin 200 mg p.o. 4 times daily - BiPAP PRN - d/c IV cefepime 2 gm qD (started 05/12- 05/14) - Ceftriaxone 2gm qd ( 05/14- ) pt has penecillin allergy on day 4 of abx (rec 5-7 days, will transition to oral abx moxifloxacin 400mg PO BID) Electrolyte Derrangements Hypophosphatemia Hypocalcemia Hypokalemia - improving DDx: ?refeeding daily cmp, mag, phos - replete as indicated - dietitian consulted appreciate recs - calcium carbonate BID, given 1 gm Calcium gluconate today - neutraphos, (dont give at the same time of calcium carbonate) - f/u 1999 renal panel Hypertension Dx: 106/60 Rx: -Holding antihypertensive medications in the setting of low blood pressure Bipolar I disorder anxiety Reported by daughter and chart review Well-controlled per daughter Rx: - restart aripiprazole and risperidone - restart home diazapam 5mg qhs ? Pleural mass on CT Dx: Pleural mass seen on CT chest abdomen pelvis Rx: Recommend outpatient biopsy Chronic tobacco smoking reports smoking 5-7 cig - provide smoking cessation info upon discharge - consider nicotine patches if cravings increase Dispo:stroke ruled out, suspect tia, ongoing repletion of electrolytes. Diet: dysphagia 2 mech alteration DVT ppx: SCDs GI ppx: Protonix 40mg IV BID Code status: FULL CODE Plan discussed with attending Dr. Lozano. Alicia Adkins, PGY2 Attending Provider Attestation/Addendum I have discussed and was present for the essential components of the history, physical examination, diagnosis, and treatment plan with the resident. I agree with the patient's care as documented by the resident and amended herein by me. Christofer Lozano DO. Although this document has been carefully reviewed, there may still be some phonetic and other typographical errors. These errors are purely grammatical due to imperfections in the software program and should not be construed in any way to compromise the substance of the patient's medical care during this visit.
[2025-05-16 17:47] LABS: Path Review Blood Smear Sent to Pathologist
[2025-05-16] MEDS: ATORVASTATIN CALCIUM 20 MG TABLET 80 MG PO (20:04)
[2025-05-16] MEDS: DIAZEPAM 5 MG TABLET PO (20:04)
--- NOTE | 2025-05-16 22:38 | ESPR_ITS ---
Documentation for date of: 05/16/25 Subjective Subjective Interval history: Patient evaluated Hemoglobin hematocrit 10.6 and 31.0 No need for a repeat endoscopy Exam Vital Signs Temp Pulse Resp BP Pulse Ox O2 Del Method O2 Flow Rate 97.9 F 85 24 H 156/99 H 98 Nasal Cannula 1 05/16/25 20:00 05/16/25 20:00 05/16/25 20:00 05/16/25 20:00 05/16/25 20:00 05/16/25 20:00 05/16/25 20:00 FiO2 50 05/16/25 00:08 Objective Labs 05/16/25 05:30 05/16/25 05:30 Labs: Laboratory Results - last 24 hr 05/16/25 05:30 WBC 9.3 RBC 3.27 L Hgb 10.6 L Hct 31.0 L MCV 95 MCH 32.4 MCHC 34.2 RDW Std Deviation 50.9 H Plt Count 183 Neut % (Auto) 61 Lymph % (Auto) 16 Jennings % (Auto) 11 Eos % (Auto) 1 Baso % (Auto) 1 Neut # (Auto) 5.6 Lymph # (Auto) 1.4 Jennings # (Auto) 1.0 H Eos # (Auto) 0.1 Baso # (Auto) 0.1 Immature Gran # (Auto) 1.02 H Absolute Nucleated RBC 0.02 H Immature Gran % 11 H Nucleated RBC % 0 Smear Path Review Sent to Pathologist Sodium 140 Potassium 3.9 D Chloride 100 Carbon Dioxide 29.2 Anion Gap 11 BUN 7 L Creatinine 0.6 Estim Creat Clear Calc 88.7 eGFR > 60 BUN/Creatinine Ratio 12 Glucose 86 Calculated Osmolality 276 Calcium 7.9 L Corrected Calcium 8.4 L Phosphorus 1.7 L Magnesium 1.7 Total Bilirubin 0.4 AST 12 ALT 38 Alkaline Phosphatase 87 Troponin I 0.097 H* Total Protein 5.8 Albumin 3.4 Globulin 2.4 Albumin/Globulin Ratio 1.4 Impressions Impression: Distal esophageal erosions Coffee-ground throughout the body of the stomach on previous endoscopy continue current management follow CBC ABG Interpretation ABG results: 05/11/25 05/11/25 05/11/25 17:19 20:27 22:35 ABG pH 7.24 L 7.18 L* 7.18 L* ABG pCO2 56 H 64 H 71 H* ABG pO2 136 H 51 L* D 30 L* D ABG HCO3 24 24 26 ABG O2 Saturation 99 H 75 L 43 L ABG Base Excess -4 L -6 L -4 L 05/11/25 05/12/25 05/13/25 22:56 04:50 05:55 ABG pH 7.30 L D 7.31 L 7.35 ABG pCO2 49 H D 50 H 48 ABG pO2 70 L D 64 L 81 L ABG HCO3 25 25 27 H ABG O2 Saturation 93 91 97 ABG Base Excess -2 -1 1 05/13/25 05/13/25 05/14/25 20:13 22:43 03:54 ABG pH 7.24 L D 7.30 L 7.34 L ABG pCO2 68 H D 60 H 57 H ABG pO2 69 L 59 L* 64 L ABG HCO3 29 H 29 H 30 H ABG O2 Saturation 92 90 L 93 ABG Base Excess 1 2 3 Assessment & Plan Time Spent With Patient Time: Total time spent is greater than 50% in coordination of care (as documented) at patient's floor/unit and/or counseling patient:
[2025-05-17] VITALS (13 sets, daily range): BP systolic 128–161; BP diastolic 22–98; PULSE 70–108; RESP 16–92; TEMP 36.2–36.6; O2SAT 93–100
[2025-05-17] MEDS: ALBUTEROL/IPRATROPIUM (Duoneb) RT SOL 3 ML NEBU INH ×4 (00:43→19:52)
[2025-05-17] MEDS: guaiFENesin SYRUP 200 MG/10 ML UDC PO ×4 (05:12→21:51)
--- NOTE | 2025-05-17 05:39 | PC.NURSE ---
Dr. Toscano was made aware that there is pink tinged blood with mucus on pt's brief. Dr. Toscano at bedside to assess pt.
[2025-05-17 06:07] LABS: Basophils # (Auto) 0.1 Thou/mm3 (0.0-0.2); Basophils % (Auto) 1 % (0-2.5); Eosinophils # (Auto) 0.2 Thou/mm3 (0.0-0.5); Eosinophils % (Auto) 2 % (0-10); Hematocrit 32.7 % (36.0-46.0); Hemoglobin 11.0 g/dL (12.0-16.0); Immature Granulocytes Auto 1.32 Thou/mm3 (0.00-0.00); Lymphocytes # (Auto) 1.5 Thou/mm3 (1.0-4.8); Lymphocytes % (Auto) 16 % (10-50); Mean Corpuscular HGB Conc 33.6 g/dl (31.0-37.0); Mean Corpuscular Hemoglobin 32.3 pg (25.0-35.0); Mean Corpuscular Volume 96 fL (80-100); Monocytes # (Auto) 0.7 Thou/mm3 (0.0-0.8); Monocytes % (Auto) 7 % (0-12); Neutrophils # (Auto) 5.6 Thou/mm3 (1.8-7.7); Neutrophils % (Auto) 60 % (37-80); Nucleated Red Blood Cell # 0.00 Thou/mm3 (0.00-0.00); Nucleated Red Blood Cell % 0 /100 WBC (0); Platelet Count 162 Thou/mm3 (140-440); RDW Standard Deviation 51.1 fL (36.4-46.3); Red Blood Count 3.41 Miln/mm3 (4.00-5.20); White Blood Count 9.3 Thou/mm3 (3.6-11.0)
[2025-05-17 06:10] LABS: Alanine Aminotransferase 29 U/L (10-49); Albumin, Serum 3.4 gm/dL (3.4-4.8); Albumin/Globulin Ratio 1.5 (1.2-2.2); Alkaline Phosphatase 75 U/L (46-116); Anion Gap 11 (7-16); Aspartate Amino Transferase 22 U/L (0-34); BUN/Creatinine Ratio 12 Ratio (12-20); Bilirubin,Total 0.4 mg/dL (0.3-1.2); Blood Urea Nitrogen 7 mg/dL (9-23); Calcium 8.2 mg/dL (8.3-10.6); Calcium (Corrected) 8.7 mg/dL (8.5-10.1); Carbon Dioxide 26.4 mMol/L (20.0-31.0); Chloride 104 mMol/L (98-107); Creatinine (Component) 0.6 mg/dL (0.6-1.3); Estimated Creatinine Clearance 88.3 mL/min (>60); Globulin 2.2 gm/dL (2.3-3.5); Glucose 94 mg/dL (74-106); Magnesium 2.0 mg/dL (1.6-2.6); Osmolality,Calculated 279 (275-295); Phosphorous 4.1 mg/dL (2.4-5.1); Potassium 3.9 mMol/L (3.4-5.1); Sodium 141 mMol/L (136-145); Total Protein 5.6 gm/dL (5.7-8.2); eGFR > 60 See Note
[2025-05-17] MEDS: NAPH,KPH MBDB 1 PACKET (1.5 GM) PO ×2 (08:24→21:52)
[2025-05-17] MEDS: CALCIUM CARBONATE 600 MG TABLET PO ×2 (08:24→21:52)
[2025-05-17] MEDS: cefTRIAXone 2 GM in SODIUM CHLORIDE 0.9% (Popper) 50 ML IV (08:24)
--- NOTE | 2025-05-17 11:45 | PC.NURSE ---
notified Dr. Adkins of bladder scan, pt did urinate, but afterwards scan was reading 999+ mLs
--- NOTE | 2025-05-17 14:47 | XR_ITS ---
Examination: Ultrasound soft tissue neck TECHNIQUE: Grayscale sonographic images soft tissue neck Date and time: May 17, 2025 1526 hours INDICATIONS: Status post extubation discoloration swelling and neck today FINDINGS: 17 x 8 mm lymph node No soft tissue abscess or significant edema IMPRESSION: No soft tissue neck abscess or significant edema
--- NOTE | 2025-05-17 14:56 | ESPR_ITS ---
<Statement entered by Alicia Adkins MD - 05/17/25 17:32> Note reviewed, I agree with most of its contents and agree with the patient's care as documented by Dr. Soto. Patient examined at bedside, no overnight events. Complains of lower abdominal pain and unable to urinate. Yesterday zaman was removed with voiding trial in anticipation of discharge today. However, repeat bladder scan showed urine retention of 900cc. Placed straight cath. Will plan for bladder scan q4hr and to continue straight cath at SNF. Per neurology recommendations, okay to resume aspirin daily. Plan for discharge next 24hrs. The patient's management plan was discussed with my attending physician Dr. Lozano. Alicia Adkins, PGY-2 Documentation for date of: 05/17/25 Subjective Subjective Interval history: Ms. Adame is a 69-year-old woman with history of dyspepsia and GERD followed by Dr. Vasquez hypothyroidism restless leg hyperlipidemia hypertension bipolar and COPD not on home oxygen. She presents today because she fell at around 10 PM last night with head strike and she was unable to stand up her daughter came to see her this morning around 9 AM who found her soiled with vomit and stool soiling the patient. Daughter notes that the stool was dark in color no bright red blood. Emesis noted to be coffee ground. Daughter states her mother is more difficult to understand given slurred speech. She reported increased confusion and inability to ambulate due to right sided weakness. 05/11/2025: medicine team saw patient, while in the ED, consulted ICU for upgrade. pt will be admitted to ICU for septic shock of unknown source, GI bleed and stroke rule out, in house neurology consulted, pt was intubated. GI, Dr Vasquez was consulted for c/f upper gi bleed given coffee ground emesis 05/12/2025:Pt in ICU: Given 1 unit PRBC. Patient continues to be intubated, Dr. Vasquez performed EGD and noted a few small nonbleeding erosions that were found at the gastroesophageal junction. Biopsies were taken from the antrum and cardia distal esophagus and proximal esophagus no bleeding site seen in the duodenal bulb no esophageal varices no actual bleeding site seen throughout examination of the upper GI tract what was seen was a lot of coffee-ground material no fresh blood. tear in the body of the stomach appreciated/ Visualized a few nonbleeding erosions at the gastroesophageal junction, octreotide drip was stopped 05/13/2025:pt in ICU: extubated. continued on hi-flow and pressors. weaned off sedation, pt failed swallow eval. on Bipap for hypercapnia. 05/14/2025: pt downgraded from the ICU. pt seen and examined while in the ICU. pt passed swallow eval today and was started on diet. she continues to have melena stool, colonoscopy not indicated at this time, as stomach ulcerations are the suspected source of bleeding. PENDING brain MR (she cont to have slurring and RUE deficits, holding home psych medications given concern for masking focal deficits. Electrolyte derrangement today, repleted as indicated, f/u PM renal panel. Blood cultures negative x 48 hours. Given K-Phos 45 mmol IV x 1, calcium carbonate, 2 g magnesium sulfate IV, 1L lactated Ringer's IVF bolus. continues on abx for aspiration pnuemonia, cefepime (05/12- ) 05/15/2025: Patient seen and examined at bedside she is on bipap. MRI stroke was taken no evidence of stroke. Bilateral upper extremities 5 out of 5 strength lower extremities 5 out of 5 strength. After MRI patient was noted to have increased work of breathing placed on BiPAP. Restarted home psych medications given patient reported increased anxiety. Repleted electrolyte derangements of Phos, potassium, and magnesium. Referral for physical therapy, evaluated today. Hemoglobin 9.4. hypokalcemia and hypophosphatemia persists. holding anticoag given c/f upper gi bleed 05/17/2025 patient seen and examined at bedside. PTFlora was concerned that she had increased slurring and hoarseness, Neuro assessed patient. US head and neck without abscess or prominent edema in the neck. Started on ASA for suspected TIA, Hgb stable, pt reported inability to urinate and found to be retaining 900cc, straight cath done. plan to d/c tomorrow to snf with intermittent straight caths and bladder scans and outpatient urology follow up for urinary retention. Exam Vital Signs Temp Pulse Resp BP Pulse Ox O2 Del Method O2 Flow Rate 97.4 F 97 22 H 150/88 H 98 Nasal Cannula 1 05/17/25 12:00 05/17/25 13:30 05/17/25 13:18 05/17/25 12:00 05/17/25 13:18 05/17/25 12:00 05/17/25 13:18 FiO2 40 05/17/25 00:45 Narrative Exam GENERAL: general discomfort, AAO x3, sitting upright laying in bed with bipap mask on HEENT: small bruise on R cheek,, Mucous membranes dry. PERRL. NECK: Supple, midline anterior neck with red circular ?bruise (chronic per daughter) CARDIOVASCULAR: RRR. Normal S1/S2, No m/r/g. No pitting edema of bilateral LEs. RESPIRATORY: and congested upper airway sounds, prolonged expiratory phase and wheezing. GASTROINTESTINAL: Abdomen soft, distention, nontender to deep palpation , Bowel sounds present, no rebound or guarding, MUSCULOSKELETAL:? No cyanosis or edema, no visible joint swelling, BL feet are cold to touch, calfs are warmer to touch pedal pulses 2+ , scds in place NEUROLOGICAL: RUE 4+/5, LUE 4+/5 . Sensation intact, symmetric. poor hair preparer strength bilaterally., gait not assessed. c/o increased slured speech vs.hoarsness today) PSYCHIATRIC: Awake and alert, not agitated, normal mood and affect. SKIN: No obvious rashes, no jaundice, normal turgor BL knees with surgical incisions well healed. Objective Labs 05/17/25 05:12 05/17/25 05:12 Labs: Laboratory Results - last 24 hr 05/16/25 05/17/25 05:30 05:12 WBC 9.3 RBC 3.41 L Hgb 11.0 L Hct 32.7 L MCV 96 MCH 32.3 MCHC 33.6 RDW Std Deviation 51.1 H Plt Count 162 Neut % (Auto) 60 Lymph % (Auto) 16 [place] % (Auto) 7 Eos % (Auto) 2 Baso % (Auto) 1 Neut # (Auto) 5.6 Lymph # (Auto) 1.5 [place] # (Auto) 0.7 Eos # (Auto) 0.2 Baso # (Auto) 0.1 Immature Gran # (Auto) 1.32 H Absolute Nucleated RBC 0.00 Immature Gran % 14 H Nucleated RBC % 0 Smear Path Review Sent to Pathologist Sodium 141 Potassium 3.9 Chloride 104 Carbon Dioxide 26.4 Anion Gap 11 BUN 7 L Creatinine 0.6 Estim Creat Clear Calc 88.3 eGFR > 60 BUN/Creatinine Ratio 12 Glucose 94 Calculated Osmolality 279 Calcium 8.2 L Corrected Calcium 8.7 Phosphorus 4.1 Magnesium 2.0 Total Bilirubin 0.4 AST 22 ALT 29 Alkaline Phosphatase 75 Total Protein 5.6 L Albumin 3.4 Globulin 2.2 L Albumin/Globulin Ratio 1.5 ABG Interpretation ABG results: 05/11/25 05/11/25 05/11/25 17:19 20:27 22:35 ABG pH 7.24 L 7.18 L* 7.18 L* ABG pCO2 56 H 64 H 71 H* ABG pO2 136 H 51 L* D 30 L* D ABG HCO3 24 24 26 ABG O2 Saturation 99 H 75 L 43 L ABG Base Excess -4 L -6 L -4 L 05/11/25 05/12/25 05/13/25 22:56 04:50 05:55 ABG pH 7.30 L D 7.31 L 7.35 ABG pCO2 49 H D 50 H 48 ABG pO2 70 L D 64 L 81 L ABG HCO3 25 25 27 H ABG O2 Saturation 93 91 97 ABG Base Excess -2 -1 1 05/13/25 05/13/25 05/14/25 20:13 22:43 03:54 ABG pH 7.24 L D 7.30 L 7.34 L ABG pCO2 68 H D 60 H 57 H ABG pO2 69 L 59 L* 64 L ABG HCO3 29 H 29 H 30 H ABG O2 Saturation 92 90 L 93 ABG Base Excess 1 2 3 Quality Measures Quality Measures VTE prophylaxis (scds) Advance care planning discussed with:: patient Assessment & Plan Assessment Current Active Medications: Generic Name Dose Route Start Last Admin Trade Name Freq PRN Reason Stop Dose Admin Acetaminophen 650 mg 05/11/25 15:40 Acetaminophen 325 Mg Tablet PO 06/10/25 15:39 Q6HR PRN FEVER >101 Acetaminophen 650 mg 05/11/25 15:45 05/16/25 20:05 Acetaminophen 325 Mg Tablet PO 06/10/25 15:44 650 mg Q6HR PRN Administration HEADACHE Protocol Albuterol/Ipratropium 3 ml 05/14/25 13:00 05/17/25 13:17 Albuterol/Ipratropium (Duoneb) Rt Ninoska 3 Ml Nebu INH 06/13/25 12:59 3 ml Q6HRRT DUSTIN Administration Aripiprazole 30 mg 05/13/25 13:00 05/17/25 08:24 Aripiprazole 5 Mg Tablet PO 06/12/25 12:59 30 mg QDAY DUSTIN Administration Atorvastatin Calcium 80 mg 05/11/25 21:00 05/16/25 20:04 Atorvastatin Calcium 20 Mg Tablet PO 06/10/25 20:59 80 mg HS DUSTIN Administration Calcium Carbonate 600 mg 05/16/25 09:00 05/17/25 08:24 Calcium Carbonate 600 Mg Tablet PO 06/15/25 08:59 600 mg BID DUSTIN Administration Diazepam 5 mg 05/15/25 17:35 05/16/25 20:04 Diazepam 5 Mg Tablet PO 05/20/25 17:34 5 mg HS DUSTIN Administration Guaifenesin 200 mg 05/14/25 09:00 05/17/25 12:45 Guaifenesin Syrup 200 Mg/10 Ml Udc PO 06/13/25 08:59 200 mg QID DUSTIN Administration Protocol Ceftriaxone Sodium 2 gm/ 50 mls @ 100 mls/hr 05/14/25 16:00 05/17/25 08:24 Sodium Chloride IV 05/21/25 15:59 100 mls/hr QDAY DUSTIN Administration Ondansetron HCl 4 mg 05/11/25 11:44 05/11/25 14:16 Ondansetron Inj 2 Mg/Ml Inj 2 Ml IVP 06/10/25 11:43 4 mg Q4HR PRN Administration NAUSEA OR VOMITING Pantoprazole Sodium 40 mg 05/13/25 21:00 05/17/25 08:24 Pantoprazole Inj 40 Mg Vial IVP 06/12/25 20:59 40 mg BID DUSTIN Administration Potassium Phos/Sodium Phos 1 packet 05/16/25 09:15 05/17/25 08:24 Naph,[facility] 1 Packet (1.5 Gm) PO 06/15/25 09:14 1 packet BID DUSTIN Administration Risperidone 3 mg 05/15/25 17:35 05/16/25 20:03 Risperidone 1 Mg Tablet PO 06/14/25 17:34 3 mg HS DUSTIN Administration Plan Doris Adame is a 69-year-old F with a PMH of GERD, reported peptic ulcers, hypertension, hyperlipidemia, COPD not on home oxygen, recent head strike after fall, bipolar I disorder, and hypothyroidism who was BIBA for evaluation of stroke-like symptoms, coffee ground emesis, and melena found to have ulcerations of the GE junction on EGD with Dr. Vasquez, downgraded to floors from ICU. cont on abx for aspiration pneumonia, brain mri ruled out stoke suspect TIA. on asa and atorvastatin. pending likely d/c to snf tomorrow. ?TIA Per teleneurology consult, patient initially presented with marked right-sided deficits, no antigravity movement of right leg, drift of right arm, sensory changes, and dysarthria There is concern for left hemispheric stroke and, due to her persistent and pronounced hypotension, watershed infarcts cannot be ruled out Patient is outside therapeutic window for IV thrombolytics (last known well time exceeds 4.5+ hours) However, on this 's 05/11 physical exam, she did not seem to be displaying any persistent focal neurological deficits except for dysarthria Today patient has some dysarthria s/p extubation. May be due to possible stroke or trauma to vocal cords. DDx: hypotension syncope 2/2 hemorrhagic shock, fall-related head trauma initially 2/2 adverse medication effect or vasovagal/orthostatic syncope vs mechanical fall Dx: -Head CT was negative for acute hemorrhage, mass effect, or midline shift -Head/neck CTA showed no significant neck arterial stenoses or cerebral large vessel arterial occlusions or thrombus -MRI brain negative stroke - right sided deficits have resolved. - US head and neck without abscess or significant edema (r/o structural etiology of hoarseness) Rx: - ASA 81 qd - Atorvastatin 80 qhs -Inhouse neuro consulted, appreciate recs : ok to d/c from neuro perspective Urinary retention pt continues to report that she has the urge to urinate but unable to , has had bladder scans with up to 900 cc retained. will cont with intermittent cath at this time. pt will be d/c to SNF where they can perform intermittent caths as needed - bladder scans prn - intermittent cath qidprn - f/u outpatient with urology Acute blood loss anemia?hgb stable Nonbleeding ulcers at GE junction Of note, per GI, patient previously underwent colonoscopy (04/2022) showing diverticulosis, hemorrhoids, and melanosis coli. EGD (04/2022) revealed GERD with esophagitis, bile gastritis, and acute gastritis; pathology was negative for H. pylori, intestinal metaplasia, microscopic colitis, or dysplasia Currently believe blood loss that had occurred is from an episode of bleeding after the patient fell which has since resolved DDx: PUD, upper GI bleed vs. lower GI bleed (favor upper GI bleed, no active bleed seen on egd), pt continues to have melena stools) Dx: -05/12 upper endoscopy revealed lots of coffee-ground material in the proximal body of the stomach but did not show any active sites of bleeding or esophageal varices -f/u egd biopsy results Rx: -avoid nsaids -Transfuse pRBCs if Hgb<7 -Continue Protonix 40mg IV BID Acute hypoxic hypercapnic respiratory failure likely 2/2 ?resolving Aspiration pneumonia COPD Chronic respiratory acidosis Patient initially presented with acute hypoxic hypercapnic respiratory failure, was intubated, now extubated, satting well. Currently suspect the above was 2/2 pneumonia in the setting of impaired lung function from COPD and chronic history of smoking DDx: Aspiration pneumonia vs CAP Dx: -Chest x-ray was suspicious for mild left base aspiration pneumonia -05/13 CXR today shows bibasilar pneumonia and moderate enlargement of the left ventricle Rx: - Duonebs q6HR - Chest physiotherapy ? Guaifenesin 200 mg p.o. 4 times daily - BiPAP PRN - d/c IV cefepime 2 gm qD (started 05/12- 05/14) - Ceftriaxone 2gm qd ( 05/14- ) pt has penecillin allergy on day 6 of 7 Electrolyte Derrangements - resolved - daily cmp - replete as indicated - calcium carbonate BID Hypertension Dx: well controlled while inpatient Rx: -Holding antihypertensive medications in the setting of low blood pressure Bipolar I disorder anxiety Reported by daughter and chart review Well-controlled per daughter Rx: - restart aripiprazole and risperidone - restart home diazapam 5mg qhs ? Pleural mass on CT Dx: Pleural mass seen on CT chest abdomen pelvis Rx: Recommend outpatient biopsy Chronic tobacco smoking reports smoking 5-7 cig - provide smoking cessation info upon discharge - consider nicotine patches if cravings increase Dispo:stroke ruled out, suspect tia, ongoing repletion of electrolytes, started asa, likely d/c tomorrow Diet: dysphagia 2 mech alteration DVT ppx: SCDs GI ppx: Protonix 40mg IV BID Code status: FULL CODE Plan discussed with Dr. Adkins, and Dr. Blake Soto MD PGY1 Attending Provider Attestation/Addendum I have discussed and was present for the essential components of the history, physical examination, diagnosis, and treatment plan with the resident. I agree with the patient's care as documented by the resident and amended herein by me. Christofer Lozano DO. Although this document has been carefully reviewed, there may still be some phonetic and other typographical errors. These errors are purely grammatical due to imperfections in the software program and should not be construed in any way to compromise the substance of the patient's medical care during this visit. Patient seen and evaluated this AM. No acute events overnight, this morning to set up bedside visit patient appeared to be slurring her words which was more pronounced, than in previous days however the patient apparently did slur her words earlier in her admission. As such, I will have neuro evaluate the patient prior to discharge which will probably occur tomorrow. Will continue aspirin and statin and BladderScan the patient, as the patient and I suspect is retaining urine, may need scheduled straight catheterizations until urology follow-up can be obtained in the outpatient setting. Will continue to monitor closely while she is here.
--- NOTE | 2025-05-17 15:10 | PC.SS ---
SS follow up note; Neuro Rec's pending. Patient will possibly discharge to [facility] tomorrow.
--- NOTE | 2025-05-17 16:02 | ESPR_ITS ---
Documentation for date of: 05/17/25 Subjective Subjective Interval history: Patient was seen and examined at the bedside. Patient was found to have new onset slurred speech which seems to be improving when patient is interacting and talking for a couple of minutes associated with mild hoarseness and redness over her neck with ecchymosis on the side of the neck. Patient reported that she does have choking with drinking water which was not appreciated while she was drinking water. She denied any pain while swallowing. She reported improvement in her symptoms with nebulization treatment. We recommended to perform CT soft tissue neck to evaluate laryngeal swelling and racemic epinephrine nebulization to see if it helps with symptoms. She continues to be alert and oriented x 2. No other focal neurological deficits seen. Exam Vital Signs Temp Pulse Resp BP Pulse Ox O2 Del Method O2 Flow Rate 97.4 F 97 22 H 150/88 H 98 Nasal Cannula 1 05/17/25 12:00 05/17/25 13:30 05/17/25 13:18 05/17/25 12:00 05/17/25 13:18 05/17/25 12:00 05/17/25 13:18 FiO2 40 05/17/25 00:45 Narrative Exam GENERAL APPEARANCE: AxOx4, generally well-appearing female seen on room air HEENT: NC, AT. MMM. EOMI, clear conjunctiva, oropharynx clear. NECK: Supple without lymphadenopathy. No stiffness or restricted ROM. HEART: Normal rate and regular rhythm, normal S1/S2, no m/r/g LUNGS: CTAB, moving air well. No crackles or wheezes are heard. ABDOMEN: Soft, nontender, nondistended with good bowel sounds heard. BACK: No CVAT, no obvious deformity. EXTREMITIES: Without cyanosis, clubbing or edema. NEUROLOGICAL: Grossly nonfocal. Alert and oriented, moving all 4 extremities. CN not formally tested but appear grossly intact. Observed to ambulate with normal gait. Skin: Warm and dry without any rash. Psych: approrpiate mood and affect Objective Labs 05/17/25 05:12 05/17/25 05:12 Labs: Laboratory Results - last 24 hr 05/16/25 05/17/25 05:30 05:12 WBC 9.3 RBC 3.41 L Hgb 11.0 L Hct 32.7 L MCV 96 MCH 32.3 MCHC 33.6 RDW Std Deviation 51.1 H Plt Count 162 Neut % (Auto) 60 Lymph % (Auto) 16 [place] % (Auto) 7 Eos % (Auto) 2 Baso % (Auto) 1 Neut # (Auto) 5.6 Lymph # (Auto) 1.5 [place] # (Auto) 0.7 Eos # (Auto) 0.2 Baso # (Auto) 0.1 Immature Gran # (Auto) 1.32 H Absolute Nucleated RBC 0.00 Immature Gran % 14 H Nucleated RBC % 0 Smear Path Review Sent to Pathologist Sodium 141 Potassium 3.9 Chloride 104 Carbon Dioxide 26.4 Anion Gap 11 BUN 7 L Creatinine 0.6 Estim Creat Clear Calc 88.3 eGFR > 60 BUN/Creatinine Ratio 12 Glucose 94 Calculated Osmolality 279 Calcium 8.2 L Corrected Calcium 8.7 Phosphorus 4.1 Magnesium 2.0 Total Bilirubin 0.4 AST 22 ALT 29 Alkaline Phosphatase 75 Total Protein 5.6 L Albumin 3.4 Globulin 2.2 L Albumin/Globulin Ratio 1.5 ABG Interpretation ABG results: 05/11/25 05/11/25 05/11/25 17:19 20:27 22:35 ABG pH 7.24 L 7.18 L* 7.18 L* ABG pCO2 56 H 64 H 71 H* ABG pO2 136 H 51 L* D 30 L* D ABG HCO3 24 24 26 ABG O2 Saturation 99 H 75 L 43 L ABG Base Excess -4 L -6 L -4 L 05/11/25 05/12/25 05/13/25 22:56 04:50 05:55 ABG pH 7.30 L D 7.31 L 7.35 ABG pCO2 49 H D 50 H 48 ABG pO2 70 L D 64 L 81 L ABG HCO3 25 25 27 H ABG O2 Saturation 93 91 97 ABG Base Excess -2 -1 1 05/13/25 05/13/25 05/14/25 20:13 22:43 03:54 ABG pH 7.24 L D 7.30 L 7.34 L ABG pCO2 68 H D 60 H 57 H ABG pO2 69 L 59 L* 64 L ABG HCO3 29 H 29 H 30 H ABG O2 Saturation 92 90 L 93 ABG Base Excess 1 2 3 Quality Measures Quality Measures VTE prophylaxis (scds) Advance care planning discussed with:: other Assessment & Plan Assessment Current Active Medications: Generic Name Dose Route Start Last Admin Trade Name Theresa PRN Reason Stop Dose Admin Acetaminophen 650 mg 05/11/25 15:40 Acetaminophen 325 Mg Tablet PO 06/10/25 15:39 Q6HR PRN FEVER >101 Acetaminophen 650 mg 05/11/25 15:45 05/16/25 20:05 Acetaminophen 325 Mg Tablet PO 06/10/25 15:44 650 mg Q6HR PRN Administration HEADACHE Protocol Albuterol/Ipratropium 3 ml 05/14/25 13:00 05/17/25 13:17 Albuterol/Ipratropium (Duoneb) Rt Ninoska 3 Ml Nebu INH 06/13/25 12:59 3 ml Q6HRRT DUSTIN Administration Aripiprazole 30 mg 05/13/25 13:00 05/17/25 08:24 Aripiprazole 5 Mg Tablet PO 06/12/25 12:59 30 mg QDAY DUSTIN Administration Atorvastatin Calcium 80 mg 05/11/25 21:00 05/16/25 20:04 Atorvastatin Calcium 20 Mg Tablet PO 06/10/25 20:59 80 mg HS DUSTIN Administration Calcium Carbonate 600 mg 05/16/25 09:00 05/17/25 08:24 Calcium Carbonate 600 Mg Tablet PO 06/15/25 08:59 600 mg BID DUSTIN Administration Diazepam 5 mg 05/15/25 17:35 05/16/25 20:04 Diazepam 5 Mg Tablet PO 05/20/25 17:34 5 mg HS DUSTIN Administration Guaifenesin 200 mg 05/14/25 09:00 05/17/25 12:45 Guaifenesin Syrup 200 Mg/10 Ml Udc PO 06/13/25 08:59 200 mg QID DUSTIN Administration Protocol Ceftriaxone Sodium 2 gm/ 50 mls @ 100 mls/hr 05/14/25 16:00 05/17/25 08:24 Sodium Chloride IV 05/21/25 15:59 100 mls/hr QDAY DUSTIN Administration Ondansetron HCl 4 mg 05/11/25 11:44 05/11/25 14:16 Ondansetron Inj 2 Mg/Ml Inj 2 Ml IVP 06/10/25 11:43 4 mg Q4HR PRN Administration NAUSEA OR VOMITING Pantoprazole Sodium 40 mg 05/13/25 21:00 05/17/25 08:24 Pantoprazole Inj 40 Mg Vial IVP 06/12/25 20:59 40 mg BID UDSTIN Administration Potassium Phos/Sodium Phos 1 packet 05/16/25 09:15 05/17/25 08:24 Naph,[facility] Mbdb 1 Packet (1.5 Gm) PO 06/15/25 09:14 1 packet BID DUSTIN Administration Risperidone 3 mg 05/15/25 17:35 05/16/25 20:03 Risperidone 1 Mg Tablet PO 06/14/25 17:34 3 mg HS DUSTIN Administration Plan This patient is a 69-year-old female with past medical history of GERD, hypertension, hyperlipidemia, bipolar 1 disorder and COPD was admitted to ICU for shock and GI bleed. Stroke has been ruled out. #Acute CVA, ruled out #Mild hoarseness possible laryngeal pathology Patient was found to have slurring and right upper extremity deficit. Patient's presentationpossibly related to shock from global hypoperfusion. Head CT and head and neck CTA was negative MRI brain showed no acute infarct. Only moderate chronic microvascular changes were seen. 05/17/25: Patient was found to have new onset slurred speech which seems to be improving when patient is interacting and talking for a couple of minutes associated with mild hoarseness and redness over her neck with ecchymosis on the side of the neck. Patient reported that she does have choking with drinking water which was not appreciated while she was drinking water. She denied any pain while swallowing. She reported improvement in her symptoms with nebulization treatment. She continues to be alert and oriented x 2. No other focal neurological deficits seen. Plan: We recommended to perform CT soft tissue neck to evaluate laryngeal swelling and racemic epinephrine nebulization to see if it helps with symptoms. No need of repeat CT brain without contrast Continue atorvastatin 80 mg at bedtime Continue to hold off antiplatelets due to concern for hemorrhagic shock secondary to GI bleed BiPAP as needed Aspiration precautions #Bipolar 1 disorder -History of bipolar disorder per patient's daughter and chart review Plan: Continue aripiprazole and risperidone #Hypovolemic shock #Acute blood loss anemia,resolved #Nonbleeding ulcer at GE junction #Acute hypoxic hypercapnic respiratory failure due to pneumonia #History of COPD #Transaminitis #Aspiration pneumonia #Hypertension #electrolyte derangements #Hypophosphatemia #Hypocalcemia #Hypokalemia #Pleural mass on CT #Chronic tobacco smoking Management as per primary care team. Plan of care discussed with neurologist, Dr Haley Dumont MD, PGY 3
[2025-05-17] MEDS: ASPIRIN EC 81 MG TABEC PO (18:01)
[2025-05-17] MEDS: DIAZEPAM 5 MG TABLET PO (21:52)
[2025-05-17] MEDS: ATORVASTATIN CALCIUM 20 MG TABLET 80 MG PO (21:52)
--- NOTE | 2025-05-17 22:07 | ESPR_ITS ---
Documentation for date of: 05/17/25 Subjective Subjective Interval history: Likely stable hemoglobin hematocrit at 11.0 and 32.7 Exam Vital Signs Temp Pulse Resp BP Pulse Ox O2 Del Method O2 Flow Rate 97.2 F 86 16 153/90 H 95 Nasal Cannula 1 05/17/25 20:00 05/17/25 20:00 05/17/25 20:00 05/17/25 20:00 05/17/25 20:00 05/17/25 20:00 05/17/25 19:55 FiO2 40 05/17/25 00:45 Objective Labs 05/17/25 05:12 05/17/25 05:12 Labs: Laboratory Results - last 24 hr 05/17/25 05:12 WBC 9.3 RBC 3.41 L Hgb 11.0 L Hct 32.7 L MCV 96 MCH 32.3 MCHC 33.6 RDW Std Deviation 51.1 H Plt Count 162 Neut % (Auto) 60 Lymph % (Auto) 16 [place] % (Auto) 7 Eos % (Auto) 2 Baso % (Auto) 1 Neut # (Auto) 5.6 Lymph # (Auto) 1.5 [place] # (Auto) 0.7 Eos # (Auto) 0.2 Baso # (Auto) 0.1 Immature Gran # (Auto) 1.32 H Absolute Nucleated RBC 0.00 Immature Gran % 14 H Nucleated RBC % 0 Sodium 141 Potassium 3.9 Chloride 104 Carbon Dioxide 26.4 Anion Gap 11 BUN 7 L Creatinine 0.6 Estim Creat Clear Calc 88.3 eGFR > 60 BUN/Creatinine Ratio 12 Glucose 94 Calculated Osmolality 279 Calcium 8.2 L Corrected Calcium 8.7 Phosphorus 4.1 Magnesium 2.0 Total Bilirubin 0.4 AST 22 ALT 29 Alkaline Phosphatase 75 Total Protein 5.6 L Albumin 3.4 Globulin 2.2 L Albumin/Globulin Ratio 1.5 Impressions Impression: Upper GI bleed relatively stable hemoglobin hematocrit No need for a repeat endoscopy at this point ABG Interpretation ABG results: 05/11/25 05/11/25 05/11/25 17:19 20:27 22:35 ABG pH 7.24 L 7.18 L* 7.18 L* ABG pCO2 56 H 64 H 71 H* ABG pO2 136 H 51 L* D 30 L* D ABG HCO3 24 24 26 ABG O2 Saturation 99 H 75 L 43 L ABG Base Excess -4 L -6 L -4 L 05/11/25 05/12/25 05/13/25 22:56 04:50 05:55 ABG pH 7.30 L D 7.31 L 7.35 ABG pCO2 49 H D 50 H 48 ABG pO2 70 L D 64 L 81 L ABG HCO3 25 25 27 H ABG O2 Saturation 93 91 97 ABG Base Excess -2 -1 1 05/13/25 05/13/25 05/14/25 20:13 22:43 03:54 ABG pH 7.24 L D 7.30 L 7.34 L ABG pCO2 68 H D 60 H 57 H ABG pO2 69 L 59 L* 64 L ABG HCO3 29 H 29 H 30 H ABG O2 Saturation 92 90 L 93 ABG Base Excess 1 2 3 Assessment & Plan Time Spent With Patient Time: Total time spent is greater than 50% in coordination of care (as documented) at patient's floor/unit and/or counseling patient:
[2025-05-18] VITALS (10 sets, daily range): BP systolic 129–153; BP diastolic 76–85; PULSE 73–102; RESP 16–26; TEMP 36.2–36.6; O2SAT 94–100
[2025-05-18] MEDS: ALBUTEROL/IPRATROPIUM (Duoneb) RT SOL 3 ML NEBU INH ×3 (01:12→13:33)
[2025-05-18] MEDS: guaiFENesin SYRUP 200 MG/10 ML UDC PO ×2 (06:06→12:29)
[2025-05-18] MEDS: cefTRIAXone 2 GM in SODIUM CHLORIDE 0.9% (Popper) 50 ML IV (08:18)
[2025-05-18] MEDS: NAPH,KPH MBDB 1 PACKET (1.5 GM) PO (08:19)
[2025-05-18] MEDS: ASPIRIN EC 81 MG TABEC PO (08:19)
[2025-05-18] MEDS: CALCIUM CARBONATE 600 MG TABLET PO (08:19)
[2025-05-18 09:26] LABS: Basophils # (Auto) 0.1 Thou/mm3 (0.0-0.2); Basophils % (Auto) 1 % (0-2.5); Eosinophils # (Auto) 0.2 Thou/mm3 (0.0-0.5); Eosinophils % (Auto) 2 % (0-10); Hematocrit 31.6 % (36.0-46.0); Hemoglobin 10.6 g/dL (12.0-16.0); Immature Granulocytes Auto 0.87 Thou/mm3 (0.00-0.00); Lymphocytes # (Auto) 1.4 Thou/mm3 (1.0-4.8); Lymphocytes % (Auto) 17 % (10-50); Mean Corpuscular HGB Conc 33.5 g/dl (31.0-37.0); Mean Corpuscular Hemoglobin 31.2 pg (25.0-35.0); Mean Corpuscular Volume 93 fL (80-100); Monocytes # (Auto) 0.4 Thou/mm3 (0.0-0.8); Monocytes % (Auto) 5 % (0-12); Neutrophils # (Auto) 5.5 Thou/mm3 (1.8-7.7); Neutrophils % (Auto) 65 % (37-80); Nucleated Red Blood Cell # 0.00 Thou/mm3 (0.00-0.00); Nucleated Red Blood Cell % 0 /100 WBC (0); Platelet Count 225 Thou/mm3 (140-440); RDW Standard Deviation 49.1 fL (36.4-46.3); Red Blood Count 3.40 Miln/mm3 (4.00-5.20); White Blood Count 8.5 Thou/mm3 (3.6-11.0)
[2025-05-18 09:49] LABS: Alanine Aminotransferase 29 U/L (10-49); Albumin, Serum 3.5 gm/dL (3.4-4.8); Albumin/Globulin Ratio 1.6 (1.2-2.2); Alkaline Phosphatase 82 U/L (46-116); Anion Gap 11 (7-16); Aspartate Amino Transferase 27 U/L (0-34); BUN/Creatinine Ratio 15 Ratio (12-20); Bilirubin,Total 0.5 mg/dL (0.3-1.2); Blood Urea Nitrogen 9 mg/dL (9-23); Calcium 8.7 mg/dL (8.3-10.6); Calcium (Corrected) 9.1 mg/dL (8.5-10.1); Carbon Dioxide 25.7 mMol/L (20.0-31.0); Chloride 102 mMol/L (98-107); Creatinine (Component) 0.6 mg/dL (0.6-1.3); Estimated Creatinine Clearance 86.4 mL/min (>60); Globulin 2.2 gm/dL (2.3-3.5); Glucose 151 mg/dL (74-106); Magnesium 1.5 mg/dL (1.6-2.6); Osmolality,Calculated 279 (275-295); Phosphorous 3.8 mg/dL (2.4-5.1); Potassium 3.6 mMol/L (3.4-5.1); Sodium 139 mMol/L (136-145); Total Protein 5.7 gm/dL (5.7-8.2); eGFR > 60 See Note
--- NOTE | 2025-05-18 12:04 | ESDS_ITS ---
<Statement entered by Ana Paula De Leon MD - 05/20/25 11:21> I discussed with and supervised the consulting intern physician who took care of this patient. I personally saw and examined the patient and discussed the assessment and plan with the entire medicine team, including my attending Dr. Lozano, I agree with most of the assessment and plan as documented below Ana Paula De Leon M.D. PGY-3 Planned Discharge Date 05/18/25 DS: Providers Provider Date of admission: 05/11/25 15:37 Primary care physician: Physician No Primary/Family Admitting Provider: German Forman MD Attending Provider on Admission: German Forman MD Consults: 05/11/25 11:44 Consult to Neurology / Tele-Neurology Routine Comment: Consulting Provider: [facility] 05/11/25 14:57 Consult to Gastroenterology Stat Comment: coffee ground emesis and melena Consulting Provider: iMchael Vasquez 05/11/25 15:00 Referral Physical Therapy Routine Comment: Physician Instructions: Instructions: stroke rule out, fall with headstrike Referral Speech Therapy Routine Comment: 05/11/25 15:37 Consult to Neurology / Tele-Neurology Stat Comment: Consulting Provider: Abhilash De Leon 05/11/25 20:44 Referral Registered Dietitian Routine Comment: Instructions: trickle feeds to start per GI recs 05/14/25 08:46 Referral Speech Therapy Routine Comment: 05/14/25 08:47 Referral Physical Therapy Routine Comment: Physician Instructions: Attending Provider on DC: Dr. Blake BAIRES Discharging Provider: Dr. Blake BAIRES DS: Diagnosis Problem List Completed Was Problem List Reviewed/Reconciled?: Yes Hospital Course Hospital Course Hospital course: Reason for Admission Stroke-like symptoms, hematemesis. Hospital Course Ms Adame is a 69-year-old woman with a past medical history of GERD, peptic ulcer disease, hypertension, hyperlipidemia, COPD (not on home oxygen), bipolar disorder, and hypothyroidism, who was brought in by ambulance after a fall with head strike and new-onset stroke-like symptoms. She was noted to have slurred speech, coffee-ground emesis and melena upon arrival. Given concern for inability to protect her airway she required intubation, thus was admitted to the ICU. She underwent esophagogastroduodenoscopy (EGD) with Dr. Vasquez (Gastroenterology), which demonstrated ulcerations at the gastroesophageal junction with coffee-ground material in the proximal stomach, without active bleeding or evidence of esophageal varices. Hemoglobin remained stable, and no transfusion was required. Her acute blood loss anemia was attributed to upper GI bleeding from ulcerations. For stroke evaluation, CT head was negative for acute hemorrhage, mass effect, or midline shift. CTA head and neck demonstrated no significant stenosis, large vessel occlusion, or thrombus. MRI brain was negative for acute infarct. Neurology was consulted and suspected transient ischemic attack (TIA) given her initial lower extremity weakness, which subsequently resolved. She was started on aspirin 81 mg daily and atorvastatin 80 mg nightly. . She was treated for suspected aspiration pneumonia given she had emesis with AMS requiring intubation. She was treated with IV cefepime for 2 days, then transitioned to ceftriaxone to complete a 7-day total course. She improved clinically and remained afebrile and stable. The patient also developed urinary retention, with bladder scans showing >900 mL retained. She required intermittent catheterization throughout her hospitalization. At the time of discharge, she was stable, tolerating diet, and with resolved right-sided deficits. Given gait instability and need for continued support, she was discharged to a custodial facility. Pertinent Labs/Studies * CT head: No acute hemorrhage, mass effect, or midline shift * CTA head/neck: No significant stenosis or large vessel occlusion * MRI brain: Negative for stroke * EGD: Ulcerations at GE junction with coffee-ground material in stomach, no active bleeding * Hemoglobin: Stable Discharge Medications * Aspirin 81 mg PO daily * Atorvastatin 80 mg PO nightly * Continue home medications for hypertension, hypothyroidism, COPD, and bipolar disorder as appropriate Follow-Up / Recommendations * Urology: Outpatient evaluation for bladder training and management of urinary retention, continue intermittent straight cath as needed, cath for >300cc on bladder scan. at least twice a day. * Primary care physician: Within 1?2 weeks after discharge * Monitor for recurrent GI bleeding, neurologic symptoms, or urinary retention Condition on Discharge Stable, ambulating with assistance FWW, neurologically intact, hemodynamically stable, safe for discharge. Disposition Discharged to custodial facility for rehabilitation and continued care. Plan discussed with Dr De Leon, and Dr. Blake Soto MD PGY1 Time Spent with Patient Time attestation: Total time spent providing and/or coordinating discharge services: Time spent: Greater than 30 minutes Exam Vital Signs Temp Pulse Resp BP Pulse Ox O2 Del Method O2 Flow Rate 97.2 F 102 H 18 153/84 H 94 L Nasal Cannula 1 05/18/25 07:56 05/18/25 10:15 05/18/25 07:56 05/18/25 07:56 05/18/25 07:56 05/18/25 07:56 05/18/25 06:33 FiO2 40 05/18/25 04:00 Narrative Exam GENERAL: general discomfort, AAO x3, sitting upright laying in bed HEENT: small bruise on R cheek,, Mucous membranes dry. PERRL. NECK: Supple, midline anterior neck with red circular ?bruise (chronic per daughter) lateral neck contusions violacious CARDIOVASCULAR: RRR. Normal S1/S2, No m/r/g. No pitting edema of bilateral LEs. RESPIRATORY: and congested upper airway sounds, prolonged expiratory phase and wheezing. GASTROINTESTINAL: Abdomen soft, distention, nontender to deep palpation , Bowel sounds present, no rebound or guarding, MUSCULOSKELETAL:? No cyanosis or edema, no visible joint swelling, BL feet are cold to touch, calfs are warmer to touch pedal pulses 2+ , scds in place NEUROLOGICAL: RUE 5/5, LUE 5/5 . Sensation intact, symmetric. PSYCHIATRIC: Awake and alert, not agitated, normal mood and affect. SKIN: No obvious rashes, no jaundice, normal turgor BL knees with surgical incisions well healed. Discharge Plan Plan Patient Disposition: Xfer Skilled Nsg Fac (SNF) [facility] Patient condition on transfer: Stable Prescriptions/Referrals Prescriptions/Med Rec: New aspirin 81 mg capsule 81 mg PO QDAY Qty: 30 0RF atorvastatin 80 mg tablet 80 mg PO QDAY 30 Days Qty: 30 0RF Continued albuterol sulfate [Ventolin HFA] 90 mcg/actuation HFA aerosol inhaler 2 puff INH QID PRN (Reason: Shortness Of Breath Or Wheezing) levothyroxine [Synthroid] 50 mcg tablet 75 mcg PO QDAY aripiprazole [Abilify] 30 mg tablet 15 mg PO QDAY diazepam [Valium] 10 mg tablet 5 mg PO QDAY carvedilol [Coreg] 3.125 MG tablet 3.125 mg PO BID Qty: 0 venlafaxine [Effexor XR] 150 mg capsule,extended release 24hr 300 mg PO QDAY lisinopril 20 mg tablet 20 mg PO DAILY Qty: 0 risperidone 3 mg Tablet 0.5 mg PO HS ferrous sulfate 325 mg (65 mg iron) Tablet 325 mg PO QDAY gemfibrozil 600 mg tablet 1 tab PO BID dicyclomine 10 mg capsule 50 mg PO TID diazepam 10 mg tablet 20 mg PO .Qhs loperamide 2 mg capsule 2 mg PO BID Changed omeprazole 40 mg Capsule,Delayed Release(Dr/Ec) 40 mg PO BID 30 Days Qty: 60 0RF Referrals: No Primary/Family,Physician [Primary Care Provider] Patient/Caregiver Discharge Instructions Other Discharge Activity Instructions:: Continue antibiotics as prescribed for treatment of pneumonia. Continue taking aspirin daily as stroke prevention. Resume previous medications. Continue intermittent caths at least twice a day for patient. Follow up with PCP in 1 week. Education Materials: Bleeding Gastrointestinal, Discharge Instructions for Stroke, Discharge Instructions for ... Print Language: Lithuanian Stand Alone Forms: Chelsie Award Info., Patient Portal Info Letter Discharge Order Discharge Orders: Discharge (Routine); Ordered 05/18/25 Ordered By: Alicia Adkins Quality Discharge Quality Measures VTE prophylaxis Attestestation Attestation I have discussed and was present for the essential components of the discharge history, physical examination, diagnosis, and discharge treatment plan with the resident. I agree with the patient's discharge care as documented by the resident and amended herein by me. Christofer Lozano DO. The patient understood all discharge instructions, all questions were answered satisfactorily. The patient was instructed to return to the Emergency Department is symptoms worsened or persisted. Although this document has been carefully reviewed, there may still be some phonetic and other typographical errors. These errors are purely grammatical due to imperfections in the software program and should not be construed in any way to compromise the substance of the patient's medical care during this visit.
--- NOTE | 2025-05-18 13:14 | PC.SS ---
Addendum entered by Bren Johnson 05/18/25 14:02: SS follow up note; SS was contacted by [facility] who provided ETA for 1700. SS contacted patient's daughter, Lamonte to update her as well as patient's nurse and Bryanna from [facility]. SS will stand by for further needs. Original Note: SS follow up note; Patient does not have coverage through [facility]. SS contacted [facility] [facility] and they informed SS they would call back with ETA. SS will stand by for further needs.
--- NOTE | 2025-05-18 15:00 | PD.RESPRO ---
Documentation for date of: 05/18/25 Subjective Subjective Interval history: Patient was seen and examined at the bedside. No acute overnight events reported. Soft tissue neck ultrasound did not reveal any abscess and only showed lymph node enlargement mild. Patient seems to be improving with nebulization treatment. Patient can be safely discharged on aspirin and atorvastatin from neurology standpoint. Exam Vital Signs Temp Pulse Resp BP Pulse Ox O2 Del Method O2 Flow Rate 97.7 F 102 H 18 149/83 H 100 Nasal Cannula 1 05/18/25 12:00 05/18/25 13:34 05/18/25 13:34 05/18/25 12:00 05/18/25 13:34 05/18/25 12:00 05/18/25 12:00 FiO2 40 05/18/25 04:00 Narrative Exam GENERAL APPEARANCE: AxOx4, generally well-appearing female seen on room air HEENT: NC, AT. MMM. EOMI, clear conjunctiva, oropharynx clear. NECK: Supple without lymphadenopathy. No stiffness or restricted ROM. HEART: Normal rate and regular rhythm, normal S1/S2, no m/r/g LUNGS: CTAB, moving air well. No crackles or wheezes are heard. ABDOMEN: Soft, nontender, nondistended with good bowel sounds heard. BACK: No CVAT, no obvious deformity. EXTREMITIES: Without cyanosis, clubbing or edema. NEUROLOGICAL: Grossly nonfocal. Alert and oriented, moving all 4 extremities. CN not formally tested but appear grossly intact. Observed to ambulate with normal gait. Skin: Warm and dry without any rash. Psych: approrpiate mood and affect Objective Labs 05/18/25 08:45 05/18/25 08:45 Labs: Laboratory Results - last 24 hr 05/18/25 08:45 WBC 8.5 RBC 3.40 L Hgb 10.6 L Hct 31.6 L MCV 93 MCH 31.2 MCHC 33.5 RDW Std Deviation 49.1 H Plt Count 225 D Neut % (Auto) 65 Lymph % (Auto) 17 [place] % (Auto) 5 Eos % (Auto) 2 Baso % (Auto) 1 Neut # (Auto) 5.5 Lymph # (Auto) 1.4 [place] # (Auto) 0.4 Eos # (Auto) 0.2 Baso # (Auto) 0.1 Immature Gran # (Auto) 0.87 H Absolute Nucleated RBC 0.00 Immature Gran % 10 H Nucleated RBC % 0 Sodium 139 Potassium 3.6 Chloride 102 Carbon Dioxide 25.7 Anion Gap 11 BUN 9 Creatinine 0.6 Estim Creat Clear Calc 86.4 eGFR > 60 BUN/Creatinine Ratio 15 Glucose 151 H D Calculated Osmolality 279 Calcium 8.7 Corrected Calcium 9.1 Phosphorus 3.8 Magnesium 1.5 L Total Bilirubin 0.5 AST 27 ALT 29 Alkaline Phosphatase 82 Total Protein 5.7 Albumin 3.5 Globulin 2.2 L Albumin/Globulin Ratio 1.6 ABG Interpretation ABG results: 05/11/25 05/11/25 05/11/25 17:19 20:27 22:35 ABG pH 7.24 L 7.18 L* 7.18 L* ABG pCO2 56 H 64 H 71 H* ABG pO2 136 H 51 L* D 30 L* D ABG HCO3 24 24 26 ABG O2 Saturation 99 H 75 L 43 L ABG Base Excess -4 L -6 L -4 L 05/11/25 05/12/25 05/13/25 22:56 04:50 05:55 ABG pH 7.30 L D 7.31 L 7.35 ABG pCO2 49 H D 50 H 48 ABG pO2 70 L D 64 L 81 L ABG HCO3 25 25 27 H ABG O2 Saturation 93 91 97 ABG Base Excess -2 -1 1 05/13/25 05/13/25 05/14/25 20:13 22:43 03:54 ABG pH 7.24 L D 7.30 L 7.34 L ABG pCO2 68 H D 60 H 57 H ABG pO2 69 L 59 L* 64 L ABG HCO3 29 H 29 H 30 H ABG O2 Saturation 92 90 L 93 ABG Base Excess 1 2 3 Quality Measures Quality Measures VTE prophylaxis (scds) Advance care planning discussed with:: other Assessment & Plan Assessment Current Active Medications: Generic Name Dose Route Start Last Admin Trade Name Freq PRN Reason Stop Dose Admin Acetaminophen 650 mg 05/11/25 15:40 Acetaminophen 325 Mg Tablet PO 06/10/25 15:39 Q6HR PRN FEVER >101 Acetaminophen 650 mg 05/11/25 15:45 05/16/25 20:05 Acetaminophen 325 Mg Tablet PO 06/10/25 15:44 650 mg Q6HR PRN Administration HEADACHE Protocol Albuterol/Ipratropium 3 ml 05/14/25 13:00 05/18/25 13:33 Albuterol/Ipratropium (Duoneb) Rt Ninoska 3 Ml Nebu INH 06/13/25 12:59 3 ml Q6HRRT DUSTIN Administration Aripiprazole 30 mg 05/13/25 13:00 05/18/25 08:19 Aripiprazole 5 Mg Tablet PO 06/12/25 12:59 30 mg QDAY DUSTIN Administration Aspirin 81 mg 05/17/25 16:15 05/18/25 08:19 Aspirin Ec 81 Mg Tabec PO 06/16/25 16:14 81 mg QDAY DUSTIN Administration Atorvastatin Calcium 80 mg 05/11/25 21:00 05/17/25 21:52 Atorvastatin Calcium 20 Mg Tablet PO 06/10/25 20:59 80 mg HS DUSTIN Administration Calcium Carbonate 600 mg 05/16/25 09:00 05/18/25 08:19 Calcium Carbonate 600 Mg Tablet PO 06/15/25 08:59 600 mg BID DUSTIN Administration Diazepam 5 mg 05/15/25 17:35 05/17/25 21:52 Diazepam 5 Mg Tablet PO 05/20/25 17:34 5 mg HS DUSTIN Administration Guaifenesin 200 mg 05/14/25 09:00 05/18/25 12:29 Guaifenesin Syrup 200 Mg/10 Ml Udc PO 06/13/25 08:59 200 mg QID DUSTIN Administration Protocol Ceftriaxone Sodium 2 gm/ 50 mls @ 100 mls/hr 05/14/25 16:00 05/18/25 08:18 Sodium Chloride IV 05/21/25 15:59 100 mls/hr QDAY DUSTIN Administration Ondansetron HCl 4 mg 05/11/25 11:44 05/11/25 14:16 Ondansetron Inj 2 Mg/Ml Inj 2 Ml IVP 06/10/25 11:43 4 mg Q4HR PRN Administration NAUSEA OR VOMITING Pantoprazole Sodium 40 mg 05/13/25 21:00 05/18/25 08:18 Pantoprazole Inj 40 Mg Vial IVP 06/12/25 20:59 40 mg BID DUSTIN Administration Potassium Phos/Sodium Phos 1 packet 05/16/25 09:15 05/18/25 08:19 Naph,Kp Mbdb 1 Packet (1.5 Gm) PO 06/15/25 09:14 1 packet BID DUSTIN Administration Risperidone 3 mg 05/15/25 17:35 05/17/25 21:52 Risperidone 1 Mg Tablet PO 06/14/25 17:34 3 mg HS DUSTIN Administration Plan This patient is a 69-year-old female with past medical history of GERD, hypertension, hyperlipidemia, bipolar 1 disorder and COPD was admitted to ICU for shock and GI bleed. Stroke has been ruled out. #Acute CVA, ruled out Patient was found to have slurring and right upper extremity deficit. Patient's presentation possibly related to shock from global hypoperfusion. Head CT and head and neck CTA was negative MRI brain showed no acute infarct. Only moderate chronic microvascular changes were seen. 05/18/25: She reported improvement in her symptoms with nebulization treatment. She continues to be alert and oriented x 2. No other focal neurological deficits seen. Soft tissue neck ultrasound showed 17 x 8 mm lymph node No soft tissue abscess or significant edema Plan: Patient can be safely discharged from neurology standpoint No need of repeat CT brain without contrast Continue aspirin and atorvastatin 80 mg at bedtime Aspiration precautions #Bipolar 1 disorder -History of bipolar disorder per patient's daughter and chart review Plan: Continue aripiprazole and risperidone #Hypovolemic shock, resolved #Acute blood loss anemia,resolved #Nonbleeding ulcer at GE junction #Acute hypoxic hypercapnic respiratory failure due to pneumonia #History of COPD #Transaminitis #Aspiration pneumonia #Hypertension #electrolyte derangements #Hypophosphatemia #Hypocalcemia #Hypokalemia #Pleural mass on CT #Chronic tobacco smoking Management as per primary care team. Plan of care discussed with neurologist, Dr Haley Dumont MD, PGY 3
== END 2025-05-18 17:26 | disposition skilled nursing facility (03) | DRG 871 ==
LOC: SERX 12:35 → SERHOLD 16:17 → S2SX 05-12 06:10 → S3SX 05-14 16:14
PROVIDERS: Internal Medicine Critical Care Medicine; Nurse Practitioner Family; Specialist; Student in an Organized Health Care Education/Training Program; Admitting Provider Student in an Organized Health Care Education/Training Program; Emergency Provider Family Medicine; Visit Provider Student in an Organized Health Care Education/Training Program
PROC: (CPT 43239; principal; 2025-05-12 17:00)
DX: A41.9 Sepsis, unspecified organism (principal); G93.41 Metabolic encephalopathy; J18.9 Pneumonia, unspecified organism; J96.01 Acute respiratory failure with hypoxia; R65.21 Severe sepsis with septic shock; R57.1 Hypovolemic shock; J69.0 Pneumonitis due to inhalation of food and vomit; K25.4 Chronic or unspecified gastric ulcer with hemorrhage; N17.9 Acute kidney failure, unspecified; M62.82 Rhabdomyolysis; D62 Acute posthemorrhagic anemia; G45.9 Transient cerebral ischemic attack, unspecified; J44.1 Chronic obstructive pulmonary disease with (acute) exacerbation; J44.0 Chronic obstructive pulmonary disease with (acute) lower respiratory infection; R47.01 Aphasia; E22.2 Syndrome of inappropriate secretion of antidiuretic hormone; E87.29 Other acidosis; J44.9 Chronic obstructive pulmonary disease, unspecified; I10 Essential (primary) hypertension; F31.9 Bipolar disorder, unspecified; S01.81XA Laceration without foreign body of other part of head, initial encounter; E03.9 Hypothyroidism, unspecified; G25.81 Restless legs syndrome; E78.5 Hyperlipidemia, unspecified; Z60.2 Problems related to living alone; F17.210 Nicotine dependence, cigarettes, uncomplicated; E87.5 Hyperkalemia; E83.52 Hypercalcemia; D69.6 Thrombocytopenia, unspecified; R74.01 Elevation of levels of liver transaminase levels; E87.8 Other disorders of electrolyte and fluid balance, not elsewhere classified; W19.XXXA Unspecified fall, initial encounter; Z79.82 Long term (current) use of aspirin; Z79.890 Hormone replacement therapy; Z79.899 Other long term (current) drug therapy; E83.39 Other disorders of phosphorus metabolism; E83.42 Hypomagnesemia; E83.51 Hypocalcemia; E87.6 Hypokalemia; F17.200 Nicotine dependence, unspecified, uncomplicated; F41.9 Anxiety disorder, unspecified; E86.1 Hypovolemia; R33.9 Retention of urine, unspecified
CPT/HCPCS: 36415; 36600; 70450; 70496; 70498; 70544; 71045; 71250; 72170; 74018; 74176; 76536; 80053; 80061; 80069; 80202; 80307; 81001; 82271; 82550; 82803; 83036; 83605; 83735; 84100; 84145; 84295; 84439; 84443; 84484; 84703; 85014; 85018; 85025; 85610; 85730; 86850; 86900; 86901; 86923; 86927; 86965; 87040; 87081; 90715; 92526; 92610; 93005; 93306; 93971; 94002; 94003; 94640; 94660; 94664; 94667; 96361; 96365; 96366; 96375; 97162; 97163; 99285; A4649; A9270; J0613; J0692; J0696; J2250; J2354; J2405; J2470; J2598; J3010; J3373; J3411; J3475; J3480; J3490; J7030; J7050; J7120; J7999; P9016; Q9967

== ENCOUNTER 2025-06-14 08:34 | Emergency (ER) | payer MEDICARE, MEDICAID, SELFPAY ==
[2025-06-14] VITALS (13 sets, daily range): BP systolic 80–134; BP diastolic 54–82; PULSE 86–111; RESP 12–20; TEMP 36.6–37.3; O2SAT 95–99; BMI 28.3
--- NOTE | 2025-06-14 09:01 | EDNOTE_ITS ---
<Statement entered by Minerva Rees MD - 06/28/25 14:16> I, Minerva Rees MD, have reviewed the history, exam, and assessment of the patient. I have evaluated the patient independently and agree with the plan of care documented by [ ]. All diagnostic studies were reviewed and discussed. I confirm the diagnosis as documented by the Resident. I was present during the Medical Decision Making for this patient. The patient's plan of care was created between myself and the Resident and consistent with our discussion of the patient's case. ED General RME/HPI General Chief complaint: General Adult/Misc Complain Stated complaint: BLOOD TRANSFUSION Time Seen by Provider: 06/14/25 09:01 Arrival date/time: 06/14/25 08:34 RME / HPI RME / HPI narrative: Doris is a 69 y/o female with PMHx GERD, peptic ulcer disease, hypertension, hyperlipidemia, COPD (not on home oxygen), bipolar disorder, and hypothyroidism, who comes in to the ED for an evaluation after being found to have a hemoglobin of 6.8. Patient was recently discharged put in a rehab facility after she had a lengthy course in the hospital including the ICU in which she was admitted for bleeding and hypovolemic/hemorrhagic shock. Of note she recently had a endoscopy last month in which she was found to have extensive bleeding, however no varices. She denies taking any ibuprofen, Aleve or any other NSAIDs. Her home medicine list says she takes home medicine aspirin, however she denies taking it. She denies any coughing up blood, vomiting blood or having any bloody bowel movements. She has a chronic indwelling Reese, however she is unsure why. She endorses feeling weak, however denies having any chest pain, shortness of breath, feeling diaphoretic, numbness, tingling or confused. Denies taking any blood thinners. No other complaints at this time. Her surgical history includes bilateral knee replacements. She smoked extensively for about 30 years a pack a day. Related Data Home Medications ?Medication ?Instructions ?Recorded ?Confirmed carvedilol 3.125 mg tablet (Coreg) 3.125 mg PO BID #0 tabs 09/03/16 05/13/25 albuterol sulfate 90 mcg/actuation 2 puff inhalation Q ID PRN 07/10/18 05/13/25 aerosol inhaler (Ventolin HFA) Shortness Of Breath Or Wheezing aripiprazole 30 mg tablet (Abilify) 15 mg PO QDAY 11/2205/13/25 levothyroxine 50 mcg tablet 75 mcg PO QDAY 07/10/18 (Synthroid) venlafaxine 150 mg 300 mg PO QDAY 07/10/1803/01 capsule,extended release 24 hr (Effexor XR) diazepam 10 mg tablet (Valium) 5 mg PO QDAY 03/26/19 0 05/13/25 lisinopril 20 mg tablet 20 mg PO DAILY #0 tabs 03/2605/13/25 ferrous sulfate 325 mg (65 mg 325 mg PO QDAY 08/25/19 05/13/25 iron) tablet risperidone 3 mg tablet 0.5 mg PO HS 08/25/19 gemfibrozil 600 mg tablet 1 tab PO BID 04/30/22 diazepam 10 mg tablet 20 mg PO .Qhs 05/13/2505/13 dicyclomine 10 mg capsule 50 mg PO TID 05/13/25 loperamide 2 mg capsule 2 mg PO BID 05/14/25 5 Previous Rx's ?Medication ?Instructions ?Recorded aspirin 81 mg capsule 81 mg PO QDAY #30 caps 05/17 omeprazole 40 mg capsule,delayed 40 mg PO BID 30 days #60 caps 05/17/25 release atorvastatin 80 mg tablet 80 mg PO QDAY 30 days #30 ta bs 05/20/25 Allergies Allergy/AdvReac Type Severity Reaction Status Date / Time adhesive tape Allergy Severe SURGICAL Verified 06/14/25 08:46 TAPE /BLISTERS Sulfa (Sulfonamide Allergy Severe SWEELING / Verified 06/14/25 08:46 Antibiotics) CLOSE THROAT / RASH clindamycin Allergy Unknown Anaphylaxis Verified 06/14/25 08:46 Penicillins Allergy Unknown Anaphylaxis Verified 06/14/25 08:46 Review of Systems Review of Systems Narrative Review of Systems: 12 point ROS reviewed and is otherwise negative unless stated directly in the HPI ED Exam Narrative Physical exam: General: AAOx3, NAD, pleasant female, overweight HEENT: Moist mucous membranes, conjunctiva clear, EOMI, PERRLA, has dentures Cardiovascular: S1, S2, radial pulses +2 bilat, tachycardic Pulmonary: CTAB bilat no cough, no wheezing GI: No tenderness to light or deep palpitation, no guarding, rigidity, rebound tenderness or distension Extremities: No presence of trace or pitting edema in lower extremities bilaterally, dorsalis pedis pulses +2 bilaterally, postoperative scars on bilat knees Neuro: AAOx3, no focal motor or sensory deficits in the UE or LE bilat Psych: Good judgement, thought and behavior Course Quality Measures none Orders Category Date Time Status Bedside COVID-19 Antigen Test NOW Care 06/14/25 09:12 Active EKG (ED ONLY) *Do not use* NOW Care 06/14/25 09:12 Completed Insert IV NOW Care 06/14/25 09:12 Active Post Transfusion H&H PRN Care 06/14/25 09:11 Completed Transfuse,blood/blood products NOW Care 06/14/25 09:11 Active Diet Cardiac Diet 06/14/25 Dinner Active EKG (ED Only) Stat Exams 06/14/25 09:12 Ordered CBC Stat Lab 06/14/25 09:48 Completed CMP [Comprehensive Metabolic Panel] Stat Lab 06/14/25 09:48 Completed Influenza A & B Rapid Panel Stat Lab 06/14/25 11:46 Completed Mag [Magnesium] Stat Lab 06/14/25 09:48 Completed Troponin I Stat Lab 06/14/25 09:48 Completed Type and Screen Stat Lab 06/14/25 09:48 Results Urinalysis, C/S if Indicated Stat Lab 06/14/25 13:45 Completed Urine Culture Stat Lab 06/14/25 13:45 Received prbc [Red Blood Cells] Stat Lab 06/14/25 09:48 Results Pantoprazole Inj [Protonix Inj] Med 06/14/25 09:18 Discontinued 80 mg IVP X1 ONE Sodium Chloride 0.9% 1000 ml [Ns] 1,000 ml Med 06/14/25 09:11 Discontinued IV 999 mls/hr Vital Signs Vital signs: Vital Signs Temperature 98.1 F 06/14/25 08:38 Pulse Rate 111 H 06/14/25 08:38 Respiratory Rate 17 06/14/25 08:38 Blood Pressure 81/54 L 06/14/25 08:38 Pulse Oximetry (%) 95 06/14/25 08:38 Oxygen Delivery Method Room Air 06/14/25 08:38 Discharge Plan Plan Patient Disposition: Xfer Skilled Nsg Fac (SNF) Prescriptions/Referrals Prescriptions/Med Rec: No Action albuterol sulfate [Ventolin HFA] 90 mcg/actuation HFA aerosol inhaler 2 puff INH QID PRN (Reason: Shortness Of Breath Or Wheezing) levothyroxine [Synthroid] 50 mcg tablet 75 mcg PO QDAY aripiprazole [Abilify] 30 mg tablet 15 mg PO QDAY diazepam [Valium] 10 mg tablet 5 mg PO QDAY carvedilol [Coreg] 3.125 MG tablet 3.125 mg PO BID Qty: 0 venlafaxine [Effexor XR] 150 mg capsule,extended release 24hr 300 mg PO QDAY lisinopril 20 mg tablet 20 mg PO DAILY Qty: 0 risperidone 3 mg Tablet 0.5 mg PO HS ferrous sulfate 325 mg (65 mg iron) Tablet 325 mg PO QDAY gemfibrozil 600 mg tablet 1 tab PO BID dicyclomine 10 mg capsule 50 mg PO TID diazepam 10 mg tablet 20 mg PO .Qhs loperamide 2 mg capsule 2 mg PO BID omeprazole 40 mg Capsule,Delayed Release(Dr/Ec) 40 mg PO BID 30 Days Qty: 60 0RF aspirin 81 mg capsule 81 mg PO QDAY Qty: 30 0RF atorvastatin 80 mg tablet 80 mg PO QDAY 30 Days Qty: 30 0RF Referrals: Joe Salgado MD [Primary Care Provider] - In 1 week Problem List Clinical Impression: Peptic ulcer disease Patient/Caregiver Discharge Instructions Additional Instructions: Discharge instructions Follow-up with your PCP within 1 week Take your medicines as prescribed Avoid any NSAIDs including Motrin, Advil, Meloxicam, Aleeve, Ibuprofen If you begin to have any blood in your stool, throw up blood or cough blood, return to the ER. Return to ED if your symptoms worsen or return Print Language: Lithuanian Stand Alone Forms: Chelsie Award Info., Patient Portal Info Letter MDM Narrative MDM hospital course (for use when minimal MDM required): 0924: Ordered blood transfusion initially sent type and screen, giving 1 L bolus in addition to Protonix 80 mg. Ordered basic labs, EKG and urinalysis. 1124: Reviewed Labs, continue with blood transfusion. 1430: Blood transfusion initiated, 1 PRBC. 1817: Transfusion completed, pt is medically cleared for discharge at this time. EKG Interpretation EKG #1: EKG Interpretation: Sinus tachycardia, QTc 310, no ST changes at this time. Medication Administration(s) Medication Administration History Discontinued Medications Sodium Chloride (Ns) 1,000 mls @ 999 mls/hr IV .Q1H1M ONE Stop: 06/14/25 10:11 Last Infusion: 06/14/25 10:58 Dose: Infused Documented By: Admin: 06/14/25 09:58 Dose: 999 mls/hr Documented By: JAMESON Pantoprazole Sodium (Pantoprazole Inj 40 Mg Vial) 80 mg IVP X1 ONE Stop: 06/14/25 09:19 Last Admin: 06/14/25 09:57 Dose: 80 mg Documented By: JAMESON Diagnosis Diagnoses ruled out and/or further discussions: Acute blood loss anemia, PUD
[2025-06-14] MEDS: SODIUM CHLORIDE 0.9% 1000 ML 1,000 ML 999 ML IV (09:58)
[2025-06-14 10:07] LABS: Basophils # (Auto) 0.0 Thou/mm3 (0.0-0.2); Basophils % (Auto) 0 % (0-2.5); Eosinophils # (Auto) 0.1 Thou/mm3 (0.0-0.5); Eosinophils % (Auto) 2 % (0-10); Hematocrit 21.6 % (36.0-46.0); Immature Granulocytes Auto 0.16 Thou/mm3 (0.00-0.00); Lymphocytes # (Auto) 2.0 Thou/mm3 (1.0-4.8); Lymphocytes % (Auto) 24 % (10-50); Mean Corpuscular HGB Conc 33.3 g/dl (31.0-37.0); Mean Corpuscular Hemoglobin 30.8 pg (25.0-35.0); Mean Corpuscular Volume 92 fL (80-100); Monocytes # (Auto) 0.6 Thou/mm3 (0.0-0.8); Monocytes % (Auto) 8 % (0-12); Neutrophils # (Auto) 5.4 Thou/mm3 (1.8-7.7); Neutrophils % (Auto) 65 % (37-80); Nucleated Red Blood Cell # 0.00 Thou/mm3 (0.00-0.00); Nucleated Red Blood Cell % 0 /100 WBC (0); Platelet Count 273 Thou/mm3 (140-440); RDW Standard Deviation 53.0 fL (36.4-46.3); Red Blood Count 2.34 Miln/mm3 (4.00-5.20); White Blood Count 8.3 Thou/mm3 (3.6-11.0)
[2025-06-14 10:08] LABS: Hemoglobin 7.2 g/dL (12.0-16.0)
[2025-06-14 10:28] LABS: Alanine Aminotransferase < 7 U/L (10-49); Albumin, Serum 3.8 gm/dL (3.4-4.8); Albumin/Globulin Ratio 1.2 (1.2-2.2); Alkaline Phosphatase 147 U/L (46-116); Anion Gap 10 (7-16); Aspartate Amino Transferase 12 U/L (0-34); BUN/Creatinine Ratio 16 Ratio (12-20); Bilirubin,Total 0.4 mg/dL (0.3-1.2); Blood Urea Nitrogen 14 mg/dL (9-23); Calcium 9.6 mg/dL (8.3-10.6); Calcium (Corrected) 9.8 mg/dL (8.5-10.1); Carbon Dioxide 29.1 mMol/L (20.0-31.0); Chloride 94 mMol/L (98-107); Creatinine (Component) 0.9 mg/dL (0.6-1.3); Estimated Creatinine Clearance 53.4 mL/min (>60); Globulin 3.1 gm/dL (2.3-3.5); Glucose 155 mg/dL (74-106); Magnesium 1.7 mg/dL (1.6-2.6); Osmolality,Calculated 269 (275-295); Potassium 4.5 mMol/L (3.4-5.1); Sodium 133 mMol/L (136-145); Total Protein 6.9 gm/dL (5.7-8.2); Troponin I < 0.002 ng/mL (0.0-0.045); eGFR > 60 See Note
[2025-06-14 12:13] LABS: Influenza A Ag Negative; Influenza B Ag Negative
[2025-06-14 13:54] LABS: Collection Type, Urine Catheter
[2025-06-14 14:07] LABS: Amorphous Crystals,Urine Present (Absent); Bacteria,Urine Rare; Bilirubin,Urine Negative (Negative); Blood,Urine 1+ (Negative); Budding Yeast,Urine Present; Clarity,Urine Turbid (Clear/Hazy); Color,Urine Lt-Yellow (Lt Yel-Yel); Culture Indicated,Urine Yes; Glucose, Urine Negative (Negative); Ketones,Urine Negative (Negative); Leukocyte Esterase,Urine Positive (Negative); Nitrite,Urine Positive (Negative); PH,Urine 6.5 (5.0-7.0); Protein,Urine 1+ (Neg - Trace); RBC,Urine 43 /hpf (0-3); Specific Gravity,Urine 1.015 (1.001-1.035); Squamous Epithelial Cell,Urine < 1 /hpf (0-5); Urobilinogen,Urine Negative mg/dL (0.0-1.0); WBC,Urine 166 /hpf (0-5)
--- NOTE | 2025-06-14 20:58 | PC.NURSE ---
ATTEMPTED TO CALL REPORT TO [facility] NO ANSWER. REPORT GIVEN TO EMS.
== END 2025-06-14 20:59 | disposition skilled nursing facility (03) ==
PROVIDERS: Emergency Provider Emergency Medicine; PCP Hospitalist
DX: K27.4 Chronic or unspecified peptic ulcer, site unspecified, with hemorrhage (principal); D62 Acute posthemorrhagic anemia; R00.0 Tachycardia, unspecified; Z75.1 Person awaiting admission to adequate facility elsewhere
CPT/HCPCS: 36415; 36430; 80053; 81001; 83735; 84484; 85025; 86850; 86900; 86901; 86923; 87077; 87086; 87186; 87502; 87811; 93005; 96361; 96374; 99284; J2470; J7030; P9016

== ENCOUNTER → 2025-08-16 | Outpatient (CLI) | payer MEDICARE, MEDICAID, SELFPAY ==
--- NOTE | 2025-08-16 10:35 | XR_ITS ---
EXAMINATION: Upright PA lateral chest 2 views TECHNIQUE: Upright PA lateral chest 2 views Date and time: August 16, 2025, 10:52 a.m., comparison 05/16/2025 INDICATIONS: Pneumonia history 3 months FINDINGS: Pneumonia at the lung bases has cleared compared with 05/16/2025 Moderate enlargement left ventricle No current pulmonary edema or pneumonia Prominent osteopenia IMPRESSION: Pneumonia at the lung bases has cleared compared with 05/16/2025
== END | disposition home or self-care (01) ==
PROVIDERS: PCP Internal Medicine; Referring Provider Internal Medicine; Visit Provider Internal Medicine
DX: J18.9 Pneumonia, unspecified organism (principal)
CPT/HCPCS: 71046